=== PATIENT | female | born 1940 | race Caucasian/White ===

== ENCOUNTER 2017-09-13 10:13 | Observation (INO) ==
[2017-09-13] MEDS ORDERED: IOPAMIDOL 100 ML BOTTLE IV ONE (10:14)
--- NOTE | 2017-09-13 10:42 | Emergency Department Note ---
General Adult HPI - General Chief complaint: Blood Pressure Problem Stated complaint: Hypotension, tachycardia Time Seen by Provider: 09/13/17 10:39 Source: patient Mode of arrival: wheelchair Limitations: no limitations - History of Present Illness HPI Narrative: Patient brought back from surgery in which they were preparing to do a total shoulder on her when anesthesia and has noted that heart rate is been 120 his sats have been at times in the 80s the patient herself states she just got excited because of so many people in the room. She denies any chest pain she does have a history of COPD she has a [id number] history of tobacco and uses albuterol but is not oxygen dependent. Her blood pressure at this time is 90 systolically. Has a history of paroxysmal atrial fibrillation denies any orthopnea type signs or symptoms is been no upper respiratory type signs or symptoms no cough the hospitalist was consulted but he referred to the ED for initial evaluation. She is currently being treated for a kidney stone by Dr. Strong and is on Flomax - Related Data Home Medications Medication Instructions Recorded Confirmed vatyjxlaklnj-ngfpmnyz-yeapep tablet 1 tab PO HS tab 12/01/14 09/13/17 DULoxetine HCL [Cymbalta] 30 mg PO DAILY 01/12/17 09/13/17 DULoxetine HCL [Cymbalta] 60 mg PO HS 02/14/17 09/13/17 diphenhydramine 25 mg capsule 75 - 100 mg PO HSP PRN cap 04/18/17 09/13/17 Acetaminophen [8Hr Arthritis Pain] 1,300 mg PO BID 08/18/17 09/13/17 Albuterol Sulfate [Proventil Hfa] 2 puff INHALATION Q6HP PRN 08/18/17 09/13/17 Diltiazem HCl [Diltiazem 24Hr ER] 360 mg PO HS 09/11/17 09/13/17 Ciprofloxacin [Cipro] 500 mg PO BID 09/13/17 09/13/17 Previous Rx's Medication Instructions Recorded lovastatin 20 mg tablet 20 mg PO QPM #90 tab 07/18/17 Tamsulosin [Flomax] 0.4 mg PO HS #20 cap 08/23/17 pramipexole 0.5 mg tablet 2 mg PO QHS #360 tab 08/23/17 Allergies Allergy/AdvReac Type Severity Reaction Status Date / Time No Known Drug Allergies Allergy Verified 09/13/17 10:16 Review of Systems All systems ED: reviewed and negative except as stated. Constitutional: Denies: fever, chills Eyes: Denies: eye pain ENT ED: Denies: ear pain Cardiovascular: Reports: dyspnea on exertion. Denies: chest pain, palpitations , orthopnea Respiratory: Reports: shortness of breath. Denies: cough, wheezes Gastrointestinal: Reports: abdominal pain. Denies: nausea, vomiting Genitourinary: Denies: dysuria Musculoskeletal: Denies: back pain Integumentary: Denies: rash Neurological: Denies: headache Psychiatric: Denies: anxiety Endocrine: Denies: fatigue Hematological/Lymphatic: Denies: easy bleeding Allergic/Immunologic: Denies: facial swelling Past Medical History - Past Medical History Medical history: Reports: arthritis, atrial fibrillation, hyperlipidemia, hypertension, kidney stones, other (restless leg) Surgical history ED: Reports: cataract, hip replacement, orthopedic, other ( back surgeries), tonsillectomy Family history: Reports: other (Mother of suicide father in a motor vehicle accident no other history is known) - Social History smoking status: Former smoker Alcohol use: Reports: None Drug use: Reports: none Physical Exam Limitations: no limitations General appearance: alert Head: atraumatic, normocephalic Eye: Present: normal appearance, PERRL ENT: normal exam, normal oropharynx, mucous membranes moist Neck: Present: normal inspection, full ROM. Absent: trachea midline Chest: Present: normal inspection. Absent: symmetric chest wall rise, tenderness Respiratory: Present: normal lung sounds bilaterally. Absent: respiratory distress, wheezes Cardiovascular: Present: regular rate, normal rhythm. Absent: bradycardia Abdominal: Present: soft, normal bowel sounds. Absent: distention, tenderness, guarding, rebound, rigidity Extremities: Present: normal inspection, full ROM. Absent: tenderness Back: Present: normal inspection, full ROM. Absent: tenderness, CVA tenderness (R), CVA tenderness (L) Patient oriented to: Present: person, place, time Speech: Present: fluid speech Cranial nerves: EOM function (II, III, IV, ): Normal, facial sensation (V): Normal, facial palsy (VII): Normal, gag reflex (IX): Normal, spinal accessory function (XI): Normal, tongue deviation (XII): Normal Cerebellar function: finger to nose: Normal Cerebellar function: normal gait Motor strength - LUE: 5/5 Motor strength - RUE: 5/5 Motor strength - LLE: 5/5 Motor strength - RLE: 5/5 Upper motor neuron exam: Babinski sign: Absent bilaterally Sensory exam upper extremity: Normal: light touch Sensory exam lower extremity: Normal: light touch DTR: 2+: patellar (L), patellar (R) Coma Scale Eye Opening: Spontaneous Coma Scale Motor Response: Obeys Commands Coma Scale Verbal Response: Oriented Coma Scale Total: 15 Psychiatric: Present: normal affect, normal mood Skin: Present: warm, dry Course Vital Signs Temperature 97.8 F 09/13/17 10:16 Pulse Rate 127 H 09/13/17 10:16 Respiratory Rate 18 09/13/17 10:16 Blood Pressure 106/55 09/13/17 10:16 Pulse Oximetry (%) 85 L 09/13/17 10:16 Temperature 97.8 F 09/13/17 10:16 Pulse Rate 89 09/13/17 14:19 Respiratory Rate 15 09/13/17 13:58 Blood Pressure 119/83 09/13/17 13:58 Pulse Oximetry (%) 92 09/13/17 13:58 Medical Decision Making - MDM Narrative Medical decision making narrative: D DIMER ELEVATED AND CT PERFORMED SHOWS NO DVT, ATELECTASIS . hAS ua WITH LG WBC AND RBC. Is currently being followed by Dr. Strong for kidney stone and is on Flomax. Her O2 sat drops down to 8788 when on room air is giving a breathing treatment. ABGs were good pH is 7.42 and a CO2 of 40s. Potassium was 2.9 and patient given a K rider. Dr. MCKINNEY contacted and patient to be admitted. - Lab Data Result diagrams: 09/13/17 10:52 09/13/17 10:51 Lab Results 09/13/17 09/13/17 09/13/17 Range/Units 10:51 10:51 10:52 WBC 8.8 (4.5-11.0) K/mcL RBC 4.23 (4.00-5.20) M/mcL Hgb 11.8 L (12.0-15.0) g/dL Hct 36.5 (36.0-48.0) % MCV 86.3 (80.0-100.0) fL MCH 27.8 (26.0-34.0) pg MCHC 32.3 (31.0-36.0) g/dL RDW 17.8 H (11.5-14.5) % Plt Count 375 (140-440) K/mcL MPV 7.3 L (7.4-10.4) fL Gran % 76.5 (38.0-78.0) % Lymph % (Auto) 14.2 L (15.5-49.0) % [place] % (Auto) 7.6 (1.0-12.0) % Eos % (Auto) 1.4 (0.0-7.0) % Baso % (Auto) 0.3 (0.0-2.0) % Gran # 6.7 (1.8-8.0) K/mcL Lymph # (Auto) 1.2 L (1.5-4.8) K/mcL [place] # (Auto) 0.7 (0.1-0.9) K/mcL Eos # (Auto) 0.1 (0.0-0.7) K/mcL Baso # (Auto) 0 (0.0-0.3) K/mcL D-Dimer 0.90 H (0.00-0.40) ug/ml VBG Lactic Acid (0.5-2.2) mmol/L Sodium 141 (133-145) mmol/L Potassium 2.9 L* (3.3-5.1) mmol/L Chloride 100 (96-108) mmol/L Carbon Dioxide 27 (22-30) mmol/L Anion Gap 14.0 (8-16) BUN 18 (8-23) mg/dl Creatinine 1.1 (0.6-1.1) mg/dl GFR Calculation 49 Glucose 114 H (70-105) mg/dL Calcium 9.3 (8.6-10.4) mg/dl Total Bilirubin 0.2 (0.0-1.0) mg/dL AST 21 (0-37) U/l ALT 24 (0-40) U/l Alkaline Phosphatase 111 (39-117) U/L Total Creatine Kinase 56 (24-170) IU/L CK-MB (CK-2) 2.4 (0-2.9) ng/ml Myoglobin 52 (25-58) ng/ml Troponin T (0-0.03) ng/ml NT-Pro-B Natriuret Pep 923.2 H (0-125) pg/ml Total Protein 6.6 (5.9-8.4) gm/dL Albumin 3.3 (3.2-5.2) gm/dL Globulin 3.3 (2.2-3.7) gm/dL Albumin/Globulin Ratio 1.0 (1.0-2.3) Urine Color Urine Appearance Urine pH (5.0-9.0) Ur Specific [place] (1.000-1.035) Urine Protein (NEG) mg/dL Urine Glucose (UA) (NEG) mg/dL Urine Ketones (NEG) mg/dL Urine Occult Blood (<0.03) mg/dL Urine Nitrate (NEG) Urine Bilirubin (NEG) mg/dL Urine Urobilinogen (NEG) mg/dL Ur Leukocyte Esterase (NEG) /uL Urine RBC (0-1) /hpf Urine WBC (0-4) /hpf Ur Squamous Epith Cells (0-4) /hpf Urine Bacteria (0) /hpf Urine Mucus (0) /hpf Ur Culture Indicated? 09/13/17 09/13/17 09/13/17 Range/Units 10:52 11:23 13:30 WBC (4.5-11.0) K/mcL RBC (4.00-5.20) M/mcL Hgb (12.0-15.0) g/dL Hct (36.0-48.0) % MCV (80.0-100.0) fL MCH (26.0-34.0) pg MCHC (31.0-36.0) g/dL RDW (11.5-14.5) % Plt Count (140-440) K/mcL MPV (7.4-10.4) fL Gran % (38.0-78.0) % Lymph % (Auto) (15.5-49.0) % [place] % (Auto) (1.0-12.0) % Eos % (Auto) (0.0-7.0) % Baso % (Auto) (0.0-2.0) % Gran # (1.8-8.0) K/mcL Lymph # (Auto) (1.5-4.8) K/mcL [place] # (Auto) (0.1-0.9) K/mcL Eos # (Auto) (0.0-0.7) K/mcL Baso # (Auto) (0.0-0.3) K/mcL D-Dimer (0.00-0.40) ug/ml VBG Lactic Acid 1.9 (0.5-2.2) mmol/L Sodium (133-145) mmol/L Potassium (3.3-5.1) mmol/L Chloride (96-108) mmol/L Carbon Dioxide (22-30) mmol/L Anion Gap (8-16) BUN (8-23) mg/dl Creatinine (0.6-1.1) mg/dl GFR Calculation Glucose (70-105) mg/dL Calcium (8.6-10.4) mg/dl Total Bilirubin (0.0-1.0) mg/dL AST (0-37) U/l ALT (0-40) U/l Alkaline Phosphatase (39-117) U/L Total Creatine Kinase (24-170) IU/L CK-MB (CK-2) (0-2.9) ng/ml Myoglobin (25-58) ng/ml Troponin T < 0.01 (0-0.03) ng/ml NT-Pro-B Natriuret Pep (0-125) pg/ml Total Protein (5.9-8.4) gm/dL Albumin (3.2-5.2) gm/dL Globulin (2.2-3.7) gm/dL Albumin/Globulin Ratio (1.0-2.3) Urine Color Yellow Urine Appearance Hazy Urine pH 6.0 (5.0-9.0) Ur Specific [place] 1.019 (1.000-1.035) Urine Protein 30 A (NEG) mg/dL Urine Glucose (UA) Negative (NEG) mg/dL Urine Ketones Neg (NEG) mg/dL Urine Occult Blood 0.2 A (<0.03) mg/dL Urine Nitrate Neg (NEG) Urine Bilirubin Neg (NEG) mg/dL Urine Urobilinogen Neg (NEG) mg/dL Ur Leukocyte Esterase 500 A (NEG) /uL Urine RBC 97 H (0-1) /hpf Urine WBC 93 H (0-4) /hpf Ur Squamous Epith Cells 1 (0-4) /hpf Urine Bacteria 0 (0) /hpf Urine Mucus Few (0) /hpf Ur Culture Indicated? Yes Disposition Pt seen by V[employer]ICAL [employer]W OPERATOR/PA only: No Clinical Impression: Hypokalemia, Hypotension, Hypoxia Disposition: Xfer Acute Care Hospital Condition: Fair Referrals: Adam Santos MD [Primary Care Provider] -
[2017-09-13] MEDS ORDERED: 0.9 % SODIUM CHLORIDE 1,000 ML IV ONE (10:51)
[2017-09-13 11:24] LABS: Basophils # (Auto) 0 K/mcL (0.0-0.3); Basophils % (Auto) 0.3 % (0.0-2.0); Eosinophils # (Auto) 0.1 K/mcL (0.0-0.7); Eosinophils % (Auto) 1.4 % (0.0-7.0); Granulocytes % (Auto) 76.5 % (38.0-78.0); Lymphocytes # (Auto) 1.2 K/mcL (1.5-4.8); Lymphocytes % (Auto) 14.2 % (15.5-49.0); Mean Cell Volume 86.3 fL (80.0-100.0); Mean Corpuscular HGB Conc 32.3 g/dL (31.0-36.0); Mean Corpuscular Hemoglobin 27.8 pg (26.0-34.0); Monocytes # (Auto) 0.7 K/mcL (0.1-0.9); Monocytes % (Auto) 7.6 % (1.0-12.0); Platelet Count 375 K/mcL (140-440); RBC 4.23 M/mcL (4.00-5.20); Red Cell Distribution Width 17.8 % (11.5-14.5)
--- NOTE | 2017-09-13 11:28 | XRay Report ---
CLINICAL INFORMATION: Chest pain COMPARISON: 08/08/2017 FINDINGS: The heart is mildly enlarged - slightly increased. Mediastinum is unremarkable. Pulmonary vessels show slight redistribution. There appears be a small infiltrate superimposed over chronic right basilar fibrosis. Minor left basilar fibrosis noted IMPRESSION: Suspect small infiltrate developing in the right base superimposed upon chronic fibrosis Interpreted and Authenticated by: Noel Petty 09/13/17
[2017-09-13] MEDS ORDERED: cefTRIAXone 1 GM VIAL IV ONE (11:41)
[2017-09-13] MEDS ORDERED: LEVOFLOXACIN 500 MG/100 ML BAG IV ONE (11:46)
[2017-09-13 11:49] LABS: ALT/SGPT 24 U/l (0-40); Albumin 3.3 gm/dL (3.2-5.2); Alkaline Phosphatase 111 U/L (39-117); Blood Urea Nitrogen 18 mg/dl (8-23); Creatine Kinase 56 IU/L (24-170); Creatine Kinase MB 2.4 ng/ml (0-2.9); Myoglobin 52 ng/ml (25-58); proBNP 923.2 pg/ml (0-125)
[2017-09-13] MEDS ORDERED: POTASSIUM CHLORIDE 20 MEQ in DEXTROSE 5% IN WATER 250 ML IV ONE (11:50)
--- NOTE | 2017-09-13 13:39 | Cat Scan Report ---
CLINICAL INFORMATION: Increased d-dimer and shortness of breath COMPARISON: Chest CT 06/24/2011. TECHNIQUE: 80 cc of Isovue-300 were injected intravenously. Using SmartPrep to maximize pulmonary artery opacification, 2.5 mm helical slices were obtained from the lung apices through the lung bases. Following reconstruction, 2.5 mm sagittal, coronal, and axial reformations were processed. The exam was reviewed at mediastinal, lung, and bone windows. The exam was performed using radiation dose optimization techniques including, but not limited to, automated exposure control, adjustment of the mA and/or kV according to patient size and use of iterative reconstruction technique. FINDINGS: Mediastinal windows show the pulmonary arteries well opacified without evidence of embolus. Central pulmonary arteries are mildly enlarged: main pulmonary artery diameter 3 cm suggest pulmonary hypertension. The heart is only larger scattered calcific plaque in the coronary arteries. The thoracic aorta is normal in contour and caliber. There are no abnormally enlarged lymph nodes in the mediastinal hilar or axillary regions. Esophagus is normal. Pulmonary parenchymal windows show complete atelectasis of the medial and posterior basilar segments of the left lower lobe with subsegmental atelectasis in the lateral basilar segment left lower lobe and also the posterior basilar segment right lower lobe. Mild centrilobular emphysema changes feature chronic bronchitis and scattered bullae in the apices. A mosaic perfusion pattern may indicate small airways disease. The bone windows show moderate degenerative changes of thoracic spine. Severe arthritic changes in the right glenohumeral joint featuring a large effusion and particular erosion noted. IMPRESSION: 1. No evidence of pulmonary embolus 2. Mild centrilobular emphysema changes. Mosaic perfusion pattern suggests small airways disease 3. Mild enlargement of the central pulmonary arteries suggesting pulmonary hypertension related to COPD 4. Atelectasis of the medial and posterior basilar segments left lower lobe with subsegmental atelectasis in the posterior basilar segment right lower lobe lateral basilar segment left lower lobe and lingula. 5. Severe inflammatory arthritic changes in the right glenohumeral joint - new from prior CT Interpreted and Authenticated by: Noel Petty 09/13/17
[2017-09-13] MEDS ORDERED: IPRATROPIUM/ALBUTEROL 3 ML AMPUL.NEB NEB ONE (14:06)
[2017-09-13 14:27] LABS: Appearance,Urine HAZY; Bacteria,Urine 0 /hpf (0); Bilirubin,Urine NEG (NEG); Color,Urine YELLOW; Glucose,Urine (UA) NEGATIVE (NEG); Leukocyte Esterase,Urine 500 /uL (NEG); Mucus,Urine FEW /hpf (0); Protein,Urine 30 mg/dL (NEG); Specific Gravity,Urine 1.019 (1.000-1.035); Urine Blood 0.2 mg/dL (<0.03); Urine RBC 97 /hpf (0-1); Urine Squamous Epithelial Cell 1 /hpf (0-4); Urine WBC 93 /hpf (0-4); Urobilinogen,Urine NEG (NEG)
[2017-09-13] MEDS ORDERED: methylPREDNISolone SOD SUCC 125 MG/2 ML VIAL IV ONE (15:35)
--- NOTE | 2017-09-13 15:40 | Internal Med History&Physical ---
Medical - H&P: HPI Patient information: Note initiated : 09/13/17 at 3:37 pm Service Date, if different from initiated Date: [] Patient: Leslie Maldonado a 76 y/o F admitted on for Hypotension, tachycardia. Chief Complaint: [] History of present illness: Ms. Maldonado is a 76 year old F with h/o recently diagnosed copd, not on home oxygen, strong history of smoking in the past presents to the ER today after her shoulder surgery was cancelled. The patient presented for elective right shoulder surgery. I believe it was arthroplasty. The patient was hypoxic and tachycardic at the check in and therefore surgery was canceled and the patient was sent to the emergency room patient also had low blood pressure. The patient notes she has been having cough and increased shortness of breath going on for the last 2-3 weeks, cough is productive of whitish yellow sputum no blood in the sputum. She has had increased shortness of breath and even walking 10-15 feet would make her short of breath. Her PCP had recently started on albuterol which helped with her breathing. Her symptoms have not completely resolved yet. The patient otherwise denies any other acute complaints. She was otherwise well for the surgery. She has been diagnosed with a UTI? She has no urinary complaints but is on ciprofloxacin. The patient also notes she has swelling in her legs, has been prescribed some diuretics by her PCP but she is not very good at taking them. Swelling is worse during the day is not as bad now as she has not been on her feet. In the emergency room patient was afebrile, tachycardic at a heart rate of 119, systolic blood pressure as low as 80, she was saturating 83% on room air. Usually saturates around 93-94% on room air. The patient's labs show WBC of 8.8 , hemoglobin 11.8, platelets 375, sodium is normal at 141, potassium very low at 2.9, bicarbonate 27, creatinine 1.1 glucose 114. Elevated d-dimer at 0.9, normal lactic acid 1.9, slightly elevated BNP at 923, UA suggestive of a UTI, recent urine culture done a couple of days ago was negative for any specific organism. Had mixed linda growth. Patient had a chest x-ray done which showed possible infiltrate at the right base, she had a CT angios done which showed no PE but bilateral atelectasis. No evidence of pneumonia. Patient did get fluids in the ED, was blood pressure and heart rate improved however the patient remained hypoxic. Given her low potassium and hypoxia patient was presented to the hospital for admission. All systems: reviewed and no additional remarkable complaints except as stated ( As per HPI rest negative) Medical - H&P: PMH Medical history: Medical History (Last Reviewed 08/29/17 @ 08:18 by Jayleen Reyna, RN) Kidney stone on left side (Acute) Lumbago (Acute) History of ECG (Chronic 10/29/15) Pseudophakia (Chronic) PCO (posterior capsular opacification) (Chronic) Blepharitis (Chronic) Osteoarthritis of shoulders, bilateral (Chronic) Osteoarthritis of right knee (Chronic) Bruising (Chronic) History of radiation exposure (Chronic) History of right hip replacement (Chronic) History of tobacco use (Chronic) Restless legs (Chronic) Paroxysmal supraventricular tachycardia (Chronic) Paroxysmal atrial fibrillation (Chronic) Pain in joint, shoulder region (Chronic) Pain in joint, pelvic region and thigh (Chronic) Low back pain (Chronic) Hypertension, essential, benign (Chronic) Hyperlipidemia (Chronic) Hormone replacement therapy (Chronic) Degenerative arthritis (Chronic) Colon polyps (Chronic) Cervicalgia (Chronic) Anxiety (Chronic) Surgical history: Past Surgical History (Last Reviewed 08/29/17 @ 08:17 by Jayleen Reyna, [place]) History of spinal fusion (Chronic) History of laminectomy (Chronic) History of esophagogastroduodenoscopy (Chronic) History of colonoscopy (Chronic) History of right knee joint replacement (Chronic) Pertinent family history: Family History (Last Reviewed 08/29/17 @ 08:19 by Jayleen Reyna, [place]) Other No pertinent family history Medical - H&P: Meds Home Medications Medication Instructions Recorded Confirmed Type ntcfcjvqrhit-nzglgdoh-yygzkn tablet 1 tab PO HS tab 12/01/14 09/13/17 History DULoxetine HCL [Cymbalta] 30 mg PO DAILY 01/12/17 09/13/17 History DULoxetine HCL [Cymbalta] 60 mg PO HS 02/14/17 09/13/17 History diphenhydramine 25 mg capsule 75 - 100 mg PO HSP PRN cap 04/18/17 09/13/17 History lovastatin 20 mg tablet 20 mg PO QPM #90 tab 07/18/17 09/13/17 Rx Acetaminophen [8Hr Arthritis Pain] 1,300 mg PO BID 08/18/17 09/13/17 History Albuterol Sulfate [Proventil Hfa] 2 puff INHALATION Q6HP PRN 08/18/17 09/13/17 History Tamsulosin [Flomax] 0.4 mg PO HS #20 cap 08/23/17 09/13/17 Rx pramipexole 0.5 mg tablet 2 mg PO QHS #360 tab 08/23/17 09/13/17 Rx Diltiazem HCl [Diltiazem 24Hr ER] 360 mg PO HS 09/11/17 09/13/17 History Ciprofloxacin [Cipro] 500 mg PO BID 09/13/17 09/13/17 History Allergies Allergy/AdvReac Type Severity Reaction Status Date / Time No Known Drug Allergies Allergy Verified 09/13/17 10:16 Medical - H&P: Exam - Constitutional Vitals: Temp Pulse Resp BP Pulse Ox 97.8 F 87 20 64/41 96 09/13/17 10:16 09/13/17 15:31 09/13/17 15:31 09/13/17 15:30 09/13/17 15:31 Exam: GENERAL: The patient is a well-developed, well-nourished in no apparent distress. Is alert and oriented x3. VITAL SIGNS: Reviewed and as noted elsewhere. HEENT: Head is normocephalic and atraumatic. Extraocular muscles are intact. Pupils are equal, round, and reactive to light. Nares appeared normal. Mouth appears any without lesions. Mucous membranes are moist. NECK: Normal to inspection, Supple, No lymphadenopathy or thyromegaly. LUNGS: Air entry equal on both sides, no wheezing, crackles or rhonchi noted. No accessory muscles of respiration HEART: Regular rate and rhythm normal, S1 and S2 heard, no Gallop, S3 or Rub Noted, No Gross murmur heard. (h/o intermittent afib, but was in sinus on my exam) ABDOMEN: Soft, nontender, and nondistended. Positive bowel sounds. No hepatosplenomegaly was noted. EXTREMITIES: No cyanosis, clubbing, rash, lesions, edema ++ NEUROLOGIC: Cranial nerves II through XII are grossly intact. Motor and Sensory System Grossly Intact PSYCHIATRIC: Normal affect, Normal Mood. Appropriate Behavior. SKIN: No ulceration or wounds noted, No jaundice, No rash noted. Medical - H&P: Reslt - Labs CBC & Chem 7: 09/13/17 10:52 09/13/17 10:51 Labs: Short CBC 09/13/17 Range/Units 10:52 WBC 8.8 (4.5-11.0) K/mcL Hgb 11.8 L (12.0-15.0) g/dL Hct 36.5 (36.0-48.0) % Plt Count 375 (140-440) K/mcL BMP 09/13/17 10:51 Sodium 141 Potassium 2.9 L* Chloride 100 Carbon Dioxide 27 BUN 18 Creatinine 1.1 Glucose 114 H Calcium 9.3 Cardiac Enzymes 09/13/17 09/13/17 Range/Units 10:51 10:52 Total Creatine Kinase 56 (24-170) IU/L CK-MB (CK-2) 2.4 (0-2.9) ng/ml Troponin T < 0.01 (0-0.03) ng/ml Liver Function 09/13/17 Range/Units 10:51 Total Bilirubin 0.2 (0.0-1.0) mg/dL AST 21 (0-37) U/l ALT 24 (0-40) U/l Alkaline Phosphatase 111 (39-117) U/L Albumin 3.3 (3.2-5.2) gm/dL Urine 09/13/17 Range/Units 13:30 Urine Color Yellow Urine Appearance Hazy Urine pH 6.0 (5.0-9.0) Ur Specific [place] 1.019 (1.000-1.035) Urine Protein 30 A (NEG) mg/dL Urine Glucose (UA) Negative (NEG) mg/dL Medical - H&P: A/P - Narrative A/P Narrative: A/P Acute copd/ Bronchitis exacerbation Acute hypoxic resp failure Bilateral atelectasis Afib with RVR Shoulder arthritis Hypokalemia Plan Observe on tele replace K aggresively, IV 20, and oral 40, recheck hold cardizem in light of low bp, prn IV metoprolol if needed for tachcyardia not sure why not on anticoagulation, notes not used because of excessive bruising (AC for afib) IV steroids for now, for bronchitis, no wheeze on exam but clinically does have flare up Hypoxia worsened by atelectatsis. aggresive incentive spirometery use Pt only wants to stay for 1 day, hopefully she will be better by tomorrow, but explained that cannot guarantee that she will be stable for D/c Duonebs q4hrs on levoflox for bronchitis, hold cipro, DVT hep sq Diet Cardiac Full code Social History - Social History household members: spouse, alone housing: house lives independently: Yes marital status: occupational status: retired - Pets pets and animals: cat(s), dog(s) - Tobacco smoking status: Former smoker - Alcohol alcohol intake frequency: former alcohol drinker - Substance use substance use type: does not use
[2017-09-13] MEDS ORDERED: ACETAMINOPHEN 325 MG TABLET PO PRN (16:40)
[2017-09-13] MEDS ORDERED: POTASSIUM CHLORIDE 20 MEQ PACKET PO ONE (16:40)
[2017-09-13] MEDS ORDERED: oxyCODONE/APAP 5/325MG TABLET PO PRN (16:40)
[2017-09-13] MEDS ORDERED: ONDANSETRON ODT 4 MG TABLET SL PRN (16:40)
[2017-09-13] MEDS ORDERED: NALOXONE HCL 0.4 MG/ML VIAL IV PRN (16:40)
[2017-09-13] MEDS ORDERED: PRAMIPEXOLE 0.25 MG TABLET PO SCH (18:00)
[2017-09-13] MEDS: METOPROLOL TARTRATE 5 MG/5 ML VIAL IV SCH ×2 (18:27→18:28)
[2017-09-13] MEDS: IPRATROPIUM/ALBUTEROL 3 ML AMPUL.NEB NEB SCH ×2 (19:30→23:04)
[2017-09-13] MEDS ORDERED: SIMVASTATIN 10 MG TABLET PO SCH (21:00)
[2017-09-13] MEDS ORDERED: PRAMIPEXOLE 1 MG TABLET PO SCH (21:00)
[2017-09-13] MEDS ORDERED: NON FORMULARY MEDICATION 1 DOSE MISCELL (Duloxetine Hcl [Cymbalta] 60 MG) PO SCH (21:00)
[2017-09-13] MEDS ORDERED: TAMSULOSIN 0.4 MG CAPSULE PO SCH (21:00)
[2017-09-13] MEDS: 0.9 % SODIUM CHLORIDE 10 ML SYRINGE IV SCH (22:12)
[2017-09-13] MEDS: FAMOTIDINE 20 MG TABLET PO SCH (22:12)
[2017-09-13] MEDS: HEPARIN 5,000 UNIT/ML VIAL SQ SCH (22:12)
[2017-09-14] MEDS ORDERED: METOPROLOL TARTRATE 5 MG/5 ML VIAL IV PRN (02:54)
[2017-09-14] MEDS: IPRATROPIUM/ALBUTEROL 3 ML AMPUL.NEB NEB SCH ×3 (03:05→10:17)
[2017-09-14] MEDS ORDERED: METOPROLOL TARTRATE 5 MG/5 ML VIAL IV ONE ×2 (03:06→03:20)
[2017-09-14] MEDS ORDERED: predniSONE 20 MG TABLET PO SCH (08:00)
[2017-09-14 08:13] LABS: Basophils # (Auto) 0 K/mcL (0.0-0.3); Basophils % (Auto) 0 % (0.0-2.0); Eosinophils # (Auto) 0 K/mcL (0.0-0.7); Eosinophils % (Auto) 0 % (0.0-7.0); Granulocytes % (Auto) 85.8 % (38.0-78.0); Lymphocytes # (Auto) 0.5 K/mcL (1.5-4.8); Lymphocytes % (Auto) 12.1 % (15.5-49.0); Mean Cell Volume 85.4 fL (80.0-100.0); Mean Corpuscular HGB Conc 32.9 g/dL (31.0-36.0); Monocytes # (Auto) 0.1 K/mcL (0.1-0.9); Monocytes % (Auto) 2.1 % (1.0-12.0); Platelet Count 397 K/mcL (140-440); RBC 4.23 M/mcL (4.00-5.20); Red Cell Distribution Width 17.4 % (11.5-14.5)
[2017-09-14 08:31] LABS: ALT/SGPT 21 U/l (0-40); Albumin 3.4 gm/dL (3.2-5.2); Albumin/Globulin Ratio 1.1 (1.0-2.3); Alkaline Phosphatase 106 U/L (39-117); Bilirubin,Direct < 0.2 mg/dL (0.0-0.3); Blood Urea Nitrogen 9 mg/dl (8-23); Gamma Glutamyl Transpeptidase 47 U/L (5-36); Uric Acid 4.9 mg/dL (2.5-8.0)
[2017-09-14] MEDS: 0.9 % SODIUM CHLORIDE 10 ML SYRINGE IV SCH (08:46)
[2017-09-14] MEDS: FAMOTIDINE 20 MG TABLET PO SCH (08:46)
[2017-09-14] MEDS: HEPARIN 5,000 UNIT/ML VIAL SQ SCH (08:46)
[2017-09-14] MEDS ORDERED: DULoxetine 30 MG CAPSULE PO SCH (09:00)
[2017-09-14] MEDS ORDERED: LEVOFLOXACIN 500 MG TABLET PO SCH (09:00)
--- NOTE | 2017-09-14 10:13 | Discharge Summary ---
Medical - DS: Prov Patient information: Note initiated : 09/14/17 at 10:11 am Service Date, if different from initiated Date: [] Patient: Leslie Maldonado 76 y/o F admitted on 09/13/17 for Hypotension, Tachycardia. Chief Complaint: [] Date of admission: 09/13/17 16:34 Discharge date: 09/14/17 Primary care physician: Adam Santos MD Admitting clinician: José Reed Consults: 09/13/17 14:41 Consult to Physician [CONS] Stat Comment: Consulting Provider: José Reed Reason For Exam: Physician to Consult Discharging clinician: José Reed Medical - DS: Meds - Discharge Medications Prescriptions: predniSONE [Prednisone] 40 mg PO QAC #3 tab Active and Home Medications: Home Medications [id number] tablet 1 tab PO HS tab 12/01/14 [History Confirmed 09/13/17 Last Taken 09/12/17] DULoxetine HCL [Cymbalta] 30 mg PO DAILY 01/12/17 [History Confirmed 09/13/17 Last Taken 09/12/17] DULoxetine HCL [Cymbalta] 60 mg PO HS 02/14/17 [History Confirmed 09/13/17 Last Taken 09/12/17] diphenhydramine 25 mg capsule 75 - 100 mg PO HSP PRN cap 04/18/17 [History Confirmed 09/13/17 Last Taken 08/22/17 21:00] lovastatin 20 mg tablet 20 mg PO QPM #90 tab 07/18/17 [Rx Confirmed 09/13/17 Last Taken 09/12/17] Acetaminophen [8Hr Arthritis Pain] 1,300 mg PO BID 08/18/17 [History Confirmed 09/13/17 Last Taken 09/12/17 22:00] Albuterol Sulfate [Proventil Hfa] 2 puff INHALATION Q6HP PRN 08/18/17 [History Confirmed 09/13/17 Last Taken 09/13/17 09:00] Tamsulosin [Flomax] 0.4 mg PO HS #20 cap 08/23/17 [Rx Confirmed 09/13/17 Last Taken 09/12/17] pramipexole 0.5 mg tablet 2 mg PO QHS #360 tab 08/23/17 [Rx Confirmed 09/13/17 Last Taken 09/12/17] Diltiazem HCl [Diltiazem 24Hr ER] 360 mg PO HS 09/11/17 [History Confirmed 09/13 Last Taken 09/12/17 22:00] Ciprofloxacin [Cipro] 500 mg PO BID 09/13/17 [History Confirmed 09/13/17 Last Taken 09/13/17 07:30] Medical - DS: Hosp Hospital course: Ms. Maldonado is a 76 year old F with h/o recently diagnosed copd, not on home oxygen, strong history of smoking in the past presents to the ER today after her shoulder surgery was cancelled. The patient presented for elective right shoulder surgery. I believe it was arthroplasty. The patient was hypoxic and tachycardic at the check in and therefore surgery was canceled and the patient was sent to the emergency room patient also had low blood pressure. The patient notes she has been having cough and increased shortness of breath going on for the last 2-3 weeks, cough is productive of whitish yellow sputum no blood in the sputum. She has had increased shortness of breath and even walking 10-15 feet would make her short of breath. Her PCP had recently started on albuterol which helped with her breathing. Her symptoms have not completely resolved yet. The patient otherwise denies any other acute complaints. She was otherwise well for the surgery. She has been diagnosed with a UTI? She has no urinary complaints but is on ciprofloxacin. The patient also notes she has swelling in her legs, has been prescribed some diuretics by her PCP but she is not very good at taking them. Swelling is worse during the day is not as bad now as she has not been on her feet. In the emergency room patient was afebrile, tachycardic at a heart rate of 119, systolic blood pressure as low as 80, she was saturating 83% on room air. Usually saturates around 93-94% on room air. The patient's labs show WBC of 8.8 , hemoglobin 11.8, platelets 375, sodium is normal at 141, potassium very low at 2.9, bicarbonate 27, creatinine 1.1 glucose 114. Elevated d-dimer at 0.9, normal lactic acid 1.9, slightly elevated BNP at 923, UA suggestive of a UTI, recent urine culture done a couple of days ago was negative for any specific organism. Had mixed linda growth. Patient had a chest x-ray done which showed possible infiltrate at the right base, she had a CT angios done which showed no PE but bilateral atelectasis. No evidence of pneumonia. Patient did get fluids in the ED, was blood pressure and heart rate improved however the patient remained hypoxic. Given her low potassium and hypoxia patient was presented to the hospital for admission. The patient was kept overnight and treated for acute bronchitis/ copd exacerbation ,duonebs and steroids, she was also on antibiotics. Today she is doing well, has no complaints and is saturating > 90% on room air aprox 92-96, which is her baseline She is encouraged to use incentive spirometer regularily. She will be discharged on po prednisone for additional 3 days, she is already on antibiotics and also on albuterol inhaler. She was offered a referral to pulmonary, she wants to think about it after she goes home, advised to talk to her pcp regarding same. No changes made to her chronic home medication list. Discharge diagnosis: Hypoxia, acute bronchitis. - Time Spent with Patient Total time spent providing and/or coordinating discharge services: Less than 30 minutes Medical - DS: Exam - Constitutional Vitals: Vital Signs Temp Pulse Pulse Resp BP BP Pulse Ox 09/14/17 08:30 89 18 93 09/14/17 08:01 98.1 F 105/83 96 09/14/17 07:20 89 18 09/14/17 07:01 121/90 96 09/14/17 05:09 90 09/14/17 05:01 144/87 95 09/14/17 04:30 96 09/14/17 04:01 97.6 F 122/95 94 09/14/17 04:00 94 09/14/17 03:30 97.6 F 18 98 09/14/17 03:01 94 09/14/17 03:00 133/89 93 09/14/17 02:43 98/86 94 09/14/17 02:30 93 09/14/17 02:01 118/90 95 09/14/17 02:00 95 09/14/17 01:30 95 09/14/17 01:14 94 09/14/17 01:03 123/93 94 09/14/17 00:06 88 L 09/14/17 00:01 97.5 F 18 116/83 90 09/14/17 00:00 91 09/13/17 23:04 97 H 16 94 09/13/17 23:01 113/96 92 09/13/17 22:32 94 09/13/17 22:01 115/91 95 09/13/17 21:10 92 09/13/17 21:01 110/72 94 09/13/17 20:55 89 L 09/13/17 20:54 89 L 09/13/17 20:53 88 L 09/13/17 20:46 90 09/13/17 20:45 89 L 09/13/17 20:01 98.9 F 90 18 113/82 92 09/13/17 19:31 91 H 18 96 09/13/17 19:01 108/78 90 09/13/17 19:00 94 H 92 09/13/17 18:01 127/112 95 09/13/17 17:01 84 117/87 95 09/13/17 16:46 84 108/88 96 09/13/17 16:40 97.7 F 84 18 97/75 96 09/13/17 16:39 97.8 F 87 20 115/79 96 09/13/17 16:34 97.7 F 84 18 97/75 96 09/13/17 16:15 79 14 124/80 93 09/13/17 16:00 83 12 112/82 93 09/13/17 15:47 87 113/79 93 09/13/17 15:44 22 95/75 09/13/17 15:31 87 20 96 09/13/17 15:30 64/41 09/13/17 15:15 87 19 114/85 97 09/13/17 15:02 88 11 L 110/78 94 09/13/17 14:59 86 19 96 09/13/17 14:45 80 10 L 119/86 99 09/13/17 14:34 11 L 117/85 09/13/17 14:33 85 17 74/61 95 09/13/17 14:31 56 L 22 59/38 82 L 18 14:19 89 09/13/17 14:15 86 14 138/99 93 09/13/17 14:00 86 17 136/87 94 09/13/17 13:58 87 15 119/83 92 09/13/17 13:45 83 11 L 119/83 97 09/13/17 13:33 95 H 19 122/81 93 09/13/17 13:08 88 14 124/82 97 09/13/17 13:01 91 H 17 124/82 99 09/13/17 12:46 88 17 117/83 96 09/13/17 12:31 87 25 H 127/86 94 09/13/17 12:16 86 17 117/77 95 09/13/17 12:03 88 16 109/79 91 09/13/17 12:01 90 14 109/79 96 09/13/17 11:46 89 13 109/78 93 09/13/17 11:32 87 13 109/76 94 09/13/17 11:19 90 19 116/79 92 09/13/17 11:15 95 H 11 L 116/79 94 09/13/17 11:09 95 H 18 114/88 93 09/13/17 11:05 117 H 22 80/57 99 09/13/17 10:16 97.8 F 127 H 18 106/55 85 L Intake and Output 09/13/17 09/14/17 09/14/17 21:59 05:59 13:59 Intake Total 470 / 470 100 / 100 240 / 240 Output Total 1025 / 1025 550 / 550 275 / 275 Balance -555 / -555 -450 / -450 -35 / -35 Intake: IV 360 / 360 Potassium Chloride 20 Meq In 260 / 260 Dextrose 5% in Water 250 ml @ 130 mls/hr IV ONCE ONE Rx#: [id number] Oral 110 / 110 100 / 100 240 / 240 Output: Void Amount 1025 / 1025 550 / 550 275 / 275 Other: Meal Dinner Breakfast Percent of Meal Consumed 50% 75% Feeding Ability Independent # Voids 1 1 Weight 198 lb Additional comments: Constitutional; Afebrile, cooperative, alert, not in distress. Eyes- No icterus, , No periorbital swelling Ears- Ext ear normal, hearing normal to conversation. Neck- Midline trachea, supple Respiratory system: Air Entry equal on both sides, No crackles or wheezing, no rhonchi. CVS- Rate rhythm regular, S1,S2 heard, no gallop, no rub. Abdomen- Soft nontender abdomen, no organomegaly, no tenderness, no guarding or rigidity, BAR ATTENDANT- AOOx3, moving all extremities, no gross focal deficit noted. Medical - DS: Data Labs on day of discharge: Labs from last 24 hours 09/14/17 09/14/17 09/13/17 07:17 07:17 13:30 WBC 4.2 L RBC 4.23 Hgb 11.9 L Hct 36.1 MCV 85.4 MCH 28.0 MCHC 32.9 RDW 17.4 H Plt Count 397 MPV 7.3 L Gran % 85.8 H Lymph % (Auto) 12.[address] [place] % (Auto) 2.1 Eos % (Auto) 0 Baso % (Auto) 0 Gran # 3.6 Lymph # (Auto) 0.[address] [place] # (Auto) 0.1 Eos # (Auto) 0 Baso # (Auto) 0 D-Dimer VBG Lactic Acid Sodium 139 Potassium 3.5 Chloride 102 Carbon Dioxide 27 Anion Gap 10.0 BUN 9 Creatinine 0.6 GFR Calculation 90 Glucose 163 H Uric Acid 4.9 Calcium 9.1 Phosphorus 3.6 Magnesium 1.9 Total Bilirubin 0.2 Direct Bilirubin < 0.2 GGT 47 H AST 19 ALT 21 Alkaline Phosphatase 106 Lactate Dehydrogenase 161 Total Creatine Kinase CK-MB (CK-2) Myoglobin Troponin T NT-Pro-B Natriuret Pep Total Protein 6.5 Albumin 3.4 Globulin 3.1 Albumin/Globulin Ratio 1.1 Triglycerides 67 Urine Color Yellow Urine Appearance Hazy Urine pH 6.0 Ur Specific [place] 1.019 Urine Protein 30 A Urine Glucose (UA) Negative Urine Ketones Neg Urine Occult Blood 0.2 A Urine Nitrate Neg Urine Bilirubin Neg Urine Urobilinogen Neg Ur Leukocyte Esterase 500 A Urine RBC 97 H Urine WBC 93 H Ur Squamous Epith Cells 1 Urine Bacteria 0 Urine Mucus Few Ur Culture Indicated? Yes 09/13/17 09/13/17 09/13/17 11:23 10:52 10:52 WBC 8.8 RBC 4.23 Hgb 11.8 L Hct 36.5 MCV 86.3 MCH 27.8 MCHC 32.3 RDW 17.8 H Plt Count 375 MPV 7.3 L Gran % 76.5 Lymph % (Auto) 14.[address] [place] % (Auto) 7.6 Eos % (Auto) 1.4 Baso % (Auto) 0.3 Gran # 6.7 Lymph # (Auto) 1.[address] [place] # (Auto) 0.7 Eos # (Auto) 0.1 Baso # (Auto) 0 D-Dimer VBG Lactic Acid 1.9 Sodium Potassium Chloride Carbon Dioxide Anion Gap BUN Creatinine GFR Calculation Glucose Uric Acid Calcium Phosphorus Magnesium Total Bilirubin Direct Bilirubin GGT AST ALT Alkaline Phosphatase Lactate Dehydrogenase Total Creatine Kinase CK-MB (CK-2) Myoglobin Troponin T < 0.01 NT-Pro-B Natriuret Pep Total Protein Albumin Globulin Albumin/Globulin Ratio Triglycerides Urine Color Urine Appearance Urine pH Ur Specific [place] Urine Protein Urine Glucose (UA) Urine Ketones Urine Occult Blood Urine Nitrate Urine Bilirubin Urine Urobilinogen Ur Leukocyte Esterase Urine RBC Urine WBC Ur Squamous Epith Cells Urine Bacteria Urine Mucus Ur Culture Indicated? 09/13/17 09/13/17 10:51 10:51 WBC RBC Hgb Hct MCV MCH MCHC RDW Plt Count MPV Gran % Lymph % (Auto) [place] % (Auto) Eos % (Auto) Baso % (Auto) Gran # Lymph # (Auto) [place] # (Auto) Eos # (Auto) Baso # (Auto) D-Dimer 0.90 H VBG Lactic Acid Sodium 141 Potassium 2.9 L* Chloride 100 Carbon Dioxide 27 Anion Gap 14.0 BUN 18 Creatinine 1.1 GFR Calculation 49 Glucose 114 H Uric Acid Calcium 9.3 Phosphorus Magnesium Total Bilirubin 0.2 Direct Bilirubin GGT AST 21 ALT 24 Alkaline Phosphatase 111 Lactate Dehydrogenase Total Creatine Kinase 56 CK-MB (CK-2) 2.4 Myoglobin 52 Troponin T NT-Pro-B Natriuret Pep 923.2 H Total Protein 6.6 Albumin 3.3 Globulin 3.3 Albumin/Globulin Ratio 1.0 Triglycerides Urine Color Urine Appearance Urine pH Ur Specific [place] Urine Protein Urine Glucose (UA) Urine Ketones Urine Occult Blood Urine Nitrate Urine Bilirubin Urine Urobilinogen Ur Leukocyte Esterase Urine RBC Urine WBC Ur Squamous Epith Cells Urine Bacteria Urine Mucus Ur Culture Indicated? Preliminary micro results at discharge 09/13/17 13:30 Urine Culture - Preliminary Urine - Clean Void [facility] - DS: A/P - Patient/Caregiver Discharge Instructions Activity: increase activity as tolerated Diet: Regular Diet Additional Instructions: Please take prednisone 40mg daily with food for another 3 days Follow up with PCP in 1 week your PCP with regards to referral to [employer]. No changes have been made to her chronic home medication list. Take them as prescribed by her primary care provider and other physicians. Follow-up with other your surgeon as well as a urologist as previously scheduled. Use the incentive spirometry as directed - Follow up Plan Follow up with: Adam Santos MD [Primary Care Provider] - 09/20/17 2:15 pm (Check in at 2: 00pm) Disposition: Home, Self-Care Prognosis: Fair Rehab Potential: Fair I certify that the patient requires SNF services: No Medical - DS: Qual - VTE Deep Vein Thrombosis/Pulmonary Embolism Present on Admission: No
== END 2017-09-14 11:30 | disposition home or self-care (01) ==
LOC: ED 10:13 → ICU 10:13
PROVIDERS: ADMIT Internal Medicine; ATTEND Internal Medicine

== ENCOUNTER 2019-11-18 18:32 | Inpatient (IN) ==
[2019-11-18] MEDS ORDERED: IOPAMIDOL 100 ML BOTTLE IV ONE (18:33)
[2019-11-18] MEDS ORDERED: IPRATROPIUM/ALBUTEROL 3 ML AMPUL.NEB NEB ONE (18:52)
[2019-11-18] MEDS ORDERED: DOXYCYCLINE 100 MG in DEXTROSE 5% IN WATER 100 ML IV ONE (18:52)
[2019-11-18] MEDS ORDERED: methylPREDNISolone SOD SUCC 125 MG/2 ML VIAL IV ONE (18:52)
--- NOTE | 2019-11-18 18:56 | Emergency Department Note ---
SOB HPI General Chief Complaint: Shortness of Breath/Dyspnea Stated Complaint: shortness of breath Time Seen by Provider: 11/18/19 18:43 Source: patient Mode of arrival: wheelchair Limitations: no limitations History of Present Illness HPI Narrative: Narrative: This patient carries a history of COPD and is been feeling short of breath today. She does use 4 L of oxygen at home and some inhalers. However she also uses Lasix. Denies fever chills chest pain abdominal pain nausea vomiting. Does not describe a lot of wheezing. Related Data Home Medications Medication Instructions Recorded Confirmed byuqiifehbxa-[id number] 1 tab PO QDAY 04/25/18 11/05/19 acetaminophen 650 mg 4,550 mg PO Q8H PRN tab 08/27/18 11/05/19 tablet,extended release lisinopril 5 mg tablet 5 mg PO QDAY 09/17/18 11/05/19 duloxetine 30 mg capsule,delayed 30 mg PO QHS cap 03/13/19 11/05/19 release metoprolol succinate 25 mg capsule See Rx Instructions PO QDAY each 03/13/19 11/05/19 sprinkle, ext. release 24 hr furosemide 20 mg tablet 20 mg PO QDAY PRN tab 04/26/19 11/05/19 portable oxygen with supplies 2 applic .ROUTE .MEDSUPPLY 06/20/19 11/05/19 Previous Rx's Medication Instructions Recorded tiotropium bromide 18 mcg capsule 1 cap INHALATION QDAY #30 cap 07/30/18 with inhalation device albuterol sulfate 2.5 mg INHALATION BID #180 ml 08/27/18 budesonide 0.5 mg/2 mL suspension 2 ml INHALATION BID #120 ml 08/27/18 for nebulization silver sulfadiazine 1 % topical 1 applic TOPICAL BID #20 g 09/17/18 cream albuterol sulfate 90 mcg/actuation 2 puff INHALATION Q6H PRN #6.7 g 09/28/18 aerosol inhaler duloxetine 60 mg capsule,delayed 60 mg PO QDAY #90 cap 01/18/19 release meloxicam 15 mg tablet 15 mg PO QDAY #30 tab 04/23/19 tramadol 50 mg PO Q4H PRN #20 tab 06/24/19 lisinopril 10 mg PO DAILY #30 tab 06/25/19 pramipexole 0.5 mg tablet See Rx Instructions PO QHS #360 tab 08/30/19 Allergies Allergy/AdvReac Type Severity Reaction Status Date / Time chocolate flavor AdvReac Intermediate Cough Verified 11/18/19 18:36 Review of Systems ROS ROS Narrative: Narrative: All systems ED: reviewed and negative except as stated. [facility] Narrative Patient History Narrative: Narrative: Medical/Surgical/Family History All Active Problems (Updated 11/18/19 @ 22:34 by Maurisio Vang MD) Sepsis (Acute) Medicare annual wellness visit, subsequent (Acute) Cellulitis of both lower extremities (Acute) Hypertension (Acute) Cellulitis of right lower extremity (Acute) Edema of right lower extremity (Acute) Hyperlipidemia (Chronic) A-fib (Chronic) Pulmonary hypertension (Chronic) COPD (chronic obstructive pulmonary disease) with emphysema (Chronic) Hypertension, essential, benign (Chronic) Hormone replacement therapy (Chronic) Edema (Chronic) Vasomotor symptoms due to menopause (Chronic) Anxiety (Chronic) Cellulitis and abscess of right lower extremity (Acute) Cellulitis (Acute) Stasis dermatitis (Chronic) Hypoxia (Chronic) Centrilobular emphysema (Chronic) Venous stasis (Chronic) Lower extremity edema (Chronic) Cellulitis of right lower leg (Chronic) Cellulitis of lower extremity (Acute) Abnormal laboratory test result (Acute) Hypoxemia (Chronic) Kidney stone on left side (Chronic) Osteoarthritis of shoulders, bilateral (Chronic) Osteoarthritis of right knee (Chronic) Bruising (Chronic) History of tobacco use (Chronic) Restless legs (Chronic) Low back pain (Chronic) Degenerative arthritis (Chronic) Colon polyps (Chronic) Cervicalgia (Chronic) Pseudophakia (Chronic) Blepharitis (Chronic) PCO (posterior capsular opacification) (Chronic) Medical History (Updated 11/18/19 @ 22:34 by Maurisio Vang MD) A-fib (Chronic) Abdominal pain (Resolved) Abnormal laboratory test result (Acute) Anxiety (Chronic) Chronic; currently takes Cymbalta Blepharitis (Chronic) posterior type OU Bruising (Chronic) Calculus of kidney (Resolved) Cellulitis (Acute) Cellulitis and abscess of right lower extremity (Acute) Cellulitis of foot (Resolved) Cellulitis of left leg (Resolved) Cellulitis of lower extremity (Acute) Cellulitis of right lower leg (Chronic) Centrilobular emphysema (Chronic) Cervicalgia (Chronic) Cervical neck pain Colon polyps (Chronic) Colonoscopy 03/2008 with adenomatous and hyperplastic polyps, updated 05/2011 showing only hyperplastic polyps and on 5 year sequencing. COPD (chronic obstructive pulmonary disease) with emphysema (Chronic) desaturation to low 80% with activity, 90-92% with ambulation. COPD exacerbation (Resolved) Degenerative arthritis (Chronic) Multi-joint; chronic cervical lumbar pain with previous lumbar surgery, previous lumbar radiofrequency ablation; updated lumbar MRI in 12/2011 with sequencing at the pain clinic 01/2012; chronic shoulder pain; increasing right knee pain. Edema (Chronic) lower extremities Flank pain (Resolved) History of ECG (Resolved 10/29/15) History of tobacco use (Chronic) Ex-smoker 2005; updated chest x-ray 04/2011; questionable with negative chest CT, declines Pneumovax. Hormone replacement therapy (Chronic) Currently no bone density, maintains estrogen, stable vitamin D level in 2009, breast exam stable. Hydronephrosis (Resolved) Hyperlipidemia (Chronic) Hx; remains on low-dose Lovastatin with no myalgias Hypertension, essential, benign (Chronic) Hypoxemia (Chronic) Hypoxia (Chronic) Injury of foot, right (Resolved) Kidney stone on left side (Chronic) Low back pain (Chronic) Lumbar low back pain Lower extremity edema (Chronic) Lumbago (Resolved) Medicare annual wellness visit, subsequent (Acute) Odontoid fracture with type II morphology (Resolved) Osteoarthritis of right knee (Chronic) 04/13/2015-O[facility]ay Osteoarthritis of shoulders, bilateral (Chronic) 04/13/2015-[facility] Pain in joint, pelvic region and thigh (Resolved) (02/24/2014-Dr Ricks) Pain in joint, shoulder region (Resolved) (10/31/13-Dr Ricks)Right Paroxysmal supraventricular tachycardia (Resolved) PAT/SVT 08/28/2013 PCO (posterior capsular opacification) (Chronic) Pseudophakia (Chronic) Pulmonary hypertension (Chronic) Refused influenza vaccine (Resolved) Restless legs (Chronic) Stable on Mirapex; no hx for sleep apnea Stasis dermatitis (Chronic) Vasomotor symptoms due to menopause (Chronic) Venous stasis (Chronic) Surgical History History of colonoscopy (Chronic) 2001-- [place] adenomatous polyp. 03/2008-- Adenomatous and hyperplastic polyps. 05/10/2011-- Hyperplastic polyp. 5 year sequencing. History of esophagogastroduodenoscopy (Chronic) History of laminectomy (Chronic) 1997 Lumbar History of radiation exposure (Chronic) 2008 Lumbar radiofrequency ablation History of right hip replacement (Chronic) History of right knee joint replacement (Chronic) surgery 02/17/2017 History of spinal fusion (Chronic) 2006 Status post total knee replacement, right (Chronic) Family History Father , age 50 History of alcohol abuse Mother , age 43 History of alcohol abuse Other COPD (chronic obstructive pulmonary disease) Kidney disease No pertinent family history Social History Smoking Status: Former smoker Alcohol Intake Frequency: former alcohol drinker Substance Use: does not use Exam Narrative Narrative: Narrative: General Limitations: no limitations Head Head: atraumatic, normocephalic and normal inspection Eye Eye: Present normal appearance; Absent conjunctival injection Chest Chest: Present normal inspection and symmetric chest wall rise Respiratory Respiratory: Present normal lung sounds bilaterally; Absent respiratory distress, rales/crackles and wheezes Cardiovascular Cardiovascular: Present regular rate, normal rhythm and normal heart sounds Adbominal Abdominal: Present soft; Absent distention and tenderness Extremities Extremities: Absent pedal edema and pretibial edema Neurological Neurological: Present alert Psychiatric Psychiatric: Present normal affect Skin Skin: Present warm and dry; Absent diaphoresis Course Vital Signs Vital signs: Vital Signs Temperature 97.0 F 11/18/19 18:32 Pulse Rate 101 H 11/18/19 18:32 Respiratory Rate 24 H 11/18/19 18:32 Blood Pressure 113/77 11/18/19 18:32 Pulse Oximetry (%) 91 11/18/19 18:32 Temperature 99.7 F H 11/18/19 22:31 Pulse Rate 83 11/18/19 22:31 Respiratory Rate 19 11/18/19 22:31 Blood Pressure 107/74 11/18/19 22:31 Pulse Oximetry (%) 97 11/18/19 22:31 MDM MDM Narrative Medical decision making narrative: Narrative: This patient is worrisome for sepsis with a high white count beginning onset of fever slightly elevated lactic acid and some hypotension. She did require levo fed support. I discussed the case with the hospitalist who was concerned about possible CLL or CML and asked me to consult with a oncologist which I did. The oncologist felt we could admit the patient here and treat for sepsis. There is no obvious sepsis source with negative CT of chest abdomen and pelvis and normal urine. Lab Data Lab results reviewed: Yes I reviewed the patient's lab results. Result diagrams: 11/18/19 18:41 11/18/19 18:57 Labs: Lab Results 11/18/19 11/18/19 11/18/19 Range/Units 18:41 18:41 18:57 WBC 47.3 H* (4.50-11.00) K/mcL RBC 4.94 (3.59-5.38) M/mcL Hgb 15.0 (11.2-15.7) g/dL Hct 46.4 H (34.1-44.9) % MCV 93.9 (80.0-100.0) fL MCH 30.4 (26.0-34.0) pg MCHC 32.3 (31.0-36.0) g/dL RDW 14.9 H (11.5-14.5) % Plt Count 319 (140-440) K/mcL MPV 9.6 (7.4-10.4) fL Total Counted 100 Seg Neutrophils % 97 H (38-78) % Band Neutrophils % 2 (0-10) % Lymphocytes % 1 L (15-49) % Smudge Cells 1+ A (NONE SEEN) Platelet Estimate Normal (NORMAL) RBC Morphology Normal (NORMAL) VBG Lactic Acid (0.5-2.0) mmol/L Sodium TNP 137 Potassium TNP 4.4 Chloride TNP 95 L Carbon Dioxide TNP 25 Anion Gap TNP 17.0 H BUN TNP 15 Creatinine TNP 0.8 GFR Calculation TNP 71 Glucose TNP 135 H Calcium TNP 9.2 Total Bilirubin TNP 1.6 H AST TNP 47 H ALT TNP 41 H Alkaline Phosphatase TNP 163 H Troponin T (0-0.03) ng/ml NT-Pro-B Natriuret Pep 90450.0 H (0-450) pg/ml Total Protein TNP 6.9 Albumin TNP 3.9 Globulin TNP 3.0 Albumin/Globulin Ratio TNP 1.3 Urine Color Urine Appearance Urine pH (5.0-9.0) Ur Specific [place] (1.000-1.035) Urine Protein (NEG) mg/dL Urine Glucose (UA) (NEG) mg/dL Urine Ketones (NEG) mg/dL Urine Occult Blood (<0.03) mg/dL Urine Nitrate (NEG) Urine Bilirubin (NEG) mg/dL Urine Urobilinogen (NEG) mg/dL Ur Leukocyte Esterase (NEG) /uL Urine RBC (0-1) /hpf Urine WBC (0-4) /hpf Ur Squamous Epith Cells (0-4) /hpf Ur Transition Epith Cell (0-2) /hpf Urine Bacteria (0) /hpf Urine Mucus (0) /hpf Ur Culture Indicated? 11/18/19 11/18/19 11/18/19 Range/Units 18:57 18:57 21:29 WBC (4.50-11.00) K/mcL RBC (3.59-5.38) M/mcL Hgb (11.2-15.7) g/dL Hct (34.1-44.9) % MCV (80.0-100.0) fL MCH (26.0-34.0) pg MCHC (31.0-36.0) g/dL RDW (11.5-14.5) % Plt Count (140-440) K/mcL MPV (7.4-10.4) fL Total Counted Seg Neutrophils % (38-78) % Band Neutrophils % (0-10) % Lymphocytes % (15-49) % Smudge Cells (NONE SEEN) Platelet Estimate (NORMAL) RBC Morphology (NORMAL) VBG Lactic Acid 2.9 H (0.5-2.0) mmol/L Sodium Potassium Chloride Carbon Dioxide Anion Gap BUN Creatinine GFR Calculation Glucose Calcium Total Bilirubin AST ALT Alkaline Phosphatase Troponin T < 0.01 (0-0.03) ng/ml NT-Pro-B Natriuret Pep (0-450) pg/ml Total Protein Albumin Globulin Albumin/Globulin Ratio Urine Color Hui Urine Appearance Clear Urine pH 7.0 (5.0-9.0) Ur Specific [place] 1.030 (1.000-1.035) Urine Protein 30 A (NEG) mg/dL Urine Glucose (UA) Negative (NEG) mg/dL Urine Ketones Neg (NEG) mg/dL Urine Occult Blood Neg (<0.03) mg/dL Urine Nitrate Neg (NEG) Urine Bilirubin Neg (NEG) mg/dL Urine Urobilinogen 4.0 A (NEG) mg/dL Ur Leukocyte Esterase Neg (NEG) /uL Urine RBC 1 (0-1) /hpf Urine WBC 2 (0-4) /hpf Ur Squamous Epith Cells 1 (0-4) /hpf Ur Transition Epith Cell < 1 (0-2) /hpf Urine Bacteria 0 (0) /hpf Urine Mucus Few (0) /hpf Ur Culture Indicated? No Radiology Data Radiology results reviewed: Yes I reviewed the patient's radiology results. Discharge Plan Patient/Caregiver Discharge Instructions Pt seen by CONSUMER ATTORNEY/PA only: No Clinical Impression: Sepsis Patient Disposition: Xfer As Inpt ([facility]) Follow up with: Fidel Fabian MD, FAAFP [Primary Care Provider] - Prescriptions: No Action Spiriva with HandiHaler 18 mcg capsule, w/inhalation device 1 cap INHALATION QDAY Qty: 30 RF: 3 silver sulfadiazine [Silvadene] 1 % cream 1 applic TOPICAL BID Qty: 20 RF: 2 albuterol sulfate [ProAir HFA] 90 mcg/actuation HFA aerosol inhaler 2 puff INHALATION Q6H PRN (Reason: shortness of breath) Qty: 6.7 RF: 3 duloxetine 60 mg capsule,delayed release(DR/EC) 60 mg PO QDAY Qty: 90 RF: 6 furosemide 20 mg tablet 20 mg PO QDAY PRN (Reason: Edema) RF: 0 pramipexole 0.5 mg tablet See Rx Instructions PO QHS Qty: 360 RF: 1 meloxicam 15 mg tablet 15 mg PO QDAY Qty: 30 RF: 5 lisinopril 5 mg tablet 5 mg PO QDAY RF: 0 uoagjrgxwtic-wrwvpufp-cxieyy tablet 1 tab PO QDAY RF: 0 duloxetine 30 mg capsule,delayed release(DR/EC) 30 mg PO QHS RF: 0 metoprolol succinate 25 mg capsule,sprinkle,ER 24hr See Rx Instructions PO QDAY RF: 0 acetaminophen [Tylenol 8 Hour] 650 mg tablet extended release 4,550 mg PO Q8H PRN (Reason: Pain) RF: 0 albuterol sulfate 2.5 mg /3 mL (0.083 %) solution for nebulization 2.5 mg INHALATION BID Qty: 180 RF: 11 budesonide 0.5 mg/2 mL suspension for nebulization 2 ml INHALATION BID Qty: 120 RF: 11 portable oxygen with supplies Inhalant 2 applic .Route .MEDSUPPLY RF: 0 tramadol 50 MG tablet 50 mg PO Q4H PRN (Reason: Pain) Qty: 20 RF: 0 lisinopril 10 MG tablet 10 mg PO DAILY Qty: 30 RF: 0
--- NOTE | 2019-11-18 19:14 | XRay Report ---
HISTORY: Short of breath FINDINGS: There is mild emphysema and pulmonary fibrosis in both lungs. The heart is mildly enlarged. There is no evidence of congestive heart failure. No acute infiltrate, mass or pleural effusion are present. The aorta is tortuous and there is a moderate amount calcified plaque along the wall. The patient has severe erosive arthritis in both shoulders. This may be due to rheumatoid arthritis. Comparison with prior chest x-ray on 06/25/[address] scan on 10/04/18 shows little change. IMPRESSION: Stable mild COPD and pulmonary fibrosis Stable mild cardiomegaly, without congestive heart Interpreted and Authenticated by: Ulysses Gould 11/18/19
[2019-11-18 19:42] LABS: Hematocrit 46.4 % (34.1-44.9); Mean Cell Volume 93.9 fL (80.0-100.0); Mean Corpuscular HGB Conc 32.3 g/dL (31.0-36.0); Mean Platelet Volume 9.6 fL (7.4-10.4); Platelet Count 319 K/mcL (140-440); RBC 4.94 M/mcL (3.59-5.38); Red Cell Distribution Width 14.9 % (11.5-14.5); WBC 47.3 K/mcL (4.50-11.00)
[2019-11-18 19:53] LABS: ALT/SGPT 41 U/l (0-40); AST/SGOT 47 U/l (0-37); Albumin 3.9 gm/dL (3.2-5.2); Albumin/Globulin Ratio 1.3 (1.0-2.3); Alkaline Phosphatase 163 U/L (39-117); Bilirubin,Total 1.6 mg/dL (0.0-1.0); Blood Urea Nitrogen 15 mg/dl (8-23); Calcium 9.2 mg/dl (8.6-10.4); Carbon Dioxide 25 mmol/L (22-30); Glomerular Filtration Rate 71; Glucose 135 mg/dL (70-105)
[2019-11-18] MEDS ORDERED: LEVOFLOXACIN 750 MG/150 ML BAG IV ONE (19:59)
[2019-11-18 20:03] LABS: Chloride 95 mmol/L (96-108)
[2019-11-18 20:05] LABS: Band Neutrophils % 2 % (0-10); Lymphocytes % 1 % (15-49); Platelet Estimate NORMAL (NORMAL); RBC Morphology NORMAL (NORMAL); Segmented Neutrophils % 97 % (38-78); Smudge Cells 1+ (NONE SEEN)
[2019-11-18] MEDS ORDERED: ACETAMINOPHEN 1,000 MG/100 ML BOTTLE IV ONE (21:01)
[2019-11-18] MEDS ORDERED: 0.9 % SODIUM CHLORIDE 1,000 ML IV ONE (21:25)
[2019-11-18] MEDS ORDERED: 0.9 % SODIUM CHLORIDE 250 ML IV SCH ×2 (21:45→23:46)
[2019-11-18] MEDS ORDERED: NOREPINEPHRINE BITARTRATE 16 MG in 0.9 % SODIUM CHLORIDE 234 ML IV SCH (21:45)
[2019-11-18 22:18] LABS: Appearance,Urine CLEAR; Bacteria,Urine 0 /hpf (0); Bilirubin,Urine NEG (NEG); Color,Urine AMBER; Culture Indicated,Urine NO; Glucose,Urine (UA) NEGATIVE (NEG); Ketones,Urine NEG (NEG); Leukocyte Esterase,Urine NEG /uL (NEG); Mucus,Urine FEW /hpf (0); Nitrate,Urine NEG (NEG); Protein,Urine 30 mg/dL (NEG); Urine Blood NEG mg/dL (<0.03); Urine RBC 1 /hpf (0-1); Urine Squamous Epithelial Cell 1 /hpf (0-4); Urine Transitional Epi Cells < 1 /hpf (0-2); Urine WBC 2 /hpf (0-4)
[2019-11-18] MEDS ORDERED: PIPERACILLIN SODIUM/TAZOBACTAM 3.375 GM in DEXTROSE 5% IN WATER 50 ML IV ONE (22:30)
[2019-11-18] MEDS ORDERED: VANCOMYCIN 1,000 MG in 0.9 % SODIUM CHLORIDE 250 ML IV ONE (22:30)
[2019-11-18] MEDS ORDERED: 0.9 % SODIUM CHLORIDE 500 ML IV ONE ×2 (22:54)
--- NOTE | 2019-11-18 23:06 | Internal Med History&Physical ---
HPI History of Present Illness Patient information: Note initiated : 11/18/19 at 10:55 pm Service Date, if different from initiated Date: [] Patient: Leslei Maldonado a 79 y/o F admitted on for shortness of breath. Chief Complaint: [] History of present illness: Ms. Maldonado is a 79 year old F Presents the ED with weakness. Patient states she went to bed feeling fine last night. She woke up this morning and tired and weak. She was able to get up and take the dog out for bathroom break. Other than that she is been in bed all day sleeping and resting. Her friend came over at 5 PM and insisted she go to the ED. Patient denies any fevers or chills any chest pain stomach pain. She has a chronic cough and chronic shortness of breath but these have not changed. No recent travels or sick contacts. No diarrhea. In the ED she was found to a fever and was hypotensive. She was also found to have a severely high white blood cell count of 47,000 and differential did show some smudge cells. Her hemoglobin and platelets are within normal limits. He was given 1 L of IV fluid because of her history of heart failure and then placed on Levophed. Case was discussed with lab technician who felt she could be treated here for sepsis and then follow-up outpatient. And to monitor blood counts daily. Her lactate was elevated 2.9. She is on her home regimen of 4 L of oxygen. She is mildly tachypneic and tachycardic. He says she carries a history of atrial fibrillation but has not been on any anticoagulation. She is on metoprolol And follows with Dr. Myrick. She had a CT chest abdomen pelvis which showed no source of infection. She does have an open wound left anterior rowell. She says about a week ago she bumped her rowell against something and it developed into a lump and then yesterday it opened up and it was bleeding. It has some purulence to the drainage today. Review of Systems: Pertinent positives as above. Denies headache/fever/chills/nausea/vomiting/chest or abdominal pain/diarrhea. Remaining 10 point review of system reviewed negative [facility] Medical History (Updated 11/18/19 @ 22:34 by Maurisio Vang MD) A-fib (Chronic) Abdominal pain (Resolved) Abnormal laboratory test result (Acute) Anxiety (Chronic) Chronic; currently takes Cymbalta Blepharitis (Chronic) posterior type OU Bruising (Chronic) Calculus of kidney (Resolved) Cellulitis (Acute) Cellulitis and abscess of right lower extremity (Acute) Cellulitis of foot (Resolved) Cellulitis of left leg (Resolved) Cellulitis of lower extremity (Acute) Cellulitis of right lower leg (Chronic) Centrilobular emphysema (Chronic) Cervicalgia (Chronic) Cervical neck pain Colon polyps (Chronic) Colonoscopy 03/2008 with adenomatous and hyperplastic polyps, updated 05/2011 showing only hyperplastic polyps and on 5 year sequencing. COPD (chronic obstructive pulmonary disease) with emphysema (Chronic) desaturation to low 80% with activity, 90-92% with ambulation. COPD exacerbation (Resolved) Degenerative arthritis (Chronic) Multi-joint; chronic cervical lumbar pain with previous lumbar surgery, previous lumbar radiofrequency ablation; updated lumbar MRI in 12/2011 with sequencing at the pain clinic 01/2012; chronic shoulder pain; increasing right knee pain. Edema (Chronic) lower extremities Flank pain (Resolved) History of ECG (Resolved 10/29/15) History of tobacco use (Chronic) Ex-smoker 2005; updated chest x-ray 04/2011; questionable with negative chest CT, declines Pneumovax. Hormone replacement therapy (Chronic) Currently no bone density, maintains estrogen, stable vitamin D level in 2009, breast exam stable. Hydronephrosis (Resolved) Hyperlipidemia (Chronic) Hx; remains on low-dose Lovastatin with no myalgias Hypertension, essential, benign (Chronic) Hypoxemia (Chronic) Hypoxia (Chronic) Injury of foot, right (Resolved) Kidney stone on left side (Chronic) Low back pain (Chronic) Lumbar low back pain Lower extremity edema (Chronic) Lumbago (Resolved) Medicare annual wellness visit, subsequent (Acute) Odontoid fracture with type II morphology (Resolved) Osteoarthritis of right knee (Chronic) 04/13/2015-[facility] Osteoarthritis of shoulders, bilateral (Chronic) 04/13/2015-[facility] Pain in joint, pelvic region and thigh (Resolved) (02/24/2014-Dr Ricks) Pain in joint, shoulder region (Resolved) (10/31/13-Dr Ricks)Right Paroxysmal supraventricular tachycardia (Resolved) PAT/SVT 08/28/2013 PCO (posterior capsular opacification) (Chronic) Pseudophakia (Chronic) Pulmonary hypertension (Chronic) Refused influenza vaccine (Resolved) Restless legs (Chronic) Stable on Mirapex; no hx for sleep apnea Stasis dermatitis (Chronic) Vasomotor symptoms due to menopause (Chronic) Venous stasis (Chronic) Surgical History History of colonoscopy (Chronic) 2001-- [place] adenomatous polyp. 03/2008-- Adenomatous and hyperplastic polyps. 05/10/2011-- Hyperplastic polyp. 5 year sequencing. History of esophagogastroduodenoscopy (Chronic) History of laminectomy (Chronic) 1997 Lumbar History of radiation exposure (Chronic) 2009 Lumbar radiofrequency ablation History of right hip replacement (Chronic) History of right knee joint replacement (Chronic) surgery 02/17/2017 History of spinal fusion (Chronic) 2006 Status post total knee replacement, right (Chronic) Family History Father , age 50 History of alcohol abuse Mother , age 43 History of alcohol abuse Other COPD (chronic obstructive pulmonary disease) Kidney disease No pertinent family history Social History (Updated 11/18/19 @ 22:58 by Dudley Harris DO) household members: spouse and alone housing: house lives independently: Yes marital status: occupational status: retired smoking status: Former smoker quit date: 04/10/01 alcohol intake frequency: former alcohol drinker substance use type: does not use additional history: Ambulates with a cane and a walker. MEDS/ALLERGIES Home Medications and Allergies Home Medications Medication Instructions Recorded Confirmed Type [id number] 1 tab PO QDAY 04/25/18 11/19/19 History tiotropium bromide 18 mcg capsule 1 cap INHALATION QDAY #30 cap 07/30/18 11/19/19 Rx with inhalation device acetaminophen 650 mg 1,000 mg PO BID tab 08/27/18 11/19/19 History tablet,extended release albuterol sulfate 2.5 mg INHALATION BID #180 ml 08/27/18 11/19/19 Rx budesonide 0.5 mg/2 mL suspension 2 ml INHALATION BID #120 ml 08/27/18 11/19/19 Rx for nebulization lisinopril 5 mg tablet 5 mg PO QDAY 09/17/18 11/19/19 History albuterol sulfate 90 mcg/actuation 2 puff INHALATION Q6H PRN #6.7 g 09/28/18 11/19/19 Rx aerosol inhaler duloxetine 30 mg capsule,delayed 30 mg PO QAM cap 03/13/19 11/19/19 History release metoprolol succinate 25 mg capsule See Rx Instructions PO QDAY each 03/13/19 11/19/19 History sprinkle, ext. release 24 hr meloxicam 15 mg tablet 15 mg PO QDAY #30 tab 04/23/19 11/19/19 Rx furosemide 20 mg tablet 20 mg PO QDAY PRN tab 04/26/19 11/19/19 History portable oxygen with supplies 2 applic .ROUTE .MEDSUPPLY 06/20/19 11/19/19 History tramadol 50 mg PO Q4H PRN #20 tab 06/24/19 11/19/19 Rx lisinopril 10 mg PO DAILY #30 tab 06/25/19 11/19/19 Rx pramipexole 0.5 mg tablet See Rx Instructions PO QHS #360 tab 08/30/19 11/19/19 Rx diphenhydramine HCl [Unisom 50 mg PO HSP PRN 11/19/19 11/19/19 History [facility]] duloxetine 60 mg PO QHS 11/19/19 11/19/19 History Allergies Allergy/AdvReac Type Severity Reaction Status Date / Time chocolate flavor AdvReac Mild Cough Verified 11/19/19 06:05 EXAM Constitutional Vitals: Temp Pulse Resp BP Pulse Ox 99.8 F H 86 20 107/74 96 11/18/19 22:40 11/18/19 22:40 11/18/19 22:40 11/18/19 22:31 11/18/19 22:40 Exam: General: Alert, Awake, No acute Distress Eyes/N/T: EOMI, PERRL, dry MM Head/Neck: neck supple, normocephalic atraumatic CV: irreg rhythm, No murmurs, normal s1/s2 Pulm: Clear b/l, no wheezing/rhonchi/rales Abd: soft, nontender, +BS x4 Ext: no clubbing/cyanosis/edema. LLE rowell lesion 1x1cm open and draining purulent fluid malodorous Neuro: Alert, no focal deficits, moves all extremities, CN 2-12 grossly intact, symmetrical strength b/l upper/lower, sensations intact b/l upper/lower Skin: warm/dry DATA Data Completed and Pending Labs on day of discharge: Labs from last 24 hours 11/18/19 11/18/19 11/18/19 21:29 18:57 18:57 WBC RBC Hgb Hct MCV MCH MCHC RDW Plt Count MPV Total Counted Seg Neutrophils % Band Neutrophils % Lymphocytes % Smudge Cells Platelet Estimate RBC Morphology ESR VBG Lactic Acid 2.9 H Sodium Potassium Chloride Carbon Dioxide Anion Gap BUN Creatinine GFR Calculation Glucose Calcium Total Bilirubin AST ALT Alkaline Phosphatase Troponin T < 0.01 C-Reactive Protein NT-Pro-B Natriuret Pep Total Protein Albumin Globulin Albumin/Globulin Ratio Procalcitonin Urine Color Hui Urine Appearance Clear Urine pH 7.0 Ur Specific [place] 1.030 Urine Protein 30 A Urine Glucose (UA) Negative Urine Ketones Neg Urine Occult Blood Neg Urine Nitrate Neg Urine Bilirubin Neg Urine Urobilinogen 4.0 A Ur Leukocyte Esterase Neg Urine RBC 1 Urine WBC 2 Ur Squamous Epith Cells 1 Ur Transition Epith Cell < 1 Urine Bacteria 0 Urine Mucus Few Ur Culture Indicated? No 11/18/19 11/18/19 11/18/19 18:57 18:41 18:41 WBC RBC Hgb Hct MCV MCH MCHC RDW Plt Count MPV Total Counted Seg Neutrophils % Band Neutrophils % Lymphocytes % Smudge Cells Platelet Estimate RBC Morphology ESR Pending VBG Lactic Acid Sodium 137 Potassium 4.4 Chloride 95 L Carbon Dioxide 25 Anion Gap 17.0 H BUN 15 Creatinine 0.8 GFR Calculation 71 Glucose 135 H Calcium 9.2 Total Bilirubin 1.6 H AST 47 H ALT 41 H Alkaline Phosphatase 163 H Troponin T C-Reactive Protein Pending NT-Pro-B Natriuret Pep 21042.0 H Total Protein 6.9 Albumin 3.9 Globulin 3.0 Albumin/Globulin Ratio 1.3 Procalcitonin Urine Color Urine Appearance Urine pH Ur Specific [place] Urine Protein Urine Glucose (UA) Urine Ketones Urine Occult Blood Urine Nitrate Urine Bilirubin Urine Urobilinogen Ur Leukocyte Esterase Urine RBC Urine WBC Ur Squamous Epith Cells Ur Transition Epith Cell Urine Bacteria Urine Mucus Ur Culture Indicated? 11/18/19 11/18/19 11/18/19 18:41 18:41 18:41 WBC 47.3 H* RBC 4.94 Hgb 15.0 Hct 46.4 H MCV 93.9 MCH 30.4 MCHC 32.3 RDW 14.9 H Plt Count 319 MPV 9.6 Total Counted 100 Seg Neutrophils % 97 H Band Neutrophils % 2 Lymphocytes % 1 L Smudge Cells 1+ A Platelet Estimate Normal RBC Morphology Normal ESR VBG Lactic Acid Sodium TNP Potassium TNP Chloride TNP Carbon Dioxide TNP Anion Gap TNP BUN TNP Creatinine TNP GFR Calculation TNP Glucose TNP Calcium TNP Total Bilirubin TNP AST TNP ALT TNP Alkaline Phosphatase TNP Troponin T C-Reactive Protein NT-Pro-B Natriuret Pep Total Protein TNP Albumin TNP Globulin TNP Albumin/Globulin Ratio TNP Procalcitonin Pending Urine Color Urine Appearance Urine pH Ur Specific [place] Urine Protein Urine Glucose (UA) Urine Ketones Urine Occult Blood Urine Nitrate Urine Bilirubin Urine Urobilinogen Ur Leukocyte Esterase Urine RBC Urine WBC Ur Squamous Epith Cells Ur Transition Epith Cell Urine Bacteria Urine Mucus Ur Culture Indicated? A/P Narrative A/P Narrative: A: *Septic shock: 2/2 likely LLE rowell wound -lactic acidosis *LLE wound infection: *Afib: follows with Dr. Myrick, on BB, not on anticoagulation *?CLL (new diagnosis): Case was discussed with Dr. Alvarado, f/u outpt *h/o systolic (3540%)/diastolic CHF: *COPD/pulmonary fibrosis (4L O2 at home): Follows with Dr. Tucker *HTN: * P: -Wean vasopressors -IVF but will be cautious given her history of systolic heart failure -vanc/zosyn, mrsa pcr, WC/BC pending -f/u lactate -records from Dr. Myrick regarding afib -cont BB -Peripheral smear, follow-up with Dr. Alvarado -hold home lasix and BP meds for now - -pt/ot -ppx: heparin DNR Time Spent With Patient Time: Total time spent is greater than 50% in coordination of care (as documented) at patient's floor/unit and/or counseling patient:
[2019-11-18] MEDS ORDERED: IPRATROPIUM/ALBUTEROL 3 ML AMPUL.NEB NEB PRN (23:46)
[2019-11-18] MEDS ORDERED: BENZONATATE 100 MG CAPSULE PO PRN (23:46)
[2019-11-18] MEDS ORDERED: ONDANSETRON 4 MG/2 ML VIAL IV PRN (23:46)
[2019-11-18] MEDS ORDERED: METOPROLOL TARTRATE 5 MG/5 ML VIAL IV PRN (23:46)
[2019-11-18] MEDS ORDERED: VANCOMYCIN PER PHARMACY IV SCH (23:46)
[2019-11-18] MEDS: PIPERACILLIN SODIUM/TAZOBACTAM 3.375 GM in DEXTROSE 5% IN WATER 50 ML IV SCH (23:59)
[2019-11-19] MEDS ORDERED: ACETAMINOPHEN 325 MG TABLET PO ONE (00:55)
[2019-11-19] MEDS: ACETAMINOPHEN 325 MG TABLET PO PRN ×3 (01:05→21:18)
[2019-11-19] MEDS: PIPERACILLIN SODIUM/TAZOBACTAM 3.375 GM in DEXTROSE 5% IN WATER 50 ML IV SCH ×3 (05:38→17:33)
[2019-11-19] MEDS: 0.9 % SODIUM CHLORIDE 10 ML SYRINGE IV SCH ×3 (05:38→21:19)
[2019-11-19 07:10] LABS: ALT/SGPT 28 U/l (0-40); AST/SGOT 30 U/l (0-37); Albumin 2.9 gm/dL (3.2-5.2); Alkaline Phosphatase 123 U/L (39-117); Bilirubin,Direct 0.4 mg/dL (0.0-0.3); Blood Urea Nitrogen 14 mg/dl (8-23); Calcium 8.5 mg/dl (8.6-10.4); Carbon Dioxide 25 mmol/L (22-30); Chloride 104 mmol/L (96-108); Glomerular Filtration Rate 84; Glucose 188 mg/dL (70-105); Lactate Dehydrogenase 285 U/L (94-250); Phosphorous 2.8 mg/dL (2.7-4.5); Triglycerides 50 mg/dl (<150); Uric Acid 3.5 mg/dL (2.5-8.0)
[2019-11-19 07:11] LABS: Albumin/Globulin Ratio 1.2 (1.0-2.3); Globulin 2.5 gm/dL (2.2-3.7)
[2019-11-19 07:28] LABS: Hematocrit 39.4 % (34.1-44.9); Hemoglobin 12.6 g/dL (11.2-15.7); Mean Cell Volume 95.2 fL (80.0-100.0); Mean Platelet Volume 9.8 fL (7.4-10.4); Platelet Count 256 K/mcL (140-440); RBC 4.14 M/mcL (3.59-5.38); Red Cell Distribution Width 14.9 % (11.5-14.5); WBC 31.8 K/mcL (4.50-11.00)
[2019-11-19] MEDS ORDERED: PANTOPRAZOLE 40 MG TABLET PO SCH (07:30)
[2019-11-19 07:34] LABS: Band Neutrophils % 8 % (0-10); Lymphocytes % 2 % (15-49); Monocytes % (Manual) 1 % (1-12); Platelet Estimate NORMAL (NORMAL); RBC Morphology NORMAL (NORMAL); Segmented Neutrophils % 89 % (38-78)
--- NOTE | 2019-11-19 07:35 | Internal Med Progress Note ---
SUBJECTIVE Subjective Patient information: Note initiated : 11/19/19 at 7:31 am Service Date, if different from initiated Date: [] Patient: Leslie Maldonado a 79 y/o F admitted on 11/18/19 for shortness of breath. Chief Complaint: [] Interval history: History of present illness: Ms. Maldonado is a 79 year old F Presents the ED with weakness. Patient states she went to bed feeling fine last night. She woke up this morning and tired and weak. She was able to get up and take the dog out for bathroom break. Other than that she is been in bed all day sleeping and resting. Her friend came over at 5 PM and insisted she go to the ED. Patient denies any fevers or chills any chest pain stomach pain. She has a chronic cough and chronic shortness of breath but these have not changed. No recent travels or sick contacts. No diarrhea. In the ED she was found to a fever and was hypotensive. She was also found to have a severely high white blood cell count of 47,000 and differential did show some smudge cells. Her hemoglobin and platelets are within normal limits. He was given 1 L of IV fluid because of her history of heart failure and then placed on Levophed. Case was discussed with pedicab driver who felt she could be treated here for sepsis and then follow-up outpatient. And to monitor blood counts daily. Her lactate was elevated 2.9. She is on her home regimen of 4 L of oxygen. She is mildly tachypneic and tachycardic. He says she carries a history of atrial fibrillation but has not been on any anticoagulation. She is on metoprolol And follows with Dr. Myrick. She had a CT chest abdomen pelvis which showed no source of infection. She does have an open wound left anterior rowell. She says about a week ago she bumped her rowell against something and it developed into a lump and then yesterday it opened up and it was bleeding. It has some purulence to the drainage today. 11/18 Constitutional Vitals: Vital Signs Temp Pulse Resp BP Pulse Ox 98.4 F 52 L 23 H 98/69 94 11/19/19 07:00 11/19/19 07:00 11/19/19 07:00 11/19/19 07:00 11/19/19 07:00 Period Temp Pulse Resp BP Sys/Cuellar Pulse Ox Last 24 Hr 97.0 F-101.9 F 35-103 14-30 65-145/48-123 91-100 Intake and Output 11/18/19 11/19/19 11/19/19 21:59 05:59 13:59 Intake Total 350 1828 260 Output Total 1700 Balance 350 128 260 Weight 86.183 kg 91.626 kg Intake & Output: Intake & Output 11/18/19 11/19/19 11/19/19 21:59 05:59 13:59 Intake Total 350 1828 260 Output Total 1700 Balance 350 128 260 Weight 86.183 kg 91.626 kg Intake: IV 350 1828 50 Sodium Chloride 0.9% 1,000 ml @ 1000 Wide Open IV BOLUS ONE Rx#: [id number] Sodium Chloride 0.9% 500 ml @ 500 Wide Open IV BOLUS ONE Rx#: [id number] Vibramycin 100 mg In Dextrose 5 100 % in Water 100 ml @ 100 mls/hr IV ONCE ONE Rx#:[id number] Levophed 16 mg In Sodium 28 Chloride 0.9% 234 ml @ 10 MCG/ MIN 9.375 mls/hr IV Q24H [facility] Rx #:[id number] Zosyn 3.375 gm In Dextrose 5% 50 50 in Water 50 ml @ 100 mls/hr IV Q6H [facility] Rx#:[id number] Vancomycin 1,000 mg In Sodium 250 Chloride 0.9% 250 ml @ 250 mls/ hr IV ONCE ONE Rx#:[id number] Oral 210 Output: Urine Catheter Amount 1700 Other: Urine Appearance Clear Uretheral (Sharma) Clear Urine Color Bright Yellow Uretheral (Sharma) Dark Yellow Bright Yellow Exam: General: Alert, Awake, No acute Distress Eyes/N/T: EOMI, Head/Neck: neck supple, CV: irreg rhythm, No murmurs, Pulm: Clear b/l, no wheezing/rhonchi/rales Abd: soft, nontender, +BS x4 Ext: no clubbing/cyanosis/edema. LLE rowell lesion 1x1cm open and draining purulent fluid malodorous Neuro: Alert, no focal deficits, moves all extremities, Skin: warm/dry OBJ DATA Labs CBC & Chem 7: 11/19/19 04:43 11/19/19 04:43 Labs: Abnormal Lab Results 11/19/19 11/19/19 11/19/19 04:43 04:43 04:43 WBC 31.8 H* Hct RDW 14.9 H Seg Neutrophils % Lymphocytes % Smudge Cells VBG Lactic Acid 2.7 H Chloride Anion Gap Glucose 188 H Calcium 8.5 L Total Bilirubin Direct Bilirubin 0.4 H GGT 68 H AST ALT Alkaline Phosphatase 123 H Lactate Dehydrogenase 285 H C-Reactive Protein NT-Pro-B Natriuret Pep Total Protein 5.4 L Albumin 2.9 L Urine Protein Urine Urobilinogen 11/18/19 11/18/19 11/18/19 21:29 18:57 18:57 WBC Hct RDW Seg Neutrophils % Lymphocytes % Smudge Cells VBG Lactic Acid 2.9 H Chloride 95 L Anion Gap 17.0 H Glucose 135 H Calcium Total Bilirubin 1.6 H Direct Bilirubin GGT AST 47 H ALT 41 H Alkaline Phosphatase 163 H Lactate Dehydrogenase C-Reactive Protein NT-Pro-B Natriuret Pep 23574.0 H Total Protein Albumin Urine Protein 30 A Urine Urobilinogen 4.0 A 11/18/19 11/18/19 18:41 18:41 WBC 47.3 H* Hct 46.4 H RDW 14.9 H Seg Neutrophils % 97 H Lymphocytes % 1 L Smudge Cells 1+ A VBG Lactic Acid Chloride Anion Gap Glucose Calcium Total Bilirubin Direct Bilirubin GGT AST ALT Alkaline Phosphatase Lactate Dehydrogenase C-Reactive Protein 9.3 H NT-Pro-B Natriuret Pep Total Protein Albumin Urine Protein Urine Urobilinogen Meds: Medications Acetaminophen (Tylenol) 650 mg PO Q4-6HP PRN PRN Reason: PAIN/FEVER > 101 Last Admin: 11/19/19 01:05 Dose: 650 mg Documented by: Albuterol/Ipratropium (Duoneb) 3 ml NEB Q4HRT PRN PRN Reason: Dyspnea Benzonatate (Tessalon) 200 mg PO TIDP PRN PRN Reason: Cough Last Admin: 11/19/19 01:05 Dose: 200 mg Documented by: Docusate Sodium (Colace) 100 mg PO BID [facility] Heparin Sodium (Porcine) (Heparin) 5,000 unit SQ Q12 [facility] Norepinephrine Bitartrate 16 (mg/ Sodium Chloride) 250 mls @ 9.375 mls/hr IV Q24H [facility]; Protocol Sodium Chloride (Sodium Chloride 0.9%) 250 mls @ 20 mls/hr IV .[id number] [facility] Last Admin: 11/19/19 00:00 Dose: Not Given Documented by: Piperacillin Sod/Tazobactam (Sod 3.375 gm/ Dextrose) 50 mls @ 100 mls/hr IV Q6H [facility]; Protocol Last Infusion: 11/19/19 06:08 Dose: Infused Documented by: Vancomycin HCl 1,500 mg/ (Sodium Chloride) 500 mls @ 333.3 mls/hr IV Q24H [facility] Metoprolol Tartrate (Lopressor) 5 mg IV Q2HP PRN PRN Reason: Tachyarrhythmias HR>110 Ondansetron HCl (Zofran) 4 mg IV Q4-6HP PRN PRN Reason: Nausea And Vomiting Pantoprazole Sodium (Protonix) 40 mg PO QAMAC [facility] Sodium Chloride (Saline Flush) 10 ml IV Q8 [facility] Last Admin: 11/19/19 05:38 Dose: 10 ml Documented by: Vancomycin HCl (Vancomycin Per Pharmacy) 1 order IV UD [facility]; Protocol A/P Narrative A/P Narrative: A: *Septic shock: 2/2 likely LLE rowell wound -lactic acidosis, Afebrile o/n -vasopressors off *LLE wound infection: *Bacteremia (GPC): *?suspected CLL (new diagnosis): Case was discussed with Dr. Alvarado, f/u outpt -smudge cells noted *Afib/SVT: follows with Dr. Myrick, on BB -was on anticoagulation in past (warfarin) but this was discontinued due to diffuse bruising/bleeding. *h/o systolic (3540%)/diastolic CHF: *COPD/pulmonary fibrosis (4L O2 at home): Follows with Dr. Tucker *HTN: * P: -vanc/zosyn, WC/BC pending -f/u lactate -cont BB -echo pending and repeat BC -ID consult -follow-up with Dr. Alvarado -hold home lasix and BP meds for now, restart BB -home IH's, prn nebs, O2 -pt/ot -ppx: heparin DNR Time Spent With Patient Time: Total time spent is greater than 50% in coordination of care (as documented) at patient's floor/unit and/or counseling patient:
[2019-11-19] MEDS ORDERED: DOCUSATE SODIUM 100 MG CAPSULE PO SCH (09:00)
[2019-11-19] MEDS ORDERED: VANCOMYCIN 1,500 MG in 0.9 % SODIUM CHLORIDE 500 ML IV SCH (09:00)
[2019-11-19] MEDS ORDERED: HEPARIN 5,000 UNIT/ML VIAL SQ SCH (09:00)
--- NOTE | 2019-11-19 09:36 | Cat Scan Report ---
History: Sepsis, shortness of breath TECHNIQUE: The patient was imaged following injection of intravenous nonionic contrast scanning during the portal venous phase from the thoracic inlet through the symphysis pubis. Sagittal, coronal and axial MIPS images were created. The radiation exposure was limited using dose reduction technology. FINDINGS: CHEST: Patient has mild to moderate centrilobular emphysema predominantly involving the upper lobes. There is consolidation the posterior basal segments of both lower lobes, left worse than right with air bronchograms. Linear bands of scar or discoid atelectasis are present in the superior segment right lower lobe, lingula and medial segment right middle lobe. The consolidation in the basilar segments has become worse since prior chest CT done on 10/04/18. Smaller zones of consolidation are seen in the same locations in 2019. The central airways appear normal. There is no pleural effusion. Heart size is borderline enlarged. There are scattered calcified plaques in the coronary arteries there is a moderate amount of plaque formation along the wall of a normal thoracic aorta. Patient has enlarged lymph nodes in the mediastinum. The largest is in the pretracheal retrocaval space and measures 1.2 x 2.1 cm. Lymph nodes are chronic stable finding. The right lobe of the thyroid is also enlarged and heterogeneous in the left lobe is atrophic. This is also stable finding unchanged since 2019. The main pulmonary artery is normal without evidence of emboli. The peripheral branches are not opacified well enough to evaluate but no gross pulmonary embolus is detected. Abdomen and pelvis: There are multiple cysts in the liver is also a subcapsular cyst in the spleen. These are chronic stable findings. Overall size liver and spleen are normal. The gallbladder and bile ducts are normal. There is no evidence of mass or inflammation in the pancreas. A small cyst is seen in the right kidney. The kidneys are otherwise normal. Large amount calcified plaque is present along the wall of normal caliber abdominal aorta and iliac arteries. There are numerous diverticula in the sigmoid colon and many of the descending colon but without evidence of acute diverticulitis. There is no appendicitis. Small bowel pattern is normal. There is no evidence of an abscess mass or ascites in the abdomen or pelvis. The urinary bladder is decompressed by Sharma catheter. Patient has a right metal hip prosthesis which creates beam hardening artifact in the lower pelvis. There is also metal hardware in the lower lumbar spine following prior laminectomy and fusion which also creates artifact. IMPRESSION: Increasing consolidation in the basilar segments of both lower lobes. This may be a combination of atelectasis, scar and pneumonia Emphysema Diverticulosis Interpreted and Authenticated by: Ulysses Gould 11/19/19
[2019-11-19] MEDS ORDERED: METOPROLOL TARTRATE 25 MG TABLET PO ONE (10:58)
[2019-11-19 11:26] LABS: Hemoglobin A1C 6.1 % HGB (4.0-6.0)
--- NOTE | 2019-11-19 16:55 | General Surgery Consult Note ---
HPI Data of Consult Primary Care Provider: Fidel Fabian M.D., F.A.A.FSilviaP. Family Provider: 79/F I saw this lady in ICU 120 / B along with Cleo RN, In Patient wound care nurse. Admitted via ER fo SEPSIS, fever, tachycardia, hypotension and leucocytosis. She has h/o Chronic A fib and an ulcer stage 3 LEFT lower rowell region. H/O skin and soft tissue trauma at home few days prior. Bruise later developed blister, presumed to be source of sepsis, which is now resolving. Other comorbid conditions are HTN, COPD, Emphysema, MIRNA, Stasis Dermatitis of legs and kidney stones in past. Her admission CT of abdomen and pelvis was negative for obvious source of se psis, BUN/Cr 15/0.8, K-4.4 and WBC of 47. She was fluid volume resuscitated, admitted to ICU for hemodynamic monitoring. Consult Narrative cc:: CC: Dudley Harris Integumentary Integumentary: Present as per HPI and skin ulcer Additional comments: Left mid rowell skin lesion with epidermal necrosis at site of bruise NO distal neurovascular deficits. [facility] Medical History A-fib (Chronic) Abdominal pain (Resolved) Abnormal laboratory test result (Acute) Anxiety (Chronic) Chronic; currently takes Cymbalta Blepharitis (Chronic) posterior type OU Bruising (Chronic) Calculus of kidney (Resolved) Cellulitis (Acute) Cellulitis and abscess of right lower extremity (Acute) Cellulitis of foot (Resolved) Cellulitis of left leg (Resolved) Cellulitis of lower extremity (Acute) Cellulitis of right lower leg (Chronic) Centrilobular emphysema (Chronic) Cervicalgia (Chronic) Cervical neck pain Colon polyps (Chronic) Colonoscopy 03/2008 with adenomatous and hyperplastic polyps, updated 05/2011 showing only hyperplastic polyps and on 5 year sequencing. COPD (chronic obstructive pulmonary disease) with emphysema (Chronic) desaturation to low 80% with activity, 90-92% with ambulation. COPD exacerbation (Resolved) Degenerative arthritis (Chronic) Multi-joint; chronic cervical lumbar pain with previous lumbar surgery, previous lumbar radiofrequency ablation; updated lumbar MRI in 12/2011 with sequencing at the pain clinic 01/2012; chronic shoulder pain; increasing right knee pain. Edema (Chronic) lower extremities Flank pain (Resolved) History of ECG (Resolved 10/29/15) History of tobacco use (Chronic) Ex-smoker 2005; updated chest x-ray 04/2011; questionable with negative chest CT, declines Pneumovax. Hormone replacement therapy (Chronic) Currently no bone density, maintains estrogen, stable vitamin D level in 2009, breast exam stable. Hydronephrosis (Resolved) Hyperlipidemia (Chronic) Hx; remains on low-dose Lovastatin with no myalgias Hypertension, essential, benign (Chronic) Hypoxemia (Chronic) Hypoxia (Chronic) Injury of foot, right (Resolved) Kidney stone on left side (Chronic) Low back pain (Chronic) Lumbar low back pain Lower extremity edema (Chronic) Lumbago (Resolved) Medicare annual wellness visit, subsequent (Acute) Odontoid fracture with type II morphology (Resolved) Osteoarthritis of right knee (Chronic) 04/13/2015-Obray Osteoarthritis of shoulders, bilateral (Chronic) 04/13/2015-Obray Pain in joint, pelvic region and thigh (Resolved) (02/24/2014-Dr Ricks) Pain in joint, shoulder region (Resolved) (10/31/13-Dr Ricks)Right Paroxysmal supraventricular tachycardia (Resolved) PAT/SVT 08/28/2013 PCO (posterior capsular opacification) (Chronic) Pseudophakia (Chronic) Pulmonary hypertension (Chronic) Refused influenza vaccine (Resolved) Restless legs (Chronic) Stable on Mirapex; no hx for sleep apnea Stasis dermatitis (Chronic) Vasomotor symptoms due to menopause (Chronic) Venous stasis (Chronic) Surgical History History of colonoscopy (Chronic) 2001-- Revelaed adenomatous polyp. 03/2008-- Adenomatous and hyperplastic polyps. 05/10/2011-- Hyperplastic polyp. 5 year sequencing. History of esophagogastroduodenoscopy (Chronic) History of laminectomy (Chronic) 1997 Lumbar History of radiation exposure (Chronic) 2008 Lumbar radiofrequency ablation History of right hip replacement (Chronic) History of right knee joint replacement (Chronic) surgery 02/17/2017 History of spinal fusion (Chronic) 2006 Status post total knee replacement, right (Chronic) Family History Father , age 50 History of alcohol abuse Mother , age 43 History of alcohol abuse Other COPD (chronic obstructive pulmonary disease) Kidney disease No pertinent family history Social History household members: spouse and alone housing: house lives independently: Yes marital status: occupational status: retired smoking status: Former smoker quit date: 04/10/01 alcohol intake frequency: former alcohol drinker substance use type: does not use additional history: Ambulates with a cane and a walker. MEDS/ALLERGIES Home Medications and Allergies Home Medications Medication Instructions Recorded Confirmed Type eoyesdyrjakl-[id number] 1 tab PO QDAY 04/25/18 11/19/19 History tiotropium bromide 18 mcg capsule 1 cap INHALATION QDAY #30 cap 07/30/18 11/19/19 Rx with inhalation device acetaminophen 650 mg 1,000 mg PO BID tab 08/27/18 11/19/19 History tablet,extended release albuterol sulfate 2.5 mg INHALATION BID #180 ml 08/27/18 11/19/19 Rx budesonide 0.5 mg/2 mL suspension 2 ml INHALATION BID #120 ml 08/27/18 11/19/19 Rx for nebulization lisinopril 5 mg tablet 5 mg PO QDAY 09/17/18 11/19/19 History meloxicam 15 mg tablet 15 mg PO QDAY #30 tab 04/23/19 11/19/19 Rx portable oxygen with supplies 2 applic .ROUTE .MEDSUPPLY 06/20/19 11/19/19 History pramipexole 0.5 mg tablet See Rx Instructions PO QHS #360 tab 08/30/19 11/19/19 Rx diphenhydramine HCl [Unisom 50 mg PO HS 11/19/19 11/19/19 History Sleep[employer]els] duloxetine 60 mg PO QDAY 11/19/19 11/19/19 History metoprolol succinate [Toprol XL] 25 mg PO BID 11/19/19 11/19/19 History Allergies Allergy/AdvReac Type Severity Reaction Status Date / Time chocolate flavor AdvReac Mild Cough Verified 11/19/19 06:05 Physical Examination Vital Signs Vital signs: Temp Pulse Resp BP Pulse Ox 100.2 F H 108 H 19 138/81 97 11/19/19 16:01 11/19/19 15:01 11/19/19 16:01 11/19/19 16:01 11/19/19 16:01 General physical appearance General physical exam: well developed, well nourished, no distress and no pain Eyes Eye exam: PERRL and normal ocular movement ENT ENT exam: normal pinna, normal mucosa and no congestion Head Head exam IM: Present atraumatic and normocephalic Neck Neck exam: no masses, trachea midline, no lymphadenopathy and no venous distension Cardiovascular Cardiovascular exam IM: Present irregular rhythm Respiratory Respiratory exam: normal expansion and clear to auscultation Abdomen Abdomen: Present soft, non tender and bowel sounds Integumentary Integumentary: Present other (LEFT lower rowell region skin lesion with epidermal necrosis. Improving with local wound care. Cleansing with chlorhexidne and topical application of Silvasorb and Mepilex borde foam. Will debride at bedside tomorrow AM.) Neurologic Neurologic: Present normal coordination and normal sensation Musculoskeletal Musculoskeletal: Present normal gait and normal posture Psychiatric Psychiatric: Present oriented to time, oriented to person, oriented to place and speech is normal Results Labs Result diagrams: 11/20/19 04:53 11/20/19 04:45 Labs: Abnormal lab results 11/18/19 11/18/19 11/18/19 Range/Units 18:41 18:41 18:57 WBC 47.3 H* (4.50-11.00) K/mcL Hct 46.4 H (34.1-44.9) % RDW 14.9 H (11.5-14.5) % Seg Neutrophils % 97 H (38-78) % Lymphocytes % 1 L (15-49) % Smudge Cells 1+ A (NONE SEEN) VBG Lactic Acid (0.5-2.0) mmol/L Chloride 95 L (96-108) mmol/L Anion Gap 17.0 H (8-16) Glucose 135 H (70-105) mg/dL Hemoglobin A1c (4.0-6.0) % HGB Calcium (8.6-10.4) mg/dl Total Bilirubin 1.6 H (0.0-1.0) mg/dL Direct Bilirubin (0.0-0.3) mg/dL GGT (5-36) U/L AST 47 H (0-37) U/l ALT 41 H (0-40) U/l Alkaline Phosphatase 163 H (39-117) U/L Lactate Dehydrogenase (94-250) U/L C-Reactive Protein 9.3 H (0.0-0.8) mg/dl NT-Pro-B Natriuret Pep 01650.0 H (0-450) pg/ml Total Protein (5.9-8.4) gm/dL Albumin (3.2-5.2) gm/dL Urine Protein (NEG) mg/dL Urine Urobilinogen (NEG) mg/dL 11/18/19 11/18/19 11/19/19 Range/Units 18:57 21:29 04:43 WBC 31.8 H* (4.50-11.00) K/mcL Hct (34.1-44.9) % RDW 14.9 H (11.5-14.5) % Seg Neutrophils % 89 H (38-78) % Lymphocytes % 2 L (15-49) % Smudge Cells (NONE SEEN) VBG Lactic Acid 2.9 H (0.5-2.0) mmol/L Chloride (96-108) mmol/L Anion Gap (8-16) Glucose (70-105) mg/dL Hemoglobin A1c (4.0-6.0) % HGB Calcium (8.6-10.4) mg/dl Total Bilirubin (0.0-1.0) mg/dL Direct Bilirubin (0.0-0.3) mg/dL GGT (5-36) U/L AST (0-37) U/l ALT (0-40) U/l Alkaline Phosphatase (39-117) U/L Lactate Dehydrogenase (94-250) U/L C-Reactive Protein (0.0-0.8) mg/dl NT-Pro-B Natriuret Pep (0-450) pg/ml Total Protein (5.9-8.4) gm/dL Albumin (3.2-5.2) gm/dL Urine Protein 30 A (NEG) mg/dL Urine Urobilinogen 4.0 A (NEG) mg/dL 11/19/19 11/19/19 11/19/19 Range/Units 04:43 04:43 04:43 WBC (4.50-11.00) K/mcL Hct (34.1-44.9) % RDW (11.5-14.5) % Seg Neutrophils % (38-78) % Lymphocytes % (15-49) % Smudge Cells (NONE SEEN) VBG Lactic Acid 2.7 H (0.5-2.0) mmol/L Chloride (96-108) mmol/L Anion Gap (8-16) Glucose 188 H (70-105) mg/dL Hemoglobin A1c 6.1 H (4.0-6.0) % HGB Calcium 8.5 L (8.6-10.4) mg/dl Total Bilirubin (0.0-1.0) mg/dL Direct Bilirubin 0.4 H (0.0-0.3) mg/dL GGT 68 H (5-36) U/L AST (0-37) U/l ALT (0-40) U/l Alkaline Phosphatase 123 H (39-117) U/L Lactate Dehydrogenase 285 H (94-250) U/L C-Reactive Protein (0.0-0.8) mg/dl NT-Pro-B Natriuret Pep (0-450) pg/ml Total Protein 5.4 L (5.9-8.4) gm/dL Albumin 2.9 L (3.2-5.2) gm/dL Urine Protein (NEG) mg/dL Urine Urobilinogen (NEG) mg/dL Diabetes panel 11/18/19 11/18/19 11/19/19 Range/Units 18:41 18:57 04:43 Sodium TNP 137 140 Potassium TNP 4.4 3.9 Chloride TNP 95 L 104 Carbon Dioxide TNP 25 25 BUN TNP 15 14 Creatinine TNP 0.8 0.7 Glucose TNP 135 H 188 H Hemoglobin A1c (4.0-6.0) % HGB Calcium TNP 9.2 8.5 L AST TNP 47 H 30 ALT TNP 41 H 28 Alkaline Phosphatase TNP 163 H 123 H Total Protein TNP 6.9 5.4 L Albumin TNP 3.9 2.9 L Triglycerides 50 (<150) mg/dl 11/19/19 Range/Units 04:43 Sodium Potassium Chloride Carbon Dioxide BUN Creatinine Glucose Hemoglobin A1c 6.1 H (4.0-6.0) % HGB Calcium AST ALT Alkaline Phosphatase Total Protein Albumin Triglycerides (<150) mg/dl Calcium panel 11/18/19 11/18/19 11/19/19 Range/Units 18:41 18:57 04:43 Calcium TNP 9.2 8.5 L Phosphorus 2.8 (2.7-4.5) mg/dL Albumin TNP 3.9 2.9 L Pituitary panel 11/18/19 11/18/19 11/19/19 Range/Units 18:41 18:57 04:43 Sodium TNP 137 140 Potassium TNP 4.4 3.9 Chloride TNP 95 L 104 Carbon Dioxide TNP 25 25 BUN TNP 15 14 Creatinine TNP 0.8 0.7 Glucose TNP 135 H 188 H Calcium TNP 9.2 8.5 L Adrenal panel 11/18/19 11/18/19 11/19/19 Range/Units 18:41 18:57 04:43 Sodium TNP 137 140 Potassium TNP 4.4 3.9 Chloride TNP 95 L 104 Carbon Dioxide TNP 25 25 BUN TNP 15 14 Creatinine TNP 0.8 0.7 Glucose TNP 135 H 188 H Calcium TNP 9.2 8.5 L Total Bilirubin TNP 1.6 H 1.0 AST TNP 47 H 30 ALT TNP 41 H 28 Alkaline Phosphatase TNP 163 H 123 H Total Protein TNP 6.9 5.4 L Albumin TNP 3.9 2.9 L All other labs normal. A/P Narrative A/P Narrative: Assessment: CSSSI . Epidermal necrosis at site of LEFT lower rowell blister. Improving with local wound care. Will need limited wound debridement under LA. Tissue specimen for c/s and / or histology - pathology. Have reviewed input from Hospitalist and I D physician's notes. Plan: For bedside debridement under LMX anesthesia tomorrow. Agree with rest of ongoing management. D/W. Dr. Harris. Time Spent With Patient Time: Total time spent is greater than 50% in coordination of care (as documented) at patient's floor/unit and/or counseling patient: Total time spent with greater than 50% in coordination of care (as documented) at patient's floor/unit and/or counseling patient:: 15 - 24 minutes
[2019-11-19] MEDS ORDERED: METOPROLOL TARTRATE 5 MG/5 ML VIAL IV PRN (18:42)
[2019-11-19] MEDS ORDERED: ONDANSETRON 4 MG/2 ML VIAL IV PRN (18:42)
[2019-11-19] MEDS ORDERED: BENZONATATE 100 MG CAPSULE PO PRN (18:42)
[2019-11-19] MEDS ORDERED: IPRATROPIUM/ALBUTEROL 3 ML AMPUL.NEB NEB PRN (18:42)
[2019-11-19] MEDS ORDERED: VANCOMYCIN PER PHARMACY IV SCH (18:42)
[2019-11-19] MEDS: 0.9 % SODIUM CHLORIDE 250 ML IV SCH (18:47)
[2019-11-19] MEDS: BUDESONIDE 0.5 MG/2 ML AMPUL.NEB NEB SCH (20:56)
[2019-11-19] MEDS ORDERED: PRAMIPEXOLE 1 MG TABLET PO SCH (21:00)
[2019-11-19] MEDS ORDERED: BUDESONIDE 0.5 MG/2 ML AMPUL.NEB NEB SCH (21:00)
[2019-11-19] MEDS: DOCUSATE SODIUM 100 MG CAPSULE PO SCH (21:18)
[2019-11-19] MEDS: PRAMIPEXOLE 1 MG TABLET PO SCH (21:18)
[2019-11-19] MEDS: HEPARIN 5,000 UNIT/ML VIAL SQ SCH (21:18)
[2019-11-19] MEDS ORDERED: NOREPINEPHRINE BITARTRATE 16 MG in 0.9 % SODIUM CHLORIDE 234 ML IV PRN (21:45)
[2019-11-20] MEDS: PIPERACILLIN SODIUM/TAZOBACTAM 3.375 GM in DEXTROSE 5% IN WATER 50 ML IV SCH ×5 (00:01→23:26)
[2019-11-20] MEDS: 0.9 % SODIUM CHLORIDE 10 ML SYRINGE IV SCH ×3 (05:27→21:18)
[2019-11-20 07:35] LABS: Hematocrit 41.7 % (34.1-44.9); Hemoglobin 12.8 g/dL (11.2-15.7); Mean Cell Volume 99.3 fL (80.0-100.0); Mean Corpuscular HGB Conc 30.7 g/dL (31.0-36.0); Mean Platelet Volume 9.9 fL (7.4-10.4); Platelet Count 226 K/mcL (140-440); Red Cell Distribution Width 15.4 % (11.5-14.5); WBC 24.8 K/mcL (4.50-11.00)
[2019-11-20 07:55] LABS: ALT/SGPT 23 U/l (0-40); AST/SGOT 24 U/l (0-37); Albumin 2.6 gm/dL (3.2-5.2); Albumin/Globulin Ratio 0.8 (1.0-2.3); Alkaline Phosphatase 144 U/L (39-117); Bilirubin,Direct 0.3 mg/dL (0.0-0.3); Bilirubin,Total 0.8 mg/dL (0.0-1.0); Blood Urea Nitrogen 16 mg/dl (8-23); C-Reactive Protein 25.8 mg/dl (0.0-0.8); Calcium 8.6 mg/dl (8.6-10.4); Carbon Dioxide 20 mmol/L (22-30); Chloride 104 mmol/L (96-108); Globulin 3.2 gm/dL (2.2-3.7); Glomerular Filtration Rate 88; Glucose 103 mg/dL (70-105); Lactate Dehydrogenase 323 U/L (94-250); Phosphorous 3.4 mg/dL (2.7-4.5); Triglycerides 111 mg/dl (<150); Uric Acid 2.5 mg/dL (2.5-8.0)
--- NOTE | 2019-11-20 08:04 | Internal Med Progress Note ---
SUBJECTIVE Subjective Patient information: Note initiated : 11/20/19 at 7:54 am Service Date, if different from initiated Date: [] Patient: Leslie Maldonado a 79 y/o F admitted on 11/18/19 for shortness of breath. Chief Complaint: [] Interval history: History of present illness: Ms. Maldonado is a 79 year old F Presents the ED with weakness. Patient states she went to bed feeling fine last night. She woke up this morning and tired and weak. She was able to get up and take the dog out for bathroom break. Other than that she is been in bed all day sleeping and resting. Her friend came over at 5 PM and insisted she go to the ED. Patient denies any fevers or chills any chest pain stomach pain. She has a chronic cough and chronic shortness of breath but these have not changed. No recent travels or sick contacts. No diarrhea. In the ED she was found to a fever and was hypotensive. She was also found to have a severely high white blood cell count of 47,000 and differential did show some smudge cells. Her hemoglobin and platelets are within normal limits. He was given 1 L of IV fluid because of her history of heart failure and then placed on Levophed. Case was discussed with collar shaper operator who felt she could be treated here for sepsis and then follow-up outpatient. And to monitor blood counts daily. Her lactate was elevated 2.9. She is on her home regimen of 4 L of oxygen. She is mildly tachypneic and tachycardic. He says she carries a history of atrial fibrillation but has not been on any anticoagulation. She is on metoprolol And follows with Dr. Myrick. She had a CT chest abdomen pelvis which showed no source of infection. She does have an open wound left anterior rowell. She says about a week ago she bumped her rowell against something and it developed into a lump and then yesterday it opened up and it was bleeding. It has some purulence to the drainage today. 11/18 No overnight events or new complaints. In the wound care. Now off vasopressors. 11/19 States has little bit of lightheadedness today but otherwise no new complaints. No overnight event. Review of Systems: denies headache/fever/chills/nausea/vomiting/chest or abdominal pain/cough/dyspnea/diarrhea. Otherwise see above. Constitutional Vitals: Vital Signs Temp Pulse Resp BP Pulse Ox 97.2 F 74 18 159/89 96 11/20/19 06:57 11/20/19 06:57 11/20/19 06:57 11/20/19 06:57 11/20/19 06:57 Period Temp Pulse Resp BP Sys/Cuellar Pulse Ox Last 24 Hr 97.2 F-100.5 F 60-110 16-28 101-159/64-103 91-99 Intake and Output 11/19/19 11/20/19 11/20/19 21:59 05:59 13:59 Intake Total 650 50 Output Total 425 Balance 650 -375 Weight 91.852 kg Intake & Output: Intake & Output 11/19/19 11/20/19 11/20/19 21:59 05:59 13:59 Intake Total 650 50 Output Total 425 Balance 650 -375 Weight 91.852 kg Intake: IV 50 50 Sodium Chloride 0.9% 250 ml @ 0 20 mls/hr IV .[id number] SHAYLA Rx#: [id number] Levophed 16 mg In Sodium 0 Chloride 0.9% 234 ml @ 10 MCG/ MIN 9.375 mls/hr IV Q24H SHAYLA Rx #:[id number] Zosyn 3.375 gm In Dextrose 5% 50 50 in Water 50 ml @ 100 mls/hr IV Q6H SHAYLA Rx#:[id number] Oral 600 Output: Urine Catheter Amount 425 Other: Meal Dinner Percent of Meal Consumed 50% Feeding Ability Independent Urine Appearance Clear Uretheral (Sharma) Clear Urine Color Dark Yellow Uretheral (Sharma) Light Hui Light Hui Stool Size Large Stool Color Brown Stool Consistency Soft Formed # Bowel Movements 1 Exam: General: Alert, Awake, No acute Distress Eyes/N/T: EOMI, Head/Neck: neck supple, CV: irreg rhythm, No murmurs, Pulm: Clear b/l, no wheezing/rhonchi/rales Abd: soft, nontender, +BS x4 Ext: no clubbing/cyanosis/edema. LLE rowell lesion 1x1cm open and draining purulent fluid malodorous Neuro: Alert, no focal deficits, moves all extremities, Skin: warm/dry OBJ DATA Labs CBC & Chem 7: 11/20/19 04:53 11/20/19 04:45 Labs: Abnormal Lab Results 11/20/19 11/19/19 11/19/19 04:53 04:43 04:43 WBC 24.8 H Hct MCHC 30.7 L RDW 15.4 H Seg Neutrophils % Lymphocytes % Smudge Cells VBG Lactic Acid 2.7 H Chloride Anion Gap Glucose Hemoglobin A1c 6.1 H Calcium Total Bilirubin Direct Bilirubin GGT AST ALT Alkaline Phosphatase Lactate Dehydrogenase C-Reactive Protein NT-Pro-B Natriuret Pep Total Protein Albumin Urine Protein Urine Urobilinogen 11/19/19 11/19/19 11/18/19 04:43 04:43 21:29 WBC 31.8 H* Hct MCHC RDW 14.9 H Seg Neutrophils % 89 H Lymphocytes % 2 L Smudge Cells VBG Lactic Acid Chloride Anion Gap Glucose 188 H Hemoglobin A1c Calcium 8.5 L Total Bilirubin Direct Bilirubin 0.4 H GGT 68 H AST ALT Alkaline Phosphatase 123 H Lactate Dehydrogenase 285 H C-Reactive Protein NT-Pro-B Natriuret Pep Total Protein 5.4 L Albumin 2.9 L Urine Protein 30 A Urine Urobilinogen 4.0 A 11/18/19 11/18/19 11/18/19 18:57 18:57 18:41 WBC Hct MCHC RDW Seg Neutrophils % Lymphocytes % Smudge Cells VBG Lactic Acid 2.9 H Chloride 95 L Anion Gap 17.0 H Glucose 135 H Hemoglobin A1c Calcium Total Bilirubin 1.6 H Direct Bilirubin GGT AST 47 H ALT 41 H Alkaline Phosphatase 163 H Lactate Dehydrogenase C-Reactive Protein 9.3 H NT-Pro-B Natriuret Pep 50968.0 H Total Protein Albumin Urine Protein Urine Urobilinogen 11/18/19 18:41 WBC 47.3 H* Hct 46.4 H MCHC RDW 14.9 H Seg Neutrophils % 97 H Lymphocytes % 1 L Smudge Cells 1+ A VBG Lactic Acid Chloride Anion Gap Glucose Hemoglobin A1c Calcium Total Bilirubin Direct Bilirubin GGT AST ALT Alkaline Phosphatase Lactate Dehydrogenase C-Reactive Protein NT-Pro-B Natriuret Pep Total Protein Albumin Urine Protein Urine Urobilinogen Meds: Medications Acetaminophen (Tylenol) 650 mg PO Q4-6HP PRN PRN Reason: PAIN/FEVER > 101 Last Admin: 11/19/19 21:18 Dose: 650 mg Documented by: Albuterol/Ipratropium (Duoneb) 3 ml NEB Q4HRT PRN PRN Reason: Dyspnea Benzonatate (Tessalon) 200 mg PO TIDP PRN PRN Reason: Cough Budesonide (Pulmicort) 0.5 mg NEB Q12 [facility] Last Admin: 11/19/19 20:56 Dose: 0.5 mg Documented by: Docusate Sodium (Colace) 100 mg PO BID [facility] Last Admin: 11/19/19 21:18 Dose: 100 mg Documented by: Duloxetine HCl (Cymbalta) 60 mg PO DAILY [facility] Heparin Sodium (Porcine) (Heparin) 5,000 unit SQ Q12 [facility] Last Admin: 11/19/19 21:18 Dose: 5,000 unit Documented by: Piperacillin Sod/Tazobactam (Sod 3.375 gm/ Dextrose) 50 mls @ 100 mls/hr IV Q6H [facility]; Protocol Last Admin: 11/20/19 05:27 Dose: 100 mls/hr Documented by: Vancomycin HCl 1,500 mg/ (Sodium Chloride) 500 mls @ 333.3 mls/hr IV Q24H [facility] Norepinephrine Bitartrate 16 (mg/ Sodium Chloride) 250 mls @ 9.375 mls/hr IV Q24HP PRN; Protocol PRN Reason: Hypotension Sodium Chloride (Sodium Chloride 0.9%) 250 mls @ 20 mls/hr IV .[id number] [facility] Last Admin: 11/19/19 18:47 Dose: Not Given Documented by: Metoprolol Succinate (Toprol Xl) 25 mg PO DAILY [facility] Metoprolol Tartrate (Lopressor) 5 mg IV Q2HP PRN PRN Reason: Tachyarrhythmias HR>110 Ondansetron HCl (Zofran) 4 mg IV Q4-6HP PRN PRN Reason: Nausea And Vomiting Pantoprazole Sodium (Protonix) 40 mg PO QAMAC [facility] Pramipexole Dihydrochloride (Mirapex) 2 mg PO HS [facility] Last Admin: 11/19/19 21:18 Dose: 2 mg Documented by: Sodium Chloride (Saline Flush) 10 ml IV Q8 [facility] Last Admin: 11/20/19 05:27 Dose: 10 ml Documented by: Vancomycin HCl (Vancomycin Per Pharmacy) 1 order IV UD [facility]; Protocol A/P Narrative A/P Narrative: A: *Septic shock: 2/2 likely LLE rowell wound -lactic acidosis, Afebrile o/n -Resolved *LLE wound infection: -wound polymicrobial *Bacteremia (group B Strep) *??CLL (new diagnosis): Case was discussed with Dr. Alvarado, f/u outpt -smudge cells noted *Afib/SVT: follows with Dr. Myrick, on BB -was on anticoagulation in past (warfarin) but this was discontinued due to diffuse bruising/bleeding. *h/o systolic (3540%)/diastolic CHF: *COPD/pulmonary fibrosis (4L O2 at home): Follows with Dr. Tucker *HTN: *Prediabetes: A1c 6.1 P: -zosyn, WC/BC pending -echo pending and repeat BC -ID following -follow-up with Dr. Alvarado -restarted home ACEI/BB -home IH's, prn nebs, O2 -SSI -pt/ot -CM for HHC -ppx: heparin DNR Time Spent With Patient Time: Total time spent is greater than 50% in coordination of care (as documented) at patient's floor/unit and/or counseling patient:
[2019-11-20 08:25] LABS: Band Neutrophils % 3 % (0-10); Lymphocytes % 4 % (15-49); Monocytes % (Manual) 3 % (1-12); Platelet Estimate NORMAL (NORMAL); RBC Morphology NORMAL (NORMAL); Segmented Neutrophils % 90 % (38-78)
[2019-11-20] MEDS ORDERED: METOPROLOL SUCCINATE 25 MG TAB.XL.24H PO SCH ×2 (09:00)
[2019-11-20] MEDS ORDERED: VANCOMYCIN 1,500 MG in 0.9 % SODIUM CHLORIDE 500 ML IV SCH (09:00)
[2019-11-20] MEDS ORDERED: DULoxetine 30 MG CAPSULE PO SCH (09:00)
[2019-11-20] MEDS: BUDESONIDE 0.5 MG/2 ML AMPUL.NEB NEB SCH ×2 (09:11→21:01)
--- NOTE | 2019-11-20 10:26 | Infectious Disease Consult ---
HPI Data of Consult Primary Care Provider: Fidel Fabian M.D., Betzy. Consult Narrative cc:: CC: Dudley Harris 79-year-old lady with past medical history of COPD [on 4 L home oxygen [id number]], right hip and right knee replacement, atrial fibrillation [not on anticoagulation because of easy bruisability per fur sewer] is admi tted on 17 November after being found to be weak, confused and febrile. Patient reports that about a week ago she bumped into something following which she developed a bruise and swelling over left lower leg. Mentions that she did not fall but has a tendency to bump into things for last few months. Over the weekend she felt febrile, weak and unable to get out of the bed and was not able to carry on her daily chores. She denies any increased oxygen requirements, worsening of baseline cough, pet bites or scratches. She has a dog and a cat. Denies any contact of pets with the leg wound. She is brought to located within [facility] ER by her friend. At admission patient had temperature of 99.7 for night, tachycardia, hypotension, satting 97% on 4 L of oxygen. Her white cell count was 47,000, procalcitonin of more than 0.5, lactic acid 2.9. Blood cultures and left leg wound cultures were sent. Patient was started on IV vancomycin and IV Zosyn. Her white cell count down trended to 24,000 today. Her blood cultures came back positive for group B strep, 2 out of 2 sets. Wound cultures have been showing mixed growth of gram-negative and group B strep. At time of visit, patient reported feeling better. Confirmed above history. Mentioned that she also has neck pain and can hardly move her neck sideways because of the surgery done a year ago. Mentioned that she quit smoking about 4 years ago but smoked for many years about 1 pack/day and just why she has developed COPD. Reports that she uses 4 L of oxygen [id number]. Does not remember or could answer the question why she bumps into things easily. Added she would like home health care set up to help with her daily activities of living after discharge. Review of Systems All systems: reviewed and no additional remarkable complaints except as stated [facility] Medical History A-fib (Chronic) Abdominal pain (Resolved) Abnormal laboratory test result (Acute) Anxiety (Chronic) Chronic; currently takes Cymbalta Blepharitis (Chronic) posterior type OU Bruising (Chronic) Calculus of kidney (Resolved) Cellulitis (Acute) Cellulitis and abscess of right lower extremity (Acute) Cellulitis of foot (Resolved) Cellulitis of left leg (Resolved) Cellulitis of lower extremity (Acute) Cellulitis of right lower leg (Chronic) Centrilobular emphysema (Chronic) Cervicalgia (Chronic) Cervical neck pain Colon polyps (Chronic) Colonoscopy 03/2008 with adenomatous and hyperplastic polyps, updated 05/2011 showing only hyperplastic polyps and on 5 year sequencing. COPD (chronic obstructive pulmonary disease) with emphysema (Chronic) desaturation to low 80% with activity, 90-92% with ambulation. COPD exacerbation (Resolved) Degenerative arthritis (Chronic) Multi-joint; chronic cervical lumbar pain with previous lumbar surgery, pr evious lumbar radiofrequency ablation; updated lumbar MRI in 12/2011 with sequencing at the pain clinic 01/2012; chronic shoulder pain; increasing right knee pain. Edema (Chronic) lower extremities Flank pain (Resolved) History of ECG (Resolved 10/29/15) History of tobacco use (Chronic) Ex-smoker 2005; updated chest x-ray 04/2011; questionable with negative chest CT, declines Pneumovax. Hormone replacement therapy (Chronic) Currently no bone density, maintains estrogen, stable vitamin D level in 2009, breast exam stable. Hydronephrosis (Resolved) Hyperlipidemia (Chronic) Hx; remains on low-dose Lovastatin with no myalgias Hypertension, essential, benign (Chronic) Hypoxemia (Chronic) Hypoxia (Chronic) Injury of foot, right (Resolved) Kidney stone on left side (Chronic) Low back pain (Chronic) Lumbar low back pain Lower extremity edema (Chronic) Lumbago (Resolved) Medicare annual wellness visit, subsequent (Acute) Odontoid fracture with type II morphology (Resolved) Osteoarthritis of right knee (Chronic) 04/13/2015-Obray Osteoarthritis of shoulders, bilateral (Chronic) 04/13/2015-Obray Pain in joint, pelvic region and thigh (Resolved) (02/24/2014-Dr Ricks) Pain in joint, shoulder region (Resolved) (10/31/13-Dr Ricks)Right Paroxysmal supraventricular tachycardia (Resolved) PAT/SVT 08/28/2013 PCO (posterior capsular opacification) (Chronic) Pseudophakia (Chronic) Pulmonary hypertension (Chronic) Refused influenza vaccine (Resolved) Restless legs (Chronic) Stable on Mirapex; no hx for sleep apnea Stasis dermatitis (Chronic) Vasomotor symptoms due to menopause (Chronic) Venous stasis (Chronic) Surgical History History of colonoscopy (Chronic) 2001-- Revelaed adenomatous polyp. 03/2008-- Adenomatous and hyperplastic polyps. 05/10/2011-- Hyperplastic polyp. 5 year sequencing. History of esophagogastroduodenoscopy (Chronic) History of laminectomy (Chronic) 1997 Lumbar History of radiation exposure (Chronic) 2008 Lumbar radiofrequency ablation History of right hip replacement (Chronic) History of right knee joint replacement (Chronic) surgery 02/17/2017 History of spinal fusion (Chronic) 2006 Status post total knee replacement, right (Chronic) Family History Father , age 50 History of alcohol abuse Mother , age 43 History of alcohol abuse Other COPD (chronic obstructive pulmonary disease) Kidney disease No pertinent family history Social History household members: spouse and alone housing: house lives independently: Yes marital status: occupational status: retired smoking status: Former smoker quit date: 04/10/01 alcohol intake frequency: former alcohol drinker substance use type: does not use additional history: Ambulates with a cane and a walker. MEDS/ALLERGIES Home Medications and Allergies Home Medications Medication Instructions Recorded Confirmed Type [id number] 1 tab PO QDAY 04/25/18 11/19/19 History tiotropium bromide 18 mcg capsule 1 cap INHALATION QDAY #30 cap 07/30/18 11/19/19 Rx with inhalation device acetaminophen 650 mg 1,000 mg PO BID tab 08/27/18 11/19/19 History tablet,extended release albuterol sulfate 2.5 mg INHALATION BID #180 ml 08/27/18 11/19/19 Rx budesonide 0.5 mg/2 mL suspension 2 ml INHALATION BID #120 ml 08/27/18 11/19/19 Rx for nebulization lisinopril 5 mg tablet 5 mg PO QDAY 09/17/18 11/19/19 History meloxicam 15 mg tablet 15 mg PO QDAY #30 tab 04/23/19 11/19/19 Rx portable oxygen with supplies 2 applic .ROUTE .MEDSUPPLY 06/20/19 11/19/19 History pramipexole 0.5 mg tablet See Rx Instructions PO QHS #360 tab 08/30/19 11/19/19 Rx diphenhydramine HCl [Unisom 50 mg PO HS 11/19/19 11/19/19 History SleepGels] duloxetine 60 mg PO QDAY 11/19/19 11/19/19 History metoprolol succinate [Toprol XL] 25 mg PO BID 11/19/19 11/19/19 History Allergies Allergy/AdvReac Type Severity Reaction Status Date / Time chocolate flavor AdvReac Mild Cough Verified 11/19/19 06:05 Physical Examination Vital Signs Vital signs: Temp Pulse Resp BP Pulse Ox 36.2 C 74 18 159/89 96 11/20/19 06:57 11/20/19 06:57 11/20/19 06:57 11/20/19 06:57 11/20/19 06:57 Constitutional General appearance: no acute distress and alert EENT ENT: other (No thrush) Respiratory Effort: mildly labored Auscultation: bilateral: diminished breath sounds (At bases. Overall inspiration equals expiration) Cardiovascular Cardiovascular: irregular rhythm and other (S1 soft S2 normal, no murmurs heard) Gastrointestinal Gastrointestinal: normoactive bowel sounds, soft and non-tender Extremities Extremities: other (Has a 3 into 1 cm wound over left lower leg just lateral to the rowell. The wound is deep and has serosanguineous drainage. Tender. Has some redness and swelling around it) Neurologic Neurological: normal mental status Results Laboratory Findings CBC and BMP: 11/20/19 04:53 11/20/19 04:45 Abnormal lab findings: Abnormal Labs 11/18/19 11/18/19 11/18/19 18:41 18:41 18:57 WBC 47.3 H* Hct 46.4 H MCHC RDW 14.9 H Seg Neutrophils % 97 H Lymphocytes % 1 L Smudge Cells 1+ A VBG Lactic Acid Chloride 95 L Carbon Dioxide Anion Gap 17.0 H Glucose 135 H Hemoglobin A1c Calcium Magnesium Total Bilirubin 1.6 H Direct Bilirubin GGT AST 47 H ALT 41 H Alkaline Phosphatase 163 H Lactate Dehydrogenase C-Reactive Protein 9.3 H NT-Pro-B Natriuret Pep 32001.0 H Total Protein Albumin Albumin/Globulin Ratio Urine Protein Urine Urobilinogen 11/18/19 11/18/19 11/19/19 18:57 21:29 04:43 WBC 31.8 H* Hct MCHC RDW 14.9 H Seg Neutrophils % 89 H Lymphocytes % 2 L Smudge Cells VBG Lactic Acid 2.9 H Chloride Carbon Dioxide Anion Gap Glucose Hemoglobin A1c Calcium Magnesium Total Bilirubin Direct Bilirubin GGT AST ALT Alkaline Phosphatase Lactate Dehydrogenase C-Reactive Protein NT-Pro-B Natriuret Pep Total Protein Albumin Albumin/Globulin Ratio Urine Protein 30 A Urine Urobilinogen 4.0 A 11/19/19 11/19/19 11/19/19 04:43 04:43 04:43 WBC Hct MCHC RDW Seg Neutrophils % Lymphocytes % Smudge Cells VBG Lactic Acid 2.7 H Chloride Carbon Dioxide Anion Gap Glucose 188 H Hemoglobin A1c 6.1 H Calcium 8.5 L Magnesium Total Bilirubin Direct Bilirubin 0.4 H GGT 68 H AST ALT Alkaline Phosphatase 123 H Lactate Dehydrogenase 285 H C-Reactive Protein NT-Pro-B Natriuret Pep Total Protein 5.4 L Albumin 2.9 L Albumin/Globulin Ratio Urine Protein Urine Urobilinogen 11/20/19 11/20/19 04:45 04:53 WBC 24.8 H Hct MCHC 30.7 L RDW 15.4 H Seg Neutrophils % 90 H Lymphocytes % 4 L Smudge Cells VBG Lactic Acid Chloride Carbon Dioxide 20 L Anion Gap Glucose Hemoglobin A1c Calcium Magnesium 2.6 H Total Bilirubin Direct Bilirubin GGT 57 H AST ALT Alkaline Phosphatase 144 H Lactate Dehydrogenase 323 H C-Reactive Protein 25.8 H NT-Pro-B Natriuret Pep Total Protein 5.8 L Albumin 2.6 L Albumin/Globulin Ratio 0.8 L Urine Protein Urine Urobilinogen Microbiology: Microbiology 11/18/19 21:16 Blood Blood Culture - Preliminary Strep agalactiae - (group b) 11/18/19 23:02 Leg - Lower Left Gram Stain - Final 11/18/19 20:25 Blood Blood Culture - Preliminary Gram positive cocci 08/10/20 23:46 Nose - Both Right and Left MRSA (PCR) - Final A/P Narrative A/P Narrative: Assessment: 1. Group B Strept bacteremia: - 2/2 sets +ve on 11/17, Blood Cx NGTD since 11/18 - portal of entry: left leg wound in light of Gp B Strept colonization - risk factors: advanced age, GP B Strept colonization, poor circulation <--underlying PAD?, frequent bruising 2. Septic shock: sec to (1) - resolved 3. Left leg skin soft tissue infection: seems superficial - prelim wound Cx growing Gp B Strept, multiple gram negative bacteria (non lactose fermenters) 4. COPD: on stable O2 req - no concerns for pneumonia clinically. CT chest/abd reviewed Recommendations: - Continue IV Zosyn 3.375 gm q6 hrs for now - will deescalate tomorrow based on wound Cx results - midline placement tomorrow if blood Cx from 11/18 remain NGTD - anticipate 2 weeks of IV antibiotics - wound care per Dr Garcia - social work/manager data warehouse consult to help with home health care - monthly Hibiclens soap bathing (below neck) for 5 days could be considered to prevent recurrent skin -soft tissue infections, if pt continues to bump into things at her home. will follow Dre Guzman MD Infectious disease Time Spent With Patient Time: Total time spent is greater than 50% in coordination of care (as documented) at patient's floor/unit and/or counseling patient:
[2019-11-20] MEDS: DOCUSATE SODIUM 100 MG CAPSULE PO SCH ×2 (11:41→20:50)
[2019-11-20] MEDS: METOPROLOL SUCCINATE 25 MG TAB.XL.24H PO SCH ×2 (11:41→20:51)
[2019-11-20] MEDS: LISINOPRIL 5 MG TABLET PO SCH (11:42)
[2019-11-20] MEDS: DULoxetine 30 MG CAPSULE PO SCH (11:42)
[2019-11-20] MEDS: FUROSEMIDE 20 MG TABLET PO SCH (11:43)
[2019-11-20] MEDS: PANTOPRAZOLE 40 MG TABLET PO SCH (11:43)
[2019-11-20] MEDS: ASPIRIN 81 MG TAB.CHEW PO SCH (12:35)
[2019-11-20] MEDS: 0.9 % SODIUM CHLORIDE 250 ML IV SCH ×2 (13:12→20:50)
[2019-11-20] MEDS: HEPARIN 5,000 UNIT/ML VIAL SQ SCH ×2 (15:28→20:51)
[2019-11-20] MEDS: ACETAMINOPHEN 325 MG TABLET PO PRN (20:51)
[2019-11-20] MEDS: PRAMIPEXOLE 1 MG TABLET PO SCH (20:51)
[2019-11-21] MEDS: PIPERACILLIN SODIUM/TAZOBACTAM 3.375 GM in DEXTROSE 5% IN WATER 50 ML IV SCH ×2 (05:55→13:47)
[2019-11-21] MEDS: 0.9 % SODIUM CHLORIDE 10 ML SYRINGE IV SCH ×3 (05:55→21:59)
[2019-11-21 07:09] LABS: Hematocrit 39.2 % (34.1-44.9); Hemoglobin 12.4 g/dL (11.2-15.7); Mean Cell Volume 95.1 fL (80.0-100.0); Mean Corpuscular HGB Conc 31.6 g/dL (31.0-36.0); Mean Platelet Volume 10.2 fL (7.4-10.4); Platelet Count 224 K/mcL (140-440); RBC 4.12 M/mcL (3.59-5.38); Red Cell Distribution Width 14.9 % (11.5-14.5); WBC 10.1 K/mcL (4.50-11.00)
[2019-11-21] MEDS: PANTOPRAZOLE 40 MG TABLET PO SCH (07:14)
[2019-11-21 07:34] LABS: ALT/SGPT 39 U/l (0-40); AST/SGOT 42 U/l (0-37); Albumin 2.9 gm/dL (3.2-5.2); Alkaline Phosphatase 128 U/L (39-117); Bilirubin,Direct 0.2 mg/dL (0.0-0.3); Bilirubin,Total 0.7 mg/dL (0.0-1.0); Blood Urea Nitrogen 16 mg/dl (8-23); Calcium 8.6 mg/dl (8.6-10.4); Chloride 101 mmol/L (96-108); Globulin 2.9 gm/dL (2.2-3.7); Glomerular Filtration Rate 88; Glucose 112 mg/dL (70-105); Lactate Dehydrogenase 215 U/L (94-250); Phosphorous 3.2 mg/dL (2.7-4.5); Triglycerides 108 mg/dl (<150); Uric Acid 2.6 mg/dL (2.5-8.0)
[2019-11-21 07:35] LABS: Carbon Dioxide 28 mmol/L (22-30)
--- NOTE | 2019-11-21 07:50 | Internal Med Progress Note ---
SUBJECTIVE Subjective Patient information: Note initiated : 11/21/19 at 7:46 am Service Date, if different from initiated Date: [] Patient: Leslie Maldonado a 79 y/o F admitted on 11/18/19 for shortness of breath. Chief Complaint: [] Interval history: History of present illness: Ms. Maldonado is a 79 year old F Presents the ED with weakness. Patient states she went to bed feeling fine last night. She woke up this morning and tired and weak. She was able to get up and take the dog out for bathroom break. Other than that she is been in bed all day sleeping and resting. Her friend came over at 5 PM and insisted she go to the ED. Patient denies any fevers or chills any chest pain stomach pain. She has a chronic cough and chronic shortness of breath but these have not changed. No recent travels or sick contacts. No diarrhea. In the ED she was found to a fever and was hypotensive. She was also found to have a severely high white blood cell count of 47,000 and differential did show some smudge cells. Her hemoglobin and platelets are within normal limits. He was given 1 L of IV fluid because of her history of heart failure and then placed on Levophed. Case was discussed with rougher helper who felt she could be treated here for sepsis and then follow-up outpatient. And to monitor blood counts daily. Her lactate was elevated 2.9. She is on her home regimen of 4 L of oxygen. She is mildly tachypneic and tachycardic. He says she carries a history of atrial fibrillation but has not been on any anticoagulation. She is on metoprolol And follows with Dr. Myrick. She had a CT chest abdomen pelvis which showed no source of infection. She does have an open wound left anterior rowell. She says about a week ago she bumped her rowell against something and it developed into a lump and then yesterday it opened up and it was bleeding. It has some purulence to the drainage today. 11/18 No overnight events or new complaints. In the wound care. Now off vasopressors. 11/19 States has little bit of lightheadedness today but otherwise no new complaints. No overnight event. 11/20 Doing well but worried about her cats and dogs at home. Blood cultures yesterday done awaiting results for tomorrow before likely placing midline and several weeks of antibiotics. Review of Systems: denies headache/fever/chills/nausea/vomiting/chest or abdominal pain/cough/dyspnea/diarrhea. Otherwise see above. Constitutional Vitals: Vital Signs Temp Pulse Resp BP Pulse Ox 98.0 F 85 24 H 153/82 92 11/21/19 04:45 11/21/19 04:45 11/21/19 04:45 11/21/19 04:45 11/21/19 04:45 Period Temp Pulse Resp BP Sys/Cuellar Pulse Ox Last 24 Hr 97.4 F-98.1 F 84-106 16-28 100-161/48-83 92-98 Intake and Output 11/20/19 11/21/19 11/21/19 21:59 05:59 13:59 Intake Total 540 650 Output Total 550 400 Balance -10 250 Weight 91.399 kg Intake & Output: Intake & Output 11/20/19 11/21/19 11/21/19 21:59 05:59 13:59 Intake Total 540 650 Output Total 550 400 Balance -10 250 Weight 91.399 kg Intake: IV 100 50 Zosyn 3.375 gm In Dextrose 5% 100 50 in Water 50 ml @ 100 mls/hr IV Q6H COUNTS INCLUDE 234 BEDS AT THE [facility] Rx#:[id number] Oral 440 600 Output: Urine Catheter Amount 550 400 Other: Meal Lunch Percent of Meal Consumed 75% Urine Appearance Clear Urine Color Tea Colored Exam: General: Alert, Awake, No acute Distress Eyes/N/T: EOMI, Head/Neck: neck supple, CV: irreg rhythm, No murmurs, Pulm: Clear b/l, no wheezing/rhonchi/rales Abd: soft, nontender, +BS x4 Ext: no clubbing/cyanosis/edema. LLE rowell lesion in dressings Neuro: Alert, no focal deficits, moves all extremities, Skin: warm/dry OBJ DATA Labs CBC & Chem 7: 11/21/19 05:51 11/21/19 05:51 Labs: Abnormal Lab Results 11/21/19 11/21/19 11/20/19 05:51 05:51 04:53 WBC 24.8 H Hct MCHC 30.7 L RDW 14.9 H 15.4 H Seg Neutrophils % 90 H Lymphocytes % 4 L Smudge Cells VBG Lactic Acid Chloride Carbon Dioxide Anion Gap Glucose 112 H Hemoglobin A1c Calcium Magnesium Total Bilirubin Direct Bilirubin GGT 105 H AST 42 H ALT Alkaline Phosphatase 128 H Lactate Dehydrogenase C-Reactive Protein NT-Pro-B Natriuret Pep Total Protein 5.8 L Albumin 2.9 L Albumin/Globulin Ratio Urine Protein Urine Urobilinogen 11/20/19 11/19/19 11/19/19 04:45 04:43 04:43 WBC Hct MCHC RDW Seg Neutrophils % Lymphocytes % Smudge Cells VBG Lactic Acid 2.7 H Chloride Carbon Dioxide 20 L Anion Gap Glucose Hemoglobin A1c 6.1 H Calcium Magnesium 2.6 H Total Bilirubin Direct Bilirubin GGT 57 H AST ALT Alkaline Phosphatase 144 H Lactate Dehydrogenase 323 H C-Reactive Protein 25.8 H NT-Pro-B Natriuret Pep Total Protein 5.8 L Albumin 2.6 L Albumin/Globulin Ratio 0.8 L Urine Protein Urine Urobilinogen 11/19/19 11/19/19 11/18/19 04:43 04:43 21:29 WBC 31.8 H* Hct MCHC RDW 14.9 H Seg Neutrophils % 89 H Lymphocytes % 2 L Smudge Cells VBG Lactic Acid Chloride Carbon Dioxide Anion Gap Glucose 188 H Hemoglobin A1c Calcium 8.5 L Magnesium Total Bilirubin Direct Bilirubin 0.4 H GGT 68 H AST ALT Alkaline Phosphatase 123 H Lactate Dehydrogenase 285 H C-Reactive Protein NT-Pro-B Natriuret Pep Total Protein 5.4 L Albumin 2.9 L Albumin/Globulin Ratio Urine Protein 30 A Urine Urobilinogen 4.0 A 11/18/19 11/18/19 11/18/19 18:57 18:57 18:41 WBC Hct MCHC RDW Seg Neutrophils % Lymphocytes % Smudge Cells VBG Lactic Acid 2.9 H Chloride 95 L Carbon Dioxide Anion Gap 17.0 H Glucose 135 H Hemoglobin A1c Calcium Magnesium Total Bilirubin 1.6 H Direct Bilirubin GGT AST 47 H ALT 41 H Alkaline Phosphatase 163 H Lactate Dehydrogenase C-Reactive Protein 9.3 H NT-Pro-B Natriuret Pep 05804.0 H Total Protein Albumin Albumin/Globulin Ratio Urine Protein Urine Urobilinogen 11/18/19 18:41 WBC 47.3 H* Hct 46.4 H MCHC RDW 14.9 H Seg Neutrophils % 97 H Lymphocytes % 1 L Smudge Cells 1+ A VBG Lactic Acid Chloride Carbon Dioxide Anion Gap Glucose Hemoglobin A1c Calcium Magnesium Total Bilirubin Direct Bilirubin GGT AST ALT Alkaline Phosphatase Lactate Dehydrogenase C-Reactive Protein NT-Pro-B Natriuret Pep Total Protein Albumin Albumin/Globulin Ratio Urine Protein Urine Urobilinogen Meds: Medications Acetaminophen (Tylenol) 650 mg PO Q4-6HP PRN PRN Reason: PAIN/FEVER > 101 Last Admin: 11/20/19 20:51 Dose: 650 mg Documented by: Albuterol/Ipratropium (Duoneb) 3 ml NEB Q4HRT PRN PRN Reason: Dyspnea Aspirin (Aspirin) 81 mg PO DAILY COUNTS INCLUDE 234 BEDS AT THE [facility] Last Admin: 11/20/19 12:35 Dose: Not Given Documented by: Benzonatate (Tessalon) 200 mg PO TIDP PRN PRN Reason: Cough Budesonide (Pulmicort) 0.5 mg NEB Q12 COUNTS INCLUDE 234 BEDS AT THE [facility] Last Admin: 11/20/19 21:01 Dose: 0.5 mg Documented by: Docusate Sodium (Colace) 100 mg PO BID COUNTS INCLUDE 234 BEDS AT THE [facility] Last Admin: 11/20/19 20:50 Dose: Not Given Documented by: Duloxetine HCl (Cymbalta) 60 mg PO DAILY COUNTS INCLUDE 234 BEDS AT THE [facility] Last Admin: 11/20/19 11:42 Dose: 60 mg Documented by: Furosemide (Lasix) 20 mg PO DAILY COUNTS INCLUDE 234 BEDS AT THE [facility] Last Admin: 11/20/19 11:43 Dose: 20 mg Documented by: Heparin Sodium (Porcine) (Heparin) 5,000 unit SQ Q12 COUNTS INCLUDE 234 BEDS AT THE [facility] Last Admin: 11/20/19 20:51 Dose: 5,000 unit Documented by: Piperacillin Sod/Tazobactam (Sod 3.375 gm/ Dextrose) 50 mls @ 100 mls/hr IV Q6H COUNTS INCLUDE 234 BEDS AT THE [facility]; Protocol Last Admin: 11/21/19 05:55 Dose: 100 mls/hr Documented by: Norepinephrine Bitartrate 16 (mg/ Sodium Chloride) 250 mls @ 9.375 mls/hr IV Q24HP PRN; Protocol PRN Reason: Hypotension Lisinopril (Zestril) 5 mg PO QDAY COUNTS INCLUDE 234 BEDS AT THE [facility] Last Admin: 11/20/19 11:42 Dose: 5 mg Documented by: Metoprolol Succinate (Toprol Xl) 25 mg PO BID COUNTS INCLUDE 234 BEDS AT THE [facility] Last Admin: 11/20/19 20:51 Dose: 25 mg Documented by: Metoprolol Tartrate (Lopressor) 5 mg IV Q2HP PRN PRN Reason: Tachyarrhythmias HR>110 Ondansetron HCl (Zofran) 4 mg IV Q4-6HP PRN PRN Reason: Nausea And Vomiting Pantoprazole Sodium (Protonix) 40 mg PO QAMAC COUNTS INCLUDE 234 BEDS AT THE [facility] Last Admin: 11/21/19 07:14 Dose: 40 mg Documented by: Pramipexole Dihydrochloride (Mirapex) 2 mg PO HS COUNTS INCLUDE 234 BEDS AT THE [facility] Last Admin: 11/20/19 20:51 Dose: 2 mg Documented by: Sodium Chloride (Saline Flush) 10 ml IV Q8 COUNTS INCLUDE 234 BEDS AT THE [facility] Last Admin: 11/21/19 05:55 Dose: 10 ml Documented by: A/P Narrative A/P Narrative: A: *Septic shock: 2/2 likely LLE rowell wound -lactic acidosis, Afebrile o/n -Resolved *LLE wound infection: -wound polymicrobial *Bacteremia (group B Strep): -Echo without any vegetations. EF improved to 48% *Afib/SVT: follows with Dr. Myrick, on BB -was on anticoagulation in past (warfarin) but this was discontinued due to diffuse bruising/bleeding. *h/o systolic (3540%)/diastolic CHF: -Echo EF improved to 48% *COPD/pulmonary fibrosis (4L O2 at home): Follows with Dr. Tucker *HTN: *Prediabetes: A1c 6.1 P: -zosyn, WC/BC pending -pending repeat BC -ID following -ASA -restarted home ACEI/BB -home IH's, prn nebs, O2 -SSI -pt/ot -CM for HHC -ppx: heparin DNR Time Spent With Patient Time: Total time spent is greater than 50% in coordination of care (as documented) at patient's floor/unit and/or counseling patient:
[2019-11-21] MEDS: DOCUSATE SODIUM 100 MG CAPSULE PO SCH ×2 (08:23→21:59)
[2019-11-21] MEDS: LISINOPRIL 5 MG TABLET PO SCH (08:24)
[2019-11-21] MEDS: METOPROLOL SUCCINATE 25 MG TAB.XL.24H PO SCH ×2 (08:24→21:58)
[2019-11-21] MEDS: ASPIRIN 81 MG TAB.CHEW PO SCH (08:25)
[2019-11-21 08:32] LABS: Anisocytosis OCC (NONE SEEN); Band Neutrophils % 6 % (0-10); Lymphocytes % 8 % (15-49); Macrocytosis OCC (NONE SEEN); Monocytes % (Manual) 4 % (1-12); Platelet Estimate NORMAL (NORMAL); RBC Morphology ABNORM (NORMAL); Segmented Neutrophils % 82 % (38-78)
[2019-11-21] MEDS: FUROSEMIDE 20 MG TABLET PO SCH (08:49)
[2019-11-21] MEDS: DULoxetine 30 MG CAPSULE PO SCH (08:49)
[2019-11-21] MEDS: HEPARIN 5,000 UNIT/ML VIAL SQ SCH ×2 (08:57→21:57)
[2019-11-21] MEDS: BUDESONIDE 0.5 MG/2 ML AMPUL.NEB NEB SCH ×2 (09:12→19:57)
--- NOTE | 2019-11-21 09:54 | Discharge Summary ---
Discharge Provider Provider Patient information: Note initiated : 11/21/19 at 9:53 am Service Date, if different from initiated Date: [] Patient: Leslie Maldonado 79 y/o F admitted on 11/18/19 for shortness of breath. Chief Complaint: [] Date of admission: 11/18/19 23:35 Discharge date: 11/22/19 Primary care physician: Fidel Fabian M.D., F.A.A.F.P. Consults: 11/18/19 Consult to Physician [CONS] Stat Comment: Consulting Provider: Dudley Harris Reason For Exam: Physician to Consult 11/19/19 10:39 Consult to Physician [CONS] Routine Comment: wound left leg Consulting Provider: Houston Garcia Reason For Exam: Physician to Consult 11/20/19 07:59 Consult to Physician [CONS] Routine Comment: bacteremia GPC Consulting Provider: Dre Guzman Reason For Exam: Physician to Consult Discharge Meds Discharge Medications Home Medications etqnkcmcixma-vravmnch-hmalke 1 tab PO QDAY 04/25/18 [History Confirmed 11/19/19 Last Taken 11/17/19 08:00] tiotropium bromide 18 mcg capsule with inhalation device 1 cap INHALATION QDAY #30 cap 07/30/18 [Rx Confirmed 11/19/19 Last Taken 11/11/19 08:00] acetaminophen 650 mg tablet,extended release 1,000 mg PO BID tab 08/27/18 [History Confirmed 11/19/19 Last Taken 11/17/19 21:00] albuterol sulfate 2.5 mg INHALATION BID #180 ml 08/27/18 [Rx Confirmed 11/19/19 Last Taken 11/11/19 08:00] budesonide 0.5 mg/2 mL suspension for nebulization 2 ml INHALATION BID #120 ml 08/27/18 [Rx Confirmed 11/19/19 Last Taken 11/17/19 21:00] lisinopril 5 mg tablet 5 mg PO QDAY 09/17/18 [History Confirmed 11/19/19 Last Taken 11/16/19 08:00] meloxicam 15 mg tablet 15 mg PO QDAY #30 tab 04/23/19 [Rx Confirmed 11/19/19 Last Taken 11/17/19 08:00] portable oxygen with supplies 2 applic .ROUTE .MEDSUPPLY 06/20/19 [History Confirmed 11/19/19 Last Taken 11/18/19 08:00] pramipexole 0.5 mg tablet See Rx Instructions PO QHS #360 tab 08/30/19 [Rx Confirmed 11/19/19 Last Taken 11/17/19 21:00] diphenhydramine HCl [Unisom SleepGels] 50 mg PO HS 11/19/19 [History Confirmed 11/19/19 Last Taken Unknown] duloxetine 60 mg PO QDAY 11/19/19 [History Confirmed 11/19/19 Last Taken 11/17/19 21:00] metoprolol succinate [Toprol XL] 25 mg PO BID 11/19/19 [History Confirmed 11/19/19 Last Taken Unknown] aspirin 81 mg PO DAILY #30 tab 11/21/19 [Rx Last Taken Unknown] ceftriaxone 2 g IV Q24H 14 Days #1 each 11/21/19 [Rx Last Taken Unknown] minocycline 100 mg PO BID #14 cap 11/21/19 [Rx Last Taken Unknown] nystatin 400,000 unit BUCCAL 5XD 7 Days #140 ml 11/21/19 [Rx Last Taken Unknown] COURSE Hospital Course Hospital course: History of present illness: Ms. Maldonado is a 79 year old F Presents the ED with weakness. Patient states she went to bed feeling fine last night. She woke up this morning and tired and weak. She was able to get up and take the dog out for bathroom break. Other than that she is been in bed all day sleeping and resting. Her friend came over at 5 PM and insisted she go to the ED. Patient denies any fevers or chills any chest pain stomach pain. She has a chronic cough and chronic shortness of breath but these have not changed. No recent travels or sick contacts. No diarrhea. In the ED she was found to a fever and was hypotensive. She was also found to have a severely high white blood cell count of 47,000 and differential did show some smudge cells. Her hemoglobin and platelets are within normal limits. He was given 1 L of IV fluid because of her history of heart failure and then placed on Levophed. Case was discussed with machine bobbin winder who felt she could be treated here for sepsis and then follow-up outpatient. And to monitor blood counts daily. Her lactate was elevated 2.9. She is on her home regimen of 4 L of oxygen. She is mildly tachypneic and tachycardic. He says she carries a history of atrial fibrillation but has not been on any anticoagulation. She is on metoprolol And follows with Dr. Myrick. She had a CT chest abdomen pelvis which showed no source of infection. She does have an open wound left anterior rowell. She says about a week ago she bumped her rowell against something and it developed into a lump and then yesterday it opened up and it was bleeding. It has some purulence to the drainage today. 11/18 No overnight events or new complaints. In the wound care. Now off vasopressors. 11/19 States has little bit of lightheadedness today but otherwise no new complaints. No overnight event. 11/20 Doing well but worried about her cats and dogs at home. Blood cultures yesterday done awaiting results for tomorrow before likely placing midline and several weeks of antibiotics. 11/21 Doing well. Follow blood cultures negative. Will get midline and several weeks of Rocephin and minocycline. A: *Septic shock: 2/ likely LLE rowell wound -lactic acidosis, Afebrile o/n -Resolved *LLE wound infection: -wound polymicrobial *Bacteremia (group B Strep): -Echo without any vegetations. EF improved to 48% *Afib/SVT: follows with Dr. Myrick, on BB -was on anticoagulation in past (warfarin) but this was discontinued due to diffuse bruising/bleeding. *h/o systolic (3540%)/diastolic CHF: -Echo EF improved to 48% *COPD/pulmonary fibrosis (4L O2 at home): Follows with Dr. Tucker *HTN: *Prediabetes: A1c 6.1 Discharge diagnosis: Septic shock leg wound infection, bacteremia group B strep Secondary discharge diagnosis: History of A. fib history of systolic heart failure COPD pulmonary fibrosis hypertension prediabetes Time Spent with Patient Time attestation: Total time spent providing and/or coordinating discharge services: Time spent: Greater than 30 minutes EXAM Constitutional Vitals: Temp Pulse Resp BP Pulse Ox 98.3 F 81 18 179/97 98 11/21/19 07:52 11/21/19 09:15 11/21/19 09:15 11/21/19 07:52 11/21/19 09:15 Discharge Data Data Completed and Pending Labs on day of discharge: Labs from last 24 hours 11/21/19 11/21/19 11/21/19 05:51 05:51 05:51 WBC 10.1 RBC 4.12 Hgb 12.4 Hct 39.2 MCV 95.1 MCH 30.1 MCHC 31.6 RDW 14.9 H Plt Count 224 MPV 10.2 Total Counted 100 Seg Neutrophils % 82 H Band Neutrophils % 6 Lymphocytes % 8 L Monocytes % (Manual) 4 Platelet Estimate Normal RBC Morphology Abnorm A Anisocytosis Occ A Macrocytosis Occ A Sodium 139 Potassium 3.6 Chloride 101 Carbon Dioxide 28 Anion Gap 10.0 BUN 16 Creatinine 0.6 GFR Calculation 88 Glucose 112 H Uric Acid 2.6 Calcium 8.6 Phosphorus 3.2 Magnesium 2.1 Total Bilirubin 0.7 Direct Bilirubin 0.2 GGT 105 H AST 42 H ALT 39 Alkaline Phosphatase 128 H Lactate Dehydrogenase 215 C-Reactive Protein 11.3 H Total Protein 5.8 L Albumin 2.9 L Globulin 2.9 Albumin/Globulin Ratio 1.0 Triglycerides 108 Vancomycin Trough 11/21/19 05:51 WBC RBC Hgb Hct MCV MCH MCHC RDW Plt Count MPV Total Counted Seg Neutrophils % Band Neutrophils % Lymphocytes % Monocytes % (Manual) Platelet Estimate RBC Morphology Anisocytosis Macrocytosis Sodium Potassium Chloride Carbon Dioxide Anion Gap BUN Creatinine GFR Calculation Glucose Uric Acid Calcium Phosphorus Magnesium Total Bilirubin Direct Bilirubin GGT AST ALT Alkaline Phosphatase Lactate Dehydrogenase C-Reactive Protein Total Protein Albumin Globulin Albumin/Globulin Ratio Triglycerides Vancomycin Trough < 4.0 Preliminary micro results at discharge 11/20/19 04:45 Blood Culture - Preliminary Blood 11/20/19 04:51 Blood Culture - Preliminary Blood 11/18/19 23:02 Wound Culture - Preliminary Leg - Lower Left Stenotrophomonas maltophilia Strep agalactiae - (group b) 11/18/19 21:16 Blood Culture - Preliminary Blood Strep agalactiae - (group b) 11/18/19 20:25 Blood Culture - Preliminary Blood Gram positive cocci Discharge Plan Patient/Caregiver Discharge Instructions Activity: increase activity as tolerated Diet: Consistent Carbohydrate Activity Restrictions/Additional Instructions: Midline care and DC when antibiotic infusion finished. Weekly or every other week labs per infectious disease. Keep right leg dressing clean, dry, intact. Do not get this wet bathing. Prescriptions: New aspirin 81 mg Tablet,Chewable 81 mg PO DAILY Qty: 30 RF: 0 ceftriaxone 2 gram Recon Soln 2 g IV Q24H 14 Days Qty: 1 RF: 0 minocycline 100 mg Capsule 100 mg PO BID Qty: 14 RF: 0 nystatin 100,000 unit/mL suspension 400,000 unit BUCCAL 5XD 7 Days Qty: 140 RF: 0 Continued Spiriva with HandiHaler 18 mcg capsule, w/inhalation device 1 cap INHALATION QDAY Qty: 30 RF: 3 pramipexole 0.5 mg tablet See Rx Instructions PO QHS Qty: 360 RF: 1 meloxicam 15 mg tablet 15 mg PO QDAY Qty: 30 RF: 5 lisinopril 5 mg tablet 5 mg PO QDAY RF: 0 zefnxiqnxpjo-wayjohml-awylci tablet 1 tab PO QDAY RF: 0 acetaminophen [Tylenol 8 Hour] 650 mg tablet extended release 1,000 mg PO BID RF: 0 albuterol sulfate 2.5 mg /3 mL (0.083 %) solution for nebulization 2.5 mg INHALATION BID Qty: 180 RF: 11 budesonide 0.5 mg/2 mL suspension for nebulization 2 ml INHALATION BID Qty: 120 RF: 11 portable oxygen with supplies Inhalant 2 applic .Route .MEDSUPPLY RF: 0 duloxetine 60 mg capsule,delayed release(DR/EC) 60 mg PO QDAY RF: 0 diphenhydramine HCl [Unisom SleepGels] 50 mg Capsule 50 mg PO HS RF: 0 metoprolol succinate [Toprol XL] 25 mg Tablet Extended Release 24 Hr 25 mg PO BID RF: 0 Follow Up Plan Follow up with: Houston Garcia MD [Physician] - (wound left leg, follow up in clinic , 11/28/19, appt needs to be made) Fidel Fabian MD, FAAFP [Primary Care Provider] - Rocael Myrick MD [Physician] - Patient Disposition: Home Health Service Prognosis: Fair Rehab Potential: Fair Overall status at discharge: patient is progressing back to baseline Discharge Orders: Discharge Order (Routine); Ordered 11/22/19 Ordered By: Dudley Harris
--- NOTE | 2019-11-21 13:17 | General Surgery Progress Note ---
SUBJECTIVE Subjective Patient information: Note initiated : 11/21/19 at 1:13 pm Service Date, if different from initiated Date: [] Patient: Leslie Maldonado 79 y/o F admitted on 11/18/19 for shortness of breath. Chief Complaint: [] Additional PMFSH (Level 3 Only): Patient seen with Mini NOYOLA, In Patient wound care nurse. Progress reviewed with Dr. Harris. Constitutional Vitals: Vital Signs Temp Pulse Resp BP Pulse Ox 98.9 F 97 H 22 112/78 93 11/21/19 12:00 11/21/19 12:00 11/21/19 12:00 11/21/19 12:00 11/21/19 12:00 Period Temp Pulse Resp BP Sys/Cuellar Pulse Ox Last 24 Hr 97.4 F-98.9 F 81-106 14-28 100-179/61-97 92-98 Intake and Output 11/20/19 11/21/19 11/21/19 21:59 05:59 13:59 Intake Total 540 650 410 Output Total 550 400 Balance -10 250 410 Weight 201 lb 8 oz Intake & Output: Intake & Output 11/20/19 11/21/19 11/21/19 21:59 05:59 13:59 Intake Total 540 650 410 Output Total 550 400 Balance -10 250 410 Weight 201 lb 8 oz Intake: Nourishment/Supplement quantity 120 (ml) IV 100 50 50 Zosyn 3.375 gm In Dextrose 5% 100 50 50 in Water 50 ml @ 100 mls/hr IV Q6H [facility] Rx#:[id number] Oral 440 600 240 Output: Urine Catheter Amount 550 400 Other: Meal Lunch Breakfast Percent of Meal Consumed 75% 100% Feeding Ability Independent Nourishment/Supplement name Ensure Urine Appearance Clear Uretheral (Sharma) Clear Urine Color Tea Colored Uretheral (Sharma) Dark Yellow Stool Size Moderate Stool Color Brown Stool Consistency Ada # Bowel Movements 1 General appearance: cooperative and no acute distress Exam: AVSS. No changes ZAK. L/E. Skin blister site dermatitis and ulcer much improved. 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 Tissue for c/s. F/U at wound clinic after discharge. Time Spent With Patient Time: Total time spent is greater than 50% in coordination of care (as documented) at patient's floor/unit and/or counseling patient: Total time spent with greater than 50% in coordination of care (as documented) at patient's floor/unit and/or counseling patient:: 15 - 24 minutes
--- NOTE | 2019-11-21 13:26 | Brief Operative Note ---
Brief Operative Note Date of procedure: 11/21/19 Pre-op diagnosis: Open wound ulcer LEFT lower leg, rowell. Post-op diagnosis: same Procedure: Surgical debridement. Tissue for c/s. Grafts/Implants: No Anesthesia: local Findings: Stage 3 VLU Left leg lower rowell region. Complications: none Surgeon: Houston Garcia Estimated blood loss (cc): 0 Specimens Removed/Pathology: other Condition: stable Disposition: floor
--- NOTE | 2019-11-21 13:48 | Procedure Note ---
DATE OF PROCEDURE: 11/21/2019 PREOPERATIVE DIAGNOSES: 1. Resolved sepsis. 2. Site of venous leg ulcer blister, left lower leg rowell area. POSTOPERATIVE DIAGNOSES: 1. Resolved sepsis. 2. Site of venous leg ulcer blister, left lower leg rowell area. OPERATION: Excision debridement. Tissue sample for culture and sensitivity. SURGEON: Houston Garcia M.D. ANESTHESIA: LMX cream. PROCEDURE NOTE: I carried out this procedure at the bedside with the help of nursing staff. After obtaining informed verbal consent, the left leg area was widely cleaned, prepped, and draped in the standard fashion. This wound was pretreated with LMX topical anesthetic cream. Sterile dressings applied. The wound was debrided with #5 sharp curet. All the margins and the wound base was sharply debrided. Bright red oozing was noted from the wound bed and edges. Hand Grinder sample was obtained for culture and sensitivities. Hemostasis achieved with pressure and elevation. Wound was dressed with SilvaSorb ointment over the wound surface and Xeroform gauze. This was retained in place with reinforcement of 4 x 4 gauze and Kerlix and Catarino bandages respectively. The patient is ambulatory and full-weightbearing on this foot. After discharge, she will follow up at the wound care center in one week. VD:jeanne Job ID: [id number] Doc ID: [id number] Houston Garcia MD MTDDmitry
[2019-11-21] MEDS: ACETAMINOPHEN 325 MG TABLET PO PRN ×2 (14:01→21:58)
[2019-11-21] MEDS: cefTRIAXone 2 GM in DEXTROSE 5% IN WATER 50 ML IV SCH (17:35)
[2019-11-21] MEDS: NYSTATIN 500,000 UNITS/5 ML ORAL.SUSP SSW SCH ×2 (17:36→21:57)
--- NOTE | 2019-11-21 21:13 | Internal Med Progress Note ---
SUBJECTIVE Subjective Patient information: Note initiated : 11/21/19 at 9:09 pm Service Date, if different from initiated Date: [] Patient: Leslie Maldonado 79 y/o F admitted on 11/18/19 for shortness of breath. Chief Complaint: [Pt feels better than before. Denied any fever, chills, n/v, diarrhea. Mentions that her wound was just dressed by Dr Garcia. Reports having f/u with Dr Fabian (PCP) and Dr Garcia after discharge.] Constitutional Vitals: Vital Signs Temp Pulse Resp BP Pulse Ox 36.6 C 81 16 92/66 95 11/21/19 19:37 11/21/19 19:58 11/21/19 19:58 11/21/19 19:37 11/21/19 19:37 Period Temp Pulse Resp BP Sys/Cuellar Pulse Ox Last 24 Hr 36.6 C-37.2 C 81-97 14-24 92-179/66-97 92-98 Intake and Output 11/21/19 11/21/19 11/21/19 05:59 13:59 21:59 Intake Total 650 410 50 Output Total 400 Balance 250 410 50 Intake & Output: Intake & Output 11/21/19 11/21/19 11/21/19 05:59 13:59 21:59 Intake Total 650 410 50 Output Total 400 Balance 250 410 50 Intake: Nourishment/Supplement quantity 120 (ml) IV 50 50 50 Zosyn 3.375 gm In Dextrose 5% 50 50 50 in Water 50 ml @ 100 mls/hr IV Q6H [facility] Rx#:[id number] Oral 600 240 Output: Urine Catheter Amount 400 Other: Meal Breakfast Percent of Meal Consumed 100% Feeding Ability Independent Nourishment/Supplement name Ensure Urine Appearance Clear Clear Uretheral (Sharma) Clear Urine Color Tea Colored Bright Yellow Uretheral (Sharma) Dark Yellow Urine Odor Normal Stool Size Moderate Small Stool Color Brown Brown Stool Consistency Ada Soft # Voids 1 # Bowel Movements 1 2 Additional findings Additional findings: ao x 3, in nad on 3L of O2 via NC white patches over sides of tongue. not removed with oral rinse left leg wound covered under dressing OBJ DATA Labs CBC & Chem 7: 11/21/19 05:51 11/21/19 05:51 Labs: Abnormal Lab Results 11/21/19 11/21/19 11/21/19 05:51 05:51 05:51 WBC MCHC RDW 14.9 H Seg Neutrophils % 82 H Lymphocytes % 8 L RBC Morphology Abnorm A Anisocytosis Occ A Macrocytosis Occ A VBG Lactic Acid Carbon Dioxide Glucose 112 H Hemoglobin A1c Calcium Magnesium Direct Bilirubin GGT 105 H AST 42 H Alkaline Phosphatase 128 H Lactate Dehydrogenase C-Reactive Protein 11.3 H Total Protein 5.8 L Albumin 2.9 L Albumin/Globulin Ratio Urine Protein Urine Urobilinogen 11/20/19 11/20/19 11/19/19 04:53 04:45 04:43 WBC 24.8 H MCHC 30.7 L RDW 15.4 H Seg Neutrophils % 90 H Lymphocytes % 4 L RBC Morphology Anisocytosis Macrocytosis VBG Lactic Acid Carbon Dioxide 20 L Glucose Hemoglobin A1c 6.1 H Calcium Magnesium 2.6 H Direct Bilirubin GGT 57 H AST Alkaline Phosphatase 144 H Lactate Dehydrogenase 323 H C-Reactive Protein 25.8 H Total Protein 5.8 L Albumin 2.6 L Albumin/Globulin Ratio 0.8 L Urine Protein Urine Urobilinogen 11/19/19 11/19/19 11/19/19 04:43 04:43 04:43 WBC 31.8 H* MCHC RDW 14.9 H Seg Neutrophils % 89 H Lymphocytes % 2 L RBC Morphology Anisocytosis Macrocytosis VBG Lactic Acid 2.7 H Carbon Dioxide Glucose 188 H Hemoglobin A1c Calcium 8.5 L Magnesium Direct Bilirubin 0.4 H GGT 68 H AST Alkaline Phosphatase 123 H Lactate Dehydrogenase 285 H C-Reactive Protein Total Protein 5.4 L Albumin 2.9 L Albumin/Globulin Ratio Urine Protein Urine Urobilinogen 11/18/19 11/18/19 21:29 18:41 WBC MCHC RDW Seg Neutrophils % Lymphocytes % RBC Morphology Anisocytosis Macrocytosis VBG Lactic Acid Carbon Dioxide Glucose Hemoglobin A1c Calcium Magnesium Direct Bilirubin GGT AST Alkaline Phosphatase Lactate Dehydrogenase C-Reactive Protein 9.3 H Total Protein Albumin Albumin/Globulin Ratio Urine Protein 30 A Urine Urobilinogen 4.0 A Meds: Medications Acetaminophen (Tylenol) 650 mg PO Q4-6HP PRN PRN Reason: PAIN/FEVER > 101 Last Admin: 11/21/19 14:01 Dose: 650 mg Documented by: Albuterol/Ipratropium (Duoneb) 3 ml NEB Q4HRT PRN PRN Reason: Dyspnea Last Admin: 11/21/19 09:13 Dose: 3 ml Documented by: Aspirin (Aspirin) 81 mg PO DAILY [facility] Last Admin: 11/21/19 08:25 Dose: 81 mg Documented by: Benzonatate (Tessalon) 200 mg PO TIDP PRN PRN Reason: Cough Budesonide (Pulmicort) 0.5 mg NEB Q12 [facility] Last Admin: 11/21/19 19:57 Dose: 0.5 mg Documented by: Docusate Sodium (Colace) 100 mg PO BID [facility] Last Admin: 11/21/19 08:23 Dose: 100 mg Documented by: Duloxetine HCl (Cymbalta) 60 mg PO DAILY [facility] Last Admin: 11/21/19 08:49 Dose: 60 mg Documented by: Furosemide (Lasix) 20 mg PO DAILY [facility] Last Admin: 11/21/19 08:49 Dose: 20 mg Documented by: Heparin Sodium (Porcine) (Heparin) 5,000 unit SQ Q12 [facility] Last Admin: 11/21/19 08:57 Dose: Not Given Documented by: Norepinephrine Bitartrate 16 (mg/ Sodium Chloride) 250 mls @ 9.375 mls/hr IV Q24HP PRN; Protocol PRN Reason: Hypotension Ceftriaxone Sodium 2 gm/ (Dextrose) 50 mls @ 100 mls/hr IV Q24H [facility]; Protocol Last Admin: 11/21/19 17:35 Dose: 100 mls/hr Documented by: Lisinopril (Zestril) 5 mg PO QDAY [facility] Last Admin: 11/21/19 08:24 Dose: 5 mg Documented by: Metoprolol Succinate (Toprol Xl) 25 mg PO BID [facility] Last Admin: 11/21/19 08:24 Dose: 25 mg Documented by: Metoprolol Tartrate (Lopressor) 5 mg IV Q2HP PRN PRN Reason: Tachyarrhythmias HR>110 Minocycline HCl (Minocin) 100 mg PO BID [facility] Nystatin (Nystatin) 500,000 units SSW QID [facility] Last Admin: 11/21/19 17:36 Dose: 500,000 units Documented by: Ondansetron HCl (Zofran) 4 mg IV Q4-6HP PRN PRN Reason: Nausea And Vomiting Pantoprazole Sodium (Protonix) 40 mg PO QAMAC [facility] Last Admin: 11/21/19 07:14 Dose: 40 mg Documented by: Pramipexole Dihydrochloride (Mirapex) 2 mg PO HS [facility] Last Admin: 11/20/19 20:51 Dose: 2 mg Documented by: Sodium Chloride (Saline Flush) 10 ml IV Q8 [facility] Last Admin: 11/21/19 17:36 Dose: 10 ml Documented by: A/P Narrative A/P Narrative: Assessment: 1. Group B Strept bacteremia: - 2/2 sets +ve on 11/17, Blood Cx NGTD since 11/18 - portal of entry: left leg wound in light of Gp B Strept colonization - risk factors: advanced age, GP B Strept colonization, poor circulation <--underlying PAD?, frequent bruising - TTE neg for IE 2. Septic shock: sec to (1) - resolved 3. Left leg skin soft tissue infection: seems superficial - prelim wound Cx growing Gp B Strept, Stenotrophomonas maltophillia (sens to Minocycline) 4. COPD: on stable O2 req - no concerns for pneumonia clinically. CT chest/abd reviewed 5. Oral thrush: sec to antibiotics Recommendations: - Stop IV Zosyn - Start IV Ceftriaxone 2 gm q24 hrs with tentative stop date of 12/04/19 - midline placement - Start PO Minocycline 100 mg bid with tentative stop date of 12/04/19 - start PO Nystatin swish and spit 5 ml qid x 10 days (tentative stop date of 12/01/19) - wound care per Dr Garcia - social work/rail manager consult to help with home health care - monthly Hibiclens soap bathing (below neck) for 5 days could be considered to prevent recurrent skin -soft tissue infections, if pt continues to bump into things at her home. No ID f/u needed Dre Guzman MD Infectious disease Time Spent With Patient Time: Total time spent is greater than 50% in coordination of care (as documented) at patient's floor/unit and/or counseling patient:
[2019-11-21] MEDS: MINOCYCLINE 100 MG CAPSULE PO SCH (21:57)
[2019-11-21] MEDS: PRAMIPEXOLE 1 MG TABLET PO SCH (21:58)
[2019-11-22] MEDS: 0.9 % SODIUM CHLORIDE 10 ML SYRINGE IV SCH (05:52)
[2019-11-22] MEDS: PANTOPRAZOLE 40 MG TABLET PO SCH (07:05)
[2019-11-22] MEDS ORDERED: LABETALOL 5 MG/ML ML IV PRN (07:40)
[2019-11-22] MEDS: FUROSEMIDE 20 MG TABLET PO SCH (08:25)
[2019-11-22] MEDS: ASPIRIN 81 MG TAB.CHEW PO SCH (08:25)
[2019-11-22] MEDS: LISINOPRIL 5 MG TABLET PO SCH (08:25)
[2019-11-22] MEDS: METOPROLOL SUCCINATE 25 MG TAB.XL.24H PO SCH (08:25)
[2019-11-22] MEDS: HEPARIN 5,000 UNIT/ML VIAL SQ SCH (08:25)
[2019-11-22] MEDS: DOCUSATE SODIUM 100 MG CAPSULE PO SCH (08:25)
[2019-11-22] MEDS: DULoxetine 30 MG CAPSULE PO SCH (08:28)
[2019-11-22] MEDS: cefTRIAXone 2 GM in DEXTROSE 5% IN WATER 50 ML IV SCH (08:39)
[2019-11-22] MEDS: NYSTATIN 500,000 UNITS/5 ML ORAL.SUSP SSW SCH ×2 (08:44→13:12)
[2019-11-22] MEDS: BUDESONIDE 0.5 MG/2 ML AMPUL.NEB NEB SCH (10:04)
[2019-11-22] MEDS: MINOCYCLINE 100 MG CAPSULE PO SCH (13:12)
--- NOTE | 2019-11-26 14:51 | Event Note ---
Event Note Event Note: Supervior showed me that Blood culture (spec # [id number]) positive for strep species and strep agalactiae. Pt was discharged on ceftriaxone infusion. From her chart, Dr. Harris got the result before pt was discharged. Pt was discharged on Rocephin and minocycline. But I instructed house supervior to call pt for repeat blood culture donald and and inform PCP. Continue the abx she was discharged on.
== END 2019-11-22 13:20 | disposition home health service (06) | DRG 853 ==
LOC: ED 18:32 → ICU 23:35 → MEDSUR 11-20 06:42
PROVIDERS: ADMIT Internal Medicine; ATTEND Internal Medicine

== ENCOUNTER 2020-10-30 10:53 | Inpatient (IN) ==
[2020-10-30] MEDS ORDERED: 0.9 % SODIUM CHLORIDE 500 ML IV ONE (11:10)
[2020-10-30] MEDS ORDERED: IPRATROPIUM/ALBUTEROL 3 ML AMPUL.NEB NEB ONE ×2 (11:10→19:26)
--- NOTE | 2020-10-30 11:39 | Emergency Department Note ---
SOB HPI General Chief Complaint: Shortness of Breath/Dyspnea Stated Complaint: SOB, fever Time Seen by Provider: 10/30/20 10:57 Source: patient, EMS and RN notes reviewed Mode of arrival: EMS Limitations: no limitations History of Present Illness HPI Narrative: Narrative: MD Complaint: shortness of breath and cough Onset (ago): day(s) Context: recent illness Severity: moderate Consistency/Duration: intermittent Improves with: oxygen, rest and upright position Worsens with: lying flat, exertion, movement and coughing Known history of: asthma, congestive heart failure and recurrent pneumonia Associated symptoms: Reports chest pain, pain with inspiration, fever, cough, wheezing, sputum production, lower extremity pain, palpitations and rash; Denies orthopnea, polyuria, polydipsia, parasthesias, carpopedal spasm, hemoptysis, diaphoresis, nausea/vomiting, syncope, abdominal pain and sense of impending doom Treatment prior to arrival: oxygen and bronchodilator Related Data Home oxygen amount: 3 liters Home Medications Medication Instructions Recorded Confirmed acetaminophen 650 mg 1,000 mg PO BID tab 08/27/18 10/05/20 tablet,extended release lisinopril 5 mg tablet 5 mg PO QDAY 09/17/18 10/05/20 portable oxygen with supplies 2 applic .ROUTE .MEDSUPPLY 06/20/19 10/05/20 metoprolol succinate [Toprol XL] 25 mg PO BID 11/19/19 10/05/20 Previous Rx's Medication Instructions Recorded albuterol sulfate 2.5 mg INHALATION BID #180 ml 08/27/18 meloxicam 15 mg tablet 15 mg PO QDAY #30 tab 04/23/19 aspirin 81 mg PO DAILY #30 tab 11/21/19 tiotropium bromide 18 mcg capsule See Rx Instructions .ROUTE 01/08/20 with inhalation device .COMPLEX #30 cap albuterol sulfate 90 mcg/actuation 2 puff INHALATION Q6H PRN #18 g 02/18/20 aerosol inhaler duloxetine 60 mg capsule,delayed 60 mg PO QDAY #90 cap 03/13/20 release pramipexole 0.5 mg tablet See Rx Instructions .ROUTE 06/25/20 .COMPLEX #360 tab fluticasone fur. 200 mcg-umeclid 1 inh INHALATION Q24H #60 ea 07/29/20 62.5 mcg-vilant 25 mcg inhalat.powder clopidogrel [Plavix] 75 mg PO QDAY #14 tab 08/30/20 hydrocodone-acetaminophen 1 tab PO QIDP PRN #14 tab 08/30/20 dexamethasone 6 mg tablet 6 mg PO QDAY #7 tab 09/02/20 mirtazapine 7.5 mg tablet 7.5 mg PO QHS #30 tab 09/02/20 Allergies Allergy/AdvReac Type Severity Reaction Status Date / Time No Known Drug Allergies Allergy Verified 10/30/20 10:54 Review of Systems ROS ROS Narrative: Narrative: All systems ED: reviewed and negative except as stated. [facility] Narrative Patient History Narrative: Narrative: Medical/Surgical/Family History All Active Problems (Updated 10/30/20 @ 13:38 by Greyson Chaudhari MD) Pneumonia (Acute) CHF (congestive heart failure) (Acute) Occlusion of subclavian artery (Acute) Back pain (Acute) Occlusion of left subclavian vein (Acute) Venous stasis ulcer (Acute) Acute and chronic respiratory failure with hypoxia (Acute) CAP (community acquired pneumonia) (Acute) Atrial fibrillation (Acute) Cervicalgia (Acute) Fluid retention (Acute) Shortness of breath (Acute) Congestive heart failure (Acute) Sepsis (Acute) Medicare annual wellness visit, subsequent (Acute) Cellulitis of both lower extremities (Acute) Hypertension (Acute) Cellulitis of right lower extremity (Acute) Edema of right lower extremity (Acute) Hyperlipidemia (Chronic) A-fib (Chronic) Pulmonary hypertension (Chronic) COPD (chronic obstructive pulmonary disease) with emphysema (Chronic) Hypertension, essential, benign (Chronic) Hormone replacement therapy (Chronic) Edema (Chronic) Vasomotor symptoms due to menopause (Chronic) Anxiety (Chronic) Cellulitis and abscess of right lower extremity (Acute) Cellulitis (Acute) Stasis dermatitis (Chronic) Hypoxia (Chronic) Centrilobular emphysema (Chronic) Venous stasis (Chronic) Lower extremity edema (Chronic) Cellulitis of right lower leg (Chronic) Cellulitis of lower extremity (Acute) Abnormal laboratory test result (Acute) Hypoxemia (Chronic) Kidney stone on left side (Chronic) Osteoarthritis of shoulders, bilateral (Chronic) Osteoarthritis of right knee (Chronic) Bruising (Chronic) History of tobacco use (Chronic) Restless legs (Chronic) Low back pain (Chronic) Degenerative arthritis (Chronic) Colon polyps (Chronic) Cervicalgia (Chronic) Pseudophakia (Chronic) 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 COPD (chronic obstructive pulmonary disease) with emphysema desaturation to low 80% with activity, 90-92% with ambulation. COPD exacerbation Degenerative arthritis Multi-joint; chronic cervical lumbar pain with previous lumbar surgery, previous lumbar radiofrequency ablation; updated lumbar MRI in 12/2011 with sequencing at the pain clinic 01/2012; chronic shoulder pain; increasing right knee pain. Edema lower extremities Flank pain History of ECG (10/29/15) History of tobacco use Ex-smoker 2005; updated chest x-ray 04/2011; questionable with negative chest CT, declines Pneumovax. Hormone replacement therapy Currently no bone density, maintains estrogen, stable vitamin D level in 2009, breast exam stable. Hydronephrosis Hyperlipidemia Hx; remains on low-dose Lovastatin with no myalgias Hypertension, essential, benign Hypoxemia Hypoxia Injury of foot, right Kidney stone on left side Low back pain Lumbar low back pain Lower extremity edema Lumbago Medicare annual wellness visit, subsequent Occlusion of subclavian artery Odontoid fracture with type II morphology Osteoarthritis of right knee 04/13/2015-[facility] Osteoarthritis of shoulders, bilateral 04/13/2015-[facility] Pain in joint, pelvic region and thigh (02/24/2014-Dr Ricks) Pain in joint, shoulder region (10/31/13-Dr Ricks)Right Paroxysmal supraventricular tachycardia PAT/SVT 08/28/2013 PCO (posterior capsular opacification) Pseudophakia Pulmonary hypertension Refused influenza vaccine Restless legs Stable on Mirapex; no hx for sleep apnea Stasis dermatitis Vasomotor symptoms due to menopause Venous stasis Venous stasis ulcer Surgical History History of colonoscopy 2001-- [place] adenomatous polyp. 03/2008-- Adenomatous and hyperplastic polyps. 05/10/2011-- Hyperplastic polyp. 5 year sequencing. History of esophagogastroduodenoscopy History of laminectomy 1997 Lumbar History of radiation exposure 2008 Lumbar radiofrequency ablation History of right hip replacement History of right knee joint replacement surgery 02/17/2017 History of spinal fusion 2006 Status post total knee replacement, right Family History Father , age 50 History of alcohol abuse Mother , age 43 History of alcohol abuse Other COPD (chronic obstructive pulmonary disease) Kidney disease No pertinent family history Social History Smoking Status: Former smoker Alcohol Intake Frequency: former alcohol drinker Substance Use: does not use Exam Narrative Narrative: Narrative: General Limitations: no limitations General appearance: Present alert and in no apparent distress Head Head: Present normal inspection Eye Eye: Present normal appearance, PERRL and EOMI; Absent scleral icterus and conjunctival injection ENT ENT: Present normal oropharynx, mucous membranes moist and mucous membranes dry Neck Neck: Present normal inspection, full ROM and trachea midline; Absent lymphadenopathy and thyromegaly Chest Chest: Present normal inspection and symmetric chest wall rise Respiratory Respiratory: Present rales/crackles, wheezes and decreased breath sounds; Absent respiratory distress, stridor, accessory muscle use and prolonged expiratory phase Cardiovascular Cardiovascular: Present regular rate, normal rhythm and systolic murmur; Absent diastolic murmur Adbominal Abdominal: Present soft; Absent distention, tenderness, guarding, rebound, rigidity, organomegaly and mass Extremities Extremities: Present tenderness, normal capillary refill, pedal edema, pretibial edema and other (Chronic stasis changes to bilateral lower extremities); Absent normal inspection, full ROM and calf tenderness Back Back: Absent full ROM, CVA tenderness (R), CVA tenderness (L) and spinous process tenderness Neurological Neurological: Present alert and oriented X3 Psychiatric Psychiatric: Present normal affect and normal mood Skin Skin: Present warm (WNL), dry and rash Course Vital Signs Vital signs: Vital Signs Temperature 100.1 F H 10/30/20 10:54 Pulse Rate 110 H 10/30/20 10:54 Respiratory Rate 20 10/30/20 10:54 Blood Pressure 141/93 10/30/20 10:54 Pulse Oximetry (%) 88 L 10/30/20 10:54 Temperature 100.1 F H 10/30/20 10:54 Pulse Rate 103 H 10/30/20 11:53 Respiratory Rate 20 10/30/20 10:54 Blood Pressure 96/79 10/30/20 11:53 Pulse Oximetry (%) 94 10/30/20 11:53 MDM MDM Narrative Medical decision making narrative: Narrative: Chest x-ray with congestive heart failure superimposed pneumonia. Elevated white count with mildly elevated lactate. Received IV Rocephin and azithromycin. The patient is hemodynamically stable at this point in time and I will not diurese her she received 500 cc of normal saline I will not give her the full 30/kg secondary to her superimposed congestive heart failure patient will be admitted for IV antibiotics and further care. Medical Records Medical records reviewed: Yes I reviewed the patient's medical records. Lab Data Lab results reviewed: Yes I reviewed the patient's lab results. Result diagrams: 10/30/20 11:45 10/30/20 11:45 Labs: Lab Results 10/30/20 10/30/20 10/30/20 Range/Units 11:45 11:45 11:45 WBC 19.9 H (4.5-11.0) K/mcL RBC 3.83 L (4.00-5.20) M/mcL Hgb 10.5 L (12.0-15.0) g/dL Hct 34.5 L (36.0-48.0) % MCV 90.1 (80.0-100.0) fL MCH 27.4 (26.0-34.0) pg MCHC 30.4 L (31.0-36.0) g/dL RDW 18.2 H (11.5-14.5) % Plt Count 304 (140-440) K/mcL MPV 9.5 (7.4-10.4) fL Neut % (Auto) 94.0 H (38.0-78.0) % Lymph % (Auto) 1.7 L (15.0-49.0) % [place] % (Auto) 4.1 (1.0-12.0) % Eos % (Auto) 0 (0.0-7.0) % Baso % (Auto) 0.2 (0.0-2.0) % Lymph # (Auto) 0.34 L (1.50-4.80) K/mcL [place] # (Auto) 0.81 (0.10-0.90) K/mcL Eos # (Auto) 0 (0.00-0.70) K/mcL Baso # (Auto) 0.03 (0.00-0.20) K/mcL Absolute Neutrophils 18.76 H (1.80-8.00) K/mcL PT 14.6 H (11.9-14.5) sec INR 1.1 (0.9-1.1) D-Dimer 2.68 H (0.27-0.50) ug/mL VBG Lactic Acid (0.5-2.0) mmol/L Sodium 137 (133-145) mmol/L Potassium 3.8 (3.3-5.1) mmol/L Chloride 97 (96-108) mmol/L Carbon Dioxide 27 (22-30) mmol/L Anion Gap 13.0 (8.0-16.0) BUN 12 (8-23) mg/dL Creatinine 0.7 (0.6-1.1) mg/dL GFR Calculation 83 Glucose 223 H (70-105) mg/dL Calcium 8.9 (8.6-10.4) mg/dL Magnesium 2.1 (1.6-2.5) mg/dL Total Bilirubin 1.0 (0.1-1.0) mg/dL AST 25 (<32) U/L ALT 10 (<40) U/L Alkaline Phosphatase 175 H (39-117) U/L Troponin T (<0.03) ng/mL NT-Pro-B Natriuret Pep 4875.0 H (<450.0) pg/mL Total Protein 6.7 (5.9-8.4) gm/dL Albumin 3.3 (3.2-5.2) gm/dL Globulin 3.4 (2.2-3.7) gm/dL Albumin/Globulin Ratio 1.0 (1.0-2.3) 10/30/20 10/30/20 Range/Units 11:45 11:45 WBC (4.5-11.0) K/mcL RBC (4.00-5.20) M/mcL Hgb (12.0-15.0) g/dL Hct (36.0-48.0) % MCV (80.0-100.0) fL MCH (26.0-34.0) pg MCHC (31.0-36.0) g/dL RDW (11.5-14.5) % Plt Count (140-440) K/mcL MPV (7.4-10.4) fL Neut % (Auto) (38.0-78.0) % Lymph % (Auto) (15.0-49.0) % [place] % (Auto) (1.0-12.0) % Eos % (Auto) (0.0-7.0) % Baso % (Auto) (0.0-2.0) % Lymph # (Auto) (1.50-4.80) K/mcL [place] # (Auto) (0.10-0.90) K/mcL Eos # (Auto) (0.00-0.70) K/mcL Baso # (Auto) (0.00-0.20) K/mcL Absolute Neutrophils (1.80-8.00) K/mcL PT (11.9-14.5) sec INR (0.9-1.1) D-Dimer (0.27-0.50) ug/mL VBG Lactic Acid 2.6 H (0.5-2.0) mmol/L Sodium (133-145) mmol/L Potassium (3.3-5.1) mmol/L Chloride (96-108) mmol/L Carbon Dioxide (22-30) mmol/L Anion Gap (8.0-16.0) BUN (8-23) mg/dL Creatinine (0.6-1.1) mg/dL GFR Calculation Glucose (70-105) mg/dL Calcium (8.6-10.4) mg/dL Magnesium (1.6-2.5) mg/dL Total Bilirubin (0.1-1.0) mg/dL AST (<32) U/L ALT (<40) U/L Alkaline Phosphatase (39-117) U/L Troponin T < 0.01 (<0.03) ng/mL NT-Pro-B Natriuret Pep (<450.0) pg/mL Total Protein (5.9-8.4) gm/dL Albumin (3.2-5.2) gm/dL Globulin (2.2-3.7) gm/dL Albumin/Globulin Ratio (1.0-2.3) ED POC Tests ED POC Tests: VISHNU - SARS Antigen Negative Radiology Data Radiology results reviewed: Yes I reviewed the patient's radiology results. Radiology results narrative: IMPRESSION: Congestive heart failure with pulmonary edema. Superimposed pneumonia is also a consideration. Interpreted and Authenticated by: Ulysses Gould 10/30/20 EKG Data EKG #1: EKG attestation: Yes I reviewed and interpreted this EKG. Rate: tachycardia (115) Rhythm: A.Fib [place]/QRS: right axis deviation QTc: borderline QRS morphology: Present poor R-wave progression Pulse Oximetry Data Pulse Ox %: 88 Interpretation: 88% on 2 L is hypoxic for this patient Discharge Plan Patient/Caregiver Discharge Instructions Pt seen by [employer] SERVICE ATTENDANT/PA only: No Clinical Impression: Pneumonia Qualifiers: Pneumonia type: due to unspecified organism Laterality: unspecified laterality Lung location: unspecified part of lung Qualified Code(s): J18.9 - Pneumonia, unspecified organism CHF (congestive heart failure) Qualifiers: Heart failure type: unspecified Heart failure chronicity: acute on chronic Qualified Code(s): I50.9 - Heart failure, unspecified Patient Disposition: Xfer As Inpt ([facility]) Follow up with: Fidel Fabian MD, FAAFP [Primary Care Provider] - Prescriptions: No Action tiotropium bromide [Spiriva with HandiHaler] 18 mcg capsule, w/inhalation device See Rx Instructions .ROUTE .COMPLEX Qty: 30 RF: 6 albuterol sulfate [ProAir HFA] 90 mcg/actuation HFA aerosol inhaler 2 puff INHALATION Q6H PRN (Reason: shortness of breath) Qty: 18 RF: 3 duloxetine 60 mg capsule,delayed release(DR/EC) 60 mg PO QDAY Qty: 90 RF: 4 pramipexole 0.5 mg tablet See Rx Instructions .ROUTE .COMPLEX Qty: 360 RF: 1 meloxicam 15 mg tablet 15 mg PO QDAY Qty: 30 RF: 5 Trelegy Ellipta 200-62.5-25 mcg blister with device 1 inh inhalation Q24H Qty: 60 RF: 12 dexamethasone 6 mg tablet 6 mg PO QDAY Qty: 7 RF: 0 mirtazapine 7.5 mg tablet 7.5 mg PO QHS Qty: 30 RF: 12 lisinopril 5 mg tablet 5 mg PO QDAY RF: 0 acetaminophen [Tylenol 8 Hour] 650 mg tablet extended release 1,000 mg PO BID RF: 0 albuterol sulfate 2.5 mg /3 mL (0.083 %) solution for nebulization 2.5 mg INHALATION BID Qty: 180 RF: 11 portable oxygen with supplies Inhalant 2 applic .Route .MEDSUPPLY RF: 0 metoprolol succinate [Toprol XL] 25 mg Tablet Extended Release 24 Hr 25 mg PO BID RF: 0 aspirin 81 mg Tablet,Chewable 81 mg PO DAILY Qty: 30 RF: 0 clopidogrel [Plavix] 75 mg tablet 75 mg PO QDAY Qty: 14 RF: 0 hydrocodone-acetaminophen 5-325 mg tablet 1 tab PO QIDP PRN (Reason: pain) Qty: 14 RF: 0
--- NOTE | 2020-10-30 11:55 | XRay Report ---
HISTORY: Dyspnea and fever FINDINGS: There are prominent pulmonary vascular markings and ill-defined alveolar opacities are present bilaterally. There is no lobar consolidation or mass. No pleural effusion is present. The heart is moderately enlarged. Aorta is tortuous and contains a large amount calcified plaque. Severe degenerative changes are present in both shoulders consistent with advanced rheumatoid arthritis. Comparison with the prior chest x-ray on 08/30/20 shows little change. IMPRESSION: Congestive heart failure with pulmonary edema. Superimposed pneumonia is also a consideration. Interpreted and Authenticated by: Ulysses Gould 10/30/20
[2020-10-30 12:23] LABS: Basophils # (Auto) 0.03 K/mcL (0.00-0.20); Basophils % (Auto) 0.2 % (0.0-2.0); Eosinophils # (Auto) 0 K/mcL (0.00-0.70); Eosinophils % (Auto) 0 % (0.0-7.0); Hematocrit 34.5 % (36.0-48.0); Hemoglobin 10.5 g/dL (12.0-15.0); Lymphocytes # (Auto) 0.34 K/mcL (1.50-4.80); Lymphocytes % (Auto) 1.7 % (15.0-49.0); Mean Cell Volume 90.1 fL (80.0-100.0); Mean Corpuscular HGB Conc 30.4 g/dL (31.0-36.0); Mean Platelet Volume 9.5 fL (7.4-10.4); Monocytes # (Auto) 0.81 K/mcL (0.10-0.90); Monocytes % (Auto) 4.1 % (1.0-12.0); Platelet Count 304 K/mcL (140-440); RBC 3.83 M/mcL (4.00-5.20); Red Cell Distribution Width 18.2 % (11.5-14.5); WBC 19.9 K/mcL (4.5-11.0)
[2020-10-30] MEDS ORDERED: cefTRIAXone 2 GM in DEXTROSE 5% IN WATER 50 ML IV ONE (12:27)
[2020-10-30] MEDS ORDERED: AZITHROMYCIN 500 MG in DEXTROSE 5% IN WATER 250 ML IV ONE (12:27)
[2020-10-30 12:39] LABS: INR 1.1 (0.9-1.1); Prothrombin Time 14.6 sec (11.9-14.5)
[2020-10-30 12:50] LABS: ALT/SGPT 10 U/L (<40); AST/SGOT 25 U/L (<32); Albumin 3.3 gm/dL (3.2-5.2); Alkaline Phosphatase 175 U/L (39-117); Blood Urea Nitrogen 12 mg/dL (8-23); Calcium 8.9 mg/dL (8.6-10.4); Carbon Dioxide 27 mmol/L (22-30); Chloride 97 mmol/L (96-108); Globulin 3.4 gm/dL (2.2-3.7); Glomerular Filtration Rate 83; Glucose 223 mg/dL (70-105)
--- NOTE | 2020-10-30 13:01 | EKG ---
[facility] Test Date: 2020-10-30 Pat Name: Leslie Maldonado Department: ED Room: Gender: Female Community Services Manager: CS : [id number] Requested By: Greyson Chaudhari Order Number: [id number] Reading MD: Miguel Alvarado M.D. Measurements Intervals [place] Rate: 115 P: [place]: QRS: 88 QRSD: 100 T: -45 QT: 356 QTc: 493 Interpretive Statements ATRIAL FIBRILLATION, V-RATE 85-149 BORDERLINE RIGHT AXIS DEVIATION BORDERLINE REPOL ABNORMALITY, DIFFUSE LEADS BORDERLINE PROLONGED QT INTERVAL Since previous ECG of 08-30-2020, INCREASED A-FIB RATE, BORDERLINE QTc AND RIGHT AXIS DEVIATION CHANGES ABNORMAL ECG Electronically Signed On 10-30-2020 13:01:18 PDT by Miguel Alvarado M.D. /[id number]
[2020-10-30] MEDS ORDERED: guaiFENesin/DEXTROMETHORPHAN ORAL SOL PO PRN ×3 (13:54→17:02)
[2020-10-30] MEDS ORDERED: morphine 2 MG/ML VIAL IV PRN ×3 (14:02→17:02)
[2020-10-30] MEDS ORDERED: ACETAMINOPHEN 325 MG TABLET PO PRN ×3 (14:02→17:02)
[2020-10-30] MEDS ORDERED: HYDROcodone/APAP 5/325MG TABLET PO PRN ×4 (14:02→18:34)
[2020-10-30] MEDS ORDERED: BISACODYL 5 MG TABLET PO PRN ×3 (14:02→17:02)
--- NOTE | 2020-10-30 14:13 | Internal Med History&Physical ---
HPI History of Present Illness Patient information: Note initiated : 10/30/20 at 2:08 pm Service Date, if different from initiated Date: [] Patient: Leslie Maldonado a 80 y/o F admitted on for SOB, fever. Chief Complaint: [shortness of breath] History of present illness: Ms. Maldonado is a 80 year old F history of COPD, atrial fibrillation, generalized osteoarthritis multiple joints, presenting with acute on chronic shortness of breath. Patient has chronic respiratory failure on home oxygen therapy. She is also senior living residence. When she woke up earlier today she developed worsening of shortness of breath and she was not able to ambulate at all. As a result, EMS will call to send patients to our ER for further evaluations and treatments. Patient is also complaining of respiratory wheezings. Patient is complaining of productive cough with creamy sputum. Patient was committing of shaking chills yesterday but not today. Patient denies any fever or diaphoresis. Patient denies any lethargy or change in mental status. Patient denies any chest pain or palpitations. There is no exacerbating or alleviating factors. The patient denies any sick contact or recent travel. Vital signs significant for low-grade fever with temperature 37.8, and tachycardia with heart rate in the 100s, oxygen saturations in the mid to high 80s on 2 L of oxygen. Labs significant for WBC of 19.9. D-dimer elevated to 2.68. Lactic acid elevated to 2.6. [place] negative. BNP 4875. Chest x-ray showing pulmonary edema and cannot rule out superimposing multifocal bacterial pneumonia. Constitutional Constitutional: Present chills and weakness; Absent excessive sweating, fatigue and fever(s) EENT Eyes: Absent blurry vision, change in vision, loss of vision and other visual disturbances Ears: Absent decreased hearing and tinnitus Nose, mouth and throat: Absent abnormal hearing, dry mouth, headache(s), nasal congestion and sore throat Cardiovascular Cardiovascular: Absent chest pain, chest pain at rest, edema, irregular heart rhythm and palpatations Respiratory Respiratory: Present cough, dyspnea, dyspnea on exertion, wheezing and excessive phlegm production Gastrointestinal Gastrointestinal: Absent abdominal pain, constipation, diarrhea, nausea and vomiting Musculoskeletal Musculoskeletal: Absent back pain, deformity, limited range of motion, muscle cramps, muscle weakness and numbness Integumentary Integumentary: Absent lesions, rash and wounds Neurological Neurological: Absent focal weakness, headache(s) and numbness Psychiatric Psychiatric: Absent anxiety, depression and hallucinations PFSH PFSH All Active Problems (Updated 10/30/20 @ 14:07 by Lavell Espinoza MD) Anemia, normocytic normochromic (Acute) COPD exacerbation (Acute) CHF exacerbation (Acute) On home oxygen therapy (Acute) Acute and chronic respiratory failure with hypoxia (Acute) Pneumonia (Acute) CHF (congestive heart failure) (Acute) Occlusion of subclavian artery (Acute) Back pain (Acute) Occlusion of left subclavian vein (Acute) Venous stasis ulcer (Acute) Acute and chronic respiratory failure with hypoxia (Acute) CAP (community acquired pneumonia) (Acute) Atrial fibrillation (Acute) Cervicalgia (Acute) Fluid retention (Acute) Shortness of breath (Acute) Congestive heart failure (Acute) Sepsis (Acute) Medicare annual wellness visit, subsequent (Acute) Cellulitis of both lower extremities (Acute) Hypertension (Acute) Cellulitis of right lower extremity (Acute) Edema of right lower extremity (Acute) Hyperlipidemia (Chronic) A-fib (Chronic) Pulmonary hypertension (Chronic) COPD (chronic obstructive pulmonary disease) with emphysema (Chronic) Hypertension, essential, benign (Chronic) Hormone replacement therapy (Chronic) Edema (Chronic) Vasomotor symptoms due to menopause (Chronic) Anxiety (Chronic) Cellulitis and abscess of right lower extremity (Acute) Cellulitis (Acute) Stasis dermatitis (Chronic) Hypoxia (Chronic) Centrilobular emphysema (Chronic) Venous stasis (Chronic) Lower extremity edema (Chronic) Cellulitis of right lower leg (Chronic) Cellulitis of lower extremity (Acute) Abnormal laboratory test result (Acute) Hypoxemia (Chronic) Kidney stone on left side (Chronic) Osteoarthritis of shoulders, bilateral (Chronic) Osteoarthritis of right knee (Chronic) Bruising (Chronic) History of tobacco use (Chronic) Restless legs (Chronic) Low back pain (Chronic) Degenerative arthritis (Chronic) Colon polyps (Chronic) Cervicalgia (Chronic) Pseudophakia (Chronic) 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 COPD (chronic obstructive pulmonary disease) with emphysema desaturation to low 80% with activity, 90-92% with ambulation. COPD exacerbation Degenerative arthritis Multi-joint; chronic cervical lumbar pain with previous lumbar surgery, previous lumbar radiofrequency ablation; updated lumbar MRI in 12/2011 with sequencing at the pain clinic 01/2012; chronic shoulder pain; increasing right knee pain. Edema lower extremities Flank pain History of ECG (10/29/15) History of tobacco use Ex-smoker 2005; updated chest x-ray 04/2011; questionable with negative chest CT, declines Pneumovax. Hormone replacement therapy Currently no bone density, maintains estrogen, stable vitamin D level in 2009, breast exam stable. Hydronephrosis Hyperlipidemia Hx; remains on low-dose Lovastatin with no myalgias Hypertension, essential, benign Hypoxemia Hypoxia Injury of foot, right Kidney stone on left side Low back pain Lumbar low back pain Lower extremity edema Lumbago Medicare annual wellness visit, subsequent Occlusion of subclavian artery Odontoid fracture with type II morphology Osteoarthritis of right knee 04/13/2015-[place] Osteoarthritis of shoulders, bilateral 04/13/2015-[place] Pain in joint, pelvic region and thigh (02/24/2014-Dr Ricks) Pain in joint, shoulder region (10/31/13-Dr Ricks)Right Paroxysmal supraventricular tachycardia PAT/SVT 08/28/2013 PCO (posterior capsular opacification) Pseudophakia Pulmonary hypertension Refused influenza vaccine Restless legs Stable on Mirapex; no hx for sleep apnea Stasis dermatitis Vasomotor symptoms due to menopause Venous stasis Venous stasis ulcer Surgical History History of colonoscopy 2001-- [place] adenomatous polyp. 03/2008-- Adenomatous and hyperplastic polyps. 05/10/2011-- Hyperplastic polyp. 5 year sequencing. History of esophagogastroduodenoscopy History of laminectomy 1997 Lumbar History of radiation exposure 2008 Lumbar radiofrequency ablation History of right hip replacement History of right knee joint replacement surgery 02/17/2017 History of spinal fusion 2006 Status post total knee replacement, right Family History Father , age 50 History of alcohol abuse Mother , age 43 History of alcohol abuse Other COPD (chronic obstructive pulmonary disease) Kidney disease No pertinent family history Social History household members: spouse and alone housing: house lives independently: Yes marital status: occupational status: retired alcohol intake frequency: former alcohol drinker substance use type: does not use additional history: Ambulates with a cane and a walker. MEDS/ALLERGIES Home Medications and Allergies Home Medications Medication Instructions Recorded Confirmed Type acetaminophen 650 mg 1,000 mg PO BID tab 08/27/18 10/05/20 History tablet,extended release albuterol sulfate 2.5 mg INHALATION BID #180 ml 08/27/18 10/05/20 Rx lisinopril 5 mg tablet 5 mg PO QDAY 09/17/18 10/05/20 History meloxicam 15 mg tablet 15 mg PO QDAY #30 tab 04/23/19 10/05/20 Rx portable oxygen with supplies 2 applic .ROUTE .MEDSUPPLY 06/20/19 10/05/20 History metoprolol succinate [Toprol XL] 25 mg PO BID 11/19/19 10/05/20 History aspirin 81 mg PO DAILY #30 tab 11/21/19 10/05/20 Rx tiotropium bromide 18 mcg capsule See Rx Instructions .ROUTE 01/08/20 10/05/20 Rx with inhalation device .COMPLEX #30 cap albuterol sulfate 90 mcg/actuation 2 puff INHALATION Q6H PRN #18 g 02/18/20 Rx aerosol inhaler duloxetine 60 mg capsule,delayed 60 mg PO QDAY #90 cap 03/13/20 10/05/20 Rx release pramipexole 0.5 mg tablet See Rx Instructions .ROUTE 06/25/20 10/05/20 Rx .COMPLEX #360 tab fluticasone fur. 200 mcg-umeclid 1 inh INHALATION Q24H #60 ea 07/29/20 10/05/20 Rx 62.5 mcg-vilant 25 mcg inhalat.powder clopidogrel [Plavix] 75 mg PO QDAY #14 tab 08/30/20 10/05/20 Rx hydrocodone-acetaminophen 1 tab PO QIDP PRN #14 tab 08/30/20 10/05/20 Rx dexamethasone 6 mg tablet 6 mg PO QDAY #7 tab 09/02/20 10/05/20 Rx mirtazapine 7.5 mg tablet 7.5 mg PO QHS #30 tab 09/02/20 10/05/20 Rx Allergies Allergy/AdvReac Type Severity Reaction Status Date / Time No Known Drug Allergies Allergy Verified 10/30/20 10:54 EXAM Constitutional Vitals: Temp Pulse Resp BP Pulse Ox 37.8 C H 103 H 20 96/79 94 10/30/20 10:54 10/30/20 11:53 10/30/20 10:54 10/30/20 11:53 10/30/20 11:53 General appearance: cooperative and no acute distress Head Head exam: Present atraumatic and normocephalic Eye Eye exam: Present EOMI and PERRL ENT ENT exam: Present mucous membranes moist, normal exam and normal external ear exam Additional comments: nasal cannula in place Neck Neck exam: Present normal inspection; Absent lymphadenopathy, tenderness and thyromegaly Respiratory Respiratory exam: Present accessory muscle use, respiratory distress, rhonchi and wheezes Cardiovascular Cardiovascular exam: Present irregular rhythm; Absent JVD GI/Abdominal GI/Abdominal exam: Present normal bowel sounds and soft; Absent organomegaly and tenderness Extremities Exam Extremities exam: Present full ROM, normal capillary refill, normal inspection and pedal edema; Absent tenderness Neurological Exam Neurological exam: Present alert, CN II-XII intact and oriented X3; Absent motor sensory deficit Psychiatric Psychiatric exam: Present normal affect and normal mood; Absent anxious and depressed Skin Skin exam: Present dry and intact DATA Data Completed and Pending Labs: Labs from last 24 hours 10/30/20 10/30/20 10/30/20 14:00 11:45 11:45 WBC RBC Hgb Hct MCV MCH MCHC RDW Plt Count MPV Neut % (Auto) Lymph % (Auto) [place] % (Auto) Eos % (Auto) Baso % (Auto) Lymph # (Auto) [place] # (Auto) Eos # (Auto) Baso # (Auto) Absolute Neutrophils ESR Pending PT INR D-Dimer VBG Lactic Acid Pending Sodium Potassium Chloride Carbon Dioxide Anion Gap BUN Creatinine GFR Calculation Glucose Calcium Magnesium Total Bilirubin AST ALT Alkaline Phosphatase Troponin T C-Reactive Protein Pending NT-Pro-B Natriuret Pep Total Protein Albumin Globulin Albumin/Globulin Ratio Procalcitonin 10/30/20 10/30/20 10/30/20 11:45 11:45 11:45 WBC RBC Hgb Hct MCV MCH MCHC RDW Plt Count MPV Neut % (Auto) Lymph % (Auto) [place] % (Auto) Eos % (Auto) Baso % (Auto) Lymph # (Auto) [place] # (Auto) Eos # (Auto) Baso # (Auto) Absolute Neutrophils ESR PT INR D-Dimer VBG Lactic Acid 2.6 H Sodium Potassium Chloride Carbon Dioxide Anion Gap BUN Creatinine GFR Calculation Glucose Calcium Magnesium Total Bilirubin AST ALT Alkaline Phosphatase Troponin T < 0.01 C-Reactive Protein NT-Pro-B Natriuret Pep Total Protein Albumin Globulin Albumin/Globulin Ratio Procalcitonin Pending 10/30/20 10/30/20 10/30/20 11:45 11:45 11:45 WBC 19.9 H RBC 3.83 L Hgb 10.5 L Hct 34.5 L MCV 90.1 MCH 27.4 MCHC 30.4 L RDW 18.2 H Plt Count 304 MPV 9.5 Neut % (Auto) 94.0 H Lymph % (Auto) 1.7 L [place] % (Auto) 4.1 Eos % (Auto) 0 Baso % (Auto) 0.2 Lymph # (Auto) 0.34 L [place] # (Auto) 0.81 Eos # (Auto) 0 Baso # (Auto) 0.03 Absolute Neutrophils 18.76 H ESR PT 14.6 H INR 1.1 D-Dimer 2.68 H VBG Lactic Acid Sodium 137 Potassium 3.8 Chloride 97 Carbon Dioxide 27 Anion Gap 13.0 BUN 12 Creatinine 0.7 GFR Calculation 83 Glucose 223 H Calcium 8.9 Magnesium 2.1 Total Bilirubin 1.0 AST 25 ALT 10 Alkaline Phosphatase 175 H Troponin T C-Reactive Protein NT-Pro-B Natriuret Pep 4875.0 H Total Protein 6.7 Albumin 3.3 Globulin 3.4 Albumin/Globulin Ratio 1.0 Procalcitonin A/P Assessment and plan (1) Anemia, normocytic normochromic: Status: Acute (2) COPD exacerbation: Status: Acute (3) On home oxygen therapy: Status: Acute (4) Acute and chronic respiratory failure with hypoxia: Status: Acute (5) CHF exacerbation: Status: Acute (6) Pneumonia: Status: Acute Qualifiers: Laterality: unspecified laterality Lung location: unspecified part of lung Pneumonia type: due to unspecified organism Qualified Code(s): J18.9 - Pneumonia, unspecified organism (7) Atrial fibrillation: Status: Acute (8) Sepsis: Status: Acute Qualifiers: Sepsis acute organ dysfunction status: without acute organ dysfunction Sepsis type: Escherichia coli, in Qualified Code(s): P36.4 - Sepsis of due to Escherichia coli (9) Anxiety: Status: Chronic Comment: Chronic; currently takes Cymbalta (10) Osteoarthritis of shoulders, bilateral: Status: Chronic Comment: 04/13/2015-[facility] Qualifiers: Osteoarthritis type: primary Qualified Code(s): M19.011 - Primary osteoarthritis, right shoulder (11) Osteoarthritis of right knee: Status: Chronic Comment: 04/13/2015-[place] Qualifiers: Osteoarthritis type: primary Qualified Code(s): M17.11 - Unilateral primary osteoarthritis, right knee Narrative A/P Narrative: Assessment and Plans: 1. Acute on chronic respiratory failure with hypoxia, on home oxygen therapy: DDx: bilateral pneumonia, CoVID pneumonia, CHF exacerbation, COPD exacerbation, pulmonary embolism Admit to inpatient PCU BiPAP, ABG in 30min to 1hr Influenza A and B screening Rapid strep test CoVID PCR Blood culture X2 Serial lactic acid ESR CRP and Procalcitonin Rocephin Zithromax Tylenol PRN fever Robitussin DM PRN cough cbc w/ auto diff in the morning to trend WBC Isolation: airborne and contact until CoVID PCR negative Strict intake and output Daily weigh 2L/day fluid restriction Lasix 20mg IV daily 2D echocardiogram Continue beta kash and Lisinopril Prednisone DuoNEB NEB q4hr scheduled CT chest angiogram to rule out pulmonary embolism Patient is okay for intubation but denies chest compression 2. Chronic atrial fibrillation: Continue beta kash for rate control Continue ASA and Plavix for antiplatelet; patient refused anticoagulation [id number] score of at least 4 (or 5 if HTN present which is documented in her chart but patient claimed that she did not have hypertension) 3. Anxiety: Continue Cymbalta 4. Normocytic normochromic anemia: Daily cbc w/ auto diff to trend H/H; transfuse pRBC if hemoglobin <7.0, active bleeding, or symptomatic 5. Generalized osteoarthritis: Continue [place] as needed for moderate pain Morphine IV severe pain GI ppx: oral PPI DVT ppx: Lovenox Code status: okay for intubation but refuse chest compression Prognosis: guarded Disposition: inpatient PCU Time Spent With Patient Time: Total time spent is greater than 50% in coordination of care (as documented) at patient's floor/unit and/or counseling patient: Total time spent with greater than 50% in coordination of care (as documented) at patient's floor/unit and/or counseling patient:: 25 - 35 minutes
[2020-10-30] MEDS ORDERED: cefTRIAXone 1 GM in DEXTROSE 5% IN WATER 50 ML IV SCH (14:15)
[2020-10-30] MEDS ORDERED: LORazepam 1 MG TABLET PO PRN ×2 (14:46→15:05)
[2020-10-30] MEDS ORDERED: IPRATROPIUM/ALBUTEROL 3 ML AMPUL.NEB NEB SCH ×2 (15:00→19:00)
[2020-10-30] MEDS ORDERED: LORazepam 2 MG/ML VIAL IV PRN (15:34)
[2020-10-30] MEDS ORDERED: FUROSEMIDE 20 MG/2 ML VIAL IV ONE (15:36)
[2020-10-30] MEDS ORDERED: ACETAMINOPHEN 650 MG/65 ML BAG IV PRN ×2 (16:33→17:02)
[2020-10-30] MEDS ORDERED: NOREPINEPHRINE BITARTRATE 16 MG in 0.9 % SODIUM CHLORIDE 234 ML IV SCH (17:00)
[2020-10-30] MEDS ORDERED: 0.9 % SODIUM CHLORIDE 250 ML IV SCH (17:00)
[2020-10-30] MEDS ORDERED: NOREPINEPHRINE BITARTRATE 4 MG/4 ML VIAL IV ONE (17:15)
[2020-10-30] MEDS: 0.9 % SODIUM CHLORIDE 250 ML IV SCH (17:20)
[2020-10-30 17:59] LABS: Appearance,Urine HAZY (Clear); Bilirubin,Urine Negative (Negative); Color,Urine Yellow; Culture Indicated,Urine No; Glucose,Urine (UA) Negative (Negative); Ketones,Urine 5 mg/dL (Negative); Leukocyte Esterase,Urine Negative /ug (Negative); Mucus,Urine FEW /hpf; Nitrate,Urine Negative (Negative); Protein,Urine 100 mg/dL (Negative); Specific Gravity,Urine 1.025 (1.000-1.035); Urine Blood Negative (Negative); Urine RBC 3 /hpf (0-3); Urine Squamous Epithelial Cell 2 /hpf (0-4); Urine WBC 0 /hpf (0-4)
--- NOTE | 2020-10-30 18:31 | EKG ---
[facility] Test Date: 2020-10-30 Pat Name: Leslie Maldonado Department: ICU Room: 120D Gender: Female [employer] Builder Helper: : 1940 Requested By: Lavell Espinoza Order Number: [id number] Reading MD: Miguel Alvarado M.D. Measurements Intervals [place] Rate: 137 P: [place]: QRS: 86 QRSD: 98 T: -77 QT: 284 QTc: 429 Interpretive Statements ATRIAL FIBRILLATION VENTRICULAR PREMATURE COMPLEX BORDERLINE RIGHT AXIS DEVIATION REPOLARIZATION ABNORMALITY, PROB RATE RELATED Since previous ECG of 10-30-2020, 1125, INCREASED A-FIB RATE, ABNORMAL ECG Electronically Signed On 10-30-2020 18:30:29 PDT by Miguel Alvarado M.D. [place] [place][id number]
[2020-10-30] MEDS ORDERED: NON FORMULARY MEDICATION 1 DOSE MISCELL (Fluticasone-Umeclidin-Vilanter [Trelegy Ellipta] INHALATION SCH (18:45)
[2020-10-30] MEDS ORDERED: PRAMIPEXOLE 0.5 MG SCH (18:45)
[2020-10-30] MEDS: IPRATROPIUM/ALBUTEROL 3 ML AMPUL.NEB NEB SCH ×2 (19:24→23:24)
[2020-10-30] MEDS ORDERED: DOCUSATE SODIUM 100 MG CAPSULE PO SCH ×2 (21:00)
[2020-10-30] MEDS: MIRTAZAPINE 15 MG TABLET PO SCH (22:08)
[2020-10-30] MEDS: DOCUSATE SODIUM 100 MG CAPSULE PO SCH (22:08)
[2020-10-30] MEDS ORDERED: MAGNESIUM SULFATE 2 GM/50 ML BAG IV PRN (23:32)
[2020-10-31] MEDS ORDERED: POTASSIUM CHLORIDE 20 MEQ/10 ML VIAL IV ONE (00:41)
[2020-10-31] MEDS: POTASSIUM CHLORIDE 10 MEQ in DEXTROSE 5% IN WATER 250 ML IV PRN ×2 (00:45→03:13)
[2020-10-31] MEDS: LORazepam 2 MG/ML VIAL IV PRN ×3 (03:05→21:08)
[2020-10-31] MEDS: IPRATROPIUM/ALBUTEROL 3 ML AMPUL.NEB NEB SCH ×6 (03:13→23:15)
[2020-10-31] MEDS: 0.9 % SODIUM CHLORIDE 250 ML IV SCH ×2 (05:33→17:32)
[2020-10-31] MEDS ORDERED: PANTOPRAZOLE 40 MG TABLET PO SCH ×2 (07:30)
[2020-10-31] MEDS: PANTOPRAZOLE 40 MG TABLET PO SCH (07:45)
[2020-10-31] MEDS ORDERED: predniSONE 20 MG TABLET PO SCH ×2 (08:00)
[2020-10-31 08:15] LABS: Basophils # (Auto) 0.05 K/mcL (0.00-0.20); Basophils % (Auto) 0.4 % (0.0-2.0); Eosinophils # (Auto) 0.02 K/mcL (0.00-0.70); Eosinophils % (Auto) 0.2 % (0.0-7.0); Hematocrit 33.1 % (36.0-48.0); Hemoglobin 9.9 g/dL (12.0-15.0); Lymphocytes # (Auto) 0.75 K/mcL (1.50-4.80); Lymphocytes % (Auto) 6.4 % (15.0-49.0); Mean Cell Volume 89.2 fL (80.0-100.0); Mean Corpuscular HGB Conc 29.9 g/dL (31.0-36.0); Mean Platelet Volume 9.7 fL (7.4-10.4); Monocytes # (Auto) 1.02 K/mcL (0.10-0.90); Monocytes % (Auto) 8.7 % (1.0-12.0); Neutrophils % (Auto) 84.3 % (38.0-78.0); Platelet Count 250 K/mcL (140-440); RBC 3.71 M/mcL (4.00-5.20); Red Cell Distribution Width 18.2 % (11.5-14.5); WBC 11.8 K/mcL (4.5-11.0)
[2020-10-31 08:27] LABS: ALT/SGPT 11 U/L (<40); AST/SGOT 30 U/L (<32); Albumin 2.9 gm/dL (3.2-5.2); Albumin/Globulin Ratio 0.9 (1.0-2.3); Alkaline Phosphatase 139 U/L (39-117); Bilirubin,Total 0.8 mg/dL (0.1-1.0); Blood Urea Nitrogen 13 mg/dL (8-23); Calcium 8.4 mg/dL (8.6-10.4); Carbon Dioxide 31 mmol/L (22-30); Chloride 98 mmol/L (96-108); Globulin 3.3 gm/dL (2.2-3.7); Glomerular Filtration Rate 87; Glucose 101 mg/dL (70-105)
[2020-10-31] MEDS ORDERED: POTASSIUM CHLORIDE 20 MEQ TABLET PO PRN (08:45)
--- NOTE | 2020-10-31 08:56 | Cat Scan Report ---
History: Shortness of breath fever and on BiPAP TECHNIQUE: The chest was imaged following injection of intravenous nonionic contrast scanning during the arterial phase. Sagittal, coronal and axial MIPS images were created. The radiation exposure was limited using dose reduction technology. There is some patient motion artifact. The pulmonary arteries are normal with no intraluminal filling defects. The aorta is normal in caliber. There is a large amount calcified plaque throughout the aorta and there is also moderate amount calcified plaque in the coronary arteries. The heart is moderately enlarged. No pleural or pericardial effusion are present. The pretracheal retrocaval space there is a large lymph node which measures 1.6 x 2.6 cm. It measured 2.0 x 3.0 cm on the prior CT done on 08/30/20. No hilar adenopathy is present. There is complete atelectasis of the left lower lobe with air bronchograms centrally. Thick bands of atelectasis are present posteriorly medially in the right lower lobe. There is minor atelectasis and inferior segment lingula and medial segment right middle lobe. Very mild centrilobular emphysema is present in both lung apices. There is relative hypoperfusion to the apices. Subtle groundglass opacities are present in both lungs. There is partial collapse of the midthoracic trachea with severe narrowing of the lumen. This best seen on axial image #34. The wall of the trachea does not appear abnormally thickened and there is no mucus plugging within the lumen. This narrowed segment is 3 cm in length and extends down to a distance of 2 cm above the pinky. The mainstem bronchi are normal in caliber. The narrowing of the trachea is new since 08/30/20. There are multiple scattered cysts in the liver which have not enlarged. There is also an exophytic cyst lateral to the left lobe of liver and anterior to the cardia of stomach which measures 2.4 cm. This also remain stable. Erosive arthritis is present in both shoulders consistent with rheumatoid arthritis. IMPRESSION: Partial collapse of the mid thoracic trachea causing severe airway narrowing. This may be partially related to the patient's breathing. 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 Complete atelectasis of the left lower lobe with partial atelectasis in the right lower lobe Mild emphysema Stable mediastinal lymphadenopathy Stable cardiomegaly and atherosclerotic coronary artery disease Dr. Espinoza was called with the report Interpreted and Authenticated by: Ulysses Gould 10/31/20
[2020-10-31] MEDS ORDERED: AZITHROMYCIN 500 MG in DEXTROSE 5% IN WATER 250 ML IV SCH ×2 (09:00)
[2020-10-31] MEDS ORDERED: ENOXAPARIN 40 MG/0.4 ML SYRINGE SQ SCH ×2 (09:00)
[2020-10-31] MEDS: AZITHROMYCIN 500 MG in DEXTROSE 5% IN WATER 250 ML IV SCH (09:00)
[2020-10-31] MEDS ORDERED: FUROSEMIDE 20 MG/2 ML VIAL IV SCH ×2 (09:00)
[2020-10-31] MEDS ORDERED: cefTRIAXone 1 GM VIAL IV SCH ×2 (09:00)
[2020-10-31] MEDS ORDERED: METOPROLOL TARTRATE 5 MG/5 ML VIAL IV PRN ×2 (09:05→13:01)
[2020-10-31] MEDS: Fluticasone-Umeclidin-Vilanter [Trelegy Ellipta] Inhaler INH SCH (09:25)
[2020-10-31] MEDS: TIOTROPIUM BROMIDE 18 MCG INHALANT INH SCH (09:25)
[2020-10-31] MEDS: ENOXAPARIN 40 MG/0.4 ML SYRINGE SQ SCH (09:29)
[2020-10-31] MEDS: FUROSEMIDE 20 MG/2 ML VIAL IV SCH (09:29)
[2020-10-31] MEDS: DOCUSATE SODIUM 100 MG CAPSULE PO SCH ×2 (09:30→20:30)
[2020-10-31] MEDS: ASPIRIN 81 MG TAB.CHEW PO SCH (09:30)
[2020-10-31] MEDS: predniSONE 20 MG TABLET PO SCH (09:30)
[2020-10-31] MEDS: CLOPIDOGREL 75 MG TABLET PO SCH (09:30)
--- NOTE | 2020-10-31 09:31 | Internal Med Progress Note ---
SUBJECTIVE Subjective Patient information: Note initiated : 10/31/20 at 9:28 am Service Date, if different from initiated Date: [] Patient: Leslie Maldonado 80 y/o F admitted on 10/30/20 for SOB, fever. Chief Complaint: [PNA, COPD exacerbation, CHF exacerbation] 10/31/20: Fever with Tmax 38.1 this morning. On 6L/min supplemental oxygen via nasal cannula. Levophed drip off. Blood cultures no growth to date. CoVID PCR negative. Patient's degree of SOB has improved. Denies wheezing or cough or s putum production. Denies chest pain or palpitation. Mild general body weakness. Constitutional Vitals: Vital Signs Temp Pulse Resp BP Pulse Ox 38.1 C H 90 25 H 116/77 100 10/31/20 09:15 10/31/20 07:12 10/31/20 09:15 10/31/20 09:15 10/31/20 09:15 Period Temp Pulse Resp BP Sys/Cuellar Pulse Ox Last 24 Hr 37.2 C-39.3 C 46-160 15-33 57-169/32-149 64-100 Intake and Output 10/30/20 10/31/20 10/31/20 21:59 05:59 13:59 Intake Total 102 1121 Output Total 1980 915 130 Balance -1879 206 -130 Weight 97.692 kg Intake & Output: Intake & Output 10/30/20 10/31/20 10/31/20 21:59 05:59 13:59 Intake Total 102 1121 Output Total 1980 915 130 Balance -1879 206 -130 Weight 97.692 kg Intake: IV 102 641 Sodium Chloride 0.9% 250 ml @ 100 20 mls/hr IV .[id number] SHAYLA Rx#: [id number] Levophed 16 mg In Sodium 37 31 Chloride 0.9% 234 ml @ 10 MCG/ MIN 9.375 mls/hr IV Q24H SHAYLA Rx #:[id number] Potassium Chloride 10 Meq In 510 Dextrose 5% in Water 250 ml @ 130 mls/hr IV PRN PRN Rx#: [id number] Oral 480 Output: Urine Catheter Amount 1979 915 130 # of times incontinent of urine 1 Other: Meal Nourishment/Supplement Percent of Meal Consumed 100% Nourishment/Supplement name peaches Urine Appearance Clear Clear Clear Uretheral (Sharma) Clear Clear Urine Color Pale Dark Yellow Dark Yellow Uretheral (Sharma) Pale Dark Yellow General appearance: cooperative and no acute distress Head Head exam: Present atraumatic and normocephalic Eye Eye exam: Present EOMI and PERRL ENT ENT exam: Present mucous membranes moist, normal exam and normal external ear exam Additional comments: Nasal cannula in place Neck Neck exam: Present normal inspection; Absent lymphadenopathy, tenderness and t hyromegaly Respiratory Respiratory exam: Present prolonged expiratory phase, rhonchi and wheezes; Absent accessory muscle use and respiratory distress Cardiovascular Cardiovascular exam: Present irregular rhythm and tachycardia; Absent JVD GI/Abdominal GI/Abdominal exam: Present normal bowel sounds and soft; Absent organomegaly and tenderness Extremities Exam Extremities exam: Present full ROM, normal capillary refill, normal inspection and pedal edema; Absent tenderness Neurological Exam Neurological exam: Present alert, CN II-XII intact and oriented X3; Absent motor sensory deficit Psychiatric Psychiatric exam: Present normal affect and normal mood; Absent anxious and depressed Skin Skin exam: Present dry and intact OBJ DATA Labs CBC & Chem 7: 10/31/20 07:18 10/31/20 07:18 Labs: Abnormal Lab Results 10/31/20 10/31/20 10/30/20 07:18 07:18 16:31 WBC 11.8 H RBC 3.71 L Hgb 9.9 L Hct 33.1 L MCHC 29.9 L RDW 18.2 H Neut % (Auto) 84.3 H Lymph % (Auto) 6.4 L Lymph # (Auto) 0.75 L [place] # (Auto) 1.02 H Absolute Neutrophils 9.94 H ESR PT D-Dimer VBG Lactic Acid Carbon Dioxide 31 H Glucose Calcium 8.4 L Alkaline Phosphatase 139 H C-Reactive Protein NT-Pro-B Natriuret Pep Albumin 2.9 L Albumin/Globulin Ratio 0.9 L Procalcitonin Urine Appearance Hazy A Urine Protein 100 A Urine Ketones 5 A Urine Urobilinogen 2.0 A Urine Mucus Few A 10/30/20 10/30/20 10/30/20 14:00 11:45 11:45 WBC RBC Hgb Hct MCHC RDW Neut % (Auto) Lymph % (Auto) Lymph # (Auto) [place] # (Auto) Absolute Neutrophils ESR 44 H PT D-Dimer VBG Lactic Acid 3.9 H* Carbon Dioxide Glucose Calcium Alkaline Phosphatase C-Reactive Protein 7.10 H NT-Pro-B Natriuret Pep Albumin Albumin/Globulin Ratio Procalcitonin Urine Appearance Urine Protein Urine Ketones Urine Urobilinogen Urine Mucus 10/30/20 10/30/20 10/30/20 11:45 11:45 11:45 WBC RBC Hgb Hct MCHC RDW Neut % (Auto) Lymph % (Auto) Lymph # (Auto) [place] # (Auto) Absolute Neutrophils ESR PT D-Dimer VBG Lactic Acid 2.6 H Carbon Dioxide Glucose 223 H Calcium Alkaline Phosphatase 175 H C-Reactive Protein NT-Pro-B Natriuret Pep 4875.0 H Albumin Albumin/Globulin Ratio Procalcitonin 1.00 H Urine Appearance Urine Protein Urine Ketones Urine Urobilinogen Urine Mucus 10/30/20 10/30/20 11:45 11:45 WBC 19.9 H RBC 3.83 L Hgb 10.5 L Hct 34.5 L MCHC 30.4 L RDW 18.2 H Neut % (Auto) 94.0 H Lymph % (Auto) 1.7 L Lymph # (Auto) 0.34 L [place] # (Auto) Absolute Neutrophils 18.76 H ESR PT 14.6 H D-Dimer 2.68 H VBG Lactic Acid Carbon Dioxide Glucose Calcium Alkaline Phosphatase C-Reactive Protein NT-Pro-B Natriuret Pep Albumin Albumin/Globulin Ratio Procalcitonin Urine Appearance Urine Protein Urine Ketones Urine Urobilinogen Urine Mucus Meds: Medications Acetaminophen (Acetaminophen 325 Mg Tablet) 650 mg PO Q6HP PRN; Protocol PRN Reason: Per Pain Protocol/Fever > 101 Hydrocodone Bitart/Acetaminophen (Hydrocodone/Apap 5/325mg Tablet) 1 tab PO Q4 HP PRN; Protocol PRN Reason: Per Pain Protocol Hydrocodone Bitart/Acetaminophen (Hydrocodone/Apap 5/325mg Tablet) 1 tab PO QIDP PRN; Protocol PRN Reason: pain Albuterol/Ipratropium (Ipratropium/Albuterol 3 Ml Ampul.Neb) 3 ml NEB Q4HRT [facility] Last Admin: 10/31/20 07:07 Dose: 3 ml Documented by: Aspirin (Aspirin 81 Mg Tab.Chew) 81 mg PO DAILY [facility] Bisacodyl (Bisacodyl 5 Mg Tablet) 10 mg PO DAILYP PRN PRN Reason: Constipation Ceftriaxone Sodium (Ceftriaxone 1 Gm Vial) 1 gm IV DAILY [facility] Clopidogrel Bisulfate (Clopidogrel 75 Mg Tablet) 75 mg PO QDAY [facility] Docusate Sodium (Docusate Sodium 100 Mg Capsule) 100 mg PO BID [facility] Last Admin: 10/30/20 22:08 Dose: Not Given Documented by: Duloxetine HCl (Duloxetine 30 Mg Capsule) 60 mg PO DAILY [facility] Enoxaparin Sodium (Enoxaparin 40 Mg/0.4 Ml Syringe) 40 mg SQ DAILY [facility] Furosemide (Furosemide 20 Mg/2 Ml Vial) 20 mg IV DAILY [facility] Guaifenesin (Guaifenesin/Dextromethorphan Oral Lu) 10 ml PO Q4HP PRN PRN Reason: Cough Acetaminophen (Ofirmev) 650 mg in 65 mls @ 130 mls/hr IV Q6HP PRN; Protocol PRN Reason: PAIN/FEVER > 101 Azithromycin 500 mg/ Dextrose 250 mls @ 250 mls/hr IV DAILY [facility]; Protocol Stop: 11/01/20 09:59 Sodium Chloride (Sodium Chloride 0.9%) 250 mls @ 20 mls/hr IV .[id number] [facility] Last Admin: 10/31/20 05:33 Dose: Not Given Documented by: Norepinephrine Bitartrate 16 (mg/ Sodium Chloride) 250 mls @ 9.375 mls/hr IV Q24H [facility]; Protocol Last Titration: 10/31/20 02:52 Dose: 0 mcg/min, 0 mls/hr Documented by: Magnesium Sulfate (Magnesium Sulfate) 2 gm in 50 mls @ 25 mls/hr IV PRN PRN PRN Reason: Hypomagnesemia Lorazepam (Lorazepam 2 Mg/Ml Vial) 1 mg IV Q4HP PRN PRN Reason: ANXIETY/SEDATION Last Admin: 10/31/20 03:05 Dose: 1 mg Documented by: Meloxicam (Meloxicam 7.5 Mg Tablet) 15 mg PO DAILY [facility] Metoprolol Succinate (Metoprolol Succinate 25 Mg Tab.Xl.24h) 25 mg PO BID [facility] Mirtazapine (Mirtazapine 15 Mg Tablet) 7.5 mg PO HS [facility] Last Admin: 10/30/20 22:08 Dose: Not Given Documented by: Morphine Sulfate (Morphine 2 Mg/Ml Vial) 2 mg IV Q4HP PRN PRN Reason: Chest Pain Non-Formulary Medication (Pramipexole) see rx instructions tablet .ROUTE .COMPLEX [facility] Pantoprazole Sodium ([facility]razole 40 Mg Tablet) [facility] Last Admin: 10/31/20 07:45 Dose: 40 mg Documented by: Fluticasone- Umeclidin-Vilanter [ Trelegy Ellipta] Inhaler 1 dose INH Q24H [facility] Potassium Chloride (Potassium Chloride 20 Meq Tablet) 40 meq PO DAILYP PRN PRN Reason: hypokalemia Prednisone (Prednisone 20 Mg Tablet) 40 mg PO QAC [facility] Tiotropium [place] (Tiotropium [place] 18 Mcg Inhalant) 18 mcg INH DAILY [facility] A/P Assessment and plan (1) Anemia, normocytic normochromic: Status: Acute (2) COPD exacerbation: Status: Acute (3) On home oxygen therapy: Status: Acute (4) Acute and chronic respiratory failure with hypoxia: Status: Acute (5) CHF exacerbation: Status: Acute (6) Pneumonia: Status: Acute Qualifiers: Laterality: unspecified laterality Lung location: unspecified part of lung Pneumonia type: due to unspecified organism Qualified Code(s): J18.9 - Pneumonia, unspecified organism (7) Atrial fibrillation: Status: Acute (8) Sepsis: Status: Acute Qualifiers: Sepsis acute organ dysfunction status: without acute organ dysfunction Sepsis type: Escherichia coli, in Qualified Code(s): P36.4 - Sepsis of due to Escherichia coli (9) Anxiety: Status: Chronic Comment: Chronic; currently takes Cymbalta (10) Osteoarthritis of shoulders, bilateral: Status: Chronic Comment: 04/13/2015-[place] Qualifiers: Osteoarthritis type: primary Qualified Code(s): M19.011 - Primary osteoarthritis, right shoulder (11) Osteoarthritis of right knee: Status: Chronic Comment: 04/13/2015-[place] Qualifiers: Osteoarthritis type: primary Qualified Code(s): M17.11 - Unilateral primary osteoarthritis, right knee Narrative A/P Narrative: Assessment and Plans: 1. Acute on chronic respiratory failure with hypoxia, on home oxygen therapy: DDx: bilateral pneumonia, CoVID pneumonia, CHF exacerbation, COPD exacerbation, pulmonary embolism Stay in inpatient PCU Oxygen therapy, continue to titrate with goal spo2 88-92% given h/o COPD (baseline home oxygen requirement 4L/min) Influenza A and B screening Rapid strep test CoVID PCR negative Blood culture X2 Serial lactic acid ESR CRP and Procalcitonin Rocephin Zithromax Tylenol PRN fever Robitussin DM PRN cough cbc w/ auto diff in the morning to trend WBC Strict intake and output Daily weigh 2L/day fluid restriction Lasix 20mg IV daily 2D echocardiogram Continue beta kash, hold Lisinopril given soft blood pressure at the moment Prednisone DuoNEB NEB q4hr scheduled CT chest angiogram to rule out pulmonary embolism-->PE ruled out Patient is okay for intubation but denies chest compression 2. Chronic atrial fibrillation: Continue beta kash for rate control Lopressor 5mg IV q5min PRN HR>=120 bpm, hold if SBP<90 and/or DBP<50 mmHg Continue ASA and Plavix for antiplatelet; patient refused anticoagulation [id number] score of at least 4 (or 5 if HTN present which is documented in her chart but patient claimed that she did not have hypertension) 3. Anxiety: Continue Cymbalta 4. Normocytic normochromic anemia: Daily cbc w/ auto diff to trend H/H; transfuse pRBC if hemoglobin <7.0, active bleeding, or symptomatic 5. Generalized osteoarthritis: Continue [place] as needed for moderate pain Morphine IV severe pain GI ppx: oral PPI DVT ppx: Lovenox Code status: okay for intubation but refuse chest compression Prognosis: guarded Disposition: inpatient ICU Critical Care Time: 45min Time Spent With Patient Time: Total time spent is greater than 50% in coordination of care (as documented) at patient's floor/unit and/or counseling patient: Total time spent with greater than 50% in coordination of care (as documented) at patient's floor/unit and/or counseling patient:: Greater than 35 minutes
[2020-10-31] MEDS: cefTRIAXone 1 GM VIAL IV SCH (09:39)
[2020-10-31] MEDS: MELOXICAM 7.5 MG TABLET PO SCH (09:40)
[2020-10-31] MEDS: DULoxetine 30 MG CAPSULE PO SCH (09:40)
[2020-10-31] MEDS: METOPROLOL SUCCINATE 25 MG TAB.XL.24H PO SCH ×2 (10:39→20:29)
[2020-10-31] MEDS ORDERED: NOREPINEPHRINE BITARTRATE 16 MG in 0.9 % SODIUM CHLORIDE 234 ML IV SCH (17:00)
[2020-10-31] MEDS ORDERED: NOREPINEPHRINE BITARTRATE 16 MG in 0.9 % SODIUM CHLORIDE 234 ML IV PRN (17:00)
[2020-10-31] MEDS: PRAMIPEXOLE 1 MG TABLET PO SCH (20:29)
[2020-10-31] MEDS: MIRTAZAPINE 15 MG TABLET PO SCH (20:30)
[2020-10-31] MEDS ORDERED: METOPROLOL SUCCINATE 25 MG TAB.XL.24H PO SCH (21:00)
[2020-11-01] MEDS: IPRATROPIUM/ALBUTEROL 3 ML AMPUL.NEB NEB SCH ×6 (03:21→23:44)
[2020-11-01] MEDS: 0.9 % SODIUM CHLORIDE 250 ML IV SCH ×2 (05:20→18:39)
[2020-11-01] MEDS: Fluticasone-Umeclidin-Vilanter [Trelegy Ellipta] Inhaler INH SCH (07:03)
[2020-11-01] MEDS: TIOTROPIUM BROMIDE 18 MCG INHALANT INH SCH (07:03)
[2020-11-01 07:18] LABS: Basophils # (Auto) 0 K/mcL (0.00-0.20); Basophils % (Auto) 0 % (0.0-2.0); Eosinophils # (Auto) 0.01 K/mcL (0.00-0.70); Eosinophils % (Auto) 0.1 % (0.0-7.0); Hemoglobin 8.8 g/dL (12.0-15.0); Lymphocytes # (Auto) 0.57 K/mcL (1.50-4.80); Lymphocytes % (Auto) 6.9 % (15.0-49.0); Mean Cell Volume 90.9 fL (80.0-100.0); Mean Corpuscular HGB Conc 30.3 g/dL (31.0-36.0); Mean Platelet Volume 9.6 fL (7.4-10.4); Monocytes # (Auto) 0.79 K/mcL (0.10-0.90); Monocytes % (Auto) 9.5 % (1.0-12.0); Neutrophils % (Auto) 83.5 % (38.0-78.0); Platelet Count 247 K/mcL (140-440); RBC 3.19 M/mcL (4.00-5.20); Red Cell Distribution Width 17.8 % (11.5-14.5); WBC 8.3 K/mcL (4.5-11.0)
[2020-11-01] MEDS: PANTOPRAZOLE 40 MG TABLET PO SCH (07:26)
[2020-11-01 07:55] LABS: ALT/SGPT 11 U/L (<40); AST/SGOT 27 U/L (<32); Albumin 2.9 gm/dL (3.2-5.2); Albumin/Globulin Ratio 0.9 (1.0-2.3); Alkaline Phosphatase 127 U/L (39-117); Bilirubin,Total 0.5 mg/dL (0.1-1.0); Blood Urea Nitrogen 19 mg/dL (8-23); Calcium 8.6 mg/dL (8.6-10.4); Carbon Dioxide 32 mmol/L (22-30); Chloride 101 mmol/L (96-108); Globulin 3.1 gm/dL (2.2-3.7); Glomerular Filtration Rate 87; Glucose 101 mg/dL (70-105)
[2020-11-01] MEDS: AZITHROMYCIN 500 MG in DEXTROSE 5% IN WATER 250 ML IV SCH (09:05)
[2020-11-01] MEDS: predniSONE 20 MG TABLET PO SCH (09:06)
[2020-11-01] MEDS: FUROSEMIDE 20 MG/2 ML VIAL IV SCH (09:06)
[2020-11-01] MEDS: CLOPIDOGREL 75 MG TABLET PO SCH (09:06)
[2020-11-01] MEDS: METOPROLOL SUCCINATE 25 MG TAB.XL.24H PO SCH ×2 (09:06→20:05)
[2020-11-01] MEDS: ENOXAPARIN 40 MG/0.4 ML SYRINGE SQ SCH (09:06)
[2020-11-01] MEDS: DOCUSATE SODIUM 100 MG CAPSULE PO SCH ×2 (09:06→20:05)
[2020-11-01] MEDS: ASPIRIN 81 MG TAB.CHEW PO SCH (09:06)
[2020-11-01] MEDS: cefTRIAXone 1 GM VIAL IV SCH (09:14)
[2020-11-01] MEDS: MELOXICAM 7.5 MG TABLET PO SCH (09:15)
[2020-11-01] MEDS: DULoxetine 30 MG CAPSULE PO SCH (09:15)
[2020-11-01] MEDS ORDERED: BENZOCAINE/MENTHOL 1 LOZENGE PO PRN (09:45)
--- NOTE | 2020-11-01 09:50 | Internal Med Progress Note ---
SUBJECTIVE Subjective Patient information: Note initiated : 11/01/20 at 9:48 am Service Date, if different from initiated Date: [] Patient: Leslie Maldonado 80 y/o F admitted on 10/30/20 for SOB, fever. Chief Complaint: [PNA, COPD exacerbation, CHF exacerbation] 10/31/20: Fever with Tmax 38.1 this morning. On 6L/min supplemental oxygen via nasal cannula. Levophed drip off. Blood cultures no growth to date. CoVID PCR negative. Patient's degree of SOB has improved. Denies wheezing or cough or s putum production. Denies chest pain or palpitation. Mild general body weakness. 11/01/20: Blood culture from 10/30 grew gram positive bacillus. Afebrile overnight. Levophed drip was being switched off yesterday. Still on BiPAP at night, currently on 6L/min oxygen. c/o nonproductive cough and wheezing. Denies SOB. Denies chest pain or palpitation. Denies fever or chills. Constitutional Vitals: Vital Signs Temp Pulse Resp BP Pulse Ox 36.8 C 94 H 18 132/72 94 11/01/20 07:00 11/01/20 07:16 11/01/20 07:16 11/01/20 07:00 11/01/20 07:16 Period Temp Pulse Resp BP Sys/Cuellar Pulse Ox Last 24 Hr 36.7 C-38.3 C 87-112 13-31 96-135/60-92 90-97 Intake and Output 10/31/20 11/01/20 11/01/20 21:59 05:59 13:59 Intake Total 100 400 Output Total 368 239 20 Balance -268 -239 380 Weight 97.386 kg Intake & Output: Intake & Output 10/31/20 11/01/20 11/01/20 21:59 05:59 13:59 Intake Total 100 400 Output Total 368 239 20 Balance -268 -239 380 Weight 97.386 kg Intake: IV 0 Levophed 16 mg In Sodium 0 Chloride 0.9% 234 ml @ 10 MCG/ MIN 9.375 mls/hr IV Q24H [facility] Rx #:[id number] Oral 100 400 Output: Urine Catheter Amount 368 239 20 Other: Urine Appearance Clear Clear Clear Uretheral (Sharma) Clear Clear Clear Urine Color Dark Yellow Light Hui Dark Hui Uretheral (Sharma) Dark Yellow Light Hui Dark Yellow Urine Odor Normal Uretheral (Sharma) Normal Normal General appearance: cooperative and no acute distress Head Head exam: Present atraumatic and normocephalic Eye Eye exam: Present EOMI and PERRL ENT ENT exam: Present mucous membranes moist, normal exam and normal external ear exam Additional comments: Nasal cannula in place Neck Neck exam: Present normal inspection; Absent lymphadenopathy, tenderness and thyromegaly Respiratory Respiratory exam: Present rhonchi and wheezes; Absent accessory muscle use and respiratory distress Cardiovascular Cardiovascular exam: Present irregular rhythm; Absent JVD GI/Abdominal GI/Abdominal exam: Present normal bowel sounds and soft; Absent organomegaly and tenderness Extremities Exam Extremities exam: Present full ROM, normal capillary refill, normal inspection and pedal edema; Absent tenderness Neurological Exam Neurological exam: Present alert, CN II-XII intact and oriented X3; Absent motor sensory deficit Psychiatric Psychiatric exam: Present normal affect and normal mood; Absent anxious and depressed Skin Skin exam: Present dry and intact OBJ DATA Labs CBC & Chem 7: 11/01/20 05:00 11/01/20 04:59 Labs: Abnormal Lab Results 11/01/20 11/01/20 10/31/20 05:00 04:59 07:18 WBC RBC 3.19 L Hgb 8.8 L Hct 29.0 L MCHC 30.3 L RDW 17.8 H Neut % (Auto) 83.5 H Lymph % (Auto) 6.9 L Lymph # (Auto) 0.57 L [place] # (Auto) Absolute Neutrophils ESR PT D-Dimer VBG Lactic Acid Carbon Dioxide 32 H 31 H Anion Gap 7.0 L Glucose Calcium 8.4 L Alkaline Phosphatase 127 H 139 H C-Reactive Protein NT-Pro-B Natriuret Pep Albumin 2.9 L 2.9 L Albumin/Globulin Ratio 0.9 L 0.9 L Procalcitonin Urine Appearance Urine Protein Urine Ketones Urine Urobilinogen Urine Mucus 10/31/20 10/30/20 10/30/20 07:18 16:31 14:00 WBC 11.8 H RBC 3.71 L Hgb 9.9 L Hct 33.1 L MCHC 29.9 L RDW 18.2 H Neut % (Auto) 84.3 H Lymph % (Auto) 6.4 L Lymph # (Auto) 0.75 L [place] # (Auto) 1.02 H Absolute Neutrophils 9.94 H ESR PT D-Dimer VBG Lactic Acid 3.9 H* Carbon Dioxide Anion Gap Glucose Calcium Alkaline Phosphatase C-Reactive Protein NT-Pro-B Natriuret Pep Albumin Albumin/Globulin Ratio Procalcitonin Urine Appearance Hazy A Urine Protein 100 A Urine Ketones 5 A Urine Urobilinogen 2.0 A Urine Mucus Few A 10/30/20 10/30/20 10/30/20 11:45 11:45 11:45 WBC RBC Hgb Hct MCHC RDW Neut % (Auto) Lymph % (Auto) Lymph # (Auto) [place] # (Auto) Absolute Neutrophils ESR 44 H PT D-Dimer VBG Lactic Acid Carbon Dioxide Anion Gap Glucose Calcium Alkaline Phosphatase C-Reactive Protein 7.10 H NT-Pro-B Natriuret Pep Albumin Albumin/Globulin Ratio Procalcitonin 1.00 H Urine Appearance Urine Protein Urine Ketones Urine Urobilinogen Urine Mucus 10/30/20 10/30/20 10/30/20 11:45 11:45 11:45 WBC RBC Hgb Hct MCHC RDW Neut % (Auto) Lymph % (Auto) Lymph # (Auto) [place] # (Auto) Absolute Neutrophils ESR PT 14.6 H D-Dimer 2.68 H VBG Lactic Acid 2.6 H Carbon Dioxide Anion Gap Glucose 223 H Calcium Alkaline Phosphatase 175 H C-Reactive Protein NT-Pro-B Natriuret Pep 4875.0 H Albumin Albumin/Globulin Ratio Procalcitonin Urine Appearance Urine Protein Urine Ketones Urine Urobilinogen Urine Mucus 10/30/20 11:45 WBC 19.9 H RBC 3.83 L Hgb 10.5 L Hct 34.5 L MCHC 30.4 L RDW 18.2 H Neut % (Auto) 94.0 H Lymph % (Auto) 1.7 L Lymph # (Auto) 0.34 L [place] # (Auto) Absolute Neutrophils 18.76 H ESR PT D-Dimer VBG Lactic Acid Carbon Dioxide Anion Gap Glucose Calcium Alkaline Phosphatase C-Reactive Protein NT-Pro-B Natriuret Pep Albumin Albumin/Globulin Ratio Procalcitonin Urine Appearance Urine Protein Urine Ketones Urine Urobilinogen Urine Mucus Meds: Medications Acetaminophen (Acetaminophen 325 Mg Tablet) 650 mg PO Q6HP PRN; Protocol PRN Reason: Per Pain Protocol/Fever > 101 Last Admin: 10/31/20 09:32 Dose: 650 mg Documented by: Hydrocodone Bitart/Acetaminophen (Hydrocodone/Apap 5/325mg Tablet) 1 tab PO Q4HP PRN; Protocol PRN Reason: Per Pain Protocol Hydrocodone Bitart/Acetaminophen (Hydrocodone/Apap 5/325mg Tablet) 1 tab PO QIDP PRN; Protocol PRN Reason: pain Albuterol/Ipratropium (Ipratropium/Albuterol 3 Ml Ampul.Neb) 3 ml NEB Q4HRT [facility] Last Admin: 11/01/20 07:13 Dose: 3 ml Documented by: Aspirin (Aspirin 81 Mg Tab.Chew) 81 mg PO DAILY [facility] Last Admin: 11/01/20 09:06 Dose: 81 mg Documented by: Bisacodyl (Bisacodyl 5 Mg Tablet) 10 mg PO DAILYP PRN PRN Reason: Constipation Ceftriaxone Sodium (Ceftriaxone 1 Gm Vial) 1 gm IV DAILY [facility] Last Admin: 11/01/20 09:14 Dose: 1 gm Documented by: Clopidogrel Bisulfate (Clopidogrel 75 Mg Tablet) 75 mg PO QDAY [facility] Last Admin: 11/01/20 09:06 Dose: 75 mg Documented by: Docusate Sodium (Docusate Sodium 100 Mg Capsule) 100 mg PO BID [facility] Last Admin: 11/01/20 09:06 Dose: 100 mg Documented by: Duloxetine HCl (Duloxetine 30 Mg Capsule) 60 mg PO DAILY [facility] Last Admin: 11/01/20 09:15 Dose: 60 mg Documented by: Enoxaparin Sodium (Enoxaparin 40 Mg/0.4 Ml Syringe) 40 mg SQ DAILY [facility] Last Admin: 11/01/20 09:06 Dose: 40 mg Documented by: Furosemide (Furosemide 20 Mg/2 Ml Vial) 20 mg IV DAILY [facility] Last Admin: 11/01/20 09:06 Dose: 20 mg Documented by: Guaifenesin (Guaifenesin/Dextromethorphan Oral Lu) 10 ml PO Q4HP PRN PRN Reason: Cough Acetaminophen (Ofirmev) 650 mg in 65 mls @ 130 mls/hr IV Q6HP PRN; Protocol PRN Reason: PAIN/FEVER > 101 Azithromycin 500 mg/ Dextrose 250 mls @ 250 mls/hr IV DAILY [facility]; Protocol Stop: 11/01/20 09:59 Last Admin: 11/01/20 09:05 Dose: 250 mls/hr Documented by: Sodium Chloride (Sodium Chloride 0.9%) 250 mls @ 20 mls/hr IV .[id number] [facility] Last Admin: 11/01/20 05:20 Dose: Not Given Documented by: Magnesium Sulfate (Magnesium Sulfate) 2 gm in 50 mls @ 25 mls/hr IV PRN PRN PRN Reason: Hypomagnesemia Norepinephrine Bitartrate 16 (mg/ Sodium Chloride) 250 mls @ 9.375 mls/hr IV Q24HP PRN; Protocol PRN Reason: Hypotension Lorazepam (Lorazepam 2 Mg/Ml Vial) 1 mg IV Q4HP PRN PRN Reason: ANXIETY/SEDATION Last Admin: 10/31/20 21:08 Dose: 1 mg Documented by: Meloxicam (Meloxicam 7.5 Mg Tablet) 15 mg PO DAILY [facility] Last Admin: 11/01/20 09:15 Dose: 15 mg Documented by: Metoprolol Succinate (Metoprolol Succinate 25 Mg Tab.Xl.24h) 25 mg PO BID [facility] Last Admin: 11/01/20 09:06 Dose: 25 mg Documented by: Metoprolol Tartrate (Metoprolol Tartrate 5 Mg/5 Ml Vial) 5 mg IV Q4HP PRN PRN Reason: Tachyarrhythmias Last Admin: 10/31/20 13:36 Dose: 5 mg Documented by: Mirtazapine (Mirtazapine 15 Mg Tablet) 7.5 mg PO HS [facility] Last Admin: 10/31/20 20:30 Dose: 7.5 mg Documented by: Morphine Sulfate (Morphine 2 Mg/Ml Vial) 2 mg IV Q4HP PRN PRN Reason: Chest Pain Pantoprazole Sodium (Pantoprazole 40 Mg Tablet) 40 mg PO QAMAC [facility] Last Admin: 11/01/20 07:26 Dose: 40 mg Documented by: Fluticasone- Umeclidin-Vilanter [ Trelegy Ellipta] Inhaler 1 dose INH Q24H [facility] Last Admin: 11/01/20 07:03 Dose: Not Given Documented by: Potassium Chloride (Potassium Chloride 20 Meq Tablet) 40 meq PO DAILYP PRN PRN Reason: hypokalemia Last Admin: 10/31/20 09:29 Dose: 40 meq Documented by: Pramipexole Dihydrochloride (Pramipexole 1 Mg Tablet) 1.5 mg PO [facility] Last Admin: 10/31/20 20:29 Dose: 1.5 mg Documented by: Pramipexole Dihydrochloride (Pramipexole 0.25 Mg Tablet) 0.5 mg PO DAILY@1730 [facility] Prednisone (Prednisone 20 Mg Tablet) 40 mg PO [facility] Last Admin: 11/01/20 09:06 Dose: 40 mg Documented by: Throat Lozenges (Benzocaine/Menthol 1 Lozenge) 1 lozenge PO PRN PRN PRN Reason: Sore Throat Tiotropium [place] (Tiotropium [place] 18 Mcg Inhalant) 18 mcg INH DAILY [facility] Last Admin: 11/01/20 07:03 Dose: Not Given Documented by: A/P Assessment and plan (1) Gram-positive bacteremia: Status: Acute (2) Anemia, normocytic normochromic: Status: Acute (3) COPD exacerbation: Status: Acute (4) On home oxygen therapy: Status: Acute (5) Acute and chronic respiratory failure with hypoxia: Status: Acute (6) CHF exacerbation: Status: Acute (7) Pneumonia: Status: Acute Qualifiers: Laterality: unspecified laterality Lung location: unspecified part of lung Pneumonia type: due to unspecified organism Qualified Code(s): J18.9 - P neumonia, unspecified organism (8) Atrial fibrillation: Status: Acute (9) Sepsis: Status: Acute Qualifiers: Sepsis acute organ dysfunction status: without acute organ dysfunction Sepsis type: Escherichia coli, in Qualified Code(s): P36.4 - Sepsis of due to Escherichia coli (10) Anxiety: Status: Chronic Comment: Chronic; currently takes Cymbalta (11) Osteoarthritis of shoulders, bilateral: Status: Chronic Comment: 04/13/2015-[place] Qualifiers: Osteoarthritis type: primary Qualified Code(s): M19.011 - Primary osteoarthritis, right shoulder (12) Osteoarthritis of right knee: Status: Chronic Comment: 04/13/2015-[place] Qualifiers: Osteoarthritis type: primary Qualified Code(s): M17.11 - Unilateral primary osteoarthritis, right knee Narrative A/P Narrative: Assessment and Plans: 1. Acute on chronic respiratory failure with hypoxia, on home oxygen therapy: DDx: bilateral pneumonia, CoVID pneumonia, CHF exacerbation, COPD exacerbation, pulmonary embolism Stay in inpatient PCU Oxygen therapy, continue to titrate with goal spo2 88-92% given h/o COPD (baseline home oxygen requirement 4L/min). BiPAP as needed Influenza A and B screening Rapid strep test CoVID PCR negative Blood culture X2 from 10/30/20 grew gram positive bacilli, will repeat blood culture X2 today 11/01/20. Echocardiogram pending Serial lactic acid ESR CRP and Procalcitonin Rocephin Zithromax Tylenol PRN fever Robitussin DM PRN cough cbc w/ auto diff in the morning to trend WBC Strict intake and output Daily weigh 2L/day fluid restriction Lasix 20mg PO daily 2D echocardiogram, report pending Continue beta kash, hold Lisinopril given soft blood pressure at the moment Prednisone DuoNEB NEB q4hr scheduled CT chest angiogram to rule out pulmonary embolism-->PE ruled out Patient is okay for intubation but denies chest compression 2. Chronic atrial fibrillation: Continue beta kash for rate control Lopressor 5mg IV q5min PRN HR>=120 bpm, hold if SBP<90 and/or DBP<50 mmHg Continue ASA and Plavix for antiplatelet; patient refused anticoagulation [id number] score of at least 4 (or 5 if HTN present which is documented in her chart but patient claimed that she did not have hypertension) 3. Anxiety: Continue Cymbalta 4. Normocytic normochromic anemia: Daily cbc w/ auto diff to trend H/H; transfuse pRBC if hemoglobin <7.0, active bleeding, or symptomatic 5. Generalized osteoarthritis: Continue [place] as needed for moderate pain Morphine IV severe pain 6. Gram positive bacilli bacteremia: DDx: skin contamination Repeat blood culture X2 today 11/01/20 Echocardiogram, report pending GI ppx: oral PPI DVT ppx: Lovenox Code status: okay for intubation but refuse chest compression Prognosis: guarded Disposition: inpatient ICU Critical Care Time: 45min Time Spent With Patient Time: Total time spent is greater than 50% in coordination of care (as documented) at patient's floor/unit and/or counseling patient:
[2020-11-01] MEDS ORDERED: PRAMIPEXOLE 0.25 MG TABLET PO SCH (17:30)
[2020-11-01] MEDS ORDERED: guaiFENesin 600 MG TAB.SR.12H PO PRN (18:31)
[2020-11-01] MEDS: MIRTAZAPINE 15 MG TABLET PO SCH (20:04)
[2020-11-01] MEDS: PRAMIPEXOLE 1 MG TABLET PO SCH (20:05)
[2020-11-02] MEDS: IPRATROPIUM/ALBUTEROL 3 ML AMPUL.NEB NEB SCH ×2 (03:16→07:36)
[2020-11-02] MEDS: 0.9 % SODIUM CHLORIDE 250 ML IV SCH (06:33)
[2020-11-02] MEDS: PANTOPRAZOLE 40 MG TABLET PO SCH (06:35)
[2020-11-02 07:47] LABS: Basophils # (Auto) 0.01 K/mcL (0.00-0.20); Basophils % (Auto) 0.1 % (0.0-2.0); Eosinophils # (Auto) 0.02 K/mcL (0.00-0.70); Eosinophils % (Auto) 0.2 % (0.0-7.0); Hematocrit 32.6 % (36.0-48.0); Hemoglobin 9.5 g/dL (12.0-15.0); Lymphocytes # (Auto) 0.77 K/mcL (1.50-4.80); Lymphocytes % (Auto) 9.3 % (15.0-49.0); Mean Cell Volume 92.6 fL (80.0-100.0); Mean Corpuscular HGB Conc 29.1 g/dL (31.0-36.0); Mean Platelet Volume 9.9 fL (7.4-10.4); Monocytes # (Auto) 0.78 K/mcL (0.10-0.90); Monocytes % (Auto) 9.4 % (1.0-12.0); Platelet Count 291 K/mcL (140-440); RBC 3.52 M/mcL (4.00-5.20); Red Cell Distribution Width 17.9 % (11.5-14.5); WBC 8.3 K/mcL (4.5-11.0)
[2020-11-02] MEDS: Fluticasone-Umeclidin-Vilanter [Trelegy Ellipta] Inhaler INH SCH (07:51)
[2020-11-02] MEDS: ENOXAPARIN 40 MG/0.4 ML SYRINGE SQ SCH (08:07)
[2020-11-02] MEDS: TIOTROPIUM BROMIDE 18 MCG INHALANT INH SCH (08:08)
[2020-11-02] MEDS: ASPIRIN 81 MG TAB.CHEW PO SCH (08:08)
[2020-11-02] MEDS: predniSONE 20 MG TABLET PO SCH (08:08)
[2020-11-02] MEDS: DOCUSATE SODIUM 100 MG CAPSULE PO SCH (08:08)
[2020-11-02] MEDS: CLOPIDOGREL 75 MG TABLET PO SCH (08:08)
[2020-11-02] MEDS: METOPROLOL SUCCINATE 25 MG TAB.XL.24H PO SCH (08:08)
[2020-11-02] MEDS: DULoxetine 30 MG CAPSULE PO SCH (08:13)
[2020-11-02] MEDS: cefTRIAXone 1 GM VIAL IV SCH (08:13)
[2020-11-02] MEDS: MELOXICAM 7.5 MG TABLET PO SCH (08:13)
[2020-11-02 08:28] LABS: ALT/SGPT 15 U/L (<40); AST/SGOT 27 U/L (<32); Albumin 3.2 gm/dL (3.2-5.2); Albumin/Globulin Ratio 0.9 (1.0-2.3); Alkaline Phosphatase 134 U/L (39-117); Bilirubin,Total 0.6 mg/dL (0.1-1.0); Blood Urea Nitrogen 19 mg/dL (8-23); Calcium 9.3 mg/dL (8.6-10.4); Carbon Dioxide 30 mmol/L (22-30); Chloride 97 mmol/L (96-108); Globulin 3.5 gm/dL (2.2-3.7); Glomerular Filtration Rate 83; Glucose 125 mg/dL (70-105)
[2020-11-02] MEDS ORDERED: POLYETHYLENE GLYCOL 3350 17 GM PACKET PO PRN (08:54)
[2020-11-02] MEDS ORDERED: FUROSEMIDE 20 MG TABLET PO SCH (09:00)
[2020-11-02] MEDS ORDERED: LISINOPRIL 5 MG TABLET PO SCH (09:00)
--- NOTE | 2020-11-02 10:07 | Discharge Summary ---
Discharge Provider Provider Patient information: Note initiated : 11/02/20 at 10:02 am Service Date, if different from initiated Date: [] Patient: Leslie Maldonado 80 y/o F admitted on 10/30/20 for SOB, fever. Chief Complaint: [Pneumonia, COPD exacerbation, and CHF exacerbation] Date of admission: 10/30/20 14:53 Discharge date: 11/02/20 Primary care physician: Fidel Fabian M.D., F.A.A.F.P. Consults: 10/30/20 Consult to Physician [CONS] Stat Comment: Consulting Provider: Lavell Espinoza Reason For Exam: Physician to Consult Discharge Meds Discharge Medications Home Medications albuterol sulfate 2.5 mg INHALATION BID #180 ml 08/27/18 [Rx Confirmed 10/30/20 Last Taken 11/11/19 08:00] lisinopril 5 mg tablet 5 mg PO QDAY 09/17/18 [History Confirmed 10/30/20 Last Taken 11/16/19 08:00] meloxicam 15 mg tablet 15 mg PO QDAY #30 tab 04/23/19 [Rx Confirmed 10/30/20 Last Taken 11/17/19 08:00] portable oxygen with supplies 2 applic .ROUTE .MEDSUPPLY 06/20/19 [History Confirmed 10/30/20 Last Taken 11/18/19 08:00] metoprolol succinate [Toprol XL] 25 mg PO BID 11/19/19 [History Confirmed 10/30/20 Last Taken Unknown] aspirin 81 mg PO DAILY #30 tab 11/21/19 [Rx Confirmed 10/30/20 Last Taken Unknown] tiotropium bromide 18 mcg capsule with inhalation device See Rx Instructions .ROUTE .COMPLEX #30 cap 01/08/20 [Rx Confirmed 10/30/20 Last Taken Unknown] albuterol sulfate 90 mcg/actuation aerosol inhaler 2 puff INHALATION Q6H PRN #18 g 02/18/20 [Rx Confirmed 10/30/20 Last Taken Unknown] duloxetine 60 mg capsule,delayed release 60 mg PO QDAY #90 cap 03/13/20 [Rx Confirmed 10/30/20 Last Taken Unknown] pramipexole 0.5 mg tablet See Rx Instructions .ROUTE .COMPLEX #360 tab 06/25/20 [Rx Confirmed 10/30/20 Last Taken Unknown] fluticasone fur. 200 mcg-umeclid 62.5 mcg-vilant 25 mcg inhalat.powder 1 inh INHALATION Q24H #60 ea 07/29/20 [Rx Confirmed 10/30/20 Last Taken Unknown] clopidogrel [Plavix] 75 mg PO QDAY #14 tab 08/30/20 [Rx Confirmed 10/30/20 Last Taken Unknown] hydrocodone-acetaminophen 1 tab PO QIDP PRN #14 tab 08/30/20 [Rx Confirmed 10/30/20 Last Taken Unknown] dexamethasone 6 mg tablet 6 mg PO QDAY #7 tab 09/02/20 [Rx Confirmed 10/30/20 Last Taken Unknown] mirtazapine 7.5 mg tablet 7.5 mg PO QHS #30 tab 09/02/20 [Rx Confirmed 10/30/20 Last Taken Unknown] acetaminophen 500 mg PO BID 10/30/20 [History Confirmed 10/30/20 Last Taken Unknown] furosemide 20 mg PO DAILY #30 tab 11/02/20 [Rx Last Taken Unknown] guaifenesin [Mucinex] 600 mg PO BIDP PRN #30 tab 11/02/20 [Rx Last Taken Unknown] levofloxacin 750 mg PO QDAY #3 tab 11/02/20 [Rx Last Taken Unknown] COURSE Hospital Course Hospital course: Patient was admitted for acute on chronic respiratory failure with hypoxia secondary to community-acquired pneumonia, CHF exacerbations, and COPD exacerbations. For community-acquired pneumonia, after blood cultures were collected, patient was started on antibiotics including Rocephin and Zithromax. For CHF exacerbations, 2D echocardiogram was performed and diuretics were started and patient demonstrate good diuresis. Beta-kash and lisinopril were also given. For COPD exacerbations, patient was provided with bronchodilators DuoNeb as well as oral prednisone. Supplemental oxygen's were provided and BiPAP was also being employed overnight while patient was sleeping. By 11/02/2020, patient has reached clinical stability, been afebrile for more than 24 hours, and any leukocytosis resolved. Her oxygen requirements was back to her baseline of 4 L/min. Of note, she had a positive blood culture growing gram-positive backslide from initial blood culture in one of the bottles but repeat blood culture has been no growth today and the echocardiogram did not show any signs of endocarditis. It is does believe that the initial positive blood culture was from skin contamination's. Decision was made to discharge patient back to her assisted living with prescriptions sent to pharmacy and all questions answered prior to patient being physically discharged. Discharge diagnosis: pneumonia, COPD exacerbation, CHF exacerbation Time Spent with Patient Time attestation: Total time spent providing and/or coordinating discharge services: Patient was admitted for acute on chronic respiratory failure with hypoxia secondary to community-acquired pneumonia, CHF exacerbations, and COPD exacerbations. For community-acquired pneumonia, after blood cultures were collected, patient was started on antibiotics including Rocephin and Zithromax. For CHF exacerbations, 2D echocardiogram was performed and diuretics were started and patient demonstrate good diuresis. Beta-kash and lisinopril were also given. For COPD exacerbations, patient was provided with bronchodilators DuoNeb as well as oral prednisone. Supplemental oxygen's were provided and BiPAP was also being employed overnight while patient was sleeping. By 11/02/2020, patient has reached clinical stability, been afebrile for more than 24 hours, and any leukocytosis resolved. Her oxygen requirements was back to her baseline of 4 L/min. Of note, she had a positive blood culture growing gram-positive backslide from initial blood culture in one of the bottles but repeat blood culture has been no growth today and the echocardiogram did not show any signs of endocarditis. It is does believe that the initial positive blood culture was from skin contamination's. Decision was made to discharge patient back to her assisted living with prescriptions sent to pharmacy and all questions answered prior to patient being physically discharged. EXAM Constitutional Vitals: Temp Pulse Resp BP Pulse Ox 37.2 C 86 16 134/82 94 11/02/20 09:02 11/02/20 07:45 11/02/20 09:02 11/02/20 09:02 11/02/20 09:02 General appearance: cooperative and no acute distress Head Head exam: Present atraumatic and normocephalic Eye Eye exam: Present EOMI and PERRL ENT ENT exam: Present mucous membranes moist, normal exam and normal external ear exam Additional comments: Nasal cannula in place Neck Neck exam: Present normal inspection; Absent lymphadenopathy, tenderness and thyromegaly Respiratory Respiratory exam: Present rhonchi and wheezes; Absent accessory muscle use and respiratory distress Cardiovascular Cardiovascular exam: Present normal rate and rhythm; Absent JVD GI/Abdominal GI/Abdominal exam: Present normal bowel sounds and soft; Absent organomegaly and tenderness Extremities Exam Extremities exam: Present full ROM, normal capillary refill and normal inspection; Absent tenderness Neurological Exam Neurological exam: Present alert, CN II-XII intact and oriented X3; Absent motor sensory deficit Psychiatric Psychiatric exam: Present normal affect and normal mood; Absent anxious and depressed Skin Skin exam: Present dry and intact Discharge Data Data Completed and Pending Labs on day of discharge: Labs from last 24 hours 11/02/20 11/02/20 05:30 05:30 WBC 8.3 RBC 3.52 L Hgb 9.5 L Hct 32.6 L MCV 92.6 MCH 27.0 MCHC 29.1 L RDW 17.9 H Plt Count 291 MPV 9.9 Neut % (Auto) 81.0 H Lymph % (Auto) 9.3 L [place] % (Auto) 9.4 Eos % (Auto) 0.2 Baso % (Auto) 0.1 Lymph # (Auto) 0.77 L [place] # (Auto) 0.78 Eos # (Auto) 0.02 Baso # (Auto) 0.01 Absolute Neutrophils 6.74 Sodium 139 Potassium 4.0 Chloride 97 Carbon Dioxide 30 Anion Gap 12.0 BUN 19 Creatinine 0.7 GFR Calculation 83 Glucose 125 H Calcium 9.3 Total Bilirubin 0.6 AST 27 ALT 15 Alkaline Phosphatase 134 H Total Protein 6.7 Albumin 3.2 Globulin 3.5 Albumin/Globulin Ratio 0.9 L Preliminary micro results at discharge 10/30/20 11:40 Blood Culture - Preliminary Blood Corynebacterium species 10/30/20 11:45 Blood Culture - Preliminary Blood Discharge Plan Patient/Caregiver Discharge Instructions Activity: increase activity as tolerated Diet: Cardiac Prescriptions: New furosemide 20 mg Tablet 20 mg PO DAILY Qty: 30 RF: 0 guaifenesin [Mucinex] 600 mg Tablet Extended Release 12hr 600 mg PO BIDP PRN (Reason: Congestion) Qty: 30 RF: 0 levofloxacin 750 mg tablet 750 mg PO QDAY Qty: 3 RF: 0 Continued tiotropium bromide [Spiriva with HandiHaler] 18 mcg capsule, w/inhalation device See Rx Instructions .ROUTE .COMPLEX Qty: 30 RF: 6 albuterol sulfate [ProAir HFA] 90 mcg/actuation HFA aerosol inhaler 2 puff INHALATION Q6H PRN (Reason: shortness of breath) Qty: 18 RF: 3 duloxetine 60 mg capsule,delayed release(DR/EC) 60 mg PO QDAY Qty: 90 RF: 4 pramipexole 0.5 mg tablet See Rx Instructions .ROUTE .COMPLEX Qty: 360 RF: 1 meloxicam 15 mg tablet 15 mg PO QDAY Qty: 30 RF: 5 Trelegy Ellipta 200-62.5-25 mcg blister with device 1 inh inhalation Q24H Qty: 60 RF: 12 dexamethasone 6 mg tablet 6 mg PO QDAY Qty: 7 RF: 0 mirtazapine 7.5 mg tablet 7.5 mg PO QHS Qty: 30 RF: 12 lisinopril 5 mg tablet 5 mg PO QDAY RF: 0 albuterol sulfate 2.5 mg /3 mL (0.083 %) solution for nebulization 2.5 mg INHALATION BID Qty: 180 RF: 11 portable oxygen with supplies Inhalant 2 applic .Route .MEDSUPPLY RF: 0 metoprolol succinate [Toprol XL] 25 mg Tablet Extended Release 24 Hr 25 mg PO BID RF: 0 aspirin 81 mg Tablet,Chewable 81 mg PO DAILY Qty: 30 RF: 0 clopidogrel [Plavix] 75 mg tablet 75 mg PO QDAY Qty: 14 RF: 0 hydrocodone-acetaminophen 5-325 mg tablet 1 tab PO QIDP PRN (Reason: pain) Qty: 14 RF: 0 acetaminophen 500 mg Tablet 500 mg PO BID RF: 0 Follow Up Plan Follow up with: Fidel Fabian MD, FAAFP [Primary Care Provider] - Patient Disposition: Xfer Assisted Living Facility Rehab Potential: Good I certify that the patient requires SNF services: No Overall status at discharge: patient is back to baseline Discharge Orders: Discharge Order (Routine); Ordered 11/02/20 Ordered By: Lavell Espinoza
== END 2020-11-02 13:45 | DRG 189 ==
LOC: ED 10:53 → ICU 14:53
PROVIDERS: ADMIT Internal Medicine; ATTEND Internal Medicine

== ENCOUNTER 2020-12-30 10:38 | Inpatient (IN) ==
--- NOTE | 2020-12-30 11:32 | Emergency Department Note ---
SOB HPI General Chief Complaint: Shortness of Breath/Dyspnea Stated Complaint: SOB Time Seen by Provider: 12/30/20 11:15 Source: patient and EMS Mode of arrival: EMS Limitations: no limitations History of Present Illness HPI Narrative: Patient is a 61-year-old lady who arrives emergency department complaining of shortness of breath. History is provided by the patient and review of her medical records. Medical records do make note of chest pain but the patient is quite clear that she presented for medical care today due to her shortness of breath. She says she is been feeling more short of breath than usual for the past month or so. This was gradual in onset has been progressively worsening. The patient has also been having significant peripheral edema and increased body weight. She notes that she may have missed some doses of her home medications recently. She denies any associated fever or chills. She does have a cough that is productive of clear sputum. She finds it exerting herself makes the shortness of breath worse. She does note some chest tightness associated with this but denies any shahid chest pain. Her nursing staff was concerned at her significant continuing weight gain so they referred her for further evaluation. Patient has received both doses of a COVID-19 vaccine Related Data Home Medications Medication Instructions Recorded Confirmed lisinopril 5 mg tablet 5 mg PO QDAY 09/17/18 12/30/20 portable oxygen with supplies 2 applic .ROUTE .MEDSUPPLY 06/20/19 12/30/20 metoprolol succinate [Toprol XL] 25 mg PO BID 11/19/19 12/30/20 acetaminophen 500 mg PO BID 10/30/20 12/30/20 Previous Rx's Medication Instructions Recorded albuterol sulfate 2.5 mg INHALATION BID #180 ml 08/27/18 meloxicam 15 mg tablet 15 mg PO QDAY #30 tab 04/23/19 aspirin 81 mg PO DAILY #30 tab 11/21/19 tiotropium bromide 18 mcg capsule See Rx Instructions .ROUTE 01/08/20 with inhalation device .COMPLEX #30 cap albuterol sulfate 90 mcg/actuation 2 puff INHALATION Q6H PRN #18 g 02/18/20 aerosol inhaler pramipexole 0.5 mg tablet See Rx Instructions .ROUTE 06/25/20 .COMPLEX #360 tab fluticasone fur. 200 mcg-umeclid 1 inh INHALATION Q24H #60 ea 04/21/21 62.5 mcg-vilant 25 mcg inhalat.powder clopidogrel [Plavix] 75 mg PO QDAY #14 tab 08/30/20 hydrocodone-acetaminophen 1 tab PO QIDP PRN #14 tab 08/30/20 mirtazapine 7.5 mg tablet 7.5 mg PO QHS #30 tab 09/02/20 guaifenesin [Mucinex] 600 mg PO BIDP PRN #30 tab 11/02/20 spironolactone 25 mg tablet 25 mg PO QDAY #30 tab 12/10/20 duloxetine 30 mg capsule,delayed 30 mg PO QDAY #30 cap 12/16/20 release sertraline 25 mg tablet 25 mg PO QDAY #30 tab 12/16/20 Allergies Allergy/AdvReac Type Severity Reaction Status Date / Time No Known Drug Allergies Allergy Verified 12/30/20 10:41 Review of Systems ROS ROS Narrative: Narrative: All systems ED: reviewed and negative except as stated. Constitutional: Denies fever and chills Gastrointestinal: Denies abdominal pain, nausea and diarrhea PFSH Narrative Patient History Narrative: Narrative: Medical/Surgical/Family History All Active Problems (Updated 12/30/20 @ 17:57 by Jey Serna DO) Shortness of breath (Acute) Gram-positive bacteremia (Acute) Anemia, normocytic normochromic (Acute) COPD exacerbation (Acute) CHF exacerbation (Acute) On home oxygen therapy (Acute) Acute and chronic respiratory failure with hypoxia (Acute) Pneumonia (Acute) CHF (congestive heart failure) (Acute) Occlusion of subclavian artery (Acute) Back pain (Acute) Occlusion of left subclavian vein (Acute) Venous stasis ulcer (Acute) Acute and chronic respiratory failure with hypoxia (Acute) CAP (community acquired pneumonia) (Acute) Atrial fibrillation (Acute) Cervicalgia (Acute) Fluid retention (Acute) Shortness of breath (Acute) Congestive heart failure (Acute) Sepsis (Acute) Medicare annual wellness visit, subsequent (Acute) Cellulitis of both lower extremities (Acute) Hypertension (Acute) Cellulitis of right lower extremity (Acute) Edema of right lower extremity (Acute) Hyperlipidemia (Chronic) A-fib (Chronic) Pulmonary hypertension (Chronic) COPD (chronic obstructive pulmonary disease) with emphysema (Chronic) Hypertension, essential, benign (Chronic) Hormone replacement therapy (Chronic) Edema (Chronic) Vasomotor symptoms due to menopause (Chronic) Anxiety (Chronic) Cellulitis and abscess of right lower extremity (Acute) Cellulitis (Acute) Stasis dermatitis (Chronic) Hypoxia (Chronic) Centrilobular emphysema (Chronic) Venous stasis (Chronic) Lower extremity edema (Chronic) Cellulitis of right lower leg (Chronic) Cellulitis of lower extremity (Acute) Abnormal laboratory test result (Acute) Hypoxemia (Chronic) Kidney stone on left side (Chronic) Osteoarthritis of shoulders, bilateral (Chronic) Osteoarthritis of right knee (Chronic) Bruising (Chronic) History of tobacco use (Chronic) Restless legs (Chronic) Low back pain (Chronic) Degenerative arthritis (Chronic) Colon polyps (Chronic) Cervicalgia (Chronic) Pseudophakia (Chronic) 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 COPD (chronic obstructive pulmonary disease) with emphysema desaturation to low 80% with activity, 90-92% with ambulation. COPD exacerbation Degenerative arthritis Multi-joint; chronic cervical lumbar pain with previous lumbar surgery, previous lumbar radiofrequency ablation; updated lumbar MRI in 12/2011 with sequencing at the pain clinic 01/2012; chronic shoulder pain; increasing right knee pain. Edema lower extremities Flank pain History of ECG (10/29/15) History of tobacco use Ex-smoker 2005; updated chest x-ray 04/2011; questionable with negative chest CT, declines Pneumovax. Hormone replacement therapy Currently no bone density, maintains estrogen, stable vitamin D level in 2009, breast exam stable. Hydronephrosis Hyperlipidemia Hx; remains on low-dose Lovastatin with no myalgias Hypertension, essential, benign Hypoxemia Hypoxia Injury of foot, right Kidney stone on left side Low back pain Lumbar low back pain Lower extremity edema Lumbago Medicare annual wellness visit, subsequent Occlusion of subclavian artery Odontoid fracture with type II morphology Osteoarthritis of right knee 04/13/2015-[facility] Osteoarthritis of shoulders, bilateral 04/13/2015-[facility] Pain in joint, pelvic region and thigh (02/24/2014-Dr Ricks) Pain in joint, shoulder region (10/31/13-Dr Ricks)Right Paroxysmal supraventricular tachycardia PAT/SVT 08/28/2013 PCO (posterior capsular opacification) Pseudophakia Pulmonary hypertension Refused influenza vaccine Restless legs Stable on Mirapex; no hx for sleep apnea Shortness of breath Stasis dermatitis Vasomotor symptoms due to menopause Venous stasis Venous stasis ulcer Surgical History History of colonoscopy 2001-- [place] adenomatous polyp. 03/2008-- Adenomatous and hyperplastic po lyps. 05/10/2011-- Hyperplastic polyp. 5 year sequencing. History of esophagogastroduodenoscopy History of laminectomy 1997 Lumbar History of radiation exposure 2008 Lumbar radiofrequency ablation History of right hip replacement History of right knee joint replacement surgery 02/17/2017 History of spinal fusion 2006 Status post total knee replacement, right Family History Father , age 50 History of alcohol abuse Mother , age 43 History of alcohol abuse Other COPD (chronic obstructive pulmonary disease) Kidney disease No pertinent family history Social History Smoking Status: Former smoker Alcohol Intake Frequency: former alcohol drinker Substance Use: does not use Exam Narrative Narrative: Narrative: I reviewed the vital signs. Gen -patient is awake and alert and in no acute distress. The patient is well groomed. HEENT -head is atraumatic. There is no conjunctival pallor or scleral icterus. Mucous membranes are moist. CV -S1-S2 regular rate and rhythm. Peripheral pulses are palpable. There is no JVD. Resp -breathing is nonlabored at rest on the patient's home 4 L by nasal cannula. She does have minimal conversational dyspnea with some increased work of breathing with prolonged conversation. Lungs have mild rhonchi bilaterally. There is no cyanosis. GI - Abdomen is soft and nontender to palpation. There is no guarding or rebound tenderness. Derm -skin is warm and dry. There is no visible rash. MSK -present extremities are atraumatic. There is severe pitting edema bilateral lower extremities with overlying erythema consistent with chronic venous stasis dermatitis. Psych -patient has appropriate affect. The patient does not appear internally stimulated. Neuro -patient answers questions appropriately with fluent speech. Patient moves all present extremities equally. General Limitations: no limitations Course Vital Signs Vital signs: Vital Signs Temperature 97 F 12/30/20 10:39 Pulse Rate 96 H 12/30/20 10:39 Respiratory Rate 20 12/30/20 10:39 Blood Pressure 135/93 12/30/20 10:39 Pulse Oximetry (%) 94 12/30/20 10:39 Temperature 97 F 12/30/20 10:39 Pulse Rate 71 12/30/20 17:01 Respiratory Rate 26 H 12/30/20 17:16 Blood Pressure 103/82 12/30/20 17:16 Pulse Oximetry (%) 65 L 12/30/20 17:01 [facility] MDM Narrative Medical decision making narrative: Patient presents with insidious onset of shortness of breath and peripheral edema. Chest x-ray reveals pulmonary edema. BNP is significantly elevated. Patient was given furosemide and potassium in the emergency department and had significant urine output. However, she continued to become significantly hypoxemic and even cyanotic with minimal exertion. Given this I recommended she be admitted for further diuresis and she was agreeable. I discussed the patient's history examination and diagnostic findings with Dr. Harris, who agrees with the plan of care and accepts admission. Lab Data Lab results reviewed: Yes I reviewed the patient's lab results. Result diagrams: 12/30/20 11:28 12/30/20 11:38 Labs: Lab Results 12/30/20 12/30/20 12/30/20 Range/Units 11:28 11:28 11:28 WBC 5.8 (4.5-11.0) K/mcL RBC 3.94 (3.59-5.38) M/mcL Hgb 10.1 L (11.2-15.7) g/dL Hct 36.1 (34.1-44.9) % POC Hct 34 L (36-48) % MCV 91.6 (80.0-100.0) fL MCH 25.6 L (26.0-34.0) pg MCHC 28.0 L (31.0-36.0) g/dL RDW 16.9 H (11.5-14.5) % Plt Count 265 (140-440) K/mcL MPV 9.8 (7.4-10.4) fL Neut % (Auto) 75.2 (38.0-78.0) % Lymph % (Auto) 10.4 L (15.5-49.0) % Meade % (Auto) 11.4 (1.0-12.0) % Eos % (Auto) 2.8 (0.0-7.0) % Baso % (Auto) 0.2 (0.0-2.0) % Lymph # (Auto) 0.60 L (1.50-4.80) K/mcL Meade # (Auto) 0.66 (0.10-0.90) K/mcL Eos # (Auto) 0.16 (0.00-0.70) K/mcL Baso # (Auto) 0.01 (0.00-0.30) K/mcL Absolute Neutrophils 4.36 (1.80-8.00) K/mcL POC Sodium 144 (133-145) mEq/L POC Potassium 3.7 (3.3-5.1) mEql/L POC Chloride 104 (96-108) mEq/L POC Total CO2 27 (22-30) mmol/L POC BUN 17 (6-20) mg/dL POC Creatinine 0.6 (0.6-1.2) mg/dL POC Glucose 127 H (70-105) mg/dL POC WB Ioniz Calcium 1.15 L (1.16-1.32) mmEq/L Troponin T < 0.01 (<0.03) ng/mL NT-Pro-B Natriuret Pep 1935.0 H (<450.0) pg/mL EKG Data EKG #1: EKG attestation: Yes I reviewed and interpreted this EKG. EKG results narrative: EKG performed at 11:47 AM: Atrial fibrillation, rate 91. Right axis deviation. T waves are diffusely flattened. No ST segment deviation. Normal QRS duration. QTc is prolonged at 512. No old EKG immediately available for comparison. EKG was interpreted by me. Discharge Plan Patient/Caregiver Discharge Instructions Pt seen by [facility]/PA only: No Clinical Impression: CHF exacerbation Patient Disposition: Xfer As Inpt ([facility]) Condition: Fair Follow up with: Duy Watkins MD [Primary Care Provider] - Prescriptions: No Action tiotropium bromide [Spiriva with HandiHaler] 18 mcg capsule, w/inhalation device See Rx Instructions .ROUTE .COMPLEX Qty: 30 RF: 6 albuterol sulfate [ProAir HFA] 90 mcg/actuation HFA aerosol inhaler 2 puff INHALATION Q6H PRN (Reason: shortness of breath) Qty: 18 RF: 3 pramipexole 0.5 mg tablet See Rx Instructions .ROUTE .COMPLEX Qty: 360 RF: 1 sertraline 25 mg tablet 25 mg PO QDAY Qty: 30 RF: 6 duloxetine 30 mg capsule,delayed release(DR/EC) 30 mg PO QDAY Qty: 30 RF: 4 meloxicam 15 mg tablet 15 mg PO QDAY Qty: 30 RF: 5 Trelegy Ellipta 200-62.5-25 mcg blister with device 1 inh inhalation Q24H Qty: 60 RF: 12 mirtazapine 7.5 mg tablet 7.5 mg PO QHS Qty: 30 RF: 12 spironolactone 25 mg tablet 25 mg PO QDAY Qty: 30 RF: 7 lisinopril 5 mg tablet 5 mg PO QDAY RF: 0 albuterol sulfate 2.5 mg /3 mL (0.083 %) solution for nebulization 2.5 mg INHALATION BID Qty: 180 RF: 11 portable oxygen with supplies Inhalant 2 applic .Route .MEDSUPPLY RF: 0 metoprolol succinate [Toprol XL] 25 mg Tablet Extended Release 24 Hr 25 mg PO BID RF: 0 aspirin 81 mg Tablet,Chewable 81 mg PO DAILY Qty: 30 RF: 0 clopidogrel [Plavix] 75 mg tablet 75 mg PO QDAY Qty: 14 RF: 0 hydrocodone-acetaminophen 5-325 mg tablet 1 tab PO QIDP PRN (Reason: pain) Qty: 14 RF: 0 acetaminophen 500 mg Tablet 500 mg PO BID RF: 0 guaifenesin [Mucinex] 600 mg Tablet Extended Release 12hr 600 mg PO BIDP PRN (Reason: Congestion) Qty: 30 RF: 0
--- NOTE | 2020-12-30 11:54 | XRay Report ---
CLINICAL INFORMATION: sob COMPARISON: 11/12/2020 FINDINGS: Moderate cardiomegaly is unchanged. Mild thoracic aortic ectasia is stable. The remaining mediastinum is normal. Pulmonary vessels are mildly distended. There is minimal peribronchovascular interstitial edema. Minor patchy airspace disease the mid and lower lungs is likely a combination of atelectasis and long-standing fibrosis. Severe bilateral glenohumeral degeneration with glenoid fossa remodeling seen-as before IMPRESSION: Mild CHF. Interpreted and Authenticated by: Noel Petty 12/30/20
[2020-12-30 12:15] LABS: POC Blood Urea Nitrogen 17 mg/dL (6-20); POC CO2 27 mmol/L (22-30); POC Calcium, Ionized 1.15 mmEq/L (1.16-1.32); POC Chloride 104 mEq/L (96-108); POC Creatinine 0.6 mg/dL (0.6-1.2); POC Hematocrit 34 % (36-48); POC Potassium 3.7 mEql/L (3.3-5.1); POC Sodium 144 mEq/L (133-145)
[2020-12-30 12:38] LABS: Basophils # (Auto) 0.01 K/mcL (0.00-0.30); Basophils % (Auto) 0.2 % (0.0-2.0); Eosinophils # (Auto) 0.16 K/mcL (0.00-0.70); Eosinophils % (Auto) 2.8 % (0.0-7.0); Hematocrit 36.1 % (34.1-44.9); Hemoglobin 10.1 g/dL (11.2-15.7); Lymphocytes % (Auto) 10.4 % (15.5-49.0); Mean Cell Volume 91.6 fL (80.0-100.0); Mean Platelet Volume 9.8 fL (7.4-10.4); Monocytes # (Auto) 0.66 K/mcL (0.10-0.90); Monocytes % (Auto) 11.4 % (1.0-12.0); Neutrophils % (Auto) 75.2 % (38.0-78.0); Platelet Count 265 K/mcL (140-440); RBC 3.94 M/mcL (3.59-5.38); Red Cell Distribution Width 16.9 % (11.5-14.5); WBC 5.8 K/mcL (4.5-11.0)
[2020-12-30] MEDS ORDERED: POTASSIUM CHLORIDE 20 MEQ TABLET PO ONE (13:23)
[2020-12-30] MEDS ORDERED: FUROSEMIDE 40 MG/4 ML VIAL IV ONE (13:23)
[2020-12-30 13:42] LABS: POC Glucose, Random 127 mg/dL (70-105)
[2020-12-30] MEDS ORDERED: BENZONATATE 100 MG CAPSULE PO ONE (14:52)
[2020-12-30] MEDS ORDERED: BENZOCAINE/MENTHOL 1 LOZENGE PO PRN ×2 (15:40→20:35)
--- NOTE | 2020-12-30 17:55 | Internal Med History&Physical ---
HPI History of Present Illness Patient information: Note initiated : 12/30/20 at 5:45 pm Service Date, if different from initiated Date: [] Patient: Leslie Maldonado a 80 y/o F admitted on for Shortness of breath. Chief Complaint: [] History of present illness: Ms. Maldonado is a 80 year old F Presents the ED with shortness of breath and increasing edema. Patient does have a cough but she said that is chronic and no change. She said she has had increasing edema for weeks. Has been short of breath for weeks. She was hospitalized a month ago for COPD and CHF. She is on 4 L of oxygen but with any exertion she will desat into the high 70s. She has a hard time ambulating across her room without becoming short of breath. She resides at [facility] living [facility]. Chest x-ray with edema. Lactate elevated likely from hypoxia. Troponin negative. Patient states that her normal weight is 170 but the last time she was at that weight was 6 to 8 months ago. She states about a month ago she was 230. She measured back to 40 here. Review of Systems: Pertinent positives as above. Denies headache/fever/chills/nausea/vomiting/chest or abdominal pain/diarrhea. Otherwise see above. PFSH PFSH All Active Problems (Updated 12/30/20 @ 17:57 by Jey Serna DO) Shortness of breath (Acute) Gram-positive bacteremia (Acute) Anemia, normocytic normochromic (Acute) COPD exacerbation (Acute) CHF exacerbation (Acute) On home oxygen therapy (Acute) Acute and chronic respiratory failure with hypoxia (Acute) Pneumonia (Acute) CHF (congestive heart failure) (Acute) Occlusion of subclavian artery (Acute) Back pain (Acute) Occlusion of left subclavian vein (Acute) Venous stasis ulcer (Acute) Acute and chronic respiratory failure with hypoxia (Acute) CAP (community acquired pneumonia) (Acute) Atrial fibrillation (Acute) Cervicalgia (Acute) Fluid retention (Acute) Shortness of breath (Acute) Congestive heart failure (Acute) Sepsis (Acute) Medicare annual wellness visit, subsequent (Acute) Cellulitis of both lower extremities (Acute) Hypertension (Acute) Cellulitis of right lower extremity (Acute) Edema of right lower extremity (Acute) Hyperlipidemia (Chronic) A-fib (Chronic) Pulmonary hypertension (Chronic) COPD (chronic obstructive pulmonary disease) with emphysema (Chronic) Hypertension, essential, benign (Chronic) Hormone replacement therapy (Chronic) Edema (Chronic) Vasomotor symptoms due to menopause (Chronic) Anxiety (Chronic) Cellulitis and abscess of right lower extremity (Acute) Cellulitis (Acute) Stasis dermatitis (Chronic) Hypoxia (Chronic) Centrilobular emphysema (Chronic) Venous stasis (Chronic) Lower extremity edema (Chronic) Cellulitis of right lower leg (Chronic) Cellulitis of lower extremity (Acute) Abnormal laboratory test result (Acute) Hypoxemia (Chronic) Kidney stone on left side (Chronic) Osteoarthritis of shoulders, bilateral (Chronic) Osteoarthritis of right knee (Chronic) Bruising (Chronic) History of tobacco use (Chronic) Restless legs (Chronic) Low back pain (Chronic) Degenerative arthritis (Chronic) Colon polyps (Chronic) Cervicalgia (Chronic) Pseudophakia (Chronic) 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 COPD (chronic obstructive pulmonary disease) with emphysema desaturation to low 80% with activity, 90-92% with ambulation. COPD exacerbation Degenerative arthritis Multi-joint; chronic cervical lumbar pain with previous lumbar surgery, previous lumbar radiofrequency ablation; updated lumbar MRI in 12/2011 with sequencing at the pain clinic 01/2012; chronic shoulder pain; increasing right knee pain. Edema lower extremities Flank pain History of ECG (10/29/15) History of tobacco use Ex-smoker 2005; updated chest x-ray 04/2011; questionable with negative chest CT, declines Pneumovax. Hormone replacement therapy Currently no bone density, maintains estrogen, stable vitamin D level in 2009, breast exam stable. Hydronephrosis Hyperlipidemia Hx; remains on low-dose Lovastatin with no myalgias Hypertension, essential, benign Hypoxemia Hypoxia Injury of foot, right Kidney stone on left side Low back pain Lumbar low back pain Lower extremity edema Lumbago Medicare annual wellness visit, subsequent Occlusion of subclavian artery Odontoid fracture with type II morphology Osteoarthritis of right knee 04/13/2015-[facility] Osteoarthritis of shoulders, bilateral 04/13/2015-[place] Pain in joint, pelvic region and thigh (02/24/2014-Dr Ricks) Pain in joint, shoulder region (10/31/13-Dr Ricks)Right Paroxysmal supraventricular tachycardia PAT/SVT 08/28/2013 PCO (posterior capsular opacification) Pseudophakia Pulmonary hypertension Refused influenza vaccine Restless legs Stable on Mirapex; no hx for sleep apnea Shortness of breath Stasis dermatitis Vasomotor symptoms due to menopause Venous stasis Venous stasis ulcer Surgical History History of colonoscopy 2001-- [place] adenomatous polyp. 03/2008-- Adenomatous and hyperplastic polyps. 05/10/2011-- Hyperplastic polyp. 5 year sequencing. History of esophagogastroduodenoscopy History of laminectomy 1997 Lumbar History of radiation exposure 2008 Lumbar radiofrequency ablation History of right hip replacement History of right knee joint replacement surgery 02/17/2017 History of spinal fusion 2006 Status post total knee replacement, right Family History Father , age 50 History of alcohol abuse Mother , age 43 History of alcohol abuse Other COPD (chronic obstructive pulmonary disease) Kidney disease No pertinent family history Social History household members: spouse and alone housing: house lives independently: Yes marital status: occupational status: retired alcohol intake frequency: former alcohol drinker substance use type: does not use additional history: Ambulates with a cane and a walker. MEDS/ALLERGIES Home Medications and Allergies Home Medications Medication Instructions Recorded Confirmed Type albuterol sulfate 2.5 mg INHALATION BID #180 ml 08/27/18 12/30/20 Rx lisinopril 5 mg tablet 5 mg PO QDAY 09/17/18 12/30/20 History meloxicam 15 mg tablet 15 mg PO QDAY #30 tab 04/23/19 12/30/20 Rx portable oxygen with supplies 2 applic .ROUTE .MEDSUPPLY 06/20/19 12/30/20 History metoprolol succinate [Toprol XL] 25 mg PO BID 11/19/19 12/30/20 History aspirin 81 mg PO DAILY #30 tab 11/21/19 12/30/20 Rx tiotropium bromide 18 mcg capsule See Rx Instructions .ROUTE 01/08/20 12/30/20 Rx with inhalation device .COMPLEX #30 cap albuterol sulfate 90 mcg/actuation 2 puff INHALATION Q6H PRN #18 g 02/18/20 12/30/20 Rx aerosol inhaler pramipexole 0.5 mg tablet See Rx Instructions .ROUTE 06/25/20 12/30/20 Rx .COMPLEX #360 tab fluticasone fur. 200 mcg-umeclid 1 inh INHALATION Q24H #60 ea 07/29/20 12/30/20 Rx 62.5 mcg-vilant 25 mcg inhalat.powder clopidogrel [Plavix] 75 mg PO QDAY #14 tab 08/30/20 12/30/20 Rx hydrocodone-acetaminophen 1 tab PO QIDP PRN #14 tab 08/30/20 12/30/20 Rx mirtazapine 7.5 mg tablet 7.5 mg PO QHS #30 tab 09/02/20 12/30/20 Rx acetaminophen 500 mg PO BID 10/30/20 12/30/20 History guaifenesin [Mucinex] 600 mg PO BIDP PRN #30 tab 11/02/20 12/30/20 Rx spironolactone 25 mg tablet 25 mg PO QDAY #30 tab 12/10/20 12/30/20 Rx duloxetine 30 mg capsule,delayed 30 mg PO QDAY #30 cap 12/16/20 12/30/20 Rx release sertraline 25 mg tablet 25 mg PO QDAY #30 tab 12/16/20 12/30/20 Rx Allergies Allergy/AdvReac Type Severity Reaction Status Date / Time No Known Drug Allergies Allergy Verified 12/30/20 10:41 EXAM Constitutional Vitals: Temp Pulse Resp BP Pulse Ox 97 F 71 26 H 103/82 65 L 12/30/20 10:39 12/30/20 17:01 12/30/20 17:16 12/30/20 17:16 12/30/20 17:01 Exam: General: Alert, Awake, No acute Distress, obese Eyes/N/T: EOMI, PERRL, Head/Neck: neck supple, normocephalic atraumatic CV: irreg irreg, No murmurs, normal s1/s2 Pulm: Diminished b/l, mild bibasilar rales , no wheezing Abd: soft, nontender, +BS x4 Ext: no clubbing/cyanosis, 2-3+ edema to thighs, UE edema as well Neuro: Alert, no focal deficits, moves all extremities, CN 2-12 grossly intact, symmetrical strength b/l upper/lower, sensations intact b/l upper/lower Skin: warm/dry DATA Data Completed and Pending Labs: Labs from last 24 hours 12/30/20 12/30/20 12/30/20 11:38 11:28 11:28 WBC RBC Hgb Hct POC Hct 34 L MCV MCH MCHC RDW Plt Count MPV Neut % (Auto) Lymph % (Auto) Hale % (Auto) Eos % (Auto) Baso % (Auto) Lymph # (Auto) [place] # (Auto) Eos # (Auto) Baso # (Auto) Absolute Neutrophils POC Sodium 144 Sodium Pending POC Potassium 3.7 Potassium Pending POC Chloride 104 Chloride Pending Carbon Dioxide Pending POC Total CO2 27 Anion Gap Pending POC BUN 17 BUN Pending Creatinine Pending POC Creatinine 0.6 GFR Calculation Pending Glucose Pending POC Glucose 127 H Uric Acid Pending Calcium Pending POC WB Ioniz Calcium 1.15 L Phosphorus Pending Magnesium Pending Total Bilirubin Pending Direct Bilirubin Pending GGT Pending AST Pending ALT Pending Alkaline Phosphatase Pending Lactate Dehydrogenase Pending Troponin T < 0.01 NT-Pro-B Natriuret Pep 1935.0 H Total Protein Pending Albumin Pending Globulin Pending Albumin/Globulin Ratio Pending Triglycerides Pending 12/30/20 11:28 WBC 5.8 RBC 3.94 Hgb 10.1 L Hct 36.1 POC Hct MCV 91.6 MCH 25.6 L MCHC 28.0 L RDW 16.9 H Plt Count 265 MPV 9.8 Neut % (Auto) 75.2 Lymph % (Auto) 10.4 L Hale % (Auto) 11.4 Eos % (Auto) 2.8 Baso % (Auto) 0.2 Lymph # (Auto) 0.60 L [place] # (Auto) 0.66 Eos # (Auto) 0.16 Baso # (Auto) 0.01 Absolute Neutrophils 4.36 POC Sodium Sodium POC Potassium Potassium POC Chloride Chloride Carbon Dioxide POC Total CO2 Anion Gap POC BUN BUN Creatinine POC Creatinine GFR Calculation Glucose POC Glucose Uric Acid Calcium POC WB Ioniz Calcium Phosphorus Magnesium Total Bilirubin Direct Bilirubin GGT AST ALT Alkaline Phosphatase Lactate Dehydrogenase Troponin T NT-Pro-B Natriuret Pep Total Protein Albumin Globulin Albumin/Globulin Ratio Triglycerides A/P Narrative A/P Narrative: A: *Acute on chronic hypoxic respiratory failure: *Acute on chronic diastolic CHF w/mild pulm edema, mod MR: -last echo should improved EF from 48% to 69% *Anasarca: *COPD/pulmonary fibrosis (4L O2 at home): Follows with Dr. Tucker *Afib/SVT: follows with Dr. Myrick, on BB -was on anticoagulation in past (warfarin) but this was discontinued due to diffuse bruising/bleeding. *HTN: *Prediabetes: A1c 6.1 *Obesity: *Anemia, chronic P: -IV lasix gtt -monitor I/'s, UOP -O2 supp -hold home ACEI for low BP, cont BB -cont home ASA/Plavix -cont home IH's, prn nebs -SSI - -pt/ot -CM for placement needs -ppx:lovenox DNR Time Spent With Patient Time: Total time spent is greater than 50% in coordination of care (as documented) at patient's floor/unit and/or counseling patient:
[2020-12-30 18:12] LABS: ALT/SGPT 9 U/L (<40); AST/SGOT 19 U/L (<32); Albumin 3.5 gm/dL (3.2-5.2); Alkaline Phosphatase 186 U/L (39-117); Bilirubin,Direct 0.3 mg/dL (<0.3); Bilirubin,Total 0.4 mg/dL (0.1-1.0); Blood Urea Nitrogen 15 mg/dL (8-23); Calcium 9.5 mg/dL (8.6-10.4); Carbon Dioxide 23 mmol/L (22-30); Chloride 107 mmol/L (96-108); Globulin 3.4 gm/dL (2.2-3.7); Glomerular Filtration Rate 83; Glucose 128 mg/dL (70-105); Lactate Dehydrogenase 229 U/L (135-225); Phosphorous 3.6 mg/dL (2.5-4.5); Triglycerides 72 mg/dL (<150); Uric Acid 5.4 mg/dL (2.5-8.0)
--- NOTE | 2020-12-30 18:24 | EKG ---
[facility] Test Date: 2020-12-30 Pat Name: Leslie Maldonado Department: ED Room: Gender: Female Director Of Pharmacy: TERA : 1940 Requested By: Jey Serna Order Number: [id number] Reading MD: Jorge Schumacher Measurements Intervals [place] Rate: 91 P: SD: QRS: 107 QRSD: 98 T: 19 QT: 416 QTc: 512 Interpretive Statements ATRIAL FIBRILLATION Compared to prior rate is now controlled, Voltage is now low, No further wide complex beats ST segment changes have lessened Electronically Signed On 12-30-2020 18:24:31 PDT by Jorge Schumacher /store/[email or web address]/[id number]/[id number].pdf
[2020-12-30] MEDS ORDERED: MAGNESIUM SULFATE 2 GM/50 ML BAG IV PRN (20:35)
[2020-12-30] MEDS ORDERED: POTASSIUM CHLORIDE 40 MEQ in DEXTROSE 5% IN WATER 500 ML IV PRN (20:35)
[2020-12-30] MEDS ORDERED: DEXTROSE 31 GM ORAL.SUSP PO PRN (20:35)
[2020-12-30] MEDS ORDERED: BENZONATATE 100 MG CAPSULE PO PRN (20:35)
[2020-12-30] MEDS ORDERED: METOPROLOL TARTRATE 5 MG/5 ML VIAL IV PRN (20:35)
[2020-12-30] MEDS ORDERED: DEXTROSE 50% 50 ML VIAL IV PRN (20:35)
[2020-12-30] MEDS ORDERED: ALBUTEROL SULFATE 200 PUFF INHALER INH PRN (20:35)
[2020-12-30] MEDS ORDERED: POTASSIUM CHLORIDE 20 MEQ TABLET PO PRN ×2 (20:35)
[2020-12-30] MEDS ORDERED: SENNOSIDES 1 TABLET PO PRN (20:35)
[2020-12-30] MEDS ORDERED: IPRATROPIUM/ALBUTEROL 3 ML AMPUL.NEB NEB PRN (20:35)
[2020-12-30] MEDS ORDERED: POLYETHYLENE GLYCOL 3350 17 GM PACKET PO PRN (20:35)
[2020-12-30] MEDS ORDERED: guaiFENesin 600 MG TAB.SR.12H PO PRN (20:35)
[2020-12-30] MEDS ORDERED: ONDANSETRON 4 MG/2 ML VIAL IV PRN (20:35)
[2020-12-30] MEDS ORDERED: FUROSEMIDE 100 MG/10 ML VIAL IV ONE (21:05)
[2020-12-30] MEDS: FUROSEMIDE 250 MG in 0.9 % SODIUM CHLORIDE 225 ML IV SCH (21:21)
[2020-12-30] MEDS: INSULIN LISPRO 1 UNIT/0.01 ML UNIT SQ SCH (21:22)
[2020-12-30] MEDS: MIRTAZAPINE 15 MG TABLET PO SCH (21:38)
[2020-12-30] MEDS: ENOXAPARIN 40 MG/0.4 ML SYRINGE SQ SCH (21:38)
[2020-12-30] MEDS: DOCUSATE SODIUM 100 MG CAPSULE PO SCH (21:38)
[2020-12-30] MEDS: HYDROcodone/APAP 5/325MG TABLET PO PRN (21:38)
[2020-12-30] MEDS: PRAMIPEXOLE 1 MG TABLET PO SCH (21:39)
[2020-12-30] MEDS: 0.9 % SODIUM CHLORIDE 10 ML SYRINGE IV SCH (21:40)
[2020-12-31] MEDS: 0.9 % SODIUM CHLORIDE 10 ML SYRINGE IV SCH ×3 (05:58→21:21)
[2020-12-31 06:53] LABS: Basophils # (Auto) 0.02 K/mcL (0.00-0.30); Basophils % (Auto) 0.4 % (0.0-2.0); Eosinophils # (Auto) 0.15 K/mcL (0.00-0.70); Eosinophils % (Auto) 3.2 % (0.0-7.0); Hematocrit 31.8 % (34.1-44.9); Hemoglobin 8.9 g/dL (11.2-15.7); Lymphocytes # (Auto) 0.59 K/mcL (1.50-4.80); Lymphocytes % (Auto) 12.4 % (15.5-49.0); Mean Cell Volume 91.1 fL (80.0-100.0); Mean Platelet Volume 10.1 fL (7.4-10.4); Monocytes # (Auto) 0.66 K/mcL (0.10-0.90); Monocytes % (Auto) 13.9 % (1.0-12.0); Neutrophils % (Auto) 70.1 % (38.0-78.0); Platelet Count 248 K/mcL (140-440); RBC 3.49 M/mcL (3.59-5.38); Red Cell Distribution Width 16.8 % (11.5-14.5); WBC 4.7 K/mcL (4.5-11.0)
[2020-12-31] MEDS: INSULIN LISPRO 1 UNIT/0.01 ML UNIT SQ SCH ×4 (07:00→21:21)
[2020-12-31 07:14] LABS: ALT/SGPT 6 U/L (<40); AST/SGOT 15 U/L (<32); Albumin 3.2 gm/dL (3.2-5.2); Albumin/Globulin Ratio 1.2 (1.0-2.3); Alkaline Phosphatase 151 U/L (39-117); Bilirubin,Direct 0.2 mg/dL (<0.3); Bilirubin,Total 0.5 mg/dL (0.1-1.0); Blood Urea Nitrogen 13 mg/dL (8-23); Calcium 8.7 mg/dL (8.6-10.4); Carbon Dioxide 33 mmol/L (22-30); Chloride 101 mmol/L (96-108); Globulin 2.7 gm/dL (2.2-3.7); Glomerular Filtration Rate 87; Glucose 83 mg/dL (70-105); Lactate Dehydrogenase 205 U/L (135-225); Phosphorous 4.2 mg/dL (2.5-4.5); Triglycerides 50 mg/dL (<150); Uric Acid 5.8 mg/dL (2.5-8.0)
--- NOTE | 2020-12-31 07:39 | Internal Med Progress Note ---
SUBJECTIVE Subjective Patient information: Note initiated : 12/31/20 at 7:35 am Service Date, if different from initiated Date: [] Patient: Leslie Maldonado a 80 y/o F admitted on 12/30/20 for Shortness of breath. Chief Complaint: [] Interval history: History of present illness: Ms. Maldonado is a 80 year old F Presents the ED with shortness of breath and increasing edema. Patient does have a cough but she said that is chronic and no change. She said she has had increasing edema for weeks. Has been short of breath for weeks. She was hospitalized a month ago for COPD and CHF. She is on 4 L of oxygen but with any exertion she will desat into the high 70s. She has a hard time ambulating across her room without becoming short of breath. She resides at [facility] assisted living [facility]. Chest x-ray with edema. Lactate elevated likely from hypoxia. Troponin negative. Patient states that her normal weight is 170 but the last time she was at that weight was 6 to 8 months ago. She states about a month ago she was 230. She measured back to 40 here. 12/31 States poor sleep but overall feeling a little better. Breathing a little bit better. Has good urine output. Review of Systems: denies headache/fever/chills/nausea/vomiting/chest or abdominal pain/diarrhea. Otherwise see above. Constitutional Vitals: Vital Signs Temp Pulse Resp BP Pulse Ox 97.8 F 90 15 131/82 98 12/31/20 04:20 12/31/20 04:20 12/31/20 04:20 12/31/20 04:01 12/31/20 04:20 Period Temp Pulse Resp BP Sys/Ucellar Pulse Ox Last 24 Hr 96.0 F-98.1 F 30-98 14-30 55-152/28-108 65-98 Intake and Output 12/30/20 12/31/20 12/31/20 21:59 05:59 13:59 Intake Total 48 Output Total 515 1200 540 Balance -515 1200 -604 Weight 113.653 kg Intake & Output: Intake & Output 12/30/20 12/31/20 12/31/20 21:59 05:59 13:59 Intake Total 48 Output Total 515 1200 540 Balance -515 -1200 -492 Weight 113.653 kg Intake: IV 48 Lasix 250 mg In Sodium Chloride 48 0.9% 225 ml @ 5 MG/HR 5 mls/hr IV Q24H [facility] Rx#:[id number] Output: Urine Catheter Amount 515 1200 540 Other: Urine Appearance Clear Clear Clear Uretheral (Sharma) Clear Urine Color Pale Pale Bright Yellow Uretheral (Sharma) Pale Exam: General: Alert, Awake, No acute Distress, obese Eyes/N/T: EOMI, Head/Neck: neck supple, CV: irreg irreg, No murmurs, Pulm: Diminished b/l, mild bibasilar rales , no wheezing Abd: soft, nontender, +BS x4 Ext: no clubbing/cyanosis, 2-3+ edema to thighs, UE edema as well Neuro: Alert, no focal deficits, moves all extremities, Skin: warm/dry OBJ DATA Labs CBC & Chem 7: 12/31/20 05:14 12/31/20 05:14 Labs: Abnormal Lab Results 12/31/20 12/31/20 12/30/20 05:14 05:14 11:38 RBC 3.49 L Hgb 8.9 L Hct 31.8 L POC Hct MCH 25.5 L MCHC 28.0 L RDW 16.8 H Lymph % (Auto) 12.4 L [place] % (Auto) 13.9 H Lymph # (Auto) 0.59 L Carbon Dioxide 33 H Anion Gap 6.0 L Glucose 128 H POC Glucose POC WB Ioniz Calcium Direct Bilirubin 0.3 H GGT 49 H 44 H Alkaline Phosphatase 151 H 186 H Lactate Dehydrogenase 229 H NT-Pro-B Natriuret Pep 12/30/20 12/30/20 11:28 11:28 RBC Hgb 10.1 L Hct POC Hct 34 L MCH 25.6 L MCHC 28.0 L RDW 16.9 H Lymph % (Auto) 10.4 L [place] % (Auto) Lymph # (Auto) 0.60 L Carbon Dioxide Anion Gap Glucose POC Glucose 127 H POC WB Ioniz Calcium 1.15 L Direct Bilirubin GGT Alkaline Phosphatase Lactate Dehydrogenase NT-Pro-B Natriuret Pep 1935.0 H Meds: Medications Acetaminophen (Acetaminophen 325 Mg Tablet) 650 mg PO Q6HP PRN PRN Reason: PAIN/FEVER > 101 Hydrocodone Bitart/Acetaminophen (Hydrocodone/Apap 5/325mg Tablet) 1 tab PO QIDP PRN PRN Reason: pain Last Admin: 12/30/20 21:38 Dose: 1 tab Documented by: Albuterol Sulfate (Albuterol Sulfate 200 Puff Inhaler) 2 puff INH Q6HP PRN PRN Reason: shortness of breath Albuterol/Ipratropium (Ipratropium/Albuterol 3 Ml Ampul.Neb) 3 ml NEB Q4HP PRN PRN Reason: Shortness Of Breath Aspirin (Aspirin 81 Mg Tab.Chew) 81 mg PO DAILY [facility] Benzonatate (Benzonatate 100 Mg Capsule) 100 mg PO TIDP PRN PRN Reason: Cough Last Admin: 12/30/20 21:38 Dose: 100 mg Documented by: Dextrose (Dextrose 50% 50 Ml Vial) 0 ml IV UD PRN PRN Reason: Hypoglycemia Diagnostic Test (Pha) (Accu-Chek 1 Each Strip) [address] [facility] Last Admin: 12/31/20 07:00 Dose: 1 each Documented by: Docusate Sodium (Docusate Sodium 100 Mg Capsule) 100 mg PO BID [facility] Last Admin: 12/30/20 21:38 Dose: 100 mg Documented by: Duloxetine HCl (Duloxetine 30 Mg Capsule) 30 mg PO QDAY [facility] Enoxaparin Sodium (Enoxaparin 40 Mg/0.4 Ml Syringe) 40 mg SQ BID [facility] Last Admin: 12/30/20 21:38 Dose: 40 mg Documented by: Glucose (Dextrose 31 Gm Oral.Susp) 15 gm PO PRN PRN PRN Reason: Hypoglycemia Guaifenesin (Guaifenesin 600 Mg Tab.Sr.12h) 600 mg PO BIDP PRN PRN Reason: Congestion Potassium Chloride 40 meq/ (Dextrose) 520 mls @ 130 mls/hr IV UD PRN PRN Reason: Potassium < 3 Magnesium Sulfate (Magnesium Sulfate) 2 gm in 50 mls @ 50 mls/hr IV UD PRN PRN Reason: Magnesium </= 1.6 Furosemide 250 mg/ Sodium (Chloride) 250 mls @ 5 mls/hr IV Q24H [facility]; Protocol Last Titration: 12/31/20 06:58 Dose: 4 mg/hr, 4 mls/hr Documented by: Insulin Human Lispro (Insulin Lispro 1 Unit/0.01 Ml Unit) [address] [facility]; Protocol Last Admin: 12/31/20 07:00 Dose: Not Given Documented by: Metoprolol Succinate (Metoprolol Succinate 25 Mg Tab.Xl.24h) 25 mg PO BID [facility] Metoprolol Tartrate (Metoprolol Tartrate 5 Mg/5 Ml Vial) 5 mg IV Q2HP PRN PRN Reason: Tachyarrhythmias HR>110 Mirtazapine (Mirtazapine 15 Mg Tablet) 7.5 mg PO QHS [facility] Last Admin: 12/30/20 21:38 Dose: 7.5 mg Documented by: Ondansetron HCl (Ondansetron 4 Mg/2 Ml Vial) 4 mg IV Q4HP PRN PRN Reason: Nausea And Vomiting Fluticasone- Umeclidin-Vilanter [ Trelegy Ellipta] Inh 1 dose INH Q24H [facility] Polyethylene Glycol (Polyethylene Glycol 3350 17 Gm Packet) 17 gm PO DAILYP PRN PRN Reason: Constipation Potassium Chloride (Potassium Chloride 20 Meq Tablet) 40 meq PO UD PRN PRN Reason: Potssium is 3-3.5 Potassium Chloride (Potassium Chloride 20 Meq Tablet) 40 meq PO UD PRN PRN Reason: Potassium < 3 Pramipexole Dihydrochloride (Pramipexole 0.25 Mg Tablet) 0.5 mg PO QAM [facility] Pramipexole Dihydrochloride (Pramipexole 1 Mg Tablet) 1.5 mg PO [facility] Last Admin: 12/30/20 21:39 Dose: 1.5 mg Documented by: Senna (Sennosides 1 Tablet) 2 tab PO DAILYP PRN PRN Reason: Constipation Sertraline HCl (Sertraline 50 Mg Tablet) 25 mg PO QDAY [facility] Sodium Chloride (0.9 % Sodium Chloride 10 Ml Syringe) 10 ml IV Q8 [facility] Last Admin: 12/31/20 05:58 Dose: 10 ml Documented by: Spironolactone (Spironolactone 25 Mg Tablet) 25 mg PO QDAY [facility] Throat Lozenges (Benzocaine/Menthol 1 Lozenge) 1 lozenge PO PRN PRN PRN Reason: Sore Throat Last Admin: 12/30/20 21:39 Dose: 1 lozenge Documented by: Tiotropium [place] (Tiotropium [place] 18 Mcg Inhalant) 18 mcg INH DAILY [facility] A/P Narrative A/P Narrative: A: *Acute on chronic hypoxic respiratory failure: -covid neg -on 6L NC o/n but down to 4 today *Acute on chronic diastolic CHF w/mild pulm edema, mod MR: -last echo showed improved EF from 48% to 69% *Anasarca: *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 Tucker *Afib/SVT: follows with Dr. Myrick, on BB -was on anticoagulation in past (warfarin) but this was discontinued due to diffuse bruising/bleeding. *HTN: *Prediabetes: A1c 6.1 *Obesity: *Anemia, chronic P: -IV lasix gtt -monitor I/'s, UOP -O2 supp -hold home ACEI for low BP but likely restart soon, cont BB -cont home ASA/Plavix -cont home IH's, prn nebs -SSI -pt/ot -CM for placement needs -ppx:lovenox DNR Time Spent With Patient Time: Total time spent is greater than 50% in coordination of care (as documented) at patient's floor/unit and/or counseling patient:
[2020-12-31] MEDS: SERTRALINE 50 MG TABLET PO SCH (08:06)
[2020-12-31] MEDS: SPIRONOLACTONE 25 MG TABLET PO SCH (08:06)
[2020-12-31] MEDS: DOCUSATE SODIUM 100 MG CAPSULE PO SCH ×2 (08:06→21:30)
[2020-12-31] MEDS: METOPROLOL SUCCINATE 25 MG TAB.XL.24H PO SCH ×2 (08:06→21:29)
[2020-12-31] MEDS: ENOXAPARIN 40 MG/0.4 ML SYRINGE SQ SCH ×2 (08:07→21:28)
[2020-12-31] MEDS: PRAMIPEXOLE 0.25 MG TABLET PO SCH (08:07)
[2020-12-31] MEDS: TIOTROPIUM BROMIDE 18 MCG INHALANT INH SCH (08:07)
[2020-12-31] MEDS: FLUTICASONE UMECLIDIN VILANTER INH SCH (08:07)
[2020-12-31] MEDS: ASPIRIN 81 MG TAB.CHEW PO SCH (08:07)
[2020-12-31] MEDS: DULoxetine 30 MG CAPSULE PO SCH (08:09)
[2020-12-31] MEDS ORDERED: CLOPIDOGREL 75 MG TABLET PO SCH (09:00)
[2020-12-31] MEDS: ACETAMINOPHEN 325 MG TABLET PO PRN (10:15)
[2020-12-31] MEDS: HYDROcodone/APAP 5/325MG TABLET PO PRN (18:46)
[2020-12-31] MEDS: PRAMIPEXOLE 1 MG TABLET PO SCH (21:29)
[2020-12-31] MEDS: MIRTAZAPINE 15 MG TABLET PO SCH (21:30)
[2020-12-31] MEDS ORDERED: FUROSEMIDE 100 MG/10 ML VIAL IV ONE (21:54)
[2020-12-31] MEDS: FUROSEMIDE 250 MG in 0.9 % SODIUM CHLORIDE 225 ML IV SCH (22:05)
[2020-12-31] MEDS: 0.9 % SODIUM CHLORIDE 250 ML IV SCH (22:11)
[2021-01-01] MEDS: 0.9 % SODIUM CHLORIDE 10 ML SYRINGE IV SCH ×3 (05:58→21:23)
--- NOTE | 2021-01-01 07:32 | Internal Med Progress Note ---
SUBJECTIVE Subjective Patient information: Note initiated : 01/01/21 at 7:29 am Service Date, if different from initiated Date: [] Patient: Leslie Maldonado a 80 y/o F admitted on 12/30/20 for Shortness of breath. Chief Complaint: [] Interval history: History of present illness: Ms. Maldonado is a 80 year old F Presents the ED with shortness of breath and increasing edema. Patient does have a cough but she said that is chronic and no change. She said she has had increasing edema for weeks. Has been short of breath for weeks. She was hospitalized a month ago for COPD and CHF. She is on 4 L of oxygen but with any exertion she will desat into the high 70s. She has a hard time ambulating across her room without becoming short of breath. She resides at [facility] living [facility]. Chest x-ray with edema. Lactate elevated likely from hypoxia. Troponin negative. Patient states that her normal weight is 170 but the last time she was at that weight was 6 to 8 months ago. She states about a month ago she was 230. She measured back to 40 here. 12/31 States poor sleep but overall feeling a little better. Breathing a little bit better. Has good urine output. 01/01 Putting out good urine output. Patient feels less edematous and breathing easier. Review of Systems: denies headache/fever/chills/nausea/vomiting/chest or abdominal pain/diarrhea. Otherwise see above. Constitutional Vitals: Vital Signs Temp Pulse Resp BP Pulse Ox 99.8 F H 115 H 15 153/90 97 01/01/21 04:02 01/01/21 06:11 01/01/21 06:11 01/01/21 04:02 01/01/21 06:11 Period Temp Pulse Resp BP Sys/Cuellar Pulse Ox Last 24 Hr 97.8 F-99.8 F 43-115 13-25 100-153/53-109 86-97 Intake and Output 12/31/20 01/01/21 01/01/21 21:59 05:59 13:59 Intake Total 545 261 Output Total 950 1546 165 Balance -405 -1285 -165 Weight 116.437 kg Intake & Output: Intake & Output 12/31/20 01/01/21 01/01/21 21:59 05:59 13:59 Intake Total 545 261 Output Total 950 1546 165 Balance -405 -1285 -165 Weight 116.437 kg Intake: IV 25 21 Lasix 250 mg In Sodium Chloride 25 21 0.9% 225 ml @ 5 MG/HR 5 mls/hr IV Q24H [facility] Rx#:[id number] Oral 520 240 Output: Urine Catheter Amount 950 1546 165 Other: Meal Dinner Percent of Meal Consumed 100% Feeding Ability Independent Urine Appearance Clear Clear Urine Color Light Hui Dark Yellow Dark Hui [place] Urine Odor Normal Stool Size Large Stool Color Brown Stool Consistency Normal for Patient Soft Formed # Bowel Movements 1 Exam: General: Alert, Awake, No acute Distress, obese Eyes/N/T: EOMI, Head/Neck: neck supple, CV: irreg irreg, No murmurs, Pulm: Diminished b/l, mild bibasilar rales , no wheezing Abd: soft, nontender, +BS x4 Ext: no clubbing/cyanosis, 2-3+ edema to thighs, UE edema as well - edema improving Neuro: Alert, no focal deficits, moves all extremities, Skin: warm/dry OBJ DATA Labs CBC & Chem 7: 12/31/20 05:14 12/31/20 05:14 Labs: Abnormal Lab Results 12/31/20 12/31/20 12/30/20 05:14 05:14 11:38 RBC 3.49 L Hgb 8.9 L Hct 31.8 L POC Hct MCH 25.5 L MCHC 28.0 L RDW 16.8 H Lymph % (Auto) 12.4 L [place] % (Auto) 13.9 H Lymph # (Auto) 0.59 L Carbon Dioxide 33 H Anion Gap 6.0 L Glucose 128 H POC Glucose POC WB Ioniz Calcium Direct Bilirubin 0.3 H GGT 49 H 44 H Alkaline Phosphatase 151 H 186 H Lactate Dehydrogenase 229 H NT-Pro-B Natriuret Pep 12/30/20 12/30/20 11:28 11:28 RBC Hgb 10.1 L Hct POC Hct 34 L MCH 25.6 L MCHC 28.0 L RDW 16.9 H Lymph % (Auto) 10.4 L [place] % (Auto) Lymph # (Auto) 0.60 L Carbon Dioxide Anion Gap Glucose POC Glucose 127 H POC WB Ioniz Calcium 1.15 L Direct Bilirubin GGT Alkaline Phosphatase Lactate Dehydrogenase NT-Pro-B Natriuret Pep 1935.0 H Meds: Medications Acetaminophen (Acetaminophen 325 Mg Tablet) 650 mg PO Q6HP PRN PRN Reason: PAIN/FEVER > 101 Last Admin: 12/31/20 10:15 Dose: 650 mg Documented by: Hydrocodone Bitart/Acetaminophen (Hydrocodone/Apap 5/325mg Tablet) 1 tab PO QIDP PRN PRN Reason: pain Last Admin: 12/31/20 18:46 Dose: 1 tab Documented by: Albuterol Sulfate (Albuterol Sulfate 200 Puff Inhaler) 2 puff INH Q6HP PRN PRN Reason: shortness of breath Albuterol/Ipratropium (Ipratropium/Albuterol 3 Ml Ampul.Neb) 3 ml NEB Q4HP PRN PRN Reason: Shortness Of Breath Aspirin (Aspirin 81 Mg Tab.Chew) 81 mg PO DAILY [facility] Last Admin: 12/31/20 08:07 Dose: 81 mg Documented by: Benzonatate (Benzonatate 100 Mg Capsule) 100 mg PO TIDP PRN PRN Reason: Cough Last Admin: 12/30/20 21:38 Dose: 100 mg Documented by: Dextrose (Dextrose 50% 50 Ml Vial) 0 ml IV UD PRN PRN Reason: Hypoglycemia Diagnostic Test (Pha) (Accu-Chek 1 Each Strip) 1 each FS ACHS [facility] Last Admin: 12/31/20 21:30 Dose: 1 each Documented by: Docusate Sodium (Docusate Sodium 100 Mg Capsule) 100 mg PO BID [facility] Last Admin: 12/31/20 21:30 Dose: Not Given Documented by: Duloxetine HCl (Duloxetine 30 Mg Capsule) 30 mg PO QDAY [facility] Last Admin: 12/31/20 08:09 Dose: 30 mg Documented by: Enoxaparin Sodium (Enoxaparin 40 Mg/0.4 Ml Syringe) 40 mg SQ BID [facility] Last Admin: 12/31/20 21:28 Dose: 40 mg Documented by: Glucose (Dextrose 31 Gm Oral.Susp) 15 gm PO PRN PRN PRN Reason: Hypoglycemia Guaifenesin (Guaifenesin 600 Mg Tab.Sr.12h) 600 mg PO BIDP PRN PRN Reason: Congestion Last Admin: 12/31/20 18:47 Dose: 600 mg Documented by: Potassium Chloride 40 meq/ (Dextrose) 520 mls @ 130 mls/hr IV UD PRN PRN Reason: Potassium < 3 Magnesium Sulfate (Magnesium Sulfate) 2 gm in 50 mls @ 50 mls/hr IV UD PRN PRN Reason: Magnesium </= 1.6 Furosemide 250 mg/ Sodium (Chloride) 250 mls @ 5 mls/hr IV Q24H [facility]; Protocol Last Titration: 01/01/21 03:00 Dose: 1 mg/hr, 1 mls/hr Documented by: Sodium Chloride (Sodium Chloride 0.9%) 250 mls @ 20 mls/hr IV .[id number] [facility] Last Admin: 12/31/20 22:11 Dose: 20 mls/hr Documented by: Insulin Human Lispro (Insulin Lispro 1 Unit/0.01 Ml Unit) 0 unit SQ ACHS [facility]; Protocol Last Admin: 12/31/20 21:21 Dose: Not Given Documented by: Metoprolol Succinate (Metoprolol Succinate 25 Mg Tab.Xl.24h) 25 mg PO BID [facility] Last Admin: 12/31/20 21:29 Dose: 25 mg Documented by: Metoprolol Tartrate (Metoprolol Tartrate 5 Mg/5 Ml Vial) 5 mg IV Q2HP PRN PRN Reason: Tachyarrhythmias HR>110 Mirtazapine (Mirtazapine 15 Mg Tablet) 7.5 mg PO QHS [facility] Last Admin: 12/31/20 21:30 Dose: 7.5 mg Documented by: Ondansetron HCl (Ondansetron 4 Mg/2 Ml Vial) 4 mg IV Q4HP PRN PRN Reason: Nausea And Vomiting Fluticasone- Umeclidin-Vilanter [ Trelegy Ellipta] Inh 1 dose INH Q24H [facility] Last Admin: 12/31/20 08:07 Dose: Not Given Documented by: Polyethylene Glycol (Polyethylene Glycol 3350 17 Gm Packet) 17 gm PO DAILYP PRN PRN Reason: Constipation Potassium Chloride (Potassium Chloride 20 Meq Tablet) 40 meq PO UD PRN PRN Reason: Potssium is 3-3.5 Potassium Chloride (Potassium Chloride 20 Meq Tablet) 40 meq PO UD PRN PRN Reason: Potassium < 3 Pramipexole Dihydrochloride (Pramipexole 0.25 Mg Tablet) 0.5 mg PO QAM [facility] Last Admin: 12/31/20 08:07 Dose: 0.5 mg Documented by: Pramipexole Dihydrochloride (Pramipexole 1 Mg Tablet) 1.5 mg PO HS [facility] Last Admin: 12/31/20 21:29 Dose: 1.5 mg Documented by: Senna (Sennosides 1 Tablet) 2 tab PO DAILYP PRN PRN Reason: Constipation Sertraline HCl (Sertraline 50 Mg Tablet) 25 mg PO QDAY [facility] Last Admin: 12/31/20 08:06 Dose: 25 mg Documented by: Sodium Chloride (0.9 % Sodium Chloride 10 Ml Syringe) 10 ml IV Q8 [facility] Last Admin: 01/01/21 05:58 Dose: Not Given Documented by: Spironolactone (Spironolactone 25 Mg Tablet) 25 mg PO QDAY [facility] Last Admin: 12/31/20 08:06 Dose: 25 mg Documented by: Throat Lozenges (Benzocaine/Menthol 1 Lozenge) 1 lozenge PO PRN PRN PRN Reason: Sore Throat Last Admin: 12/30/20 21:39 Dose: 1 lozenge Documented by: Tiotropium [place] (Tiotropium [place] 18 Mcg Inhalant) 18 mcg INH DAILY [facility] Last Admin: 12/31/20 08:07 Dose: Not Given Documented by: A/P Narrative A/P Narrative: A: *Acute on chronic hypoxic respiratory failure: -covid neg -on 3-4L NC *Acute on chronic diastolic CHF w/mild pulm edema, mod MR: -last echo showed improved EF from 48% to 69% -good UOP *Anasarca: *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 Tucker *Afib/SVT: follows with Dr. Myrick, on BB -was on anticoagulation in past (warfarin) but this was discontinued due to diffuse bruising/bleeding. *HTN: *Prediabetes: A1c 6.1 *Obesity: *Anemia, chronic P: -IV lasix gtt -monitor I/'s, UOP -O2 supp -restart home ACEI, cont BB -cont home ASA/Plavix (?on both) -cont home IH's, prn nebs -SSI -pt/ot -CM for placement needs -ppx:lovenox DNR Time Spent With Patient Time: Total time spent is greater than 50% in coordination of care (as documented) at patient's floor/unit and/or counseling patient:
[2021-01-01] MEDS: INSULIN LISPRO 1 UNIT/0.01 ML UNIT SQ SCH ×4 (07:55→21:23)
[2021-01-01] MEDS: SPIRONOLACTONE 25 MG TABLET PO SCH (08:02)
[2021-01-01] MEDS: METOPROLOL SUCCINATE 25 MG TAB.XL.24H PO SCH ×2 (08:02→21:11)
[2021-01-01] MEDS: DOCUSATE SODIUM 100 MG CAPSULE PO SCH ×3 (08:02→21:11)
[2021-01-01] MEDS: ENOXAPARIN 40 MG/0.4 ML SYRINGE SQ SCH (08:02)
[2021-01-01] MEDS: DULoxetine 30 MG CAPSULE PO SCH (08:02)
[2021-01-01] MEDS: SERTRALINE 50 MG TABLET PO SCH (08:02)
[2021-01-01] MEDS: LISINOPRIL 5 MG TABLET PO SCH (08:02)
[2021-01-01] MEDS: PRAMIPEXOLE 0.25 MG TABLET PO SCH (08:02)
[2021-01-01] MEDS: ACETAMINOPHEN 325 MG TABLET PO PRN (08:02)
[2021-01-01] MEDS: ASPIRIN 81 MG TAB.CHEW PO SCH (08:03)
[2021-01-01] MEDS: FLUTICASONE UMECLIDIN VILANTER INH SCH (08:03)
[2021-01-01] MEDS: TIOTROPIUM BROMIDE 18 MCG INHALANT INH SCH (08:03)
[2021-01-01 08:28] LABS: ALT/SGPT 8 U/L (<40); AST/SGOT 19 U/L (<32); Albumin 3.2 gm/dL (3.2-5.2); Albumin/Globulin Ratio 0.9 (1.0-2.3); Alkaline Phosphatase 161 U/L (39-117); Bilirubin,Direct 0.3 mg/dL (<0.3); Bilirubin,Total 0.7 mg/dL (0.1-1.0); Blood Urea Nitrogen 11 mg/dL (8-23); Calcium 9.1 mg/dL (8.6-10.4); Carbon Dioxide 33 mmol/L (22-30); Chloride 95 mmol/L (96-108); Globulin 3.5 gm/dL (2.2-3.7); Glomerular Filtration Rate 83; Glucose 78 mg/dL (70-105); Lactate Dehydrogenase 239 U/L (135-225); Phosphorous 3.4 mg/dL (2.5-4.5); Triglycerides 75 mg/dL (<150); Uric Acid 6.4 mg/dL (2.5-8.0)
[2021-01-01] MEDS ORDERED: acetaZOLAMIDE SOD 500 MG VIAL IV ONE (09:24)
[2021-01-01] MEDS ORDERED: MAGNESIUM SULFATE 8.12 MEQ in DEXTROSE 5% IN WATER 50 ML IV ONE (09:24)
[2021-01-01] MEDS: 0.9 % SODIUM CHLORIDE 250 ML IV SCH ×2 (11:34→23:58)
[2021-01-01] MEDS: FUROSEMIDE 250 MG in 0.9 % SODIUM CHLORIDE 225 ML IV SCH (20:50)
[2021-01-01] MEDS: PRAMIPEXOLE 1 MG TABLET PO SCH (21:10)
[2021-01-01] MEDS: HYDROcodone/APAP 5/325MG TABLET PO PRN (21:10)
[2021-01-01] MEDS: MIRTAZAPINE 15 MG TABLET PO SCH (21:10)
[2021-01-02] MEDS: 0.9 % SODIUM CHLORIDE 10 ML SYRINGE IV SCH ×3 (05:21→21:16)
[2021-01-02] MEDS: INSULIN LISPRO 1 UNIT/0.01 ML UNIT SQ SCH ×4 (08:38→20:55)
[2021-01-02] MEDS ORDERED: ENOXAPARIN 40 MG/0.4 ML SYRINGE SQ SCH (09:00)
[2021-01-02 09:24] LABS: Basophils # (Auto) 0.02 K/mcL (0.00-0.30); Basophils % (Auto) 0.4 % (0.0-2.0); Eosinophils # (Auto) 0.15 K/mcL (0.00-0.70); Eosinophils % (Auto) 2.8 % (0.0-7.0); Hematocrit 38.8 % (34.1-44.9); Hemoglobin 10.1 g/dL (11.2-15.7); Lymphocytes # (Auto) 0.78 K/mcL (1.50-4.80); Lymphocytes % (Auto) 14.5 % (15.5-49.0); Mean Cell Volume 97.7 fL (80.0-100.0); Monocytes # (Auto) 0.82 K/mcL (0.10-0.90); Monocytes % (Auto) 15.2 % (1.0-12.0); Neutrophils % (Auto) 67.1 % (38.0-78.0); Platelet Count 244 K/mcL (140-440); RBC 3.97 M/mcL (3.59-5.38); Red Cell Distribution Width 17.3 % (11.5-14.5); WBC 5.4 K/mcL (4.5-11.0)
[2021-01-02 09:26] LABS: ALT/SGPT 8 U/L (<40); AST/SGOT 19 U/L (<32); Albumin 3.5 gm/dL (3.2-5.2); Alkaline Phosphatase 169 U/L (39-117); Bilirubin,Total 0.5 mg/dL (0.1-1.0); Blood Urea Nitrogen 12 mg/dL (8-23); Calcium 9.3 mg/dL (8.6-10.4); Carbon Dioxide 32 mmol/L (22-30); Chloride 95 mmol/L (96-108); Globulin 3.4 gm/dL (2.2-3.7); Glomerular Filtration Rate 83; Glucose 100 mg/dL (70-105)
[2021-01-02] MEDS: SERTRALINE 50 MG TABLET PO SCH (09:39)
[2021-01-02] MEDS: ASPIRIN 81 MG TAB.CHEW PO SCH (09:40)
[2021-01-02] MEDS: METOPROLOL SUCCINATE 25 MG TAB.XL.24H PO SCH ×2 (09:40→21:16)
[2021-01-02] MEDS: SPIRONOLACTONE 25 MG TABLET PO SCH (09:40)
[2021-01-02] MEDS: DOCUSATE SODIUM 100 MG CAPSULE PO SCH ×2 (09:40→21:14)
[2021-01-02] MEDS: LISINOPRIL 5 MG TABLET PO SCH (09:43)
[2021-01-02] MEDS: DULoxetine 30 MG CAPSULE PO SCH (09:43)
[2021-01-02] MEDS: PRAMIPEXOLE 0.25 MG TABLET PO SCH (09:43)
[2021-01-02] MEDS: TIOTROPIUM BROMIDE 18 MCG INHALANT INH SCH (09:55)
[2021-01-02] MEDS: FLUTICASONE UMECLIDIN VILANTER INH SCH (09:55)
[2021-01-02] MEDS ORDERED: IBUPROFEN 600 MG TABLET PO PRN (10:45)
--- NOTE | 2021-01-02 10:45 | Internal Med Progress Note ---
SUBJECTIVE Subjective Patient information: Note initiated : 01/02/21 at 10:43 am Service Date, if different from initiated Date: [] Patient: Leslie Maldonado a 80 y/o F admitted on 12/30/20 for Shortness of breath. Chief Complaint: [CHF exacerbation] Interval history: Interval history: History of present illness: Ms. Maldonado is a 80 year old F Presents the ED with shortness of breath and increasing edema. Patient does have a cough but she said that is chronic and no change. She said she has had increasing edema for weeks. Has been short of breath for weeks. She was hospitalized a month ago for COPD and CHF. She is on 4 L of oxygen but with any exertion she will desat into the high 70s. She has a hard time ambulating across her room without becoming short of breath. She resides at [facility] living [facility]. Chest x-ray with edema. Lactate elevated likely from hypoxia. Troponin negative. Patient states that her normal weight is 170 but the last time she was at that weight was 6 to 8 months ago. She states about a month ago she was 230. She measured back to 40 here. 12/31 States poor sleep but overall feeling a little better. Breathing a little bit better. Has good urine output. 01/01 Putting out good urine output. Patient feels less edematous and breathing easier. 01/02: Fever with T-max 38.1 overnight. Urine output at around 200 cc/h overnight. Mild shortness of breath. Respiratory wheezing at baseline. Denies chest pain. Of bilateral upper extremities pain from chronic osteomyelitis. Constitutional Vitals: Vital Signs Temp Pulse Resp BP Pulse Ox 38.1 C H 95 H 21 141/66 94 01/02/21 08:01 01/02/21 08:01 01/02/21 08:01 01/02/21 08:01 01/02/21 08:01 Period Temp Pulse Resp BP Sys/Cuellar Pulse Ox Last 24 Hr 36.8 C-38.1 C 76-98 - 102-141/46-87 92-96 Intake and Output 01/01/21 01/02/21 01/02/21 21:59 05:59 13:59 Intake Total 209 266 480 Output Total 1516 1570 540 Balance -1307 -1304 -60 Weight 115.167 kg Intake & Output: Intake & Output 01/01/21 01/02/21 01/02/21 21:59 05:59 13:59 Intake Total 209 266 480 Output Total 1510 1570 540 Balance -7557 -1304 -60 Weight 115.167 kg Intake: IV 29 266 Sodium Chloride 0.9% 250 ml @ 248 20 mls/hr IV .[id number] [facility] Rx#: [id number] Lasix 250 mg In Sodium Chloride 29 18 0.9% 225 ml @ 5 MG/HR 5 mls/hr IV Q24H [facility] Rx#:[id number] Oral 180 0 480 Output: Urine Catheter Amount 1516 1570 540 Other: Meal Dinner Breakfast Percent of Meal Consumed 100% 100% Feeding Ability Independent Urine Appearance Sediment Clear Clear Urine Color Light Hui Pale Straw Blood Tinged Urine Odor Normal Normal General appearance: cooperative and no acute distress Head Head exam: Present atraumatic and normocephalic Eye Eye exam: Present EOMI and PERRL ENT ENT exam: Present mucous membranes moist, normal exam and normal external ear exam Additional comments: Nasal cannula in place Neck Neck exam: Present normal inspection; Absent lymphadenopathy, tenderness and thyromegaly Respiratory Respiratory exam: Present rhonchi; Absent accessory muscle use, respiratory distress and wheezes Cardiovascular Cardiovascular exam: Present normal rate and rhythm; Absent JVD GI/Abdominal GI/Abdominal exam: Present normal bowel sounds and soft; Absent organomegaly and tenderness Additional comments: Sharma catheter Extremities Exam Extremities exam: Present full ROM, normal capillary refill, normal inspection and pedal edema; Absent tenderness Neurological Exam Neurological exam: Present alert, CN II-XII intact and oriented X3; Absent motor sensory deficit Psychiatric Psychiatric exam: Present normal affect and normal mood; Absent anxious and depressed Skin Skin exam: Present dry and intact OBJ DATA Labs CBC & Chem 7: 01/02/21 05:33 01/02/21 05:33 Labs: Abnormal Lab Results 01/02/21 01/02/21 01/01/21 05:33 05:33 05:51 RBC Hgb 10.1 L Hct POC Hct MCH 25.4 L MCHC 26.0 L RDW 17.3 H Lymph % (Auto) 14.5 L [place] % (Auto) 15.2 H Lymph # (Auto) 0.78 L Chloride 95 L 95 L Carbon Dioxide 32 H 33 H Anion Gap Glucose POC Glucose POC WB Ioniz Calcium Direct Bilirubin 0.3 H GGT 43 H Alkaline Phosphatase 169 H 161 H Lactate Dehydrogenase 239 H NT-Pro-B Natriuret Pep Albumin/Globulin Ratio 0.9 L 12/31/20 12/31/20 12/30/20 05:14 05:14 11:38 RBC 3.49 L Hgb 8.9 L Hct 31.8 L POC Hct MCH 25.5 L MCHC 28.0 L RDW 16.8 H Lymph % (Auto) 12.4 L [place] % (Auto) 13.9 H Lymph # (Auto) 0.59 L Chloride Carbon Dioxide 33 H Anion Gap 6.0 L Glucose 128 H POC Glucose POC WB Ioniz Calcium Direct Bilirubin 0.3 H GGT 49 H 44 H Alkaline Phosphatase 151 H 186 H Lactate Dehydrogenase 229 H NT-Pro-B Natriuret Pep Albumin/Globulin Ratio 12/30/20 12/30/20 11:28 11:28 RBC Hgb 10.1 L Hct POC Hct 34 L MCH 25.6 L MCHC 28.0 L RDW 16.9 H Lymph % (Auto) 10.4 L [place] % (Auto) Lymph # (Auto) 0.60 L Chloride Carbon Dioxide Anion Gap Glucose POC Glucose 127 H POC WB Ioniz Calcium 1.15 L Direct Bilirubin GGT Alkaline Phosphatase Lactate Dehydrogenase NT-Pro-B Natriuret Pep 1935.0 H Albumin/Globulin Ratio Meds: Medications Acetaminophen (Acetaminophen 325 Mg Tablet) 650 mg PO Q6HP PRN PRN Reason: PAIN/FEVER > 101 Last Admin: 01/01/21 08:02 Dose: 650 mg Documented by: Hydrocodone Bitart/Acetaminophen (Hydrocodone/Apap 5/325mg Tablet) 1 tab PO QIDP PRN PRN Reason: pain Last Admin: 01/01/21 21:10 Dose: 1 tab Documented by: Albuterol Sulfate (Albuterol Sulfate 200 Puff Inhaler) 2 puff INH Q6HP PRN PRN Reason: shortness of breath Albuterol/Ipratropium (Ipratropium/Albuterol 3 Ml Ampul.Neb) 3 ml NEB Q4HP PRN PRN Reason: Shortness Of Breath Aspirin (Aspirin 81 Mg Tab.Chew) 81 mg PO DAILY [facility] Last Admin: 01/02/21 09:40 Dose: 81 mg Documented by: Benzonatate (Benzonatate 100 Mg Capsule) 100 mg PO TIDP PRN PRN Reason: Cough Last Admin: 12/30/20 21:38 Dose: 100 mg Documented by: Clopidogrel Bisulfate (Clopidogrel 75 Mg Tablet) 75 mg PO DAILY [facility] Dextrose (Dextrose 50% 50 Ml Vial) 0 ml IV UD PRN PRN Reason: Hypoglycemia Diagnostic Test (Pha) (Accu-Chek 1 Each Strip) 1 each FS ACHS [facility] Last Admin: 01/02/21 08:37 Dose: 1 each Documented by: Docusate Sodium (Docusate Sodium 100 Mg Capsule) 100 mg PO BID [facility] Last Admin: 01/02/21 09:40 Dose: 100 mg Documented by: Duloxetine HCl (Duloxetine 30 Mg Capsule) 30 mg PO QDAY [facility] Last Admin: 01/02/21 09:43 Dose: 30 mg Documented by: Enoxaparin Sodium (Enoxaparin 40 Mg/0.4 Ml Syringe) 40 mg SQ DAILY [facility] Last Admin: 01/02/21 09:39 Dose: 40 mg Documented by: Furosemide (Furosemide 40 Mg/4 Ml Vial) 40 mg IV BIDD [facility] Glucose (Dextrose 31 Gm Oral.Susp) 15 gm PO PRN PRN PRN Reason: Hypoglycemia Guaifenesin (Guaifenesin 600 Mg Tab.Sr.12h) 600 mg PO BIDP PRN PRN Reason: Congestion Last Admin: 12/31/20 18:47 Dose: 600 mg Documented by: Potassium Chloride 40 meq/ (Dextrose) 520 mls @ 130 mls/hr IV UD PRN PRN Reason: Potassium < 3 Magnesium Sulfate (Magnesium Sulfate) 2 gm in 50 mls @ 50 mls/hr IV UD PRN PRN Reason: Magnesium </= 1.6 Sodium Chloride (Sodium Chloride 0.9%) 250 mls @ 20 mls/hr IV .[id number] [facility] Last Admin: 01/01/21 23:58 Dose: 20 mls/hr Documented by: Insulin Human Lispro (Insulin Lispro 1 Unit/0.01 Ml Unit) 0 unit SQ [facility]; Protocol Last Admin: 01/02/21 08:38 Dose: Not Given Documented by: Lisinopril (Lisinopril 5 Mg Tablet) 5 mg PO QDAY [facility] Last Admin: 01/02/21 09:43 Dose: 5 mg Documented by: Metoprolol Succinate (Metoprolol Succinate 25 Mg Tab.Xl.24h) 25 mg PO BID [facility] Last Admin: 01/02/21 09:40 Dose: 25 mg Documented by: Metoprolol Tartrate (Metoprolol Tartrate 5 Mg/5 Ml Vial) 5 mg IV Q2HP PRN PRN Reason: Tachyarrhythmias HR>110 Mirtazapine (Mirtazapine 15 Mg Tablet) 7.5 mg PO QHS [facility] Last Admin: 01/01/21 21:10 Dose: 7.5 mg Documented by: Ondansetron HCl (Ondansetron 4 Mg/2 Ml Vial) 4 mg IV Q4HP PRN PRN Reason: Nausea And Vomiting Fluticasone- Umeclidin-Vilanter [ Trelegy Ellipta] Inh 1 dose INH Q24H [facility] Last Admin: 01/02/21 09:55 Dose: Not Given Documented by: Polyethylene Glycol (Polyethylene Glycol 3350 17 Gm Packet) 17 gm PO DAILYP PRN PRN Reason: Constipation Potassium Chloride (Potassium Chloride 20 Meq Tablet) 40 meq PO UD PRN PRN Reason: Potssium is 3-3.5 Potassium Chloride (Potassium Chloride 20 Meq Tablet) 40 meq PO UD PRN PRN Reason: Potassium < 3 Pramipexole Dihydrochloride (Pramipexole 0.25 Mg Tablet) 0.5 mg PO QAM [facility] Last Admin: 01/02/21 09:43 Dose: 0.5 mg Documented by: Pramipexole Dihydrochloride (Pramipexole 1 Mg Tablet) 1.5 mg PO HS [facility] Last Admin: 01/01/21 21:10 Dose: 1.5 mg Documented by: Senna (Sennosides 1 Tablet) 2 tab PO DAILYP PRN PRN Reason: Constipation Sertraline HCl (Sertraline 50 Mg Tablet) 25 mg PO QDAY [facility] Last Admin: 01/02/21 09:39 Dose: 25 mg Documented by: Sodium Chloride (0.9 % Sodium Chloride 10 Ml Syringe) 10 ml IV Q8 [facility] Last Admin: 01/02/21 05:21 Dose: 10 ml Documented by: Spironolactone (Spironolactone 25 Mg Tablet) 25 mg PO QDAY [facility] Last Admin: 01/02/21 09:40 Dose: 25 mg Documented by: Throat Lozenges (Benzocaine/Menthol 1 Lozenge) 1 lozenge PO PRN PRN PRN Reason: Sore Throat Last Admin: 12/30/20 21:39 Dose: 1 lozenge Documented by: Tiotropium [place] (Tiotropium [place] 18 Mcg Inhalant) 18 mcg INH DAILY [facility] Last Admin: 01/02/21 09:55 Dose: Not Given Documented by: A/P Assessment and plan (1) CHF exacerbation: Status: Acute Qualifiers: Heart failure type: unspecified Qualified Code(s): I50.9 - Heart failure, unspecified (2) Atrial fibrillation: Status: Acute (3) Hypertension: Status: Acute Qualifiers: Hypertension type: essential hypertension Qualified Code(s): I10 - Essential (primary) hypertension (4) Hyperlipidemia: Status: Chronic Comment: Hx; remains on low-dose Lovastatin with no myalgias Qualifiers: Hyperlipidemia type: pure hypercholesterolemia Qualified Code(s): E78.0 - Pure hypercholesterolemia (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 Qualifiers: Emphysema type: panlobular Qualified Code(s): J43.1 - Panlobular emphysema (6) Osteoarthritis of shoulders, bilateral: Status: Chronic Comment: 04/13/2015-[place] Qualifiers: Osteoarthritis type: primary Qualified Code(s): M19.011 - Primary osteoarthritis, right shoulder (7) On home oxygen therapy: Status: Acute (8) Anemia, normocytic normochromic: Status: Acute Narrative A/P Narrative: Assessment and Plans: 1. Diastolic CHF exacerbation: LVEF 69% Transfer to inpatient med surg telemetry Switch Lasix from drip to 40mg IV BID Metoprolol succinate Aldactone Lisinopril Intake and output Daily weight 2 L/day fluid restriction Supplemental oxygen therapy titrate to achieve SPO2 above 88 for COPD-er #2 COPD stable no exacerbations: Supplemental oxygen therapy titrate to achieve SPO2 above 88 for COPD-er On home oxygen therapy Spiriva Trelegy Ellipta DuoNeb nebulizer as needed wheezing #3 chronic osteoarthritis bilateral upper extremities: Tylenol as needed mild pain Ibuprofen as needed mild pain #4 type 2 diabetes mellitus: Hemoglobin A1c Continue insulin therapy ACH S Accu-Cheks AC at bedtime Hypoglycemia protocol Diabetic diet #5 atrial fibrillation's: Rate controlled with metoprolol succinate No anticoagulations due to easy bruising and tendency to bleed Aspirin and Plavix #6 anemia hypochromic: CBC with auto differential in the morning to trend H&H and transfuse PRBC if hemoglobin less than 7.0, active bleeding, or symptomatic #7 essential hypertension: Currently normotensive Continue metoprolol succinate, lisinopril, and Aldactone #8 fever: Tylenol as needed fever Blood culture stat No clinical signs of sepsis we will continue to monitor GI prophylaxis: Not currently indicated DVT prophylaxis: Lovenox CODE STATUS: DNR/DNI Prognosis: Stable Dispositions: Inpatient MedSurg telemetry Time Spent With Patient Time: Total time spent is greater than 50% in coordination of care (as documented) at patient's floor/unit and/or counseling patient: Total time spent with greater than 50% in coordination of care (as documented) at patient's floor/unit and/or counseling patient:: Greater than 35 minutes
[2021-01-02] MEDS ORDERED: ONDANSETRON 4 MG/2 ML VIAL IV PRN (11:03)
[2021-01-02] MEDS ORDERED: IPRATROPIUM/ALBUTEROL 3 ML AMPUL.NEB NEB PRN (11:03)
[2021-01-02] MEDS ORDERED: DEXTROSE 50% 50 ML VIAL IV PRN (11:03)
[2021-01-02] MEDS ORDERED: ALBUTEROL SULFATE 200 PUFF INHALER INH PRN (11:03)
[2021-01-02] MEDS ORDERED: BENZONATATE 100 MG CAPSULE PO PRN (11:03)
[2021-01-02] MEDS ORDERED: METOPROLOL TARTRATE 5 MG/5 ML VIAL IV PRN (11:03)
[2021-01-02] MEDS ORDERED: 0.9 % SODIUM CHLORIDE 250 ML IV SCH (11:03)
[2021-01-02] MEDS ORDERED: HYDROcodone/APAP 5/325MG TABLET PO PRN (11:03)
[2021-01-02] MEDS ORDERED: POLYETHYLENE GLYCOL 3350 17 GM PACKET PO PRN (11:03)
[2021-01-02] MEDS ORDERED: MAGNESIUM SULFATE 2 GM/50 ML BAG IV PRN (11:03)
[2021-01-02] MEDS ORDERED: BENZOCAINE/MENTHOL 1 LOZENGE PO PRN (11:03)
[2021-01-02] MEDS ORDERED: SENNOSIDES 1 TABLET PO PRN (11:03)
[2021-01-02] MEDS ORDERED: POTASSIUM CHLORIDE 20 MEQ TABLET PO PRN (11:03)
[2021-01-02] MEDS ORDERED: guaiFENesin 600 MG TAB.SR.12H PO PRN (11:03)
[2021-01-02] MEDS ORDERED: DEXTROSE 31 GM ORAL.SUSP PO PRN (11:03)
[2021-01-02] MEDS ORDERED: POTASSIUM CHLORIDE 40 MEQ in DEXTROSE 5% IN WATER 500 ML IV PRN (11:03)
[2021-01-02] MEDS: ACETAMINOPHEN 325 MG TABLET PO PRN (11:15)
[2021-01-02] MEDS: IBUPROFEN 600 MG TABLET PO PRN (11:19)
[2021-01-02] MEDS ORDERED: FUROSEMIDE 40 MG/4 ML VIAL IV SCH (16:00)
[2021-01-02] MEDS: FUROSEMIDE 40 MG/4 ML VIAL IV SCH ×2 (16:03→16:32)
[2021-01-02] MEDS: MIRTAZAPINE 15 MG TABLET PO SCH (21:14)
[2021-01-02] MEDS: PRAMIPEXOLE 1 MG TABLET PO SCH (21:15)
[2021-01-03] MEDS: 0.9 % SODIUM CHLORIDE 10 ML SYRINGE IV SCH ×3 (05:55→21:13)
[2021-01-03 07:18] LABS: Basophils # (Auto) 0.02 K/mcL (0.00-0.30); Basophils % (Auto) 0.4 % (0.0-2.0); Eosinophils # (Auto) 0.15 K/mcL (0.00-0.70); Eosinophils % (Auto) 3.1 % (0.0-7.0); Hematocrit 33.8 % (34.1-44.9); Hemoglobin 9.4 g/dL (11.2-15.7); Lymphocytes % (Auto) 12.2 % (15.5-49.0); Mean Cell Volume 90.9 fL (80.0-100.0); Mean Corpuscular HGB Conc 27.8 g/dL (31.0-36.0); Mean Platelet Volume 9.9 fL (7.4-10.4); Monocytes # (Auto) 0.71 K/mcL (0.10-0.90); Monocytes % (Auto) 14.5 % (1.0-12.0); Neutrophils % (Auto) 69.8 % (38.0-78.0); Platelet Count 241 K/mcL (140-440); RBC 3.72 M/mcL (3.59-5.38); Red Cell Distribution Width 16.9 % (11.5-14.5); WBC 4.9 K/mcL (4.5-11.0)
[2021-01-03 07:44] LABS: ALT/SGPT 7 U/L (<40); AST/SGOT 17 U/L (<32); Albumin 3.3 gm/dL (3.2-5.2); Albumin/Globulin Ratio 1.1 (1.0-2.3); Alkaline Phosphatase 155 U/L (39-117); Bilirubin,Total 0.6 mg/dL (0.1-1.0); Blood Urea Nitrogen 12 mg/dL (8-23); Carbon Dioxide 36 mmol/L (22-30); Chloride 95 mmol/L (96-108); Globulin 3.1 gm/dL (2.2-3.7); Glomerular Filtration Rate 83; Glucose 99 mg/dL (70-105)
[2021-01-03] MEDS: ENOXAPARIN 40 MG/0.4 ML SYRINGE SQ SCH (08:12)
[2021-01-03] MEDS: FUROSEMIDE 40 MG/4 ML VIAL IV SCH ×2 (08:13→15:16)
[2021-01-03] MEDS: INSULIN LISPRO 1 UNIT/0.01 ML UNIT SQ SCH ×4 (08:13→21:12)
[2021-01-03] MEDS: SERTRALINE 50 MG TABLET PO SCH (08:14)
[2021-01-03] MEDS: ASPIRIN 81 MG TAB.CHEW PO SCH (08:14)
[2021-01-03] MEDS: PRAMIPEXOLE 0.25 MG TABLET PO SCH (08:14)
[2021-01-03] MEDS: SPIRONOLACTONE 25 MG TABLET PO SCH (08:15)
[2021-01-03] MEDS: DOCUSATE SODIUM 100 MG CAPSULE PO SCH ×2 (08:15→21:12)
[2021-01-03] MEDS: DULoxetine 30 MG CAPSULE PO SCH (08:15)
[2021-01-03] MEDS: METOPROLOL SUCCINATE 25 MG TAB.XL.24H PO SCH ×2 (08:15→21:12)
[2021-01-03] MEDS: LISINOPRIL 5 MG TABLET PO SCH (08:15)
[2021-01-03] MEDS: TIOTROPIUM BROMIDE 18 MCG INHALANT INH SCH (08:16)
[2021-01-03] MEDS: Fluticasone-Umeclidin-Vilanter [Trelegy Ellipta] Inhaler INH SCH (08:16)
[2021-01-03] MEDS: CLOPIDOGREL 75 MG TABLET PO SCH (08:16)
[2021-01-03] MEDS ORDERED: CLOPIDOGREL 75 MG TABLET PO SCH (09:00)
--- NOTE | 2021-01-03 12:33 | Internal Med Progress Note ---
SUBJECTIVE Subjective Patient information: Note initiated : 01/03/21 at 12:27 pm Service Date, if different from initiated Date: [] Patient: Leslie Maldonado a 80 y/o F admitted on 12/30/20 for Shortness of breath. Chief Complaint: [CHF exacerbation] Interval history: Interval history: History of present illness: Ms. Maldonado is a 80 year old F Presents the ED with shortness of breath and increasing edema. Patient does have a cough but she said that is chronic and no change. She said she has had increasing edema for weeks. Has been short of breath for weeks. She was hospitalized a month ago for COPD and CHF. She is on 4 L of oxygen but with any exertion she will desat into the high 70s. She has a hard time ambulating across her room without becoming short of breath. She resides at [facility]. Chest x-ray with edema. Lactate elevated likely from hypoxia. Troponin negative. Patient states that her normal weight is 170 but the last time she was at that weight was 6 to 8 months ago. She states about a month ago she was 230. She measured back to 40 here. 12/31 States poor sleep but overall feeling a little better. Breathing a little bit better. Has good urine output. 01/01 Putting out good urine output. Patient feels less edematous and breathing easier. 01/02: Fever with T-max 38.1 overnight. Urine output at around 200 cc/h overnight. Mild shortness of breath. Respiratory wheezing at baseline. Denies chest pain. Of bilateral upper extremities pain from chronic osteomyelitis. 01/03: Afebrile overnight. Currently on 6L/min oxygen. Blood culture from 01/02 no growth to date. Mild shortness of breath. Respiratory wheezing at baseline. Denies chest pain. c/o bilateral upper extremities pain from chronic osteomyelitis. c/o general body weakness. Constitutional Vitals: Vital Signs Temp Pulse Resp BP Pulse Ox 36.3 C 83 18 120/63 97 01/03/21 11:17 01/03/21 11:17 01/03/21 11:17 01/03/21 11:17 01/03/21 11:17 Period Temp Pulse Resp BP Sys/Cuellar Pulse Ox Last 24 Hr 36.3 C-37.2 C 49-97 15-20 96-122/50-67 93-98 Intake and Output 01/02/21 01/03/21 01/03/21 21:59 05:59 13:59 Intake Total 650 Output Total 71 500 Balance -71 150 Weight 114.305 kg Intake & Output: Intake & Output 01/02/21 01/03/21 01/03/21 21:59 05:59 13:59 Intake Total 650 Output Total 71 500 Balance -71 150 Weight 114.305 kg Intake: Oral 650 Output: Urine Catheter Amount 71 500 Other: Meal Breakfast Percent of Meal Consumed 100% Feeding Ability Independent Urine Appearance Clear Sediment Uretheral (Sharma) Clear Clear Sediment Urine Color Blood Tinged Dark Yellow Uretheral (Sharma) Dark Yellow Bright Yellow Urine Odor Normal Normal General appearance: cooperative and no acute distress Head Head exam: Present atraumatic and normocephalic Eye Eye exam: Present EOMI and PERRL ENT ENT exam: Present mucous membranes moist, normal exam and normal external ear exam Additional comments: Nasal cannula in place Neck Neck exam: Present normal inspection; Absent lymphadenopathy, tenderness and thyromegaly Respiratory Respiratory exam: Present rhonchi; Absent accessory muscle use, respiratory distress and wheezes Cardiovascular Cardiovascular exam: Present irregular rhythm; Absent JVD GI/Abdominal GI/Abdominal exam: Present normal bowel sounds and soft; Absent organomegaly and tenderness Extremities Exam Extremities exam: Present full ROM, normal capillary refill and normal inspec tion; Absent tenderness Neurological Exam Neurological exam: Present alert, CN II-XII intact and oriented X3; Absent motor sensory deficit Psychiatric Psychiatric exam: Present normal affect and normal mood; Absent anxious and depressed Skin Skin exam: Present dry, erythema, intact and rash OBJ DATA Labs CBC & Chem 7: 01/03/21 05:39 01/03/21 05:39 Labs: Abnormal Lab Results 01/03/21 01/03/21 01/02/21 05:39 05:39 05:33 Hgb 9.4 L Hct 33.8 L MCH 25.3 L MCHC 27.8 L RDW 16.9 H Lymph % (Auto) 12.2 L Dunn % (Auto) 14.5 H Lymph # (Auto) 0.60 L Chloride 95 L 95 L Carbon Dioxide 36 H 32 H Direct Bilirubin GGT Alkaline Phosphatase 155 H 169 H Lactate Dehydrogenase Albumin/Globulin Ratio 01/02/21 01/01/21 05:33 05:51 Hgb 10.1 L Hct MCH 25.4 L MCHC 26.0 L RDW 17.3 H Lymph % (Auto) 14.5 L Dunn % (Auto) 15.2 H Lymph # (Auto) 0.78 L Chloride 95 L Carbon Dioxide 33 H Direct Bilirubin 0.3 H GGT 43 H Alkaline Phosphatase 161 H Lactate Dehydrogenase 239 H Albumin/Globulin Ratio 0.9 L Meds: Medications Acetaminophen (Acetaminophen 325 Mg Tablet) 650 mg PO Q6HP PRN PRN Reason: PAIN/FEVER > 101 Last Admin: 01/02/21 11:15 Dose: 650 mg Documented by: Hydrocodone Bitart/Acetaminophen (Hydrocodone/Apap 5/325mg Tablet) 1 tab PO QIDP PRN PRN Reason: pain Albuterol Sulfate (Albuterol Sulfate 200 Puff Inhaler) 2 puff INH Q6HP PRN PRN Reason: shortness of breath Albuterol/Ipratropium (Ipratropium/Albuterol 3 Ml Ampul.Neb) 3 ml NEB Q4HP PRN PRN Reason: Shortness Of Breath Aspirin (Aspirin 81 Mg Tab.Chew) 81 mg PO DAILY [facility] Last Admin: 01/03/21 08:14 Dose: 81 mg Documented by: Benzonatate (Benzonatate 100 Mg Capsule) 100 mg PO TIDP PRN PRN Reason: Cough Clopidogrel Bisulfate (Clopidogrel 75 Mg Tablet) 75 mg PO DAILY [facility] Last Admin: 01/03/21 08:16 Dose: 75 mg Documented by: Dextrose (Dextrose 50% 50 Ml Vial) 0 ml IV UD PRN PRN Reason: Hypoglycemia Diagnostic Test (Pha) (Accu-Chek 1 Each Strip) 1 each FS ACHS [facility] Last Admin: 01/03/21 12:01 Dose: 1 each Documented by: Docusate Sodium (Docusate Sodium 100 Mg Capsule) 100 mg PO BID [facility] Last Admin: 01/03/21 08:15 Dose: 100 mg Documented by: Duloxetine HCl (Duloxetine 30 Mg Capsule) 30 mg PO QDAY [facility] Last Admin: 01/03/21 08:15 Dose: 30 mg Documented by: Enoxaparin Sodium (Enoxaparin 40 Mg/0.4 Ml Syringe) 40 mg SQ DAILY [facility] Last Admin: 01/03/21 08:12 Dose: 40 mg Documented by: Furosemide (Furosemide 40 Mg/4 Ml Vial) 40 mg IV BIDD [facility] Last Admin: 01/03/21 08:13 Dose: 40 mg Documented by: Glucose (Dextrose 31 Gm Oral.Susp) 15 gm PO PRN PRN PRN Reason: Hypoglycemia Guaifenesin (Guaifenesin 600 Mg Tab.Sr.12h) 600 mg PO BIDP PRN PRN Reason: Congestion Magnesium Sulfate (Magnesium Sulfate) 2 gm in 50 mls @ 50 mls/hr IV UD PRN PRN Reason: Magnesium </= 1.6 Potassium Chloride 40 meq/ (Dextrose) 520 mls @ 130 mls/hr IV UD PRN PRN Reason: Potassium < 3 Ibuprofen (Ibuprofen 600 Mg Tablet) 600 mg PO QIDP PRN; Protocol PRN Reason: PAIN/FEVER > 101 Last Admin: 01/02/21 11:19 Dose: 600 mg Documented by: Insulin Human Lispro (Insulin Lispro 1 Unit/0.01 Ml Unit) 0 unit SQ ACHS [facility]; Protocol Last Admin: 01/03/21 12:01 Dose: Not Given Documented by: Lisinopril (Lisinopril 5 Mg Tablet) 5 mg PO QDAY [facility] Last Admin: 01/03/21 08:15 Dose: 5 mg Documented by: Metoprolol Succinate (Metoprolol Succinate 25 Mg Tab.Xl.24h) 25 mg PO BID [facility] Last Admin: 01/03/21 08:15 Dose: 25 mg Documented by: Metoprolol Tartrate (Metoprolol Tartrate 5 Mg/5 Ml Vial) 5 mg IV Q2HP PRN PRN Reason: Tachyarrhythmias HR>110 Mirtazapine (Mirtazapine 15 Mg Tablet) 7.5 mg PO QHS [facility] Last Admin: 01/02/21 21:14 Dose: 7.5 mg Documented by: Ondansetron HCl (Ondansetron 4 Mg/2 Ml Vial) 4 mg IV Q4HP PRN PRN Reason: Nausea And Vomiting Fluticasone- Umeclidin-Vilanter [ Trelegy Ellipta] Inhaler 1 dose INH Q24H [facility] Last Admin: 01/03/21 08:16 Dose: Not Given Documented by: Polyethylene Glycol (Polyethylene Glycol 3350 17 Gm Packet) 17 gm PO DAILYP PRN PRN Reason: Constipation Potassium Chloride (Potassium Chloride 20 Meq Tablet) 40 meq PO UD PRN PRN Reason: Potssium is 3-3.5 Potassium Chloride (Potassium Chloride 20 Meq Tablet) 40 meq PO UD PRN PRN Reason: Potassium < 3 Pramipexole Dihydrochloride (Pramipexole 0.25 Mg Tablet) 0.5 mg PO QAM [facility] Last Admin: 01/03/21 08:14 Dose: 0.5 mg Documented by: Pramipexole Dihydrochloride (Pramipexole 1 Mg Tablet) 1.5 mg PO HS [facility] Last Admin: 01/02/21 21:15 Dose: 1.5 mg Documented by: Senna (Sennosides 1 Tablet) 2 tab PO DAILYP PRN PRN Reason: Constipation Sertraline HCl (Sertraline 50 Mg Tablet) 25 mg PO QDAY [facility] Last Admin: 01/03/21 08:14 Dose: 25 mg Documented by: Sodium Chloride (0.9 % Sodium Chloride 10 Ml Syringe) 10 ml IV Q8 [facility] Last Admin: 01/03/21 05:55 Dose: 10 ml Documented by: Spironolactone (Spironolactone 25 Mg Tablet) 25 mg PO QDAY [facility] Last Admin: 01/03/21 08:15 Dose: 25 mg Documented by: Throat Lozenges (Benzocaine/Menthol 1 Lozenge) 1 lozenge PO PRN PRN PRN Reason: Sore Throat Tiotropium [place] (Tiotropium [place] 18 Mcg Inhalant) 18 mcg INH DAILY [facility] Last Admin: 01/03/21 08:16 Dose: Not Given Documented by: A/P Assessment and plan (1) CHF exacerbation: Status: Acute Qualifiers: Heart failure type: unspecified Qualified Code(s): I50.9 - Heart failure, unspecified (2) Atrial fibrillation: Status: Acute (3) Hypertension: Status: Acute Qualifiers: Hypertension type: essential hypertension Qualified Code(s): I10 - Essential (primary) hypertension (4) Hyperlipidemia: Status: Chronic Comment: Hx; remains on low-dose Lovastatin with no myalgias Qualifiers: Hyperlipidemia type: pure hypercholesterolemia Qualified Code(s): E78.0 - Pure hypercholesterolemia (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 Qualifiers: Emphysema type: panlobular Qualified Code(s): J43.1 - Panlobular emphysema (6) Osteoarthritis of shoulders, bilateral: Status: Chronic Comment: 04/13/2015-[place] Qualifiers: Osteoarthritis type: primary Qualified Code(s): M19.011 - Primary osteoarthritis, right shoulder (7) On home oxygen therapy: Status: Acute (8) Anemia, normocytic normochromic: Status: Acute (9) Venous stasis dermatitis of both lower extremities: Status: Acute Narrative A/P Narrative: Assessment and Plans: 1. Diastolic CHF exacerbation: LVEF 69% Stays in inpatient med surg telemetry Lasix 40mg IV BID Metoprolol succinate Aldactone Lisinopril Intake and output Daily weight 2 L/day fluid restriction Supplemental oxygen therapy titrate to achieve SPO2 above 88 for COPD-er #2 COPD stable no exacerbations: Supplemental oxygen therapy titrate to achieve SPO2 above 88 for COPD-er On home oxygen therapy Spiriva Trelegy Ellipta DuoNeb nebulizer as needed wheezing #3 chronic osteoarthritis bilateral upper extremities: Tylenol as needed mild pain Ibuprofen as needed mild pain #4 type 2 diabetes mellitus: Hemoglobin A1c Continue insulin therapy ACH S Accu-Cheks AC at bedtime Hypoglycemia protocol Diabetic diet #5 atrial fibrillation's: Rate controlled with metoprolol succinate No anticoagulations due to easy bruising and tendency to bleed Aspirin and Plavix #6 anemia hypochromic: CBC with auto differential in the morning to trend H&H and transfuse PRBC if hemoglobin less than 7.0, active bleeding, or symptomatic #7 essential hypertension: Currently normotensive Continue metoprolol succinate, lisinopril, and Aldactone #8 fever: Tylenol as needed fever Blood culture from 01/02 no growth to date No clinical signs of sepsis we will continue to monitor cbc w/ auto diff in the morning to trend WBC #9. Venous stasis dermatitis of bilateral lower extremities: Treat underlying cause of CHF with diuretics, see #1 Keep legs elevated Consults wound care team GI prophylaxis: Not currently indicated DVT prophylaxis: Lovenox CODE STATUS: DNR/DNI Prognosis: Stable Dispositions: Inpatient MedSurg telemetry Time Spent With Patient Time: Total time spent is greater than 50% in coordination of care (as documented) at patient's floor/unit and/or counseling patient: Total time spent with greater than 50% in coordination of care (as documented) at patient's floor/unit and/or counseling patient:: Greater than 35 minutes
[2021-01-03] MEDS: PRAMIPEXOLE 1 MG TABLET PO SCH (21:10)
[2021-01-03] MEDS: MIRTAZAPINE 15 MG TABLET PO SCH (21:11)
[2021-01-03] MEDS: IBUPROFEN 600 MG TABLET PO PRN (21:12)
[2021-01-04] MEDS: 0.9 % SODIUM CHLORIDE 10 ML SYRINGE IV SCH ×3 (04:53→20:00)
[2021-01-04 07:20] LABS: Basophils # (Auto) 0.01 K/mcL (0.00-0.30); Basophils % (Auto) 0.3 % (0.0-2.0); Eosinophils # (Auto) 0.17 K/mcL (0.00-0.70); Eosinophils % (Auto) 4.3 % (0.0-7.0); Hematocrit 32.1 % (34.1-44.9); Hemoglobin 9.1 g/dL (11.2-15.7); Lymphocytes # (Auto) 0.66 K/mcL (1.50-4.80); Lymphocytes % (Auto) 16.5 % (15.5-49.0); Mean Cell Volume 90.9 fL (80.0-100.0); Mean Corpuscular HGB Conc 28.3 g/dL (31.0-36.0); Mean Platelet Volume 9.7 fL (7.4-10.4); Monocytes # (Auto) 0.65 K/mcL (0.10-0.90); Monocytes % (Auto) 16.3 % (1.0-12.0); Neutrophils % (Auto) 62.6 % (38.0-78.0); Platelet Count 226 K/mcL (140-440); RBC 3.53 M/mcL (3.59-5.38); Red Cell Distribution Width 17.2 % (11.5-14.5)
[2021-01-04] MEDS: INSULIN LISPRO 1 UNIT/0.01 ML UNIT SQ SCH ×4 (07:35→21:40)
[2021-01-04 08:09] LABS: ALT/SGPT 7 U/L (<40); AST/SGOT 17 U/L (<32); Albumin 3.2 gm/dL (3.2-5.2); Albumin/Globulin Ratio 1.1 (1.0-2.3); Alkaline Phosphatase 142 U/L (39-117); Bilirubin,Total 0.6 mg/dL (0.1-1.0); Blood Urea Nitrogen 13 mg/dL (8-23); Calcium 9.2 mg/dL (8.6-10.4); Carbon Dioxide 34 mmol/L (22-30); Chloride 98 mmol/L (96-108); Glomerular Filtration Rate 87; Glucose 86 mg/dL (70-105)
[2021-01-04] MEDS: ENOXAPARIN 40 MG/0.4 ML SYRINGE SQ SCH (09:52)
[2021-01-04] MEDS: CLOPIDOGREL 75 MG TABLET PO SCH (09:53)
[2021-01-04] MEDS: POTASSIUM CHLORIDE 20 MEQ TABLET PO PRN (09:53)
[2021-01-04] MEDS: LISINOPRIL 5 MG TABLET PO SCH (09:53)
[2021-01-04] MEDS: DULoxetine 30 MG CAPSULE PO SCH (09:53)
[2021-01-04] MEDS: SERTRALINE 50 MG TABLET PO SCH (09:53)
[2021-01-04] MEDS: ASPIRIN 81 MG TAB.CHEW PO SCH (09:54)
[2021-01-04] MEDS: SPIRONOLACTONE 25 MG TABLET PO SCH (09:54)
[2021-01-04] MEDS: FUROSEMIDE 40 MG/4 ML VIAL IV SCH (09:54)
[2021-01-04] MEDS: PRAMIPEXOLE 0.25 MG TABLET PO SCH (09:54)
[2021-01-04] MEDS: METOPROLOL SUCCINATE 25 MG TAB.XL.24H PO SCH ×2 (09:54→21:41)
[2021-01-04] MEDS: DOCUSATE SODIUM 100 MG CAPSULE PO SCH ×2 (09:54→21:40)
[2021-01-04] MEDS: Fluticasone-Umeclidin-Vilanter [Trelegy Ellipta] Inhaler INH SCH (09:55)
[2021-01-04] MEDS: TIOTROPIUM BROMIDE 18 MCG INHALANT INH SCH (09:55)
--- NOTE | 2021-01-04 12:51 | Internal Med Progress Note ---
SUBJECTIVE Subjective Patient information: Note initiated : 01/04/21 at 12:46 pm Service Date, if different from initiated Date: [] Patient: Leslie Maldonado a 80 y/o F admitted on 12/30/20 for Shortness of breath. Chief Complaint: [CHF exacerbation] Interval history: Interval history: History of present illness: Ms. Maldonado is a 80 year old F Presents the ED with shortness of breath and increasing edema. Patient does have a cough but she said that is chronic and no change. She said she has had increasing edema for weeks. Has been short of breath for weeks. She was hospitalized a month ago for COPD and CHF. She is on 4 L of oxygen but with any exertion she will desat into the high 70s. She has a hard time ambulating across her room without becoming short of breath. She resides at [facility] living [facility]. Chest x-ray with edema. Lactate elevated likely from hypoxia. Troponin negative. Patient states that her normal weight is 170 but the last time she was at that weight was 6 to 8 months ago. She states about a month ago she was 230. She measured back to 40 here. 12/31 States poor sleep but overall feeling a little better. Breathing a little bit better. Has good urine output. 01/01 Putting out good urine output. Patient feels less edematous and breathing easier. 01/02: Fever with T-max 38.1 overnight. Urine output at around 200 cc/h overnight. Mild shortness of breath. Respiratory wheezing at baseline. Denies chest pain. Of bilateral upper extremities pain from chronic osteomyelitis. 01/03: Afebrile overnight. Currently on 6L/min oxygen. Blood culture from 01/02 no growth to date. Mild shortness of breath. Respiratory wheezing at baseline. Denies chest pain. c/o bilateral upper extremities pain from chronic osteomyelitis. c/o general body weakness. 01/04: Afebrile overnight. Currently on 6L/min oxygen, which is her baseline. Blood culture from 01/02 no growth to date. Denies shortness of breath. Denies respiratory wheezing. Denies chest pain. Denies general body weakness. c/o bi lateral upper extremities pain from chronic osteomyelitis. Constitutional Vitals: Vital Signs Temp Pulse Resp BP Pulse Ox 36.2 C 81 20 97/66 95 01/04/21 08:00 01/04/21 08:00 01/04/21 08:00 01/04/21 08:00 01/04/21 08:00 Period Temp Pulse Resp BP Sys/Cuellar Pulse Ox Last 24 Hr 36.2 C-37.2 C 81-92 16-20 90-127/50-68 90-95 Intake and Output 01/03/21 01/04/21 01/04/21 21:59 05:59 13:59 Intake Total 100 Output Total 2700 350 Balance -2700 -250 Weight 113.852 kg Intake & Output: Intake & Output 01/03/21 01/04/21 01/04/21 21:59 05:59 13:59 Intake Total 100 Output Total 2700 350 Balance -2700 -250 Weight 113.852 kg Intake: Oral 100 Output: Urine Catheter Amount 2400 350 Uretheral (Sharma) 800 Void Amount 300 Other: Meal Breakfast Percent of Meal Consumed 100% Feeding Ability Assist with Tray Set Up Urine Appearance Clear Cloudy Uretheral (Sharma) Cloudy Urine Color Bright Yellow Dark Yellow Uretheral (Sharma) Dark Yellow Stool Size Moderate Stool Color Brown Stool Consistency Formed # Bowel Movements 1 General appearance: cooperative and no acute distress Head Head exam: Present atraumatic and normocephalic Eye Eye exam: Present EOMI and PERRL ENT ENT exam: Present mucous membranes moist, normal exam and normal external ear exam Additional comments: Nasal cannula oxygen in place Neck Neck exam: Present normal inspection; Absent lymphadenopathy, tenderness and thyromegaly Respiratory Respiratory exam: Present rhonchi; Absent accessory muscle use, respiratory distress and wheezes Cardiovascular Cardiovascular exam: Present irregular rhythm; Absent JVD GI/Abdominal GI/Abdominal exam: Present normal bowel sounds and soft; Absent organomegaly and tenderness Additional comments: Sharma catheter in place Extremities Exam Extremities exam: Present full ROM, normal capillary refill and normal inspection; Absent tenderness Neurological Exam Neurological exam: Present alert, CN II-XII intact and oriented X3; Absent motor sensory deficit Psychiatric Psychiatric exam: Present normal affect and normal mood; Absent anxious and depressed Skin Skin exam: Present dry and intact OBJ DATA Labs CBC & Chem 7: 01/04/21 05:22 01/04/21 05:22 Labs: Abnormal Lab Results 01/04/21 01/04/21 01/03/21 05:22 05:22 05:39 WBC 4.0 L RBC 3.53 L Hgb 9.1 L Hct 32.1 L MCH 25.8 L MCHC 28.3 L RDW 17.2 H Lymph % (Auto) Brooke % (Auto) 16.3 H Lymph # (Auto) 0.66 L Chloride 95 L Carbon Dioxide 34 H 36 H Alkaline Phosphatase 142 H 155 H 01/03/21 01/02/21 01/02/21 05:39 05:33 05:33 WBC RBC Hgb 9.4 L 10.1 L Hct 33.8 L MCH 25.3 L 25.4 L MCHC 27.8 L 26.0 L RDW 16.9 H 17.3 H Lymph % (Auto) 12.2 L 14.5 L Brooke % (Auto) 14.5 H 15.2 H Lymph # (Auto) 0.60 L 0.78 L Chloride 95 L Carbon Dioxide 32 H Alkaline Phosphatase 169 H Meds: Medications Acetaminophen (Acetaminophen 325 Mg Tablet) 650 mg PO Q6HP PRN PRN Reason: PAIN/FEVER > 101 Last Admin: 01/02/21 11:15 Dose: 650 mg Documented by: Hydrocodone Bitart/Acetaminophen (Hydrocodone/Apap 5/325mg Tablet) 1 tab PO QIDP PRN PRN Reason: pain Albuterol Sulfate (Albuterol Sulfate 200 Puff Inhaler) 2 puff INH Q6HP PRN PRN Reason: shortness of breath Albuterol/Ipratropium (Ipratropium/Albuterol 3 Ml Ampul.Neb) 3 ml NEB Q4HP PRN PRN Reason: Shortness Of Breath Aspirin (Aspirin 81 Mg Tab.Chew) 81 mg PO DAILY [facility] Last Admin: 01/04/21 09:54 Dose: 81 mg Documented by: Benzonatate (Benzonatate 100 Mg Capsule) 100 mg PO TIDP PRN PRN Reason: Cough Clopidogrel Bisulfate (Clopidogrel 75 Mg Tablet) 75 mg PO DAILY [facility] Last Admin: 01/04/21 09:53 Dose: 75 mg Documented by: Dextrose (Dextrose 50% 50 Ml Vial) 0 ml IV UD PRN PRN Reason: Hypoglycemia Diagnostic Test (Pha) (Accu-Chek 1 Each Strip) 1 each FS ACHS [facility] Last Admin: 01/04/21 11:43 Dose: Not Given Documented by: Docusate Sodium (Docusate Sodium 100 Mg Capsule) 100 mg PO BID [facility] Last Admin: 01/04/21 09:54 Dose: Not Given Documented by: Duloxetine HCl (Duloxetine 30 Mg Capsule) 30 mg PO QDAY [facility] Last Admin: 01/04/21 09:53 Dose: 30 mg Documented by: Enoxaparin Sodium (Enoxaparin 40 Mg/0.4 Ml Syringe) 40 mg SQ DAILY [facility] Last Admin: 01/04/21 09:52 Dose: 40 mg Documented by: Glucose (Dextrose 31 Gm Oral.Susp) 15 gm PO PRN PRN PRN Reason: Hypoglycemia Guaifenesin (Guaifenesin 600 Mg Tab.Sr.12h) 600 mg PO BIDP PRN PRN Reason: Congestion Magnesium Sulfate (Magnesium Sulfate) 2 gm in 50 mls @ 50 mls/hr IV UD PRN PRN Reason: Magnesium </= 1.6 Potassium Chloride 40 meq/ (Dextrose) 520 mls @ 130 mls/hr IV UD PRN PRN Reason: Potassium < 3 Ibuprofen (Ibuprofen 600 Mg Tablet) 600 mg PO QIDP PRN; Protocol PRN Reason: PAIN/FEVER > 101 Last Admin: 01/03/21 21:12 Dose: 600 mg Documented by: Insulin Human Lispro (Insulin Lispro 1 Unit/0.01 Ml Unit) 0 unit SQ ACHS [facility]; Protocol Last Admin: 01/04/21 11:43 Dose: Not Given Documented by: Lisinopril (Lisinopril 5 Mg Tablet) 5 mg PO QDAY [facility] Last Admin: 01/04/21 09:53 Dose: 5 mg Documented by: Metoprolol Succinate (Metoprolol Succinate 25 Mg Tab.Xl.24h) 25 mg PO BID [facility] Last Admin: 01/04/21 09:54 Dose: 25 mg Documented by: Metoprolol Tartrate (Metoprolol Tartrate 5 Mg/5 Ml Vial) 5 mg IV Q2HP PRN PRN Reason: Tachyarrhythmias HR>110 Mirtazapine (Mirtazapine 15 Mg Tablet) 7.5 mg PO QHS [facility] Last Admin: 01/03/21 21:11 Dose: 7.5 mg Documented by: Ondansetron HCl (Ondansetron 4 Mg/2 Ml Vial) 4 mg IV Q4HP PRN PRN Reason: Nausea And Vomiting Fluticasone- Umeclidin-Vilanter [ Trelegy Ellipta] Inhaler 1 dose INH Q24H [facility] Last Admin: 01/04/21 09:55 Dose: Not Given Documented by: Polyethylene Glycol (Polyethylene Glycol 3350 17 Gm Packet) 17 gm PO DAILYP PRN PRN Reason: Constipation Potassium Chloride (Potassium Chloride 20 Meq Tablet) 40 meq PO UD PRN PRN Reason: Potssium is 3-3.5 Last Admin: 01/04/21 09:53 Dose: 40 meq Documented by: Potassium Chloride (Potassium Chloride 20 Meq Tablet) 40 meq PO UD PRN PRN Reason: Potassium < 3 Pramipexole Dihydrochloride (Pramipexole 0.25 Mg Tablet) 0.5 mg PO QAM [facility] Last Admin: 01/04/21 09:54 Dose: 0.5 mg Documented by: Pramipexole Dihydrochloride (Pramipexole 1 Mg Tablet) 1.5 mg PO HS [facility] Last Admin: 01/03/21 21:10 Dose: 1.5 mg Documented by: Senna (Sennosides 1 Tablet) 2 tab PO DAILYP PRN PRN Reason: Constipation Sertraline HCl (Sertraline 50 Mg Tablet) 25 mg PO QDAY [facility] Last Admin: 01/04/21 09:53 Dose: 25 mg Documented by: Sodium Chloride (0.9 % Sodium Chloride 10 Ml Syringe) 10 ml IV Q8 [facility] Last Admin: 01/04/21 04:53 Dose: 10 ml Documented by: Spironolactone (Spironolactone 25 Mg Tablet) 25 mg PO QDAY [facility] Last Admin: 01/04/21 09:54 Dose: 25 mg Documented by: Throat Lozenges (Benzocaine/Menthol 1 Lozenge) 1 lozenge PO PRN PRN PRN Reason: Sore Throat Tiotropium [place] (Tiotropium [place] 18 Mcg Inhalant) 18 mcg INH DAILY [facility] Last Admin: 01/04/21 09:55 Dose: Not Given Documented by: A/P Assessment and plan (1) CHF exacerbation: Status: Acute Qualifiers: Heart failure type: unspecified Qualified Code(s): I50.9 - Heart failure, unspecified (2) Atrial fibrillation: Status: Acute (3) Hypertension: Status: Acute Qualifiers: Hypertension type: essential hypertension Qualified Code(s): I10 - Essential (primary) hypertension (4) Hyperlipidemia: Status: Chronic Comment: Hx; remains on low-dose Lovastatin with no myalgias Qualifiers: Hyperlipidemia type: pure hypercholesterolemia Qualified Code(s): E78.0 - Pure hypercholesterolemia (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 Qualifiers: Emphysema type: panlobular Qualified Code(s): J43.1 - Panlobular emphysema (6) Osteoarthritis of shoulders, bilateral: Status: Chronic Comment: 04/13/2015-[place] Qualifiers: Osteoarthritis type: primary Qualified Code(s): M19.011 - Primary osteoarthritis, right shoulder (7) On home oxygen therapy: Status: Acute (8) Anemia, normocytic normochromic: Status: Acute (9) Venous stasis dermatitis of both lower extremities: Status: Acute Narrative A/P Narrative: Assessment and Plans: 1. Diastolic CHF exacerbation: LVEF 69% Stays in inpatient med surg telemetry Lasix 40mg PO BID Metoprolol succinate Aldactone Lisinopril Intake and output Daily weight 2 L/day fluid restriction Supplemental oxygen therapy titrate to achieve SPO2 above 88 for COPD-er #2 COPD stable no exacerbations: Supplemental oxygen therapy titrate to achieve SPO2 above 88 for COPD-er On home oxygen therapy Spiriva Trelegy Ellipta DuoNeb nebulizer as needed wheezing #3 chronic osteoarthritis bilateral upper extremities: Tylenol as needed mild pain Ibuprofen as needed mild pain #4 type 2 diabetes mellitus: Hemoglobin A1c Continue insulin therapy ACH S Accu-Cheks AC at bedtime Hypoglycemia protocol Diabetic diet #5 atrial fibrillation's: Rate controlled with metoprolol succinate No anticoagulations due to easy bruising and tendency to bleed Aspirin and Plavix #6 anemia hypochromic: CBC with auto differential in the morning to trend H&H and transfuse PRBC if hemoglobin less than 7.0, active bleeding, or symptomatic #7 essential hypertension: Currently normotensive Continue metoprolol succinate, lisinopril, and Aldactone #8 fever: RESOLVED, no additional episode(s) Tylenol as needed fever Blood culture from 01/02 no growth to date No clinical signs of sepsis we will continue to monitor cbc w/ auto diff in the morning to trend WBC #9. Venous stasis dermatitis of bilateral lower extremities: Treat underlying cause of CHF with diuretics, see #1 Keep legs elevated Consults wound care team GI prophylaxis: Not currently indicated DVT prophylaxis: Lovenox CODE STATUS: DNR/DNI Prognosis: Stable Dispositions: Inpatient MedSurg telemetry; pending PT and OT evaluation for possible placement Time Spent With Patient Time: Total time spent is greater than 50% in coordination of care (as documented) at patient's floor/unit and/or counseling patient:
[2021-01-04] MEDS: FUROSEMIDE 40 MG TABLET PO SCH (15:53)
[2021-01-04] MEDS: IBUPROFEN 600 MG TABLET PO PRN (17:03)
[2021-01-04] MEDS: ACETAMINOPHEN 325 MG TABLET PO PRN (17:04)
[2021-01-04] MEDS: MIRTAZAPINE 15 MG TABLET PO SCH (21:41)
[2021-01-04] MEDS: PRAMIPEXOLE 1 MG TABLET PO SCH (21:41)
[2021-01-05] MEDS: 0.9 % SODIUM CHLORIDE 10 ML SYRINGE IV SCH ×3 (06:11→21:09)
[2021-01-05] MEDS: INSULIN LISPRO 1 UNIT/0.01 ML UNIT SQ SCH ×4 (06:47→21:08)
[2021-01-05 08:01] LABS: Basophils # (Auto) 0.02 K/mcL (0.00-0.30); Basophils % (Auto) 0.4 % (0.0-2.0); Eosinophils # (Auto) 0.17 K/mcL (0.00-0.70); Eosinophils % (Auto) 3.7 % (0.0-7.0); Hematocrit 34.6 % (34.1-44.9); Hemoglobin 10.2 g/dL (11.2-15.7); Lymphocytes # (Auto) 0.63 K/mcL (1.50-4.80); Lymphocytes % (Auto) 13.9 % (15.5-49.0); Mean Cell Volume 90.1 fL (80.0-100.0); Mean Corpuscular HGB Conc 29.5 g/dL (31.0-36.0); Mean Platelet Volume 9.8 fL (7.4-10.4); Monocytes # (Auto) 0.68 K/mcL (0.10-0.90); Platelet Count 227 K/mcL (140-440); RBC 3.84 M/mcL (3.59-5.38); Red Cell Distribution Width 17.1 % (11.5-14.5); WBC 4.5 K/mcL (4.5-11.0)
[2021-01-05 08:51] LABS: ALT/SGPT 9 U/L (<40); AST/SGOT 21 U/L (<32); Albumin 3.4 gm/dL (3.2-5.2); Alkaline Phosphatase 156 U/L (39-117); Bilirubin,Total 0.7 mg/dL (0.1-1.0); Blood Urea Nitrogen 13 mg/dL (8-23); Calcium 9.2 mg/dL (8.6-10.4); Carbon Dioxide 35 mmol/L (22-30); Chloride 101 mmol/L (96-108); Globulin 3.5 gm/dL (2.2-3.7); Glomerular Filtration Rate 83; Glucose 88 mg/dL (70-105)
[2021-01-05] MEDS: FUROSEMIDE 40 MG TABLET PO SCH ×2 (09:21→16:39)
[2021-01-05] MEDS: ENOXAPARIN 40 MG/0.4 ML SYRINGE SQ SCH (09:46)
[2021-01-05] MEDS: PRAMIPEXOLE 0.25 MG TABLET PO SCH (09:47)
[2021-01-05] MEDS: CLOPIDOGREL 75 MG TABLET PO SCH (09:48)
[2021-01-05] MEDS: SERTRALINE 50 MG TABLET PO SCH (09:48)
[2021-01-05] MEDS: DOCUSATE SODIUM 100 MG CAPSULE PO SCH ×2 (09:48→21:08)
[2021-01-05] MEDS: METOPROLOL SUCCINATE 25 MG TAB.XL.24H PO SCH ×2 (09:50→21:08)
[2021-01-05] MEDS: ASPIRIN 81 MG TAB.CHEW PO SCH (09:50)
[2021-01-05] MEDS: DULoxetine 30 MG CAPSULE PO SCH (09:50)
[2021-01-05] MEDS: SPIRONOLACTONE 25 MG TABLET PO SCH (10:07)
[2021-01-05] MEDS: Fluticasone-Umeclidin-Vilanter [Trelegy Ellipta] Inhaler INH SCH (10:07)
[2021-01-05] MEDS: TIOTROPIUM BROMIDE 18 MCG INHALANT INH SCH (10:08)
[2021-01-05] MEDS: LISINOPRIL 5 MG TABLET PO SCH (10:08)
--- NOTE | 2021-01-05 15:21 | Internal Med Progress Note ---
SUBJECTIVE Subjective Patient information: Note initiated : 01/05/21 at 3:18 pm Service Date, if different from initiated Date: [] Patient: Leslie Maldonado a 80 y/o F admitted on 12/30/20 for Shortness of breath. Chief Complaint: [CHF exacerbation] Interval history: Interval history: History of present illness: Ms. Maldonado is a 80 year old F Presents the ED with shortness of breath and increasing edema. Patient does have a cough but she said that is chronic and no change. She said she has had increasing edema for weeks. Has been short of breath for weeks. She was hospitalized a month ago for COPD and CHF. She is on 4 L of oxygen but with any exertion she will desat into the high 70s. She has a hard time ambulating across her room without becoming short of breath. She resides at [facility] living [facility]. Chest x-ray with edema. Lactate elevated likely from hypoxia. Troponin negative. Patient states that her normal weight is 170 but the last time she was at that weight was 6 to 8 months ago. She states about a month ago she was 230. She measured back to 40 here. 12/31 States poor sleep but overall feeling a little better. Breathing a little bit better. Has good urine output. 01/01 Putting out good urine output. Patient feels less edematous and breathing easier. 01/02: Fever with T-max 38.1 overnight. Urine output at around 200 cc/h overnight. Mild shortness of breath. Respiratory wheezing at baseline. Denies chest pain. Of bilateral upper extremities pain from chronic osteomyelitis. 01/03: Afebrile overnight. Currently on 6L/min oxygen. Blood culture from 01/02 no growth to date. Mild shortness of breath. Respiratory wheezing at baseline. Denies chest pain. c/o bilateral upper extremities pain from chronic osteomyelitis. c/o general body weakness. 01/04: Afebrile overnight. Currently on 4L/min oxygen, which is her baseline. Blood culture from 01/02 no growth to date. Denies shortness of breath. Denies respiratory wheezing. Denies chest pain. Denies general body weakness. c/o sreekanth ateral upper extremities pain from chronic osteomyelitis. 01/04: Afebrile overnight. Currently on 4L/min oxygen, which is her baseline. Blood culture from 01/02 no growth to date. Denies shortness of breath. Denies respiratory wheezing. Denies chest pain. Denies general body weakness. c/o bilateral upper extremities pain from chronic osteomyelitis. Constitutional Vitals: Vital Signs Temp Pulse Resp BP Pulse Ox 36.1 C L 94 H 13 97/77 93 01/05/21 12:00 01/05/21 12:00 01/05/21 12:00 01/05/21 12:00 01/05/21 08:00 Period Temp Pulse Resp BP Sys/Cuellar Pulse Ox Last 24 Hr 35.8 C-37.1 C 49-98 13-24 91-108/62-77 91-97 Intake and Output 01/05/21 01/05/21 01/05/21 05:59 13:59 21:59 Intake Total 320 Output Total 806 588 7644 Balance -130 -840 -1900 Intake & Output: Intake & Output 01/05/21 01/05/21 01/05/21 05:59 13:59 21:59 Intake Total 320 Output Total 851 126 4305 Balance -130 -840 -1900 Intake: Oral 320 Output: Urine Catheter Amount 450 600 Void Amount 1900 Urine/Stool Mix 240 Other: Meal Lunch Percent of Meal Consumed 50% Feeding Ability Assist with Tray Set Up Urine Appearance Cloudy Clear Clear Urine Color Dark Yellow Tea Colored Tea Colored Urine Odor Normal General appearance: cooperative and no acute distress Head Head exam: Present atraumatic and normocephalic Eye Eye exam: Present EOMI and PERRL ENT ENT exam: Present mucous membranes moist, normal exam and normal external ear exam Additional comments: Nasal cannula in place Neck Neck exam: Present normal inspection; Absent lymphadenopathy, tenderness and thyromegaly Respiratory Respiratory exam: Present rhonchi; Absent accessory muscle use, respiratory distress and wheezes Cardiovascular Cardiovascular exam: Present irregular rhythm; Absent JVD GI/Abdominal GI/Abdominal exam: Present normal bowel sounds and soft; Absent organomegaly and tenderness Additional comments: Sharma catheter in place Extremities Exam Extremities exam: Present full ROM, normal capillary refill and normal inspection; Absent tenderness Neurological Exam Neurological exam: Present alert, CN II-XII intact and oriented X3; Absent motor sensory deficit Psychiatric Psychiatric exam: Present normal affect and normal mood; Absent anxious and depressed Skin Skin exam: Present dry and intact OBJ DATA Labs CBC & Chem 7: 01/05/21 05:40 01/05/21 05:40 Labs: Abnormal Lab Results 01/05/21 01/05/21 01/04/21 05:40 05:40 05:22 WBC RBC Hgb 10.2 L Hct MCH MCHC 29.5 L RDW 17.1 H Lymph % (Auto) 13.9 L [place] % (Auto) 15.0 H Lymph # (Auto) 0.63 L Sodium 146 H Chloride Carbon Dioxide 35 H 34 H Alkaline Phosphatase 156 H 142 H 01/04/21 01/03/21 01/03/21 05:22 05:39 05:39 WBC 4.0 L RBC 3.53 L Hgb 9.1 L 9.4 L Hct 32.1 L 33.8 L MCH 25.8 L 25.3 L MCHC 28.3 L 27.8 L RDW 17.2 H 16.9 H Lymph % (Auto) 12.2 L [place] % (Auto) 16.3 H 14.5 H Lymph # (Auto) 0.66 L 0.60 L Sodium Chloride 95 L Carbon Dioxide 36 H Alkaline Phosphatase 155 H Meds: Medications Acetaminophen (Acetaminophen 325 Mg Tablet) 650 mg PO Q6HP PRN PRN Reason: PAIN/FEVER > 101 Last Admin: 01/04/21 17:04 Dose: 650 mg Documented by: Hydrocodone Bitart/Acetaminophen (Hydrocodone/Apap 5/325mg Tablet) 1 tab PO QIDP PRN PRN Reason: pain Albuterol Sulfate (Albuterol Sulfate 200 Puff Inhaler) 2 puff INH Q6HP PRN PRN Reason: shortness of breath Albuterol/Ipratropium (Ipratropium/Albuterol 3 Ml Ampul.Neb) 3 ml NEB Q4HP PRN PRN Reason: Shortness Of Breath Aspirin (Aspirin 81 Mg Tab.Chew) 81 mg PO DAILY [facility] Last Admin: 01/05/21 09:50 Dose: 81 mg Documented by: Benzonatate (Benzonatate 100 Mg Capsule) 100 mg PO TIDP PRN PRN Reason: Cough Clopidogrel Bisulfate (Clopidogrel 75 Mg Tablet) 75 mg PO DAILY [facility] Last Admin: 01/05/21 09:48 Dose: 75 mg Documented by: Dextrose (Dextrose 50% 50 Ml Vial) 0 ml IV UD PRN PRN Reason: Hypoglycemia Diagnostic Test (Pha) (Accu-Chek 1 Each Strip) 1 each FS [facility] Last Admin: 01/05/21 10:19 Dose: Not Given Documented by: Docusate Sodium (Docusate Sodium 100 Mg Capsule) 100 mg PO BID [facility] Last Admin: 01/05/21 09:48 Dose: 100 mg Documented by: Duloxetine HCl (Duloxetine 30 Mg Capsule) 30 mg PO QDAY [facility] Last Admin: 01/05/21 09:50 Dose: 30 mg Documented by: Enoxaparin Sodium (Enoxaparin 40 Mg/0.4 Ml Syringe) 40 mg SQ DAILY [facility] Last Admin: 01/05/21 09:46 Dose: 40 mg Documented by: Furosemide (Furosemide 40 Mg Tablet) 40 mg PO BIDD [facility] Last Admin: 01/05/21 09:21 Dose: 40 mg Documented by: Glucose (Dextrose 31 Gm Oral.Susp) 15 gm PO PRN PRN PRN Reason: Hypoglycemia Guaifenesin (Guaifenesin 600 Mg Tab.Sr.12h) 600 mg PO BIDP PRN PRN Reason: Congestion Magnesium Sulfate (Magnesium Sulfate) 2 gm in 50 mls @ 50 mls/hr IV UD PRN PRN Reason: Magnesium </= 1.6 Potassium Chloride 40 meq/ (Dextrose) 520 mls @ 130 mls/hr IV UD PRN PRN Reason: Potassium < 3 Ibuprofen (Ibuprofen 600 Mg Tablet) 600 mg PO QIDP PRN; Protocol PRN Reason: PAIN/FEVER > 101 Last Admin: 01/04/21 17:03 Dose: 600 mg Documented by: Insulin Human Lispro (Insulin Lispro 1 Unit/0.01 Ml Unit) [address] [facility]; Protocol Last Admin: 01/05/21 10:20 Dose: Not Given Documented by: Lisinopril (Lisinopril 5 Mg Tablet) 5 mg PO QDAY [facility] Last Admin: 01/05/21 10:08 Dose: Not Given Documented by: Metoprolol Succinate (Metoprolol Succinate 25 Mg Tab.Xl.24h) 25 mg PO BID [facility] Last Admin: 01/05/21 09:50 Dose: 25 mg Documented by: Metoprolol Tartrate (Metoprolol Tartrate 5 Mg/5 Ml Vial) 5 mg IV Q2HP PRN PRN Reason: Tachyarrhythmias HR>110 Mirtazapine (Mirtazapine 15 Mg Tablet) 7.5 mg PO QHS [facility] Last Admin: 01/04/21 21:41 Dose: 7.5 mg Documented by: Ondansetron HCl (Ondansetron 4 Mg/2 Ml Vial) 4 mg IV Q4HP PRN PRN Reason: Nausea And Vomiting Fluticasone- Umeclidin-Vilanter [ Trelegy Ellipta] Inhaler 1 dose INH Q24H [facility] Last Admin: 01/05/21 10:07 Dose: Not Given Documented by: Polyethylene Glycol (Polyethylene Glycol 3350 17 Gm Packet) 17 gm PO DAILYP PRN PRN Reason: Constipation Potassium Chloride (Potassium Chloride 20 Meq Tablet) 40 meq PO UD PRN PRN Reason: Potssium is 3-3.5 Last Admin: 01/04/21 09:53 Dose: 40 meq Documented by: Potassium Chloride (Potassium Chloride 20 Meq Tablet) 40 meq PO UD PRN PRN Reason: Potassium < 3 Pramipexole Dihydrochloride (Pramipexole 0.25 Mg Tablet) [facility] Last Admin: 01/05/21 09:47 Dose: 0.5 mg Documented by: Pramipexole Dihydrochloride (Pramipexole 1 Mg Tablet) 1.5 mg PO [facility] Last Admin: 01/04/21 21:41 Dose: 1.5 mg Documented by: Senna (Sennosides 1 Tablet) 2 tab PO DAILYP PRN PRN Reason: Constipation Sertraline HCl (Sertraline 50 Mg Tablet) 25 mg PO QDAY [facility] Last Admin: 01/05/21 09:48 Dose: 25 mg Documented by: Sodium Chloride (0.9 % Sodium Chloride 10 Ml Syringe) 10 ml IV Q8 [facility] Last Admin: 01/05/21 14:35 Dose: Not Given Documented by: Spironolactone (Spironolactone 25 Mg Tablet) 25 mg PO QDAY [facility] Last Admin: 01/05/21 10:07 Dose: Not Given Documented by: Throat Lozenges (Benzocaine/Menthol 1 Lozenge) 1 lozenge PO PRN PRN PRN Reason: Sore Throat Tiotropium [place] (Tiotropium [place] 18 Mcg Inhalant) 18 mcg INH DAILY [facility] Last Admin: 01/05/21 10:08 Dose: Not Given Documented by: A/P Assessment and plan (1) CHF exacerbation: Status: Acute Qualifiers: Heart failure type: unspecified Qualified Code(s): I50.9 - Heart failure, unspecified (2) Atrial fibrillation: Status: Acute (3) Hypertension: Status: Acute Qualifiers: Hypertension type: essential hypertension Qualified Code(s): I10 - Essential (primary) hypertension (4) Hyperlipidemia: Status: Chronic Comment: Hx; remains on low-dose Lovastatin with no myalgias Qualifiers: Hyperlipidemia type: pure hypercholesterolemia Qualified Code(s): E78.0 - Pure hypercholesterolemia (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 Qualifiers: Emphysema type: panlobular Qualified Code(s): J43.1 - Panlobular emphysema (6) Osteoarthritis of shoulders, bilateral: Status: Chronic Comment: 04/13/2015-[place] Qualifiers: Osteoarthritis type: primary Qualified Code(s): M19.011 - Primary osteoarthritis, right shoulder (7) On home oxygen therapy: Status: Acute (8) Anemia, normocytic normochromic: Status: Acute (9) Venous stasis dermatitis of both lower extremities: Status: Acute Narrative A/P Narrative: Assessment and Plans: 1. Diastolic CHF exacerbation: LVEF 69% Stays in inpatient med surg telemetry Lasix 40mg PO BID Metoprolol succinate Aldactone Lisinopril Intake and output Daily weight 2 L/day fluid restriction Supplemental oxygen therapy titrate to achieve SPO2 above 88 for COPD-er #2 COPD stable no exacerbations: Supplemental oxygen therapy titrate to achieve SPO2 above 88 for COPD-er On home oxygen therapy Spiriva Trelegy Ellipta DuoNeb nebulizer as needed wheezing #3 chronic osteoarthritis bilateral upper extremities: Tylenol as needed mild pain Ibuprofen as needed mild pain #4 type 2 diabetes mellitus: Hemoglobin A1c Continue insulin therapy ACH S Accu-Cheks AC at bedtime Hypoglycemia protocol Diabetic diet #5 atrial fibrillation's: Rate controlled with metoprolol succinate No anticoagulations due to easy bruising and tendency to bleed Aspirin and Plavix #6 anemia hypochromic: CBC with auto differential in the morning to trend H&H and transfuse PRBC if hemoglobin less than 7.0, active bleeding, or symptomatic #7 essential hypertension: Currently normotensive Continue metoprolol succinate, lisinopril, and Aldactone #8 fever: RESOLVED, no additional episode(s) Tylenol as needed fever Blood culture from 01/02 no growth to date No clinical signs of sepsis we will continue to monitor cbc w/ auto diff in the morning to trend WBC #9. Venous stasis dermatitis of bilateral lower extremities: Treat underlying cause of CHF with diuretics, see #1 Keep legs elevated Consults wound care team GI prophylaxis: Not currently indicated DVT prophylaxis: Lovenox CODE STATUS: DNR/DNI Prognosis: Stable Dispositions: Inpatient MedSurg telemetry; pending SNF placement Time Spent With Patient Time: Total time spent is greater than 50% in coordination of care (as documented) at patient's floor/unit and/or counseling patient: Total time spent with greater than 50% in coordination of care (as documented) at patient's floor/unit and/or counseling patient:: 25 - 35 minutes
[2021-01-05] MEDS: PRAMIPEXOLE 1 MG TABLET PO SCH (21:08)
[2021-01-05] MEDS: MIRTAZAPINE 15 MG TABLET PO SCH (21:08)
[2021-01-05] MEDS: ACETAMINOPHEN 325 MG TABLET PO PRN (22:39)
[2021-01-05] MEDS: IBUPROFEN 600 MG TABLET PO PRN (22:39)
[2021-01-06] MEDS: 0.9 % SODIUM CHLORIDE 10 ML SYRINGE IV SCH ×3 (06:42→22:23)
[2021-01-06 07:44] LABS: ALT/SGPT 9 U/L (<40); AST/SGOT 28 U/L (<32); Albumin 3.5 gm/dL (3.2-5.2); Albumin/Globulin Ratio 1.3 (1.0-2.3); Alkaline Phosphatase 142 U/L (39-117); Bilirubin,Total 0.8 mg/dL (0.1-1.0); Blood Urea Nitrogen 11 mg/dL (8-23); Calcium 9.1 mg/dL (8.6-10.4); Carbon Dioxide 36 mmol/L (22-30); Chloride 96 mmol/L (96-108); Globulin 2.7 gm/dL (2.2-3.7); Glomerular Filtration Rate 87; Glucose 87 mg/dL (70-105)
[2021-01-06] MEDS: INSULIN LISPRO 1 UNIT/0.01 ML UNIT SQ SCH ×4 (07:49→21:45)
[2021-01-06] MEDS: DOCUSATE SODIUM 100 MG CAPSULE PO SCH ×2 (07:51→21:35)
[2021-01-06] MEDS: Fluticasone-Umeclidin-Vilanter [Trelegy Ellipta] Inhaler INH SCH (07:52)
[2021-01-06] MEDS: ASPIRIN 81 MG TAB.CHEW PO SCH (08:19)
[2021-01-06] MEDS: PRAMIPEXOLE 0.25 MG TABLET PO SCH (08:19)
[2021-01-06] MEDS: DULoxetine 30 MG CAPSULE PO SCH (08:19)
[2021-01-06] MEDS: FUROSEMIDE 40 MG TABLET PO SCH ×2 (08:19→16:43)
[2021-01-06] MEDS: ENOXAPARIN 40 MG/0.4 ML SYRINGE SQ SCH (08:19)
[2021-01-06] MEDS: METOPROLOL SUCCINATE 25 MG TAB.XL.24H PO SCH ×2 (08:19→21:30)
[2021-01-06] MEDS: TIOTROPIUM BROMIDE 18 MCG INHALANT INH SCH (08:20)
[2021-01-06] MEDS: CLOPIDOGREL 75 MG TABLET PO SCH (08:20)
[2021-01-06] MEDS: SERTRALINE 50 MG TABLET PO SCH (08:20)
--- NOTE | 2021-01-06 09:28 | Internal Med Progress Note ---
SUBJECTIVE Subjective Patient information: Note initiated : 01/06/21 at 9:27 am Service Date, if different from initiated Date: [] Patient: Leslie Maldonado a 80 y/o F admitted on 12/30/20 for Shortness of breath. Chief Complaint: [CHF exacerbation] Interval history: Interval history: History of present illness: Ms. Maldonado is a 80 year old F Presents the ED with shortness of breath and increasing edema. Patient does have a cough but she said that is chronic and no change. She said she has had increasing edema for weeks. Has been short of breath for weeks. She was hospitalized a month ago for COPD and CHF. She is on 4 L of oxygen but with any exertion she will desat into the high 70s. She has a hard time ambulating across her room without becoming short of breath. She resides at [facility] living [facility]. Chest x-ray with edema. Lactate elevated likely from hypoxia. Troponin negative. Patient states that her normal weight is 170 but the last time she was at that weight was 6 to 8 months ago. She states about a month ago she was 230. She measured back to 40 here. 12/31 States poor sleep but overall feeling a little better. Breathing a little bit better. Has good urine output. 01/01 Putting out good urine output. Patient feels less edematous and breathing easier. 01/02: Fever with T-max 38.1 overnight. Urine output at around 200 cc/h overnight. Mild shortness of breath. Respiratory wheezing at baseline. Denies chest pain. Of bilateral upper extremities pain from chronic osteomyelitis. 01/03: Afebrile overnight. Currently on 6L/min oxygen. Blood culture from 01/02 no growth to date. Mild shortness of breath. Respiratory wheezing at baseline. Denies chest pain. c/o bilateral upper extremities pain from chronic osteomyelitis. c/o general body weakness. 01/04: Afebrile overnight. Currently on 4L/min oxygen, which is her baseline. Blood culture from 01/02 no growth to date. Denies shortness of breath. Denies respiratory wheezing. Denies chest pain. Denies general body weakness. c/o sreekanth ateral upper extremities pain from chronic osteomyelitis. 01/05: Afebrile overnight. Currently on 4L/min oxygen, which is her baseline. Blood culture from 01/02 no growth to date. Denies shortness of breath. Denies respiratory wheezing. Denies chest pain. Denies general body weakness. c/o bilateral upper extremities pain from chronic osteomyelitis. 01/06: Afebrile overnight. Currently on 4L/min oxygen, which is her baseline. Blood culture from 01/02 no growth to date. Denies shortness of breath. Denies respiratory wheezing. Denies chest pain. Denies general body weakness. c/o bilateral upper extremities pain from chronic osteomyelitis. Constitutional Vitals: Vital Signs Temp Pulse Resp BP Pulse Ox 36.4 C 80 22 107/80 91 01/06/21 06:49 01/06/21 06:49 01/06/21 06:49 01/06/21 06:49 01/06/21 06:49 Period Temp Pulse Resp BP Sys/Cuellar Pulse Ox Last 24 Hr 36.1 C-36.7 C 76-103 13-26 97-132/64-80 91-97 Intake and Output 01/05/21 01/06/21 01/06/21 21:59 05:59 13:59 Intake Total 240 120 Output Total 3225 1200 Balance -2985 -1080 Weight 108 kg Intake & Output: Intake & Output 01/05/21 01/06/21 01/06/21 21:59 05:59 13:59 Intake Total 240 120 Output Total 3225 1200 Balance -2985 -1080 Weight 108 kg Intake: Oral 240 120 Output: Urine Catheter Amount 1325 1200 Void Amount 1900 Other: Meal Dinner Percent of Meal Consumed 75% Feeding Ability Independent Urine Appearance Clear Clear Urine Color Bright Yellow Bright Yellow [place] General appearance: cooperative and no acute distress Head Head exam: Present atraumatic and normocephalic Eye Eye exam: Present EOMI and PERRL ENT ENT exam: Present mucous membranes moist, normal exam and normal external ear exam Additional comments: nasal cannula Neck Neck exam: Present normal inspection; Absent lymphadenopathy, tenderness and thyromegaly Respiratory Respiratory exam: Present rhonchi; Absent accessory muscle use, respiratory distress and wheezes Cardiovascular Cardiovascular exam: Present normal rate and rhythm; Absent JVD GI/Abdominal GI/Abdominal exam: Present normal bowel sounds and soft; Absent organomegaly and tenderness Additional comments: Sharma catheter Extremities Exam Extremities exam: Present full ROM, normal capillary refill and normal inspection; Absent tenderness Neurological Exam Neurological exam: Present alert, CN II-XII intact and oriented X3; Absent motor sensory deficit Psychiatric Psychiatric exam: Present normal affect and normal mood; Absent anxious and depressed Skin Skin exam: Present dry and intact OBJ DATA Labs CBC & Chem 7: 01/06/21 05:00 01/06/21 05:43 Labs: Abnormal Lab Results 01/06/21 01/05/21 01/05/21 05:43 05:40 05:40 WBC RBC Hgb 10.2 L Hct MCH MCHC 29.5 L RDW 17.1 H Lymph % (Auto) 13.9 L [place] % (Auto) 15.0 H Lymph # (Auto) 0.63 L Sodium 146 H Carbon Dioxide 36 H 35 H Alkaline Phosphatase 142 H 156 H 01/04/21 01/04/21 05:22 05:22 WBC 4.0 L RBC 3.53 L Hgb 9.1 L Hct 32.1 L MCH 25.8 L MCHC 28.3 L RDW 17.2 H Lymph % (Auto) [place] % (Auto) 16.3 H Lymph # (Auto) 0.66 L Sodium Carbon Dioxide 34 H Alkaline Phosphatase 142 H Meds: Medications Acetaminophen (Acetaminophen 325 Mg Tablet) 650 mg PO Q6HP PRN PRN Reason: PAIN/FEVER > 101 Last Admin: 01/05/21 22:39 Dose: 650 mg Documented by: Hydrocodone Bitart/Acetaminophen (Hydrocodone/Apap 5/325mg Tablet) 1 tab PO QIDP PRN PRN Reason: pain Albuterol Sulfate (Albuterol Sulfate 200 Puff Inhaler) 2 puff INH Q6HP PRN PRN Reason: shortness of breath Albuterol/Ipratropium (Ipratropium/Albuterol 3 Ml Ampul.Neb) 3 ml NEB Q4HP PRN PRN Reason: Shortness Of Breath Aspirin (Aspirin 81 Mg Tab.Chew) 81 mg PO DAILY [facility] Last Admin: 01/06/21 08:19 Dose: 81 mg Documented by: Benzonatate (Benzonatate 100 Mg Capsule) 100 mg PO TIDP PRN PRN Reason: Cough Clopidogrel Bisulfate (Clopidogrel 75 Mg Tablet) 75 mg PO DAILY [facility] Last Admin: 01/06/21 08:20 Dose: 75 mg Documented by: Dextrose (Dextrose 50% 50 Ml Vial) 0 ml IV UD PRN PRN Reason: Hypoglycemia Diagnostic Test (Pha) (Accu-Chek 1 Each Strip) 1 each FS [facility] Last Admin: 01/06/21 07:49 Dose: Not Given Documented by: Docusate Sodium (Docusate Sodium 100 Mg Capsule) 100 mg PO BID [facility] Last Admin: 01/06/21 07:51 Dose: Not Given Documented by: Duloxetine HCl (Duloxetine 30 Mg Capsule) 30 mg PO QDAY [facility] Last Admin: 01/06/21 08:19 Dose: 30 mg Documented by: Enoxaparin Sodium (Enoxaparin 40 Mg/0.4 Ml Syringe) 40 mg SQ DAILY [facility] Last Admin: 01/06/21 08:19 Dose: 40 mg Documented by: Furosemide (Furosemide 40 Mg Tablet) 40 mg PO BIDD [facility] Last Admin: 01/06/21 08:19 Dose: 40 mg Documented by: Glucose (Dextrose 31 Gm Oral.Susp) 15 gm PO PRN PRN PRN Reason: Hypoglycemia Guaifenesin (Guaifenesin 600 Mg Tab.Sr.12h) 600 mg PO BIDP PRN PRN Reason: Congestion Magnesium Sulfate (Magnesium Sulfate) 2 gm in 50 mls @ 50 mls/hr IV UD PRN PRN Reason: Magnesium </= 1.6 Potassium Chloride 40 meq/ (Dextrose) 520 mls @ 130 mls/hr IV UD PRN PRN Reason: Potassium < 3 Ibuprofen (Ibuprofen 600 Mg Tablet) 600 mg PO QIDP PRN; Protocol PRN Reason: PAIN/FEVER > 101 Last Admin: 01/05/21 22:39 Dose: 600 mg Documented by: Insulin Human Lispro (Insulin Lispro 1 Unit/0.01 Ml Unit) 0 unit SQ [facility]; Protocol Last Admin: 01/06/21 07:49 Dose: Not Given Documented by: Lisinopril (Lisinopril 5 Mg Tablet) 5 mg PO QDAY [facility] Last Admin: 01/05/21 10:08 Dose: Not Given Documented by: Metoprolol Succinate (Metoprolol Succinate 25 Mg Tab.Xl.24h) 25 mg PO BID [facility] Last Admin: 01/06/21 08:19 Dose: 25 mg Documented by: Metoprolol Tartrate (Metoprolol Tartrate 5 Mg/5 Ml Vial) 5 mg IV Q2HP PRN PRN Reason: Tachyarrhythmias HR>110 Mirtazapine (Mirtazapine 15 Mg Tablet) 7.5 mg PO QHS [facility] Last Admin: 01/05/21 21:08 Dose: 7.5 mg Documented by: Ondansetron HCl (Ondansetron 4 Mg/2 Ml Vial) 4 mg IV Q4HP PRN PRN Reason: Nausea And Vomiting Fluticasone- Umeclidin-Vilanter [ Trelegy Ellipta] Inhaler 1 dose INH Q24H [facility] Last Admin: 01/06/21 07:52 Dose: Not Given Documented by: Polyethylene Glycol (Polyethylene Glycol 3350 17 Gm Packet) 17 gm PO DAILYP PRN PRN Reason: Constipation Potassium Chloride (Potassium Chloride 20 Meq Tablet) 40 meq PO UD PRN PRN Reason: Potssium is 3-3.5 Last Admin: 01/04/21 09:53 Dose: 40 meq Documented by: Potassium Chloride (Potassium Chloride 20 Meq Tablet) 40 meq PO UD PRN PRN Reason: Potassium < 3 Pramipexole Dihydrochloride (Pramipexole 0.25 Mg Tablet) [facility] Last Admin: 01/06/21 08:19 Dose: 0.5 mg Documented by: Pramipexole Dihydrochloride (Pramipexole 1 Mg Tablet) 1.5 mg PO [facility] Last Admin: 01/05/21 21:08 Dose: 1.5 mg Documented by: Senna (Sennosides 1 Tablet) 2 tab PO DAILYP PRN PRN Reason: Constipation Sertraline HCl (Sertraline 50 Mg Tablet) 25 mg PO QDAY [facility] Last Admin: 01/06/21 08:20 Dose: 25 mg Documented by: Sodium Chloride (0.9 % Sodium Chloride 10 Ml Syringe) 10 ml IV Q8 [facility] Last Admin: 01/06/21 06:42 Dose: Not Given Documented by: Spironolactone (Spironolactone 25 Mg Tablet) 25 mg PO QDAY [facility] Last Admin: 01/05/21 10:07 Dose: Not Given Documented by: Throat Lozenges (Benzocaine/Menthol 1 Lozenge) 1 lozenge PO PRN PRN PRN Reason: Sore Throat Tiotropium [place] (Tiotropium [place] 18 Mcg Inhalant) 18 mcg INH DAILY [facility] Last Admin: 01/06/21 08:20 Dose: Not Given Documented by: A/P Assessment and plan (1) CHF exacerbation: Status: Acute Qualifiers: Heart failure type: unspecified Qualified Code(s): I50.9 - Heart failure, unspecified (2) Atrial fibrillation: Status: Acute (3) Hypertension: Status: Acute Qualifiers: Hypertension type: essential hypertension Qualified Code(s): I10 - Essential (primary) hypertension (4) Hyperlipidemia: Status: Chronic Comment: Hx; remains on low-dose Lovastatin with no myalgias Qualifiers: Hyperlipidemia type: pure hypercholesterolemia Qualified Code(s): E78.0 - Pure hypercholesterolemia (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 Qualifiers: Emphysema type: panlobular Qualified Code(s): J43.1 - Panlobular emphysema (6) Osteoarthritis of shoulders, bilateral: Status: Chronic Comment: 04/13/2015-[place] Qualifiers: Osteoarthritis type: primary Qualified Code(s): M19.011 - Primary osteoarthritis, right shoulder (7) On home oxygen therapy: Status: Acute (8) Anemia, normocytic normochromic: Status: Acute (9) Venous stasis dermatitis of both lower extremities: Status: Acute Narrative A/P Narrative: Assessment and Plans: 1. Diastolic CHF exacerbation: LVEF 69% Stays in inpatient med surg telemetry Lasix 40mg PO BID Metoprolol succinate Aldactone Lisinopril Intake and output Daily weight 2 L/day fluid restriction Supplemental oxygen therapy titrate to achieve SPO2 above 88 for COPD-er #2 COPD stable no exacerbations: Supplemental oxygen therapy titrate to achieve SPO2 above 88 for COPD-er On home oxygen therapy Spiriva Trelegy Ellipta DuoNeb nebulizer as needed wheezing #3 chronic osteoarthritis bilateral upper extremities: Tylenol as needed mild pain Ibuprofen as needed mild pain #4 type 2 diabetes mellitus: Hemoglobin A1c Continue insulin therapy ACH S Accu-Cheks AC at bedtime Hypoglycemia protocol Diabetic diet #5 atrial fibrillation's: Rate controlled with metoprolol succinate No anticoagulations due to easy bruising and tendency to bleed Aspirin and Plavix #6 anemia hypochromic: CBC with auto differential in the morning to trend H&H and transfuse PRBC if hemoglobin less than 7.0, active bleeding, or symptomatic #7 essential hypertension: Currently normotensive Continue metoprolol succinate, lisinopril, and Aldactone #8 fever: RESOLVED, no additional episode(s) Tylenol as needed fever Blood culture from 01/02 no growth to date No clinical signs of sepsis we will continue to monitor cbc w/ auto diff in the morning to trend WBC #9. Venous stasis dermatitis of bilateral lower extremities: Treat underlying cause of CHF with diuretics, see #1 Keep legs elevated Consults wound care team GI prophylaxis: Not currently indicated DVT prophylaxis: Lovenox CODE STATUS: DNR/DNI Prognosis: Stable Dispositions: Inpatient MedSurg telemetry; pending SNF placement Time Spent With Patient Time: Total time spent is greater than 50% in coordination of care (as renee lee) at patient's floor/unit and/or counseling patient:
[2021-01-06 09:47] LABS: Basophils # (Auto) 0.02 K/mcL (0.00-0.30); Basophils % (Auto) 0.5 % (0.0-2.0); Eosinophils # (Auto) 0.14 K/mcL (0.00-0.70); Eosinophils % (Auto) 3.3 % (0.0-7.0); Hematocrit 34.8 % (34.1-44.9); Hemoglobin 9.9 g/dL (11.2-15.7); Lymphocytes # (Auto) 0.55 K/mcL (1.50-4.80); Lymphocytes % (Auto) 13.2 % (15.5-49.0); Mean Cell Volume 90.2 fL (80.0-100.0); Mean Corpuscular HGB Conc 28.4 g/dL (31.0-36.0); Mean Platelet Volume 9.6 fL (7.4-10.4); Monocytes # (Auto) 0.56 K/mcL (0.10-0.90); Monocytes % (Auto) 13.4 % (1.0-12.0); Neutrophils % (Auto) 69.6 % (38.0-78.0); Platelet Count 222 K/mcL (140-440); RBC 3.86 M/mcL (3.59-5.38); Red Cell Distribution Width 17.5 % (11.5-14.5); WBC 4.2 K/mcL (4.5-11.0)
[2021-01-06] MEDS: SPIRONOLACTONE 25 MG TABLET PO SCH (10:53)
[2021-01-06] MEDS: LISINOPRIL 5 MG TABLET PO SCH (10:53)
--- NOTE | 2021-01-06 14:04 | Internal Med Progress Note ---
SUBJECTIVE Subjective Patient information: Note initiated : 01/06/21 at 2:00 pm Service Date, if different from initiated Date: [] Patient: Leslie Maldonado a 80 y/o F admitted on 12/30/20 for Shortness of breath. Chief Complaint: [] Interval history: History of present illness: Ms. Maldonado is a 80 year old F Presents the ED with shortness of breath and increasing edema. Patient does have a cough but she said that is chronic and no change. She said she has had increasing edema for weeks. Has been short of breath for weeks. She was hospitalized a month ago for COPD and CHF. She is on 4 L of oxygen but with any exertion she will desat into the high 70s. She has a hard time ambulating across her room without becoming short of breath. She resides at [facility] assisted [facility]. Chest x-ray with edema. Lactate elevated likely from hypoxia. Troponin negative. Patient states that her normal weight is 170 but the last time she was at that weight was 6 to 8 months ago. She states about a month ago she was 230. She measured back to 40 here. 12/31 States poor sleep but overall feeling a little better. Breathing a little bit better. Has good urine output. 01/01 Putting out good urine output. Patient feels less edematous and breathing easier. 01/02: Fever with T-max 38.1 overnight. Urine output at around 200 cc/h overnight. Mild shortness of breath. Respiratory wheezing at baseline. Denies chest pain. Of bilateral upper extremities pain from chronic osteomyelitis. 01/03: Afebrile overnight. Currently on 6L/min oxygen. Blood culture from 01/02 no growth to date. Mild shortness of breath. Respiratory wheezing at baseline. Denies chest pain. c/o bilateral upper extremities pain from chronic osteomyelitis. c/o general body weakness. 01/04: Afebrile overnight. Currently on 4L/min oxygen, which is her baseline. Blood culture from 01/02 no growth to date. Denies shortness of breath. Denies respiratory wheezing. Denies chest pain. Denies general body weakness. c/o bilateral upper extremities pain from chronic osteomyelitis. 01/05: Afebrile overnight. Currently on 4L/min oxygen, which is her baseline. Blood culture from 01/02 no growth to date. Denies shortness of breath. Denies respiratory wheezing. Denies chest pain. Denies general body weakness. c/o bilateral upper extremities pain from chronic osteomyelitis. 01/06: Afebrile overnight. Currently on 4L/min oxygen, which is her baseline. Blood culture from 01/02 no growth to date. Denies shortness of breath. Denies respiratory wheezing. Denies chest pain. Denies general body weakness. c/o bilateral upper extremities pain from chronic osteomyelitis. Review of Systems: denies headache/fever/chills/nausea/vomiting/chest or abdominal pain/diarrhea. Otherwise see above. Constitutional Vitals: Vital Signs Temp Pulse Resp BP Pulse Ox 98.4 F 81 24 H 109/77 91 01/06/21 12:00 01/06/21 12:00 01/06/21 12:00 01/06/21 12:00 01/06/21 12:00 Period Temp Pulse Resp BP Sys/Cuellar Pulse Ox Last 24 Hr 97.3 F-98.4 F 76-103 17-26 106-132/64-80 91-97 Intake and Output 01/06/21 01/06/21 01/06/21 05:59 13:59 21:59 Intake Total 120 Output Total 1200 Balance -1080 Intake & Output: Intake & Output 01/06/21 01/06/21 01/06/21 05:59 13:59 21:59 Intake Total 120 Output Total 1200 Balance -1080 Intake: Oral 120 Output: Urine Catheter Amount 1200 Other: Urine Appearance Clear Urine Color Bright Yellow [place] Exam: General: Alert, Awake, No acute Distress, obese Eyes/N/T: EOMI, Head/Neck: neck supple, CV: irreg irreg, No murmurs, Pulm: Diminished b/l, mild bibasilar rales , no wheezing Abd: soft, nontender, +BS x4 Ext: no clubbing/cyanosis, 2-3+ edema to thighs, UE edema as well - edema improving Neuro: Alert, no focal deficits, moves all extremities, Skin: warm/dry OBJ DATA Labs CBC & Chem 7: 01/06/21 08:32 01/06/21 05:43 Labs: Abnormal Lab Results 01/06/21 01/06/21 01/05/21 08:32 05:43 05:40 WBC 4.2 L RBC Hgb 9.9 L Hct MCH 25.6 L MCHC 28.4 L RDW 17.5 H Lymph % (Auto) 13.2 L [place] % (Auto) 13.4 H Lymph # (Auto) 0.55 L Sodium 146 H Carbon Dioxide 36 H 35 H Alkaline Phosphatase 142 H 156 H 01/05/21 01/04/21 01/04/21 05:40 05:22 05:22 WBC 4.0 L RBC 3.53 L Hgb 10.2 L 9.1 L Hct 32.1 L MCH 25.8 L MCHC 29.5 L 28.3 L RDW 17.1 H 17.2 H Lymph % (Auto) 13.9 L [place] % (Auto) 15.0 H 16.3 H Lymph # (Auto) 0.63 L 0.66 L Sodium Carbon Dioxide 34 H Alkaline Phosphatase 142 H Meds: Medications Acetaminophen (Acetaminophen 325 Mg Tablet) 650 mg PO Q6HP PRN PRN Reason: PAIN/FEVER > 101 Last Admin: 01/05/21 22:39 Dose: 650 mg Documented by: Hydrocodone Bitart/Acetaminophen (Hydrocodone/Apap 5/325mg Tablet) 1 tab PO QIDP PRN PRN Reason: pain Albuterol Sulfate (Albuterol Sulfate 200 Puff Inhaler) 2 puff INH Q6HP PRN PRN Reason: shortness of breath Albuterol/Ipratropium (Ipratropium/Albuterol 3 Ml Ampul.Neb) 3 ml NEB Q4HP PRN PRN Reason: Shortness Of Breath Aspirin (Aspirin 81 Mg Tab.Chew) 81 mg PO DAILY [facility] Last Admin: 01/06/21 08:19 Dose: 81 mg Documented by: Benzonatate (Benzonatate 100 Mg Capsule) 100 mg PO TIDP PRN PRN Reason: Cough Clopidogrel Bisulfate (Clopidogrel 75 Mg Tablet) 75 mg PO DAILY [facility] Last Admin: 01/06/21 08:20 Dose: 75 mg Documented by: Dextrose (Dextrose 50% 50 Ml Vial) 0 ml IV UD PRN PRN Reason: Hypoglycemia Diagnostic Test (Pha) (Accu-Chek 1 Each Strip) 1 each FS ACHS [facility] Last Admin: 01/06/21 10:53 Dose: Not Given Documented by: Docusate Sodium (Docusate Sodium 100 Mg Capsule) 100 mg PO BID [facility] Last Admin: 01/06/21 07:51 Dose: Not Given Documented by: Duloxetine HCl (Duloxetine 30 Mg Capsule) 30 mg PO QDAY [facility] Last Admin: 01/06/21 08:19 Dose: 30 mg Documented by: Enoxaparin Sodium (Enoxaparin 40 Mg/0.4 Ml Syringe) 40 mg SQ DAILY [facility] Last Admin: 01/06/21 08:19 Dose: 40 mg Documented by: Furosemide (Furosemide 40 Mg Tablet) 40 mg PO BIDD [facility] Last Admin: 01/06/21 08:19 Dose: 40 mg Documented by: Glucose (Dextrose 31 Gm Oral.Susp) 15 gm PO PRN PRN PRN Reason: Hypoglycemia Guaifenesin (Guaifenesin 600 Mg Tab.Sr.12h) 600 mg PO BIDP PRN PRN Reason: Congestion Magnesium Sulfate (Magnesium Sulfate) 2 gm in 50 mls @ 50 mls/hr IV UD PRN PRN Reason: Magnesium </= 1.6 Potassium Chloride 40 meq/ (Dextrose) 520 mls @ 130 mls/hr IV UD PRN PRN Reason: Potassium < 3 Ibuprofen (Ibuprofen 600 Mg Tablet) 600 mg PO QIDP PRN; Protocol PRN Reason: PAIN/FEVER > 101 Last Admin: 01/05/21 22:39 Dose: 600 mg Documented by: Insulin Human Lispro (Insulin Lispro 1 Unit/0.01 Ml Unit) 0 unit SQ ACHS [facility]; Protocol Last Admin: 01/06/21 10:53 Dose: Not Given Documented by: Lisinopril (Lisinopril 5 Mg Tablet) 5 mg PO QDAY [facility] Last Admin: 01/06/21 10:53 Dose: 5 mg Documented by: Metoprolol Succinate (Metoprolol Succinate 25 Mg Tab.Xl.24h) 25 mg PO BID [facility] Last Admin: 01/06/21 08:19 Dose: 25 mg Documented by: Metoprolol Tartrate (Metoprolol Tartrate 5 Mg/5 Ml Vial) 5 mg IV Q2HP PRN PRN Reason: Tachyarrhythmias HR>110 Mirtazapine (Mirtazapine 15 Mg Tablet) 7.5 mg PO QHS [facility] Last Admin: 01/05/21 21:08 Dose: 7.5 mg Documented by: Ondansetron HCl (Ondansetron 4 Mg/2 Ml Vial) 4 mg IV Q4HP PRN PRN Reason: Nausea And Vomiting Fluticasone- Umeclidin-Vilanter [ Trelegy Ellipta] Inhaler 1 dose INH Q24H [facility] Last Admin: 01/06/21 07:52 Dose: Not Given Documented by: Polyethylene Glycol (Polyethylene Glycol 3350 17 Gm Packet) 17 gm PO DAILYP PRN PRN Reason: Constipation Potassium Chloride (Potassium Chloride 20 Meq Tablet) 40 meq PO UD PRN PRN Reason: Potssium is 3-3.5 Last Admin: 01/04/21 09:53 Dose: 40 meq Documented by: Potassium Chloride (Potassium Chloride 20 Meq Tablet) 40 meq PO UD PRN PRN Reason: Potassium < 3 Pramipexole Dihydrochloride (Pramipexole 0.25 Mg Tablet) 0.5 mg PO QAM [facility] Last Admin: 01/06/21 08:19 Dose: 0.5 mg Documented by: Pramipexole Dihydrochloride (Pramipexole 1 Mg Tablet) 1.5 mg PO HS [facility] Last Admin: 01/05/21 21:08 Dose: 1.5 mg Documented by: Senna (Sennosides 1 Tablet) 2 tab PO DAILYP PRN PRN Reason: Constipation Sertraline HCl (Sertraline 50 Mg Tablet) 25 mg PO QDAY [facility] Last Admin: 01/06/21 08:20 Dose: 25 mg Documented by: Sodium Chloride (0.9 % Sodium Chloride 10 Ml Syringe) 10 ml IV Q8 [facility] Last Admin: 01/06/21 06:42 Dose: Not Given Documented by: Spironolactone (Spironolactone 25 Mg Tablet) 25 mg PO QDAY [facility] Last Admin: 01/06/21 10:53 Dose: 25 mg Documented by: Throat Lozenges (Benzocaine/Menthol 1 Lozenge) 1 lozenge PO PRN PRN PRN Reason: Sore Throat Tiotropium [place] (Tiotropium [place] 18 Mcg Inhalant) 18 mcg INH DAILY [facility] Last Admin: 01/06/21 08:20 Dose: Not Given Documented by: A/P Narrative A/P Narrative: A: *Acute on chronic hypoxic respiratory failure: improved *Acute on chronic diastolic CHF w/mild pulm edema, mod MR: Improved -last echo showed improved EF from 48% to 69% -good UOP *Anasarca: improved *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 Tucker *Afib/SVT: follows with Dr. Myrick, on BB -was on anticoagulation in past (warfarin) but this was discontinued due to diffuse bruising/bleeding. *HTN: *Prediabetes: A1c 6.1 *Obesity: *Anemia, chronic *Venous stasis Dermatitis b/l LE's: P: -cont PO lasix/aldactone -monitor I/'s, UOP -O2 supp -restarted home ACEI, cont BB -cont home ASA/Plavix (?on both) -cont home IH's, prn nebs -SSI -wound care, elevate legs -pt/ot -CM for placement needs -ppx:lovenox DNR Time Spent With Patient Time: Total time spent is greater than 50% in coordination of care (as documented) at patient's floor/unit and/or counseling patient:
--- NOTE | 2021-01-06 15:23 | Discharge Summary ---
Discharge Provider Provider Patient information: Note initiated : 01/06/21 at 3:22 pm Service Date, if different from initiated Date: [] Patient: Leslie Maldonado 80 y/o F admitted on 12/30/20 for Shortness of breath. Chief Complaint: [] Date of admission: 12/30/20 20:04 Discharge date: 01/11/21 Primary care physician: Duy Watkins MD Consults: 12/30/20 Consult to Physician [CONS] Stat Comment: Consulting Provider: Dudley Harris Reason For Exam: Physician to Consult Discharge Meds Discharge Medications Home Medications albuterol sulfate 2.5 mg INHALATION BID #180 ml 08/27/18 [Rx Confirmed 12/31/20 Last Taken 11/11/19 08:00] portable oxygen with supplies 2 applic .ROUTE .MEDSUPPLY 06/20/19 [History Confirmed 12/31/20 Last Taken 11/18/19 08:00] metoprolol succinate [Toprol XL] 25 mg PO BID 11/19/19 [History Confirmed 12/31/20 Last Taken Unknown] aspirin 81 mg PO DAILY #30 tab 11/21/19 [Rx Confirmed 12/31/20 Last Taken Unknown] tiotropium bromide 18 mcg capsule with inhalation device See Rx Instructions .ROUTE .COMPLEX #30 cap 01/08/20 [Rx Confirmed 12/31/20 Last Taken Unknown] albuterol sulfate 90 mcg/actuation aerosol inhaler 2 puff INHALATION Q6H PRN #18 g 02/18/20 [Rx Confirmed 12/31/20 Last Taken Unknown] pramipexole 0.5 mg tablet See Rx Instructions .ROUTE .COMPLEX #360 tab 06/25/20 [Rx Confirmed 12/31/20 Last Taken Unknown] fluticasone fur. 200 mcg-umeclid 62.5 mcg-vilant 25 mcg inhalat.powder 1 inh INHALATION Q24H #60 ea 07/29/20 [Rx Confirmed 12/31/20 Last Taken Unknown] clopidogrel [Plavix] 75 mg PO QDAY #14 tab 08/30/20 [Rx Confirmed 12/31/20 Last Taken Unknown] hydrocodone-acetaminophen 1 tab PO QIDP PRN #14 tab 08/30/20 [Rx Confirmed 12/31/20 Last Taken Unknown] mirtazapine 7.5 mg tablet 7.5 mg PO QHS #30 tab 09/02/20 [Rx Confirmed 12/31/20 Last Taken Unknown] acetaminophen 500 mg PO BID 10/30/20 [History Confirmed 12/31/20 Last Taken Unknown] guaifenesin [Mucinex] 600 mg PO BIDP PRN #30 tab 11/02/20 [Rx Confirmed 12/31/20 Last Taken Unknown] spironolactone 25 mg tablet 25 mg PO QDAY #30 tab 12/10/20 [Rx Confirmed 12/31/20 Last Taken Unknown] duloxetine 30 mg capsule,delayed release 30 mg PO QDAY #30 cap 12/16/20 [Rx Confirmed 12/31/20 Last Taken Unknown] sertraline 25 mg tablet 25 mg PO QDAY #30 tab 12/16/20 [Rx Confirmed 12/31/20 Last Taken Unknown] potassium chloride 10 meq PO QDAY #30 cap 01/08/21 [Rx Last Taken Unknown] lisinopril 2.5 mg PO QDAY #10 tab 01/10/21 [Rx Last Taken Unknown] furosemide [Lasix] 40 mg PO QDAY #30 tab 01/11/21 [Rx Last Taken Unknown] COURSE Hospital Course Hospital course: Interval history: History of present illness: Ms. Maldonado is a 80 year old F Presents the ED with shortness of breath and increasing edema. Patient does have a cough but she said that is chronic and no change. She said she has had increasing edema for weeks. Has been short of breath for weeks. She was hospitalized a month ago for COPD and CHF. She is on 4 L of oxygen but with any exertion she will desat into the high 70s. She has a hard time ambulating across her room without becoming short of breath. She resides at [facility] assisted living [facility]. Chest x-ray with edema. Lactate elevated likely from hypoxia. Troponin negative. Patient states that her normal weight is 170 but the last time she was at that weight was 6 to 8 months ago. She states about a month ago she was 230. She measured back to 40 here. 12/31 States poor sleep but overall feeling a little better. Breathing a little bit better. Has good urine output. 01/01 Putting out good urine output. Patient feels less edematous and breathing easier. 01/02: Fever with T-max 38.1 overnight. Urine output at around 200 cc/h overnight. Mild shortness of breath. Respiratory wheezing at baseline. Denies chest pain. Of bilateral upper extremities pain from chronic osteomyelitis. 01/03: Afebrile overnight. Currently on 6L/min oxygen. Blood culture from 01/02 no growth to date. Mild shortness of breath. Respiratory wheezing at baseline. Denies chest pain. c/o bilateral upper extremities pain from chronic osteomyelitis. c/o general body weakness. 01/04: Afebrile overnight. Currently on 4L/min oxygen, which is her baseline. Blood culture from 01/02 no growth to date. Denies shortness of breath. Denies respiratory wheezing. Denies chest pain. Denies general body weakness. c/o bilateral upper extremities pain from chronic osteomyelitis. 01/05: Afebrile overnight. Currently on 4L/min oxygen, which is her baseline. Blood culture from 01/02 no growth to date. Denies shortness of breath. Denies respiratory wheezing. Denies chest pain. Denies general body weakness. c/o bilateral upper extremities pain from chronic osteomyelitis. 01/06: Afebrile overnight. Currently on 4L/min oxygen, which is her baseline. Blood culture from 01/02 no growth to date. Denies shortness of breath. Denies respiratory wheezing. Denies chest pain. Denies general body weakness. c/o bilateral upper extremities pain from chronic osteomyelitis. 01/07 No overnight event or new complaints. Overall patient feels better and has lost a lot of fluid weight. 01/08 Patient sitting up in chair eating breakfast. No new complaints overnight events. 01/09 No new events or complaints. Awaiting placement. 01/10 No overnight event or new complaints. Placement likely Monday. 01/11 Patient stable. No changes. 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 Tucker *Afib/SVT: follows with Dr. Myrick, on BB -was on anticoagulation in past (warfarin) but this was discontinued due to diffuse bruising/bleeding. *HTN: *Prediabetes: A1c 6.1 *Obesity: *Anemia, chronic *Venous stasis Dermatitis b/l LE's: Discharge diagnosis: Acute on chronic diastolic heart failure hypoxic respiratory failure anasar Secondary discharge diagnosis: COPD pulmonary fibrosis A. fib SVT hypertension prediabetes obesity chronic anemia venous stasis dermatitis Time Spent with Patient Time attestation: Total time spent providing and/or coordinating discharge services: Time spent: Greater than 30 minutes EXAM Constitutional Vitals: Temp Pulse Resp BP Pulse Ox 98.4 F 81 24 H 109/77 91 01/06/21 12:00 01/06/21 12:00 01/06/21 12:00 01/06/21 12:00 01/06/21 12:00 Discharge Data Data Completed and Pending Labs on day of discharge: Labs from last 24 hours 01/06/21 01/06/21 01/06/21 08:32 05:43 05:00 WBC 4.2 L TNP RBC 3.86 TNP Hgb 9.9 L TNP Hct 34.8 TNP MCV 90.2 TNP MCH 25.6 L TNP MCHC 28.4 L TNP RDW 17.5 H TNP Plt Count 222 TNP MPV 9.6 TNP Neut % (Auto) 69.6 TNP Lymph % (Auto) 13.2 L TNP [place] % (Auto) 13.4 H TNP Eos % (Auto) 3.3 TNP Baso % (Auto) 0.5 TNP Lymph # (Auto) 0.55 L TNP [place] # (Auto) 0.56 TNP Eos # (Auto) 0.14 TNP Baso # (Auto) 0.02 TNP Absolute Neutrophils 2.91 TNP Differential Comment TNP Sodium 144 Potassium 3.8 Chloride 96 Carbon Dioxide 36 H Anion Gap 12.0 BUN 11 Creatinine 0.6 GFR Calculation 87 Glucose 87 Calcium 9.1 Total Bilirubin 0.8 AST 28 ALT 9 Alkaline Phosphatase 142 H Total Protein 6.2 Albumin 3.5 Globulin 2.7 Albumin/Globulin Ratio 1.3 Preliminary micro results at discharge 01/02/21 10:55 Blood Culture - Preliminary Blood 01/02/21 10:49 Blood Culture - Preliminary Blood Discharge Plan Patient/Caregiver Discharge Instructions Activity: increase activity as tolerated Diet: Consistent Carbohydrate Instructions: Wound Healing and Your Diet (DC) Activity Restrictions/Additional Instructions: Follow-up to see cardiology in 3 to 14 days for heart failure Prescriptions: New potassium chloride 10 mEq capsule, extended release 10 meq PO QDAY Qty: 30 RF: 0 furosemide [Lasix] 40 mg tablet 40 mg PO QDAY Qty: 30 RF: 0 Continued tiotropium bromide [Spiriva with HandiHaler] 18 mcg capsule, w/inhalation dev ice See Rx Instructions .ROUTE .COMPLEX Qty: 30 RF: 6 albuterol sulfate [ProAir HFA] 90 mcg/actuation HFA aerosol inhaler 2 puff INHALATION Q6H PRN (Reason: shortness of breath) Qty: 18 RF: 3 pramipexole 0.5 mg tablet See Rx Instructions .ROUTE .COMPLEX Qty: 360 RF: 1 sertraline 25 mg tablet 25 mg PO QDAY Qty: 30 RF: 6 duloxetine 30 mg capsule,delayed release(DR/EC) 30 mg PO QDAY Qty: 30 RF: 4 Trelegy Ellipta 200-62.5-25 mcg blister with device 1 inh inhalation Q24H Qty: 60 RF: 12 mirtazapine 7.5 mg tablet 7.5 mg PO QHS Qty: 30 RF: 12 spironolactone 25 mg tablet 25 mg PO QDAY Qty: 30 RF: 7 albuterol sulfate 2.5 mg /3 mL (0.083 %) solution for nebulization 2.5 mg INHALATION BID Qty: 180 RF: 11 portable oxygen with supplies Inhalant 2 applic .Route .MEDSUPPLY RF: 0 metoprolol succinate [Toprol XL] 25 mg Tablet Extended Release 24 Hr 25 mg PO BID RF: 0 aspirin 81 mg Tablet,Chewable 81 mg PO DAILY Qty: 30 RF: 0 clopidogrel [Plavix] 75 mg tablet 75 mg PO QDAY Qty: 14 RF: 0 hydrocodone-acetaminophen 5-325 mg tablet 1 tab PO QIDP PRN (Reason: pain) Qty: 14 RF: 0 acetaminophen 500 mg Tablet 500 mg PO BID RF: 0 guaifenesin [Mucinex] 600 mg Tablet Extended Release 12hr 600 mg PO BIDP PRN (Reason: Congestion) Qty: 30 RF: 0 Changed lisinopril 5 mg tablet 2.5 mg PO QDAY Qty: 10 RF: 0 Discontinued meloxicam 15 mg tablet 15 mg PO QDAY Qty: 30 RF: 5 Other Ambulatory Orders: Wound Care Instructions (CONT) Location: None Selected Ordered By: Lavell Bedoya Pucarlyle Follow Up Plan Follow up with: Houston Garcia MD [Physician] - (Please call and schedule follow up at clinic within 1 week of discharge from hospital.) Duy Watkins MD [Primary Care Provider] - Patient Disposition: Xfer SNF Prognosis: Undetermined Rehab Potential: Fair I certify that the patient requires SNF services: Yes Overall status at discharge: patient is progressing back to baseline Discharge Orders: Discharge Order (Routine); Ordered 01/11/21 Ordered By: Dudley Harris
[2021-01-06] MEDS: PRAMIPEXOLE 1 MG TABLET PO SCH (21:29)
[2021-01-06] MEDS: MIRTAZAPINE 15 MG TABLET PO SCH (21:30)
[2021-01-06] MEDS: IBUPROFEN 600 MG TABLET PO PRN (21:30)
[2021-01-06] MEDS: ACETAMINOPHEN 325 MG TABLET PO PRN (21:30)
[2021-01-07] MEDS: 0.9 % SODIUM CHLORIDE 10 ML SYRINGE IV SCH ×3 (05:58→21:51)
--- NOTE | 2021-01-07 08:08 | Internal Med Progress Note ---
SUBJECTIVE Subjective Patient information: Note initiated : 01/07/21 at 8:05 am Service Date, if different from initiated Date: [] Patient: Leslie Maldonado a 80 y/o F admitted on 12/30/20 for Shortness of breath. Chief Complaint: [] Interval history: History of present illness: Ms. Maldonado is a 80 year old F Presents the ED with shortness of breath and increasing edema. Patient does have a cough but she said that is chronic and no change. She said she has had increasing edema for weeks. Has been short of breath for weeks. She was hospitalized a month ago for COPD and CHF. She is on 4 L of oxygen but with any exertion she will desat into the high 70s. She has a hard time ambulating across her room without becoming short of breath. She resides at [facility] assisted living [facility]. Chest x-ray with edema. Lactate elevated likely from hypoxia. Troponin negative. Patient states that her normal weight is 170 but the last time she was at that weight was 6 to 8 months ago. She states about a month ago she was 230. She measured back to 40 here. 12/31 States poor sleep but overall feeling a little better. Breathing a little bit better. Has good urine output. 01/01 Putting out good urine output. Patient feels less edematous and breathing easier. 01/02: Fever with T-max 38.1 overnight. Urine output at around 200 cc/h overnight. Mild shortness of breath. Respiratory wheezing at baseline. Denies chest pain. Of bilateral upper extremities pain from chronic osteomyelitis. 01/03: Afebrile overnight. Currently on 6L/min oxygen. Blood culture from 01/02 no growth to date. Mild shortness of breath. Respiratory wheezing at baseline. Denies chest pain. c/o bilateral upper extremities pain from chronic osteomyelitis. c/o general body weakness. 01/04: Afebrile overnight. Currently on 4L/min oxygen, which is her baseline. Blood culture from 01/02 no growth to date. Denies shortness of breath. Denies respiratory wheezing. Denies chest pain. Denies general body weakness. c/o bilateral upper extremities pain from chronic osteomyelitis. 01/05: Afebrile overnight. Currently on 4L/min oxygen, which is her baseline. Blood culture from 01/02 no growth to date. Denies shortness of breath. Denies respiratory wheezing. Denies chest pain. Denies general body weakness. c/o bilateral upper extremities pain from chronic osteomyelitis. 01/06: Afebrile overnight. Currently on 4L/min oxygen, which is her baseline. Blood culture from 01/02 no growth to date. Denies shortness of breath. Denies respiratory wheezing. Denies chest pain. Denies general body weakness. c/o bilateral upper extremities pain from chronic osteomyelitis. 01/07 No overnight event or new complaints. Overall patient feels better and has lost a lot of fluid weight. Review of Systems: denies headache/fever/chills/nausea/vomiting/chest or abdominal pain/diarrhea. Otherwise see above. Constitutional Vitals: Vital Signs Temp Pulse Resp BP Pulse Ox 97.8 F 75 18 108/76 92 01/07/21 03:27 01/07/21 03:27 01/07/21 03:27 01/07/21 03:27 01/07/21 03:27 Period Temp Pulse Resp BP Sys/Cuellar Pulse Ox Last 24 Hr 97.3 F-98.4 F 75-94 18-24 89-109/63-77 90-92 Intake and Output 01/06/21 01/07/21 01/07/21 21:59 05:59 13:59 Intake Total 440 420 Output Total 1250 275 Balance -810 145 Weight 106.413 kg Intake & Output: Intake & Output 01/06/21 01/07/21 01/07/21 21:59 05:59 13:59 Intake Total 440 420 Output Total 1250 275 Balance -810 145 Weight 106.413 kg Intake: Oral 440 420 Output: Urine Catheter Amount 1250 275 Other: Meal Dinner Percent of Meal Consumed 100% Feeding Ability Independent Urine Appearance Clear Clear Urine Color Dark Yellow Bright Yellow Urine Odor Strong Exam: General: Alert, Awake, No acute Distress, obese Eyes/N/T: EOMI, Head/Neck: neck supple, CV: irreg irreg, No murmurs, Pulm: Diminished b/l, mild bibasilar rales , no wheezing Abd: soft, nontender, +BS x4 Ext: no clubbing/cyanosis, b/l LE edema much improved, UE edema also improved Neuro: Alert, no focal deficits, moves all extremities, Skin: warm/dry OBJ DATA Labs CBC & Chem 7: 09/29/21 08:32 01/06/21 05:43 Labs: Abnormal Lab Results 01/06/21 01/06/21 01/05/21 08:32 05:43 05:40 WBC 4.2 L Hgb 9.9 L MCH 25.6 L MCHC 28.4 L RDW 17.5 H Lymph % (Auto) 13.2 L [place] % (Auto) 13.4 H Lymph # (Auto) 0.55 L Sodium 146 H Carbon Dioxide 36 H 35 H Alkaline Phosphatase 142 H 156 H 01/05/21 01/04/21 05:40 05:22 WBC Hgb 10.2 L MCH MCHC 29.5 L RDW 17.1 H Lymph % (Auto) 13.9 L [place] % (Auto) 15.0 H Lymph # (Auto) 0.63 L Sodium Carbon Dioxide 34 H Alkaline Phosphatase 142 H Meds: Medications Acetaminophen (Acetaminophen 325 Mg Tablet) 650 mg PO Q6HP PRN PRN Reason: PAIN/FEVER > 101 Last Admin: 01/06/21 21:30 Dose: 650 mg Documented by: Hydrocodone Bitart/Acetaminophen (Hydrocodone/Apap 5/325mg Tablet) 1 tab PO QIDP PRN PRN Reason: pain Albuterol Sulfate (Albuterol Sulfate 200 Puff Inhaler) 2 puff INH Q6HP PRN PRN Reason: shortness of breath Albuterol/Ipratropium (Ipratropium/Albuterol 3 Ml Ampul.Neb) 3 ml NEB Q4HP PRN PRN Reason: Shortness Of Breath Aspirin (Aspirin 81 Mg Tab.Chew) 81 mg PO DAILY [facility] Last Admin: 01/06/21 08:19 Dose: 81 mg Documented by: Benzonatate (Benzonatate 100 Mg Capsule) 100 mg PO TIDP PRN PRN Reason: Cough Clopidogrel Bisulfate (Clopidogrel 75 Mg Tablet) 75 mg PO DAILY [facility] Last Admin: 01/06/21 08:20 Dose: 75 mg Documented by: Dextrose (Dextrose 50% 50 Ml Vial) 0 ml IV UD PRN PRN Reason: Hypoglycemia Diagnostic Test (Pha) (Accu-Chek 1 Each Strip) 1 each FS ACHS [facility] Last Admin: 01/06/21 21:35 Dose: Not Given Documented by: Docusate Sodium (Docusate Sodium 100 Mg Capsule) 100 mg PO BID [facility] Last Admin: 01/06/21 21:35 Dose: Not Given Documented by: Duloxetine HCl (Duloxetine 30 Mg Capsule) 30 mg PO QDAY [facility] Last Admin: 01/06/21 08:19 Dose: 30 mg Documented by: Enoxaparin Sodium (Enoxaparin 40 Mg/0.4 Ml Syringe) 40 mg SQ DAILY [facility] Last Admin: 01/06/21 08:19 Dose: 40 mg Documented by: Furosemide (Furosemide 40 Mg Tablet) 40 mg PO BIDD [facility] Last Admin: 01/06/21 16:43 Dose: 40 mg Documented by: Glucose (Dextrose 31 Gm Oral.Susp) 15 gm PO PRN PRN PRN Reason: Hypoglycemia Guaifenesin (Guaifenesin 600 Mg Tab.Sr.12h) 600 mg PO BIDP PRN PRN Reason: Congestion Magnesium Sulfate (Magnesium Sulfate) 2 gm in 50 mls @ 50 mls/hr IV UD PRN PRN Reason: Magnesium </= 1.6 Potassium Chloride 40 meq/ (Dextrose) 520 mls @ 130 mls/hr IV UD PRN PRN Reason: Potassium < 3 Ibuprofen (Ibuprofen 600 Mg Tablet) 600 mg PO QIDP PRN; Protocol PRN Reason: PAIN/FEVER > 101 Last Admin: 01/06/21 21:30 Dose: 600 mg Documented by: Insulin Human Lispro (Insulin Lispro 1 Unit/0.01 Ml Unit) 0 unit SQ ACHS [facility]; Protocol Last Admin: 01/06/21 21:45 Dose: Not Given Documented by: Lisinopril (Lisinopril 5 Mg Tablet) 5 mg PO QDAY [facility] Last Admin: 01/06/21 10:53 Dose: 5 mg Documented by: Metoprolol Succinate (Metoprolol Succinate 25 Mg Tab.Xl.24h) 25 mg PO BID [facility] Last Admin: 01/06/21 21:30 Dose: 25 mg Documented by: Metoprolol Tartrate (Metoprolol Tartrate 5 Mg/5 Ml Vial) 5 mg IV Q2HP PRN PRN Reason: Tachyarrhythmias HR>110 Mirtazapine (Mirtazapine 15 Mg Tablet) 7.5 mg PO QHS [facility] Last Admin: 01/06/21 21:30 Dose: 7.5 mg Documented by: Ondansetron HCl (Ondansetron 4 Mg/2 Ml Vial) 4 mg IV Q4HP PRN PRN Reason: Nausea And Vomiting Fluticasone- Umeclidin-Vilanter [ Trelegy Ellipta] Inhaler 1 dose INH Q24H [facility] Last Admin: 01/06/21 07:52 Dose: Not Given Documented by: Polyethylene Glycol (Polyethylene Glycol 3350 17 Gm Packet) 17 gm PO DAILYP PRN PRN Reason: Constipation Potassium Chloride (Potassium Chloride 20 Meq Tablet) 40 meq PO UD PRN PRN Reason: Potssium is 3-3.5 Last Admin: 01/04/21 09:53 Dose: 40 meq Documented by: Potassium Chloride (Potassium Chloride 20 Meq Tablet) 40 meq PO UD PRN PRN Reason: Potassium < 3 Pramipexole Dihydrochloride (Pramipexole 0.25 Mg Tablet) 0.5 mg PO QAM [facility] Last Admin: 01/06/21 08:19 Dose: 0.5 mg Documented by: Pramipexole Dihydrochloride (Pramipexole 1 Mg Tablet) 1.5 mg PO HS [facility] Last Admin: 01/06/21 21:29 Dose: 1.5 mg Documented by: Senna (Sennosides 1 Tablet) 2 tab PO DAILYP PRN PRN Reason: Constipation Sertraline HCl (Sertraline 50 Mg Tablet) 25 mg PO QDAY [facility] Last Admin: 01/06/21 08:20 Dose: 25 mg Documented by: Sodium Chloride (0.9 % Sodium Chloride 10 Ml Syringe) 10 ml IV Q8 [facility] Last Admin: 01/07/21 05:58 Dose: Not Given Documented by: Spironolactone (Spironolactone 25 Mg Tablet) 25 mg PO QDAY [facility] Last Admin: 01/06/21 10:53 Dose: 25 mg Documented by: Throat Lozenges (Benzocaine/Menthol 1 Lozenge) 1 lozenge PO PRN PRN PRN Reason: Sore Throat Tiotropium [place] (Tiotropium [place] 18 Mcg Inhalant) 18 mcg INH DAILY [facility] Last Admin: 01/06/21 08:20 Dose: Not Given Documented by: A/P Narrative A/P Narrative: A: *Acute on chronic hypoxic respiratory failure: improved *Acute on chronic diastolic CHF w/mild pulm edema, mod MR: Improved -last echo showed improved EF from 48% to 69% -good UOP *Anasarca: improved *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 Tucker *Afib/SVT: follows with Dr. Myrick, on BB -was on anticoagulation in past (warfarin) but this was discontinued due to diffuse bruising/bleeding. *HTN: *Prediabetes: A1c 6.1 *Obesity: *Anemia, chronic *Venous stasis Dermatitis b/l LE's: P: -cont PO lasix/aldactone -monitor I/'s, UOP -O2 supp -restarted home ACEI, cont BB -cont home ASA/Plavix -cont home IH's, prn nebs -SSI -wound care, elevate legs -pt/ot -CM for placement needs -ppx:lovenox DNR Time Spent With Patient Time: Total time spent is greater than 50% in coordination of care (as documented) at patient's floor/unit and/or counseling patient:
[2021-01-07] MEDS: INSULIN LISPRO 1 UNIT/0.01 ML UNIT SQ SCH ×4 (08:26→21:41)
[2021-01-07] MEDS: DOCUSATE SODIUM 100 MG CAPSULE PO SCH ×2 (08:27→21:42)
[2021-01-07] MEDS: Fluticasone-Umeclidin-Vilanter [Trelegy Ellipta] Inhaler INH SCH (08:27)
[2021-01-07] MEDS: PRAMIPEXOLE 0.25 MG TABLET PO SCH (08:36)
[2021-01-07] MEDS: DULoxetine 30 MG CAPSULE PO SCH (08:37)
[2021-01-07] MEDS: LISINOPRIL 5 MG TABLET PO SCH (08:37)
[2021-01-07] MEDS: METOPROLOL SUCCINATE 25 MG TAB.XL.24H PO SCH ×2 (08:37→22:05)
[2021-01-07] MEDS: SERTRALINE 50 MG TABLET PO SCH (08:38)
[2021-01-07] MEDS: FUROSEMIDE 40 MG TABLET PO SCH ×2 (08:40→16:27)
[2021-01-07] MEDS: SPIRONOLACTONE 25 MG TABLET PO SCH (08:40)
[2021-01-07] MEDS: CLOPIDOGREL 75 MG TABLET PO SCH (08:40)
[2021-01-07] MEDS: ASPIRIN 81 MG TAB.CHEW PO SCH (08:42)
[2021-01-07] MEDS: ENOXAPARIN 40 MG/0.4 ML SYRINGE SQ SCH (08:42)
[2021-01-07] MEDS: TIOTROPIUM BROMIDE 18 MCG INHALANT INH SCH (13:03)
[2021-01-07] MEDS: MIRTAZAPINE 15 MG TABLET PO SCH (21:42)
[2021-01-07] MEDS: PRAMIPEXOLE 1 MG TABLET PO SCH (21:42)
[2021-01-08] MEDS: IBUPROFEN 600 MG TABLET PO PRN (05:05)
[2021-01-08] MEDS: 0.9 % SODIUM CHLORIDE 10 ML SYRINGE IV SCH ×3 (05:07→20:35)
--- NOTE | 2021-01-08 08:13 | Internal Med Progress Note ---
SUBJECTIVE Subjective Patient information: Note initiated : 01/08/21 at 8:10 am Service Date, if different from initiated Date: [] Patient: Leslie Maldonado a 80 y/o F admitted on 12/30/20 for Shortness of breath. Chief Complaint: [] Interval history: History of present illness: Ms. Maldonado is a 80 year old F Presents the ED with shortness of breath and increasing edema. Patient does have a cough but she said that is chronic and no change. She said she has had increasing edema for weeks. Has been short of breath for weeks. She was hospitalized a month ago for COPD and CHF. She is on 4 L of oxygen but with any exertion she will desat into the high 70s. She has a hard time ambulating across her room without becoming short of breath. She resides at [facility] assisted living [facility]. Chest x-ray with edema. Lactate elevated likely from hypoxia. Troponin negative. Patient states that her normal weight is 170 but the last time she was at that weight was 6 to 8 months ago. She states about a month ago she was 230. She measured back to 40 here. 12/31 States poor sleep but overall feeling a little better. Breathing a little bit better. Has good urine output. 01/01 Putting out good urine output. Patient feels less edematous and breathing easier. 01/02: Fever with T-max 38.1 overnight. Urine output at around 200 cc/h overnight. Mild shortness of breath. Respiratory wheezing at baseline. Denies chest pain. Of bilateral upper extremities pain from chronic osteomyelitis. 01/03: Afebrile overnight. Currently on 6L/min oxygen. Blood culture from 01/02 no growth to date. Mild shortness of breath. Respiratory wheezing at baseline. Denies chest pain. c/o bilateral upper extremities pain from chronic osteomyelitis. c/o general body weakness. 01/04: Afebrile overnight. Currently on 4L/min oxygen, which is her baseline. Blood culture from 01/02 no growth to date. Denies shortness of breath. Denies respiratory wheezing. Denies chest pain. Denies general body weakness. c/o bilateral upper extremities pain from chronic osteomyelitis. 01/05: Afebrile overnight. Currently on 4L/min oxygen, which is her baseline. Blood culture from 01/02 no growth to date. Denies shortness of breath. Denies respiratory wheezing. Denies chest pain. Denies general body weakness. c/o bilateral upper extremities pain from chronic osteomyelitis. 01/06: Afebrile overnight. Currently on 4L/min oxygen, which is her baseline. Blood culture from 01/02 no growth to date. Denies shortness of breath. Denies respiratory wheezing. Denies chest pain. Denies general body weakness. c/o bilateral upper extremities pain from chronic osteomyelitis. 01/07 No overnight event or new complaints. Overall patient feels better and has lost a lot of fluid weight. 01/08 Patient sitting up in chair eating breakfast. No new complaints overnight events. Review of Systems: denies headache/fever/chills/nausea/vomiting/chest or abdominal pain/diarrhea. Otherwise see above. Constitutional Vitals: Vital Signs Temp Pulse Resp BP Pulse Ox 98.6 F 79 20 128/68 90 01/08/21 07:46 01/08/21 03:55 01/08/21 07:46 01/08/21 07:46 01/08/21 07:46 Period Temp Pulse Resp BP Sys/Cuellar Pulse Ox Last 24 Hr 97.2 F-98.6 F 74-83 16-22 85-128/56-74 89-94 Intake and Output 01/07/21 01/08/21 01/08/21 21:59 05:59 13:59 Intake Total 120 200 Output Total 2950 350 Balance -2830 -150 Weight 104.553 kg Intake & Output: Intake & Output 01/07/21 01/08/21 01/08/21 21:59 05:59 13:59 Intake Total 120 200 Output Total 2950 350 Balance -2830 -150 Weight 104.553 kg Intake: Oral 120 200 Output: Urine Catheter Amount 2950 350 Other: Meal Lunch Percent of Meal Consumed 100% Feeding Ability Independent Urine Appearance Clear Clear Uretheral (Sharma) Clear Urine Color Dark Yellow Bright Yellow Uretheral (Sharma) Pale Urine Odor Strong Exam: General: Alert, Awake, No acute Distress, obese Eyes/N/T: EOMI, Head/Neck: neck supple, CV: irreg irreg, No murmurs, Pulm: Diminished b/l, mild bibasilar rales , no wheezing Abd: soft, nontender, +BS x4 Ext: no clubbing/cyanosis, b/l LE 1+ edema much improved, UE edema also improved Neuro: Alert, no focal deficits, moves all extremities, Skin: warm/dry OBJ DATA Labs CBC & Chem 7: 01/06/21 08:32 01/06/21 05:43 Labs: Abnormal Lab Results 01/06/21 01/06/21 01/05/21 08:32 05:43 05:40 WBC 4.2 L Hgb 9.9 L MCH 25.6 L MCHC 28.4 L RDW 17.5 H Lymph % (Auto) 13.2 L [place] % (Auto) 13.4 H Lymph # (Auto) 0.55 L Sodium 146 H Carbon Dioxide 36 H 35 H Alkaline Phosphatase 142 H 156 H Meds: Medications Acetaminophen (Acetaminophen 325 Mg Tablet) 650 mg PO Q6HP PRN PRN Reason: PAIN/FEVER > 101 Last Admin: 01/06/21 21:30 Dose: 650 mg Documented by: Hydrocodone Bitart/Acetaminophen (Hydrocodone/Apap 5/325mg Tablet) 1 tab PO QIDP PRN PRN Reason: pain Albuterol Sulfate (Albuterol Sulfate 200 Puff Inhaler) 2 puff INH Q6HP PRN PRN Reason: shortness of breath Albuterol/Ipratropium (Ipratropium/Albuterol 3 Ml Ampul.Neb) 3 ml NEB Q4HP PRN PRN Reason: Shortness Of Breath Aspirin (Aspirin 81 Mg Tab.Chew) 81 mg PO DAILY [facility] Last Admin: 01/07/21 08:42 Dose: 81 mg Documented by: Benzonatate (Benzonatate 100 Mg Capsule) 100 mg PO TIDP PRN PRN Reason: Cough Clopidogrel Bisulfate (Clopidogrel 75 Mg Tablet) 75 mg PO DAILY [facility] Last Admin: 01/07/21 08:40 Dose: 75 mg Documented by: Dextrose (Dextrose 50% 50 Ml Vial) 0 ml IV UD PRN PRN Reason: Hypoglycemia Diagnostic Test (Pha) (Accu-Chek 1 Each Strip) 1 each FS ACHS [facility] Last Admin: 01/07/21 21:41 Dose: Not Given Documented by: Docusate Sodium (Docusate Sodium 100 Mg Capsule) 100 mg PO BID [facility] Last Admin: 01/07/21 21:42 Dose: 100 mg Documented by: Duloxetine HCl (Duloxetine 30 Mg Capsule) 30 mg PO QDAY [facility] Last Admin: 01/07/21 08:37 Dose: 30 mg Documented by: Enoxaparin Sodium (Enoxaparin 40 Mg/0.4 Ml Syringe) 40 mg SQ DAILY [facility] Last Admin: 01/07/21 08:42 Dose: 40 mg Documented by: Furosemide (Furosemide 40 Mg Tablet) 40 mg PO BIDD [facility] Last Admin: 01/07/21 16:27 Dose: 40 mg Documented by: Glucose (Dextrose 31 Gm Oral.Susp) 15 gm PO PRN PRN PRN Reason: Hypoglycemia Guaifenesin (Guaifenesin 600 Mg Tab.Sr.12h) 600 mg PO BIDP PRN PRN Reason: Congestion Magnesium Sulfate (Magnesium Sulfate) 2 gm in 50 mls @ 50 mls/hr IV UD PRN PRN Reason: Magnesium </= 1.6 Potassium Chloride 40 meq/ (Dextrose) 520 mls @ 130 mls/hr IV UD PRN PRN Reason: Potassium < 3 Ibuprofen (Ibuprofen 600 Mg Tablet) 600 mg PO QIDP PRN; Protocol PRN Reason: PAIN/FEVER > 101 Last Admin: 01/08/21 05:05 Dose: 600 mg Documented by: Insulin Human Lispro (Insulin Lispro 1 Unit/0.01 Ml Unit) [address] [facility]; Protocol Last Admin: 01/07/21 21:41 Dose: Not Given Documented by: Lisinopril (Lisinopril 5 Mg Tablet) 5 mg PO QDAY [facility] Last Admin: 01/07/21 08:37 Dose: 5 mg Documented by: Metoprolol Succinate (Metoprolol Succinate 25 Mg Tab.Xl.24h) 25 mg PO BID [facility] Last Admin: 01/07/21 22:05 Dose: Not Given Documented by: Metoprolol Tartrate (Metoprolol Tartrate 5 Mg/5 Ml Vial) 5 mg IV Q2HP PRN PRN Reason: Tachyarrhythmias HR>110 Mirtazapine (Mirtazapine 15 Mg Tablet) 7.5 mg PO QHS [facility] Last Admin: 01/07/21 21:42 Dose: 7.5 mg Documented by: Ondansetron HCl (Ondansetron 4 Mg/2 Ml Vial) 4 mg IV Q4HP PRN PRN Reason: Nausea And Vomiting Fluticasone- Umeclidin-Vilanter [ Trelegy Ellipta] Inhaler 1 dose INH Q24H [facility] Last Admin: 01/07/21 08:27 Dose: Not Given Documented by: Polyethylene Glycol (Polyethylene Glycol 3350 17 Gm Packet) 17 gm PO DAILYP PRN PRN Reason: Constipation Potassium Chloride (Potassium Chloride 20 Meq Tablet) 40 meq PO UD PRN PRN Reason: Potssium is 3-3.5 Last Admin: 01/04/21 09:53 Dose: 40 meq Documented by: Potassium Chloride (Potassium Chloride 20 Meq Tablet) 40 meq PO UD PRN PRN Reason: Potassium < 3 Pramipexole Dihydrochloride (Pramipexole 0.25 Mg Tablet) 0.5 mg PO QAM [facility] Last Admin: 01/07/21 08:36 Dose: 0.5 mg Documented by: Pramipexole Dihydrochloride (Pramipexole 1 Mg Tablet) 1.5 mg PO HS [facility] Last Admin: 01/07/21 21:42 Dose: 1.5 mg Documented by: Senna (Sennosides 1 Tablet) 2 tab PO DAILYP PRN PRN Reason: Constipation Sertraline HCl (Sertraline 50 Mg Tablet) 25 mg PO QDAY [facility] Last Admin: 01/07/21 08:38 Dose: 25 mg Documented by: Sodium Chloride (0.9 % Sodium Chloride 10 Ml Syringe) 10 ml IV Q8 [facility] Last Admin: 01/08/21 05:07 Dose: 10 ml Documented by: Spironolactone (Spironolactone 25 Mg Tablet) 25 mg PO QDAY [facility] Last Admin: 01/07/21 08:40 Dose: 25 mg Documented by: Throat Lozenges (Benzocaine/Menthol 1 Lozenge) 1 lozenge PO PRN PRN PRN Reason: Sore Throat Tiotropium [place] (Tiotropium [place] 18 Mcg Inhalant) 18 mcg INH DAILY [facility] Last Admin: 01/07/21 13:03 Dose: Not Given Documented by: A/P Narrative A/P Narrative: A: *Acute on chronic hypoxic respiratory failure: improved -on baseline O2 regimen *Acute on chronic diastolic CHF w/mild pulm edema, mod MR: Improved -last echo showed improved EF from 48% to 69% -good UOP *Anasarca: improved *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 Tucker *Afib/SVT: follows with Dr. Myrick, on BB -was on anticoagulation in past (warfarin) but this was discontinued due to diffuse bruising/bleeding. *HTN: *Prediabetes: A1c 6.1 *Obesity: *Anemia, chronic *Venous stasis Dermatitis b/l LE's: P: -cont PO lasix/aldactone -monitor I/'s, UOP -O2 supp -restarted home ACEI at lower dose, cont BB -cont home ASA/Plavix -cont home IH's, prn nebs -SSI -wound care, elevate legs -pt/ot -CM for placement needs -ppx:lovenox DNR Time Spent With Patient Time: Total time spent is greater than 50% in coordination of care (as documented) at patient's floor/unit and/or counseling patient:
[2021-01-08 09:50] LABS: Blood Urea Nitrogen 13 mg/dL (8-23); Calcium 9.4 mg/dL (8.6-10.4); Carbon Dioxide 40 mmol/L (22-30); Chloride 93 mmol/L (96-108); Glomerular Filtration Rate 87; Glucose 122 mg/dL (70-105)
[2021-01-08] MEDS: Fluticasone-Umeclidin-Vilanter [Trelegy Ellipta] Inhaler INH SCH (10:19)
[2021-01-08] MEDS: INSULIN LISPRO 1 UNIT/0.01 ML UNIT SQ SCH (10:19)
[2021-01-08] MEDS: TIOTROPIUM BROMIDE 18 MCG INHALANT INH SCH (10:20)
[2021-01-08] MEDS ORDERED: acetaZOLAMIDE SOD 500 MG VIAL IV ONE (10:21)
[2021-01-08] MEDS: FUROSEMIDE 40 MG TABLET PO SCH (10:21)
[2021-01-08] MEDS: POTASSIUM CHLORIDE 20 MEQ TABLET PO PRN (10:54)
[2021-01-08] MEDS: CLOPIDOGREL 75 MG TABLET PO SCH (10:56)
[2021-01-08] MEDS: SPIRONOLACTONE 25 MG TABLET PO SCH (10:56)
[2021-01-08] MEDS: LISINOPRIL 5 MG TABLET PO SCH (10:57)
[2021-01-08] MEDS: SERTRALINE 50 MG TABLET PO SCH (10:57)
[2021-01-08] MEDS: DULoxetine 30 MG CAPSULE PO SCH (10:58)
[2021-01-08] MEDS: DOCUSATE SODIUM 100 MG CAPSULE PO SCH ×2 (10:58→20:34)
[2021-01-08] MEDS: PRAMIPEXOLE 0.25 MG TABLET PO SCH (10:59)
[2021-01-08] MEDS: ASPIRIN 81 MG TAB.CHEW PO SCH (10:59)
[2021-01-08] MEDS: METOPROLOL SUCCINATE 25 MG TAB.XL.24H PO SCH ×2 (10:59→20:35)
[2021-01-08] MEDS: ENOXAPARIN 40 MG/0.4 ML SYRINGE SQ SCH (11:03)
[2021-01-08] MEDS: PRAMIPEXOLE 1 MG TABLET PO SCH (20:35)
[2021-01-08] MEDS: MIRTAZAPINE 15 MG TABLET PO SCH (20:35)
[2021-01-09] MEDS: 0.9 % SODIUM CHLORIDE 10 ML SYRINGE IV SCH ×3 (05:56→21:38)
[2021-01-09 06:56] LABS: Blood Urea Nitrogen 11 mg/dL (8-23); Calcium 10.3 mg/dL (8.6-10.4); Carbon Dioxide 36 mmol/L (22-30); Chloride 93 mmol/L (96-108); Glomerular Filtration Rate 83; Glucose 90 mg/dL (70-105)
[2021-01-09] MEDS ORDERED: POTASSIUM CHLORIDE 20 MEQ TABLET PO ONE (08:11)
--- NOTE | 2021-01-09 08:13 | Internal Med Progress Note ---
SUBJECTIVE Subjective Patient information: Note initiated : 01/09/21 at 8:10 am Service Date, if different from initiated Date: [] Patient: Leslie Maldonado a 80 y/o F admitted on 12/30/20 for Shortness of breath. Chief Complaint: [] Interval history: History of present illness: Ms. Maldonado is a 80 year old F Presents the ED with shortness of breath and increasing edema. Patient does have a cough but she said that is chronic and no change. She said she has had increasing edema for weeks. Has been short of breath for weeks. She was hospitalized a month ago for COPD and CHF. She is on 4 L of oxygen but with any exertion she will desat into the high 70s. She has a hard time ambulating across her room without becoming short of breath. She resides at [facility] assisted living [facility]. Chest x-ray with edema. Lactate elevated likely from hypoxia. Troponin negative. Patient states that her normal weight is 170 but the last time she was at that weight was 6 to 8 months ago. She states about a month ago she was 230. She measured back to 40 here. 12/31 States poor sleep but overall feeling a little better. Breathing a little bit better. Has good urine output. 01/01 Putting out good urine output. Patient feels less edematous and breathing easier. 01/02: Fever with T-max 38.1 overnight. Urine output at around 200 cc/h overnight. Mild shortness of breath. Respiratory wheezing at baseline. Denies chest pain. Of bilateral upper extremities pain from chronic osteomyelitis. 01/03: Afebrile overnight. Currently on 6L/min oxygen. Blood culture from 01/02 no growth to date. Mild shortness of breath. Respiratory wheezing at baseline. Denies chest pain. c/o bilateral upper extremities pain from chronic osteomyelitis. c/o general body weakness. 01/04: Afebrile overnight. Currently on 4L/min oxygen, which is her baseline. Blood culture from 01/02 no growth to date. Denies shortness of breath. Denies respiratory wheezing. Denies chest pain. Denies general body weakness. c/o bilateral upper extremities pain from chronic osteomyelitis. 01/05: Afebrile overnight. Currently on 4L/min oxygen, which is her baseline. Blood culture from 01/02 no growth to date. Denies shortness of breath. Denies respiratory wheezing. Denies chest pain. Denies general body weakness. c/o bilateral upper extremities pain from chronic osteomyelitis. 01/06: Afebrile overnight. Currently on 4L/min oxygen, which is her baseline. Blood culture from 01/02 no growth to date. Denies shortness of breath. Denies respiratory wheezing. Denies chest pain. Denies general body weakness. c/o bilateral upper extremities pain from chronic osteomyelitis. 01/07 No overnight event or new complaints. Overall patient feels better and has lost a lot of fluid weight. 01/08 Patient sitting up in chair eating breakfast. No new complaints overnight events. 01/09 No new events or complaints. Awaiting placement. Review of Systems: denies headache/fever/chills/nausea/vomiting/chest or abdominal pain/diarrhea. Otherwise see above. Constitutional Vitals: Vital Signs Temp Pulse Resp BP Pulse Ox 97 F 85 18 129/71 92 01/09/21 06:54 01/09/21 06:54 01/09/21 07:17 01/09/21 06:54 01/09/21 07:17 Period Temp Pulse Resp BP Sys/Cuellar Pulse Ox Last 24 Hr 97 F-98.6 F 49-85 16-18 85-129/60-74 92-96 Intake and Output 01/08/21 01/09/21 01/09/21 21:59 05:59 13:59 Intake Total 1000 200 Output Total 1725 425 Balance -725 -225 Weight 105.375 kg Intake & Output: Intake & Output 01/08/21 01/09/21 01/09/21 21:59 05:59 13:59 Intake Total 1000 200 Output Total 1725 425 Balance -725 -225 Weight 105.375 kg Intake: Oral 1000 200 Output: Urine Catheter Amount 1725 425 Other: Meal Dinner Percent of Meal Consumed 100% Feeding Ability Independent Urine Appearance Sediment Sediment Clear Sediment Uretheral (Sharma) Sediment Clear Sediment Urine Color Straw Straw Straw Uretheral (Sharma) Bright Yellow Straw Urine Odor Normal Exam: General: Alert, Awake, No acute Distress, obese Eyes/N/T: EOMI, Head/Neck: neck supple, CV: irreg irreg, No murmurs, Pulm: Diminished b/l, mild bibasilar rales , no wheezing Abd: soft, nontender, +BS x4 Ext: no clubbing/cyanosis, b/l LE 1+ edema much improved, UE edema also improved Neuro: Alert, no focal deficits, moves all extremities, Skin: warm/dry OBJ DATA Labs CBC & Chem 7: 01/06/21 08:32 01/09/21 05:35 Labs: Abnormal Lab Results 01/09/21 01/08/21 01/06/21 05:35 08:30 08:32 WBC 4.2 L Hgb 9.9 L MCH 25.6 L MCHC 28.4 L RDW 17.5 H Lymph % (Auto) 13.2 L [place] % (Auto) 13.4 H Lymph # (Auto) 0.55 L Potassium 3.1 L 2.9 L* Chloride 93 L 93 L Carbon Dioxide 36 H 40 H Glucose 122 H Meds: Medications Acetaminophen (Acetaminophen 325 Mg Tablet) 650 mg PO Q6HP PRN PRN Reason: PAIN/FEVER > 101 Last Admin: 01/06/21 21:30 Dose: 650 mg Documented by: Hydrocodone Bitart/Acetaminophen (Hydrocodone/Apap 5/325mg Tablet) 1 tab PO QIDP PRN PRN Reason: pain Albuterol Sulfate (Albuterol Sulfate 200 Puff Inhaler) 2 puff INH Q6HP PRN PRN Reason: shortness of breath Albuterol/Ipratropium (Ipratropium/Albuterol 3 Ml Ampul.Neb) 3 ml NEB Q4HP PRN PRN Reason: Shortness Of Breath Aspirin (Aspirin 81 Mg Tab.Chew) 81 mg PO DAILY [facility] Last Admin: 01/08/21 10:59 Dose: 81 mg Documented by: Benzonatate (Benzonatate 100 Mg Capsule) 100 mg PO TIDP PRN PRN Reason: Cough Clopidogrel Bisulfate (Clopidogrel 75 Mg Tablet) 75 mg PO DAILY [facility] Last Admin: 01/08/21 10:56 Dose: 75 mg Documented by: Dextrose (Dextrose 50% 50 Ml Vial) 0 ml IV UD PRN PRN Reason: Hypoglycemia Docusate Sodium (Docusate Sodium 100 Mg Capsule) 100 mg PO BID [facility] Last Admin: 01/08/21 20:34 Dose: 100 mg Documented by: Duloxetine HCl (Duloxetine 30 Mg Capsule) 30 mg PO QDAY [facility] Last Admin: 01/08/21 10:58 Dose: 30 mg Documented by: Enoxaparin Sodium (Enoxaparin 40 Mg/0.4 Ml Syringe) 40 mg SQ DAILY [facility] Last Admin: 01/08/21 11:03 Dose: 40 mg Documented by: Glucose (Dextrose 31 Gm Oral.Susp) 15 gm PO PRN PRN PRN Reason: Hypoglycemia Guaifenesin (Guaifenesin 600 Mg Tab.Sr.12h) 600 mg PO BIDP PRN PRN Reason: Congestion Magnesium Sulfate (Magnesium Sulfate) 2 gm in 50 mls @ 50 mls/hr IV UD PRN PRN Reason: Magnesium </= 1.6 Potassium Chloride 40 meq/ (Dextrose) 520 mls @ 130 mls/hr IV UD PRN PRN Reason: Potassium < 3 Ibuprofen (Ibuprofen 600 Mg Tablet) 600 mg PO QIDP PRN; Protocol PRN Reason: PAIN/FEVER > 101 Last Admin: 01/08/21 05:05 Dose: 600 mg Documented by: Lisinopril (Lisinopril 5 Mg Tablet) 2.5 mg PO QDAY [facility] Last Admin: 01/08/21 10:57 Dose: 2.5 mg Documented by: Metoprolol Succinate (Metoprolol Succinate 25 Mg Tab.Xl.24h) 25 mg PO BID [facility] Last Admin: 01/08/21 20:35 Dose: 25 mg Documented by: Metoprolol Tartrate (Metoprolol Tartrate 5 Mg/5 Ml Vial) 5 mg IV Q2HP PRN PRN Reason: Tachyarrhythmias HR>110 Mirtazapine (Mirtazapine 15 Mg Tablet) 7.5 mg PO QHS [facility] Last Admin: 01/08/21 20:35 Dose: 7.5 mg Documented by: Ondansetron HCl (Ondansetron 4 Mg/2 Ml Vial) 4 mg IV Q4HP PRN PRN Reason: Nausea And Vomiting Fluticasone- Umeclidin-Vilanter [ Trelegy Ellipta] Inhaler 1 dose INH Q24H [facility] Last Admin: 01/08/21 10:19 Dose: Not Given Documented by: Polyethylene Glycol (Polyethylene Glycol 3350 17 Gm Packet) 17 gm PO DAILYP PRN PRN Reason: Constipation Potassium Chloride (Potassium Chloride 20 Meq Tablet) 40 meq PO UD PRN PRN Reason: Potssium is 3-3.5 Last Admin: 01/08/21 10:54 Dose: 40 meq Documented by: Potassium Chloride (Potassium Chloride 20 Meq Tablet) 40 meq PO UD PRN PRN Reason: Potassium < 3 Pramipexole Dihydrochloride (Pramipexole 0.25 Mg Tablet) 0.5 mg PO QAM [facility] Last Admin: 01/08/21 10:59 Dose: 0.5 mg Documented by: Pramipexole Dihydrochloride (Pramipexole 1 Mg Tablet) 1.5 mg PO HS [facility] Last Admin: 01/08/21 20:35 Dose: 1.5 mg Documented by: Senna (Sennosides 1 Tablet) 2 tab PO DAILYP PRN PRN Reason: Constipation Sertraline HCl (Sertraline 50 Mg Tablet) 25 mg PO QDAY [facility] Last Admin: 01/08/21 10:57 Dose: 25 mg Documented by: Sodium Chloride (0.9 % Sodium Chloride 10 Ml Syringe) 10 ml IV Q8 [facility] Last Admin: 01/09/21 05:56 Dose: 10 ml Documented by: Spironolactone (Spironolactone 25 Mg Tablet) 25 mg PO QDAY [facility] Last Admin: 01/08/21 10:56 Dose: 25 mg Documented by: Throat Lozenges (Benzocaine/Menthol 1 Lozenge) 1 lozenge PO PRN PRN PRN Reason: Sore Throat Tiotropium [place] (Tiotropium [place] 18 Mcg Inhalant) 18 mcg INH DAILY [facility] Last Admin: 01/08/21 10:20 Dose: Not Given Documented by: A/P Narrative A/P Narrative: A: *Acute on chronic hypoxic respiratory failure: improved -on baseline O2 regimen *Acute on chronic diastolic CHF w/mild pulm edema, mod MR: Improved -last echo showed improved EF from 48% to 69% -good UOP *Anasarca: improved *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 Tucker *Afib/SVT: follows with Dr. Myrick, on BB -was on anticoagulation in past (warfarin) but this was discontinued due to diffuse bruising/bleeding. *HTN: *Prediabetes: A1c 6.1 *Obesity: *Anemia, chronic *Venous stasis Dermatitis b/l LE's: P: -cont aldactone -monitor I/'s, UOP -O2 supp -restarted home ACEI at lower dose, cont BB -cont home ASA/Plavix -cont home IH's, prn nebs -SSI -wound care, elevate legs -pt/ot -CM for placement needs -ppx:lovenox DNR Time Spent With Patient Time: Total time spent is greater than 50% in coordination of care (as documented) at patient's floor/unit and/or counseling patient:
[2021-01-09] MEDS: SPIRONOLACTONE 25 MG TABLET PO SCH (09:07)
[2021-01-09] MEDS: ASPIRIN 81 MG TAB.CHEW PO SCH (09:07)
[2021-01-09] MEDS: IBUPROFEN 600 MG TABLET PO PRN ×2 (09:07→21:37)
[2021-01-09] MEDS: DOCUSATE SODIUM 100 MG CAPSULE PO SCH ×2 (09:07→21:38)
[2021-01-09] MEDS: METOPROLOL SUCCINATE 25 MG TAB.XL.24H PO SCH ×2 (09:07→21:38)
[2021-01-09] MEDS: ACETAMINOPHEN 325 MG TABLET PO PRN ×2 (09:07→21:37)
[2021-01-09] MEDS: LISINOPRIL 5 MG TABLET PO SCH (09:08)
[2021-01-09] MEDS: CLOPIDOGREL 75 MG TABLET PO SCH (09:08)
[2021-01-09] MEDS: ENOXAPARIN 40 MG/0.4 ML SYRINGE SQ SCH (09:08)
[2021-01-09] MEDS: DULoxetine 30 MG CAPSULE PO SCH (09:08)
[2021-01-09] MEDS: PRAMIPEXOLE 0.25 MG TABLET PO SCH (09:08)
[2021-01-09] MEDS: SERTRALINE 50 MG TABLET PO SCH (09:08)
[2021-01-09] MEDS: TIOTROPIUM BROMIDE 18 MCG INHALANT INH SCH (09:27)
[2021-01-09] MEDS: Fluticasone-Umeclidin-Vilanter [Trelegy Ellipta] Inhaler INH SCH (09:27)
[2021-01-09] MEDS: MIRTAZAPINE 15 MG TABLET PO SCH (21:37)
[2021-01-09] MEDS: PRAMIPEXOLE 1 MG TABLET PO SCH (21:37)
[2021-01-10] MEDS: 0.9 % SODIUM CHLORIDE 10 ML SYRINGE IV SCH ×3 (06:11→21:08)
[2021-01-10] MEDS: SPIRONOLACTONE 25 MG TABLET PO SCH (07:57)
[2021-01-10] MEDS: DULoxetine 30 MG CAPSULE PO SCH (07:57)
[2021-01-10] MEDS: CLOPIDOGREL 75 MG TABLET PO SCH (07:57)
[2021-01-10] MEDS: PRAMIPEXOLE 0.25 MG TABLET PO SCH (07:57)
[2021-01-10] MEDS: ASPIRIN 81 MG TAB.CHEW PO SCH (07:57)
[2021-01-10] MEDS: DOCUSATE SODIUM 100 MG CAPSULE PO SCH ×2 (07:57→21:04)
[2021-01-10] MEDS: METOPROLOL SUCCINATE 25 MG TAB.XL.24H PO SCH ×2 (07:57→21:04)
[2021-01-10] MEDS: LISINOPRIL 5 MG TABLET PO SCH (07:58)
[2021-01-10] MEDS: IBUPROFEN 600 MG TABLET PO PRN ×2 (07:58→21:04)
[2021-01-10] MEDS: SERTRALINE 50 MG TABLET PO SCH (07:58)
[2021-01-10] MEDS: ACETAMINOPHEN 325 MG TABLET PO PRN ×2 (07:58→21:03)
--- NOTE | 2021-01-10 08:16 | Internal Med Progress Note ---
SUBJECTIVE Subjective Patient information: Note initiated : 01/10/21 at 8:14 am Service Date, if different from initiated Date: [] Patient: Leslie Maldonado a 80 y/o F admitted on 12/30/20 for Shortness of breath. Chief Complaint: [] Interval history: History of present illness: Ms. Maldonado is a 80 year old F Presents the ED with shortness of breath and increasing edema. Patient does have a cough but she said that is chronic and no change. She said she has had increasing edema for weeks. Has been short of breath for weeks. She was hospitalized a month ago for COPD and CHF. She is on 4 L of oxygen but with any exertion she will desat into the high 70s. She has a hard time ambulating across her room without becoming short of breath. She resides at [facility] assisted living [facility]. Chest x-ray with edema. Lactate elevated likely from hypoxia. Troponin negative. Patient states that her normal weight is 170 but the last time she was at that weight was 6 to 8 months ago. She states about a month ago she was 230. She measured back to 40 here. 12/31 States poor sleep but overall feeling a little better. Breathing a little bit better. Has good urine output. 01/01 Putting out good urine output. Patient feels less edematous and breathing easier. 01/02: Fever with T-max 38.1 overnight. Urine output at around 200 cc/h overnight. Mild shortness of breath. Respiratory wheezing at baseline. Denies chest pain. Of bilateral upper extremities pain from chronic osteomyelitis. 01/03: Afebrile overnight. Currently on 6L/min oxygen. Blood culture from 01/02 no growth to date. Mild shortness of breath. Respiratory wheezing at baseline. Denies chest pain. c/o bilateral upper extremities pain from chronic osteomyelitis. c/o general body weakness. 01/04: Afebrile overnight. Currently on 4L/min oxygen, which is her baseline. Blood culture from 01/02 no growth to date. Denies shortness of breath. Denies respiratory wheezing. Denies chest pain. Denies general body weakness. c/o bilateral upper extremities pain from chronic osteomyelitis. 01/05: Afebrile overnight. Currently on 4L/min oxygen, which is her baseline. Blood culture from 01/02 no growth to date. Denies shortness of breath. Denies respiratory wheezing. Denies chest pain. Denies general body weakness. c/o bilateral upper extremities pain from chronic osteomyelitis. 01/06: Afebrile overnight. Currently on 4L/min oxygen, which is her baseline. Blood culture from 01/02 no growth to date. Denies shortness of breath. Denies respiratory wheezing. Denies chest pain. Denies general body weakness. c/o bilateral upper extremities pain from chronic osteomyelitis. 01/07 No overnight event or new complaints. Overall patient feels better and has lost a lot of fluid weight. 01/08 Patient sitting up in chair eating breakfast. No new complaints overnight events. 01/09 No new events or complaints. Awaiting placement. 01/10 No overnight event or new complaints. Placement likely Monday. Review of Systems: denies headache/fever/chills/nausea/vomiting/chest or abdominal pain/diarrhea. Otherwise see above. Constitutional Vitals: Vital Signs Temp Pulse Resp BP Pulse Ox 97.7 F 83 16 132/78 94 01/10/21 07:58 01/10/21 07:21 01/10/21 07:21 01/10/21 07:21 01/10/21 07:21 Period Temp Pulse Resp BP Sys/Cuellar Pulse Ox Last 24 Hr 97 F-97.8 F 49-83 14-18 88-132/58-79 91-94 Intake and Output 01/09/21 01/10/21 01/10/21 21:59 05:59 13:59 Intake Total 200 400 Output Total 700 400 Balance -500 0 Weight 104.78 kg Intake & Output: Intake & Output 01/09/21 01/10/21 01/10/21 21:59 05:59 13:59 Intake Total 200 400 Output Total 700 400 Balance -500 0 Weight 104.78 kg Intake: Oral 200 400 Output: Urine Catheter Amount 700 400 Other: Urine Appearance Cloudy Cloudy Urine Color Dark Yellow Dark Yellow Urine Odor Strong Exam: General: Alert, Awake, No acute Distress, obese Eyes/N/T: EOMI, Head/Neck: neck supple, CV: irreg irreg, No murmurs, Pulm: Diminished b/l, mild bibasilar rales , no wheezing Abd: soft, nontender, +BS x4 Ext: no clubbing/cyanosis, b/l LE 1+ edema much improved, UE edema also improved Neuro: Alert, no focal deficits, moves all extremities, Skin: warm/dry OBJ DATA Labs CBC & Chem 7: 01/06/21 08:32 01/09/21 05:35 Labs: Abnormal Lab Results 01/09/21 01/08/21 05:35 08:30 Potassium 3.1 L 2.9 L* Chloride 93 L 93 L Carbon Dioxide 36 H 40 H Glucose 122 H Meds: Medications Acetaminophen (Acetaminophen 325 Mg Tablet) 650 mg PO Q6HP PRN PRN Reason: PAIN/FEVER > 101 Last Admin: 01/10/21 07:58 Dose: 650 mg Documented by: Hydrocodone Bitart/Acetaminophen (Hydrocodone/Apap 5/325mg Tablet) 1 tab PO QIDP PRN PRN Reason: pain Albuterol Sulfate (Albuterol Sulfate 200 Puff Inhaler) 2 puff INH Q6HP PRN PRN Reason: shortness of breath Albuterol/Ipratropium (Ipratropium/Albuterol 3 Ml Ampul.Neb) 3 ml NEB Q4HP PRN PRN Reason: Shortness Of Breath Aspirin (Aspirin 81 Mg Tab.Chew) 81 mg PO DAILY [facility] Last Admin: 01/10/21 07:57 Dose: 81 mg Documented by: Benzonatate (Benzonatate 100 Mg Capsule) 100 mg PO TIDP PRN PRN Reason: Cough Clopidogrel Bisulfate (Clopidogrel 75 Mg Tablet) 75 mg PO DAILY [facility] Last Admin: 01/10/21 07:57 Dose: 75 mg Documented by: Dextrose (Dextrose 50% 50 Ml Vial) 0 ml IV UD PRN PRN Reason: Hypoglycemia Docusate Sodium (Docusate Sodium 100 Mg Capsule) 100 mg PO BID [facility] Last Admin: 01/10/21 07:57 Dose: 100 mg Documented by: Duloxetine HCl (Duloxetine 30 Mg Capsule) 30 mg PO QDAY [facility] Last Admin: 01/10/21 07:57 Dose: 30 mg Documented by: Enoxaparin Sodium (Enoxaparin 40 Mg/0.4 Ml Syringe) 40 mg SQ DAILY [facility] Last Admin: 01/09/21 09:08 Dose: 40 mg Documented by: Glucose (Dextrose 31 Gm Oral.Susp) 15 gm PO PRN PRN PRN Reason: Hypoglycemia Guaifenesin (Guaifenesin 600 Mg Tab.Sr.12h) 600 mg PO BIDP PRN PRN Reason: Congestion Magnesium Sulfate (Magnesium Sulfate) 2 gm in 50 mls @ 50 mls/hr IV UD PRN PRN Reason: Magnesium </= 1.6 Potassium Chloride 40 meq/ (Dextrose) 520 mls @ 130 mls/hr IV UD PRN PRN Reason: Potassium < 3 Ibuprofen (Ibuprofen 600 Mg Tablet) 600 mg PO QIDP PRN; Protocol PRN Reason: PAIN/FEVER > 101 Last Admin: 01/10/21 07:58 Dose: 600 mg Documented by: Lisinopril (Lisinopril 5 Mg Tablet) 2.5 mg PO QDAY [facility] Last Admin: 01/10/21 07:58 Dose: 2.5 mg Documented by: Metoprolol Succinate (Metoprolol Succinate 25 Mg Tab.Xl.24h) 25 mg PO BID [facility] Last Admin: 01/10/21 07:57 Dose: 25 mg Documented by: Metoprolol Tartrate (Metoprolol Tartrate 5 Mg/5 Ml Vial) 5 mg IV Q2HP PRN PRN Reason: Tachyarrhythmias HR>110 Mirtazapine (Mirtazapine 15 Mg Tablet) 7.5 mg PO QHS [facility] Last Admin: 01/09/21 21:37 Dose: 7.5 mg Documented by: Ondansetron HCl (Ondansetron 4 Mg/2 Ml Vial) 4 mg IV Q4HP PRN PRN Reason: Nausea And Vomiting Fluticasone- Umeclidin-Vilanter [ Trelegy Ellipta] Inhaler 1 dose INH Q24H [facility] Last Admin: 01/09/21 09:27 Dose: Not Given Documented by: Polyethylene Glycol (Polyethylene Glycol 3350 17 Gm Packet) 17 gm PO DAILYP PRN PRN Reason: Constipation Potassium Chloride (Potassium Chloride 20 Meq Tablet) 40 meq PO UD PRN PRN Reason: Potssium is 3-3.5 Last Admin: 01/08/21 10:54 Dose: 40 meq Documented by: Potassium Chloride (Potassium Chloride 20 Meq Tablet) 40 meq PO UD PRN PRN Reason: Potassium < 3 Pramipexole Dihydrochloride (Pramipexole 0.25 Mg Tablet) 0.5 mg PO QAM [facility] Last Admin: 01/10/21 07:57 Dose: 0.5 mg Documented by: Pramipexole Dihydrochloride (Pramipexole 1 Mg Tablet) 1.5 mg PO HS [facility] Last Admin: 01/09/21 21:37 Dose: 1.5 mg Documented by: Senna (Sennosides 1 Tablet) 2 tab PO DAILYP PRN PRN Reason: Constipation Sertraline HCl (Sertraline 50 Mg Tablet) 25 mg PO QDAY [facility] Last Admin: 01/10/21 07:58 Dose: 25 mg Documented by: Sodium Chloride (0.9 % Sodium Chloride 10 Ml Syringe) 10 ml IV Q8 [facility] Last Admin: 01/10/21 06:11 Dose: Not Given Documented by: Spironolactone (Spironolactone 25 Mg Tablet) 25 mg PO QDAY [facility] Last Admin: 01/10/21 07:57 Dose: 25 mg Documented by: Throat Lozenges (Benzocaine/Menthol 1 Lozenge) 1 lozenge PO PRN PRN PRN Reason: Sore Throat Tiotropium [place] (Tiotropium [place] 18 Mcg Inhalant) 18 mcg INH DAILY [facility] Last Admin: 01/09/21 09:27 Dose: Not Given Documented by: A/P Narrative A/P Narrative: A: *Acute on chronic hypoxic respiratory failure: improved -on baseline O2 regimen *Acute on chronic diastolic CHF w/mild pulm edema, mod MR: Improved -last echo showed improved EF from 48% to 69% -good UOP *Anasarca: improved *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 Tucker *Afib/SVT: follows with Dr. Myrick, on BB -was on anticoagulation in past (warfarin) but this was discontinued due to diffuse bruising/bleeding. *HTN: *Prediabetes: A1c 6.1 *Obesity: *Anemia, chronic *Venous stasis Dermatitis b/l LE's: P: -cont aldactone -monitor I/'s, UOP -O2 supp -restarted home ACEI at lower dose, cont BB -cont home ASA/Plavix -cont home IH's, prn nebs -SSI -wound care, elevate legs -pt/ot -CM for placement needs -ppx:lovenox DNR Time Spent With Patient Time: Total time spent is greater than 50% in coordination of care (as documented) at patient's floor/unit and/or counseling patient:
[2021-01-10 09:37] LABS: Blood Urea Nitrogen 15 mg/dL (8-23); Calcium 10.2 mg/dL (8.6-10.4); Carbon Dioxide 35 mmol/L (22-30); Chloride 93 mmol/L (96-108); Glomerular Filtration Rate 83; Glucose 97 mg/dL (70-105)
[2021-01-10] MEDS: TIOTROPIUM BROMIDE 18 MCG INHALANT INH SCH (10:17)
[2021-01-10] MEDS: Fluticasone-Umeclidin-Vilanter [Trelegy Ellipta] Inhaler INH SCH (10:18)
[2021-01-10] MEDS: ENOXAPARIN 40 MG/0.4 ML SYRINGE SQ SCH (10:18)
[2021-01-10] MEDS: PRAMIPEXOLE 1 MG TABLET PO SCH (21:04)
[2021-01-10] MEDS: MIRTAZAPINE 15 MG TABLET PO SCH (21:05)
[2021-01-11] MEDS: 0.9 % SODIUM CHLORIDE 10 ML SYRINGE IV SCH (06:03)
[2021-01-11] MEDS: TIOTROPIUM BROMIDE 18 MCG INHALANT INH SCH (08:53)
[2021-01-11] MEDS: DULoxetine 30 MG CAPSULE PO SCH (08:56)
[2021-01-11] MEDS: SERTRALINE 50 MG TABLET PO SCH (08:56)
[2021-01-11] MEDS: SPIRONOLACTONE 25 MG TABLET PO SCH (08:56)
[2021-01-11] MEDS: METOPROLOL SUCCINATE 25 MG TAB.XL.24H PO SCH (08:56)
[2021-01-11] MEDS: PRAMIPEXOLE 0.25 MG TABLET PO SCH (08:57)
[2021-01-11] MEDS: Fluticasone-Umeclidin-Vilanter [Trelegy Ellipta] Inhaler INH SCH (08:57)
[2021-01-11] MEDS: DOCUSATE SODIUM 100 MG CAPSULE PO SCH (08:57)
[2021-01-11] MEDS: ASPIRIN 81 MG TAB.CHEW PO SCH (08:57)
[2021-01-11] MEDS: ENOXAPARIN 40 MG/0.4 ML SYRINGE SQ SCH (08:57)
[2021-01-11] MEDS: LISINOPRIL 5 MG TABLET PO SCH ×2 (08:57→08:58)
[2021-01-11] MEDS: CLOPIDOGREL 75 MG TABLET PO SCH (08:57)
== END 2021-01-11 14:29 | DRG 189 ==
LOC: ED 10:38 → ICU 20:04 → MEDSUR 01-03 07:05
PROVIDERS: ADMIT Internal Medicine; ATTEND Internal Medicine